=== PATIENT | female | born 1945 | race Caucasian/White ===

== ENCOUNTER 2021-11-01 08:15 | Outpatient (CLI) | payer MEDICARE, BC, SELFPAY ==
--- OUTSIDE RECORDS SUMMARY | 2021-11-01 08:18 | XMS_ITS | Encounter Summary ---
:1945 Author Organization [facility] Address [address] [place] [address] Care Team Providers Name Role Phone Unavailable Primary Care Provider Unavailable Reason for Referral Outpatient (Routine) - Closed Specialty Diagnoses / Procedures Referred By Contact Refer red To Contact Radiation Oncology Allison Campos [facility] M[facility] [address] [place] [address] Referral ID Status Reason Start Date Expiration Date Visits Requ ested Visits Authorized [id number] Closed 08/09/2020 08/09/2021 1 1 Scheduling Instructions Please schedule after [id number] 10 2020 Encounter Details Date Type Department Care Team Description 08/09/2020 Clinical Communication Department of [facility] in [place] [id number] [place] [id number] Social History Tobacco Use Types Packs/Day Years Used Date Smoking Tobacco: Never Assessed Sex Assigned at Date Recorded Not on file documented as of this encounter Miscellaneous Notes Telephone Encounter - Nargis Alamo - 08/10/2020 9:12 AM CDT Patient is scheduled to see Dr. Campos today. Telephone Encounter - Nargis Alamo - 08/09/2020 9:18 AM CDT Caller: Nelia Is there a valid authorization to speak with caller? Yes Primary Radiation Oncologist: Dr. Campos Reason for call: Nelia has been having chills and a hard time breathing. She called her medical oncologist and they asked her to call the radiation therapy clinic to see if its from radiation therapy. Please give her a call at Phone number: [phone] Is it okay to leave a voicemail on answering machine with test results? No Pharm[facility] (if medication related[facility] [place] - [place], [place] - [address] [facility] [address] [facility] [address] Nargis Alamo documented in this encounter Plan of Treatment Scheduled Referrals Name Type Priority Associated Diagnoses Order [facility] Radiation Oncology Outpatient Referral Routine Ex pected: office visit 08/10/2020, (clinic) Expires: 08/09/2021 documented as of this encounter Visit Diagnoses Not on filedocumented in this encounter
--- OUTSIDE RECORDS SUMMARY | 2021-11-01 08:18 | XMS_ITS | Clinical Summary ---
:1945 Author Organization [facility] [place] [address] Care Team Providers Name Role Phone Uvaldo Lin MD Primary Care Provider Roque Tolbert RN Unavailable Bre Boss RN, BSN Unavailable Jagdish Hicks MD Unavailable [phone] Joanna Mccray MD Unavailable Eileen Gross NP Unavailable Allergies Active Allergy Reactions Severity Noted Date Comments Povidone-Iodine Rash 08/03/2006 Propoxyphene Psychosis Medium 04/22/2006 Gabapentin Nausea Only, Dizziness 04/25/2015 Levofloxacin Myalgia 03/11/2017 Morphine Nausea And Vomiting Medium 04/22/2006 Nickel Rash Medium 04/22/2006 Soap Rash 07/22/2018 Sulfa (Sulfonamide Antibiotics) Rash Medium 7 Medications Medication Sig Dispensed Refills Start Date End Date Status aspirin (ECOTRIN) 81 Take 1 tablet by 0 12/09/2014 Active mg enteric coated mouth once daily tablet with a meal. CPAPIndications: GAGE CPAP machine for 1 unit 11 09/09/2018 Active (obstructive sleep home use at apnea) pressure:7.6 cm/H2O , Heated humidifier x 1, Humidifier chamber x 1, WalkerIndications: Walker with front 1 Device 0 09/20/2018 Active S/P lumbar fusion wheels for home use. Patient to use for 6 months. CPAPIndications: GAGE NEW replacement 1 Device 11 06/26/2019 Active (obstructive sleep CPAP machine for apnea) home use at pressure: 7.6 cm H2o , Water chamber x 1 q 6 mo, chin strap x 1 q 6 mo, nasal interface mask x 1 q 3 mo, with nasal pillow x 2 q mo, heated pap tubing x 1 q 3 mo, headgear x 1 q 6 mo, non disposable filter 1 q 6 mo, disposable filter x 2 q mo Length of Need: 99 months, Frequency of use: Daily furosemide (LASIX) 40 TAKE 1 TABLET 90 tablet 0 09/23/2019 Active mg tabletIndications: EVERY MORNING Edema, unspecified type metoprolol succinate TAKE 1 TABLET 90 tablet 0 09/23/2019 Active (TOPROL XL) 50 mg EVERY DAY sustained-release tabletIndications: Essential hypertension albuterol HFA Inhale 2 Puffs by 0 01/22/2020 Active (PRO-AIR; VENTOLIN; mouth every 4 PROVENTIL) 90 hours. mcg/actuation inhaler budesonide (PULMICORT INHALE 2MLS BY 0 05/26/2021 Active RESPULES) 0.25 mg/2 NEBULIZATION ROUTE mL neb suspension TWICE DAILY arformoteroL INHALE 2 0 05/22/2021 Active (BROVANA) 15 mcg/2 mL MILLILITERS BY nebu INHALATION ROUTE 2 TIMES EVERY DAY atorvastatin Take 1 Tablet (40 90 tablet. 3 08/16/2021 Active (LIPITOR) 40 mg mg) by mouth at tabletIndications: bedtime. Hyperlipidemia, unspecified hyperlipidemia type clopidogreL (PLAVIX) Take 1 Tablet (75 90 Tablet 3 08/17/2021 Active 75 mg mg) by mouth once tabletIndications: daily. CAD in [place] artery, Status post insertion of drug eluting coronary artery stent isosorbide Take 1 Tablet (30 90 Tablet 3 08/17/2021 Active mononitrate (IMDUR) mg) by mouth once 30 mg extended daily. release tablet 24 HourIndications: Cardiovascular symptoms, CAD in [place] artery Active Problems Problem Noted Date TONY (dyspnea on exertion) 10/19/2021 CAD in [place] artery 10/19/2021 Non-small cell cancer of right lung 07/26/2020 GAGE 08/20/2016 AHI-10; REM severe with hypoxemia 2016 Arthritis, lumbar spine 03/07/2015 Aortic stenosis 07/09/2013 Family hx of colon cancer 02/04/2012 Overview: mother Vitamin D deficiency 04/26/2009 Hypertension 09/14/2008 Vascular disease 02/06/2008 Glaucoma 09/24/2006 Coronary atherosclerosis of unspecified type of vessel , [place] or graft 08/16/2006 Overview: Angioplasty, no stent. Nuclear stress test normal 05/2011 Benign neoplasm of colon 08/16/2006 Hyperlipidemia 07/31/2006 Meniere's disease, unspecified 04/22/2006 Resolved Problems Problem Noted Date Resolved Date Heart murmur 06/02/2012 05/19/2017 Personal history of colonic polyps 02/04/201205/19 Family history of malignant neoplasm of gastrointestinal 05/201105/19/2017 tract Overview: Mother Obesity, unspecified 10/16/2011 05/19/2017 Bereavement 10/12/2010 10/15/2011 Vitamin D deficiency 04/26/2009 10/12/2010 Pre-diabetes 10/28/2008 10/12/2010 Elevated fasting glucose 09/13/2008 05/19/2017 Edema 04/19/2007 05/19/2017 Calculus of kidney 09/24/2006 05/19/2017 Overview: Kidney stones Pain in limb 08/19/2006 05/19/2017 DISCOMFORT (CHEST) 08/04/2006 08/07/2016 Encounter for long-term (current) use of other medications 0 07/31/2006 05/19/2017 Encounters Date Type Specialty Care Team Description 10/31/2021 Hospital Encounter Uvaldo Lin MD 10/31/2021 Telephone Sahil Castillo, [facility] Update (Post va lve conference disc ussion ) 10/31/2021 Travel 10/24/2021 Hospital Encounter Uvaldo Lin MD 10/24/2021 Travel 10/19/2021 Office Visit Helen Presley MD 10/19/2021 Office Visit Sahil Castillo, CV Valve Ne w (VALVE NEW: : LABS & CT T AVR PRIOR, NEEDS EK G, KCCQ12, 5M WALK , JLS//PCP: Uvaldo Bautista MD ) 10/19/2021 Orders Only Lab 10/19/2021 Hospital Encounter Alexey Cabrera MD Aort ic valve stenosis, etiology of car diac valve disease unspecified 10/19/2021 Hospital Encounter Uvaldo Lin MD 10/19/2021 Travel 10/12/2021 Hospital Encounter Uvaldo Lin MD 10/12/2021 Travel 10/10/2021 Hospital Encounter Uvaldo Lin MD 10/10/2021 Travel 10/05/2021 Hospital Encounter Uvaldo Lin MD 10/05/2021 Travel 10/03/2021 Hospital Encounter Uvaldo Lin MD 10/03/2021 Travel 09/26/2021 Hospital Encounter Uvaldo Lin MD 09/26/2021 Travel 09/21/2021 Hospital Encounter Uvalod Lin MD 09/21/2021 Travel 09/19/2021 Hospital Encounter Uvaldo Lin MD 09/19/2021 Travel 09/13/2021 Orders Only Brain Austin <No scans at tached> MD Jey 09/12/2021 Hospital Encounter Uvaldo Lin MD 09/12/2021 Travel 09/08/2021 Office Visit Brain Austin MD 09/07/2021 Hospital Encounter Uvaldo Lin MD 09/07/2021 Travel 09/06/2021 Office Visit Joanna Mccray Follow Up ([facility]) MD [place] 09/05/2021 Hospital Encounter Uvaldo Lin MD 09/05/2021 Travel 08/31/2021 Hospital Encounter Uvaldo Lin MD 08/31/2021 Travel 08/29/2021 Hospital Encounter Ev, CAD in na tive artery; MD Nadja Status post ins ertion of drug eluting coronary artery stent 08/28/2021 Hospital Encounter Joanna Mccray Non-smal l cell cancer of MD Moody right lung (HC) 08/28/2021 Travel 08/16/2021 - Hospital Encounter Ana Maria Ignram CAD in na tive artery (Primary Dx); 08/17/2021 MD Celso Cardiovascular symptoms; Hyperlipidemia, unspecified hyperlipidemia type; Status post ins ertion of drug eluting coronary artery stent Discharge Summary - Ana Maria Ingram MD - 08/17/2021 7:21 AM CDT Images from the original not e were not included. [facility] Discharge Summary August 17, 2021 [facility] [address], [address] [place] [address] Uvaldo Lin MD [address] [facility] [address] Lin, It was a pleasure seeing you r patient, Edenilson Valdovinos, at [facility] today. As you know, she is a 76-year-old woman with a history of CAD s/p PTCA to the RCA in 2006 as well as N SCLC s/p XRT who was referred for coronary angiogram due to dyspnea and an abnormal stress test. Coronary angiography was per formed 08/16/2021 via right radial artery demonstrating critical stenosis in the mid right coronary artery, which was treated with 2 Resolute Jose drug-eluting stents (3.5x30 mm, 3.5x30 mm). A second les ion in the obtuse marginal is severe and chronic in appearance; should Ms Valdovinos continue to have symptoms, it would certainly be amenable to elective PCI in the future. Daysi Valdovinos was admitted for observation following the procedure. Due to recurrence of her anginal equivalent, throat burning on exertion, a limited echocardiogram was obtained. This did not show any pericardial effusion or wall motion abnormality, but it does appear that her aortic stenosis is at least moderately severe (full report below). Prior to discharge, she was seen by members of our cardiac rehabilitation and nutrition teams. Outpatient cardiac rehab referral has been placed and encouraged. Ms Valdovinos was started on clopidogrel 75 mg daily, which she should take in addition to aspirin 81 mg daily ideally for 12 months barring development of a contraindication. Exam on the day of discharge : BP 139/69 Pulse 95 Temp 98.3 ??F (36.8 ??C) Resp 14 Ht 1.575 m (5' 2) Wt 83.7 kg (184 lb 8.4 oz) SpO2 95% BMI 33.75 kg/m?? General: Well appearing olde r woman in NAD Neck: Normal JVP. Normal car otid upstrokes. No bruits. Resp: Normal WOB. Diminished BS throughout, no focal consolidation Cardiac: PMI non displaced. Soft S1, loud S2 with narrow splitting. 1-2/6 ROLAND at the RUSB radiating across the precordium Vasc: Right radial access si te is nontender, no hematoma, minimal forearm ecchymosis. Distal pulses intact Abd: Obese Procedure report: PRESENTATION / INDICATIONS * USA (Dyspnea Anginal Equiv alent)- Highest CCS Class w/in past 2 wks - Class III * Stress Test Intermediate r isk/extent of ischemia * Coronary Artery Disease: P TCA mid RCA 08/07/2006 DIAGNOSTIC - CORONARY * Two vessel coronary diseas e with severe coronary artery calcification in a right dominant system Mild calcified distal left m ain Moderate proximal LCX 80% stenosis in the 1st Cherri inal Culprit 99% chronic, calcifi ed stenosis in the Mid RCA (Restenosis - Balloon Angioplasty from 08/07/2006) INTERVENTION Successful ischemia guided 1 .2mm x 12mm Balloon, 2.5mm x 12mm Balloon, 3.5mm x 20mm Balloon, and 3.5mm x 30mm Drug Eluting Stent to Mid RCA, post stenosis 0% Successful 3.5mm x 30mm Drug Eluting Stent to Proximal RCA guide related spiral dissection post stenosis 0% RECOMMENDATIONS & PLAN * Plavix for 1 year TTE, 08/17/2021: 1. Normal LV size, borderli ne wall thickness, normal global systolic function with an estimated EF of 65 - 70%. 2. The aortic valve is calc ified, borderline severe stenosis (peak velocity 3.2m/s, mean gradient 32mmHg, RODRIGO 0.9c,2, DI=0.26) and no regurgitation. 3. The mitral valve is scle rotic, mild mitral stenosis (mean gradient 4mmHg @ HR 82), mild mitral regurgitation. 4. No pericardial effusion. 5. Compared to the prior ho, the has progressed. Laboratory results were sign ificant for: Recent Labs 08/17/21 0717 08/16/21 0620 SODIUM 142 142 POTASSIUM 4.5 3.8 CHLORIDE 109 -- [id number] 26 -- BUN 14 17 CREATININE 0.85 0.86 CALCIUM 8.8 -- GLUCOSE 125 H -- Recent Labs 08/17/21 0717 08/16/21 0620 WBC 4.8 4.1 L RBC 4.44 4.74 HGB 12.8 13.8 HCT 38.3 40.7 MCV 86 86 MCH 28.8 29.1 MCHC 33.4 33.9 PLT 147 161 MPV 9.8 10.0 Discharge Diagnoses: 1. Coronary artery disease [facility] and complicated by restenosis, now s/p LIZA x[facility] (3.5x30 mm Resolute Jose x2) 2. Residual obtuse marginal disease to be medically managed for now, would be amenable to future PCI should patient's symptoms persist 3. Preserved LV EF 4. Borderline severe aortic stenosis Discharge Medications: Your Home Medicines START taking these medicines Instructions clopidogreL 75 mg tablet For diagnoses: CAD in [place] artery, Status post insertion of drug eluting coronary artery stent Commonly known as: PLAVIX Take 1 Tablet (75 mg) by mo ut once daily. CHANGE how you take these me dicines Instructions atorvastatin 40 mg tablet For diagnoses: Hyperlipidemi a, unspecified hyperlipidemia type What changed: how much to take how to take this when to take this additional instructions Commonly known as: LIPITOR Take 1 Tablet (40 mg) by mo [facility] at bedtime. isosorbide mononitrate 30 mg extended release tablet 24 Hour For diagnoses: Cardiovascula r symptoms, CAD in [place] artery What changed: how much to take additional instructions Commonly known as: IMDUR Take 1 Tablet (30 mg) by mo ut once daily. CONTINUE taking these medici rolanda Instructions albuterol HFA 90 mcg/actuati on inhaler Commonly known as: PRO-AIR; VENTOLIN; PROVENTIL Inhale 2 Puffs by mouth michelle ry 4 hours. arformoteroL 15 mcg/2 mL Neb u Commonly known as: BROVANA INHALE 2 MILLILITERS BY INH ALATION ROUTE 2 TIMES EVERY DAY aspirin 81 mg enteric coated tablet Commonly known as: ECOTRIN Take 1 tablet by mouth once daily with a meal. budesonide 0.25 mg/2 mL neb suspension Commonly known as: PULMICORT RESPULES INHALE 2MLS BY NEBULIZATION ROUTE TWICE DAILY * CPAP For diagnoses: GAGE 08/20/2016 AHI-10; REM severe with hypoxemia CPAP machine for home use a t pressure:7.6 cm/H2O , Heated humidifier x 1, Humidifier chamber x 1, Doctor's comments: Nasal mas k with pillow cushion x 1, standard tubing x 1, Headgear x 1, Filters: Disposable x 1pk & Reusable x 1pk, Length of Need: 99 months, Frequency of use: Daily * CPAP For diagnoses: GAGE 08/20/2016 AHI-10; REM severe with hypoxemia NEW replacement CPAP geri e for home use at pressure: 7.6 cm H2o , Water chamber x 1 q 6 mo, chin strap x 1 q 6 mo, nasal interface mask x 1 q 3 mo, with nasal pillow x 2 q mo, heated pap tubing x 1 q 3 mo, headgear x 1 q 6 mo, non disposable filter 1 q 6 mo, disposable filter x 2 q mo Length of Need: 99 months, Frequency of use: Daily furosemide 40 mg tablet For diagnoses: Edema, unspec ified type Commonly known as: LASIX TAKE 1 TABLET EVERY MORNING metoprolol succinate 50 mg s ustained-release tablet For diagnoses: Essential hyp ertension Commonly known as: TOPROL XL TAKE 1 TABLET EVERY DAY Walker For diagnoses: S/P lumbar fu carin Walker with front wheels fo r home use. Patient to use for 6 months. * This list has 2 medicatio n(s) that are the same as other medications prescribed for you. Read the directions carefully, and ask your doctor or other care provider to review them with you. Where to get your medicines [facility], [facility] [address] [facility] [address] [facility] [address] atorvastatin 40 mg tablet clopidogreL 75 mg tablet isosorbide mononitrate 30 mg extended release tablet 24 Hour We would recommend follow up with you in the next 7 days with a repeat basic metabolic panel and access site check. We would like to see Edenilson Daysi Valdovinos in 2-4 weeks. We recommend medical management of her OM disease given the heavily calcified distal left main and moderate tortuous proximal LCX disease which would pose complex access challen ges for PCI. It may be more favorable consider CABG with surgical AVR in 6 months to one year. I will see her in our [facility] in 6 months with a pre-clinic echocardiogram. Thank you for allowing us to participate in the care of your nice patient. If you have any questions, please don't hesitate to call. Sincerely, Nadja Frazier MD Interventional Cardiology [facility] [phone] Ana Maria Ingram MD, FACC, FS KEYUR Interventional Cardiology [facility] [phone] 08/16/2021 Travel 08/14/2021 Nurse/Clinic Staff Only Test ing (COVID-19/) 08/14/2021 Travel 08/11/2021 Telephone Ca Marsh RN Angiog jay Teach 08/07/2021 Telephone Brain Austin MD Re fill Request 08/04/2021 Office Visit Brain Austin MD 08/04/2021 Travel from Last 3 Months Immunizations Name Administration Dates Next Due AMB Influenza, IIV3 (Age >=3 years) 12/30/2010 Preserve Free (Flu Clinic Only) AMB Influenza, IIV3 (Age >=3 11/28/2011, 12/23/2009 years)(Flu Clinic Only) COVID-19 vaccine ([employer] 05/17/2020, 04/26/2020 30mcg/0.3mL) PF, MDV Influenza Virus, Unspecified 12/13/1998, 12/31/1997 Influenza, High-dose Inactivated 05/12/2019, 12/09/2018, 05/2015, 12/20/2014, 01/27/2014 Influenza, High-dose Quadrivalent 12/18/2019 Inactivated Influenza, IIV3 (Age >=3 years) 12/17/2012, 12/03/2008, 12/03, 12/02/2005 Influenza, Inactivated AIIV4 (Age 65+ 12/21/2020 Years) Preserv Free Influenza, Inactivated IIV3 (Age 65+ 11/15/2017, 11/12/2016 Years) Preserv Free Pneumococcal Poly,23-Valent 03/01/2016, 12/28/1994 (Pneumovax) Pneumococcal conj 13-Valent (Prevnar 02/28/2015 13) Tdap 08/16/2006 Zoster (Shingrix-RZV, recombinant) 06/12/2019, 01/16/2019 Zoster (Zostavax-ZVL, live) 10/10/2009 Family History Medical History Relation Name Comments Heart Disease Father Lung disease Father Stroke Father COPD Mother Cancer-colon Mother primary /liver n ow and kidney,lung and adrenal Cancer-breast No Family History Relation Name Status Comments Father Mother Social History Tobacco Use Types Packs/Day Years Used Date Former Smoker Cigarettes 1.5 47 Quit: 11/03/19 05 Smokeless Tobacco: Never Used Tobacco Cessation: Counseling Given: Yes Comments: Per patient report on Alcohol Use Standard Drinks/Week Comments Not Currently 0 (1 standard drink = 0.6 oz pure alcoho l) rarely Sex Assigned at Date Recorded Not on file COVID-19 Exposure Response Date Recorded In the last 10 days, have you been in contact with No / Unsu re 10/31/2021 9:23 AM CDT someone who was confirmed or suspected to have Coronavirus/COVID-19? Obstetrics History Last Filed Vital Signs Vital Sign Reading Time Taken Comments Blood Pressure 171/77 10/19/2021 3:48 PM CDT Pulse 74 10/19/2021 3:48 PM CDT Temperature 36.8 ??C (98.2 ??F) 09/06/2021 12:52 PM CDT Respiratory Rate 18 09/06/2021 12:52 PM CDT Oxygen Saturation 99% 10/19/2021 3:48 PM CDT Inhaled Oxygen Concentration - - Weight 81.9 kg (180 lb 8 oz) 10/19/2021 3:48 PM CDT Height 157.5 cm (5' 2) 10/19/2021 3:48 PM CDT Body Mass Index 33.01 10/19/2021 3:48 PM CDT Plan of Treatment Upcoming Encounters Date Type Specialty Care Team Description 11/02/2021 Appointment 11/07/2021 Appointment 11/09/2021 Appointment 11/14/2021 Appointment 11/16/2021 Appointment 11/21/2021 Appointment 11/23/2021 Appointment 11/28/2021 Appointment 11/30/2021 Appointment 12/05/2021 Appointment 12/05/2021 Appointment 12/07/2021 Appointment 12/07/2021 Office Visit Eileen Gross, MECHANICAL SPREADER OPERATOR [address] [place], [place] [address] (Wo rk) 12/12/2021 Appointment 12/14/2021 Appointment 12/19/2021 Appointment 12/21/2021 Appointment 12/26/2021 Appointment 12/28/2021 Appointment 01/02/2022 Appointment 01/04/2022 Appointment 01/09/2022 Appointment 01/11/2022 Appointment 01/16/2022 Appointment 01/18/2022 Appointment 01/23/2022 Appointment 01/25/2022 Appointment 01/30/2022 Appointment 02/01/2022 Appointment 02/06/2022 Appointment 02/08/2022 Appointment 02/13/2022 Appointment 02/15/2022 Appointment Health Maintenance Due Date Last Done Comments Tetanus booster 08/16/2016 08/16/2006 Mammogram for age 45-75 05/13/2018 05/13/2017, 03/13/2016, 03/09/2015, Additional history exists Medicare Wellness for age 65+ 05/13/2018 05/13/2017, 2015, 02/28/2015, Additional history exists COVID-19 vaccine series (4 - 01/10/2021 10/18/2020, 021, Booster for Pfizer series) 04/26/2020 Influenza for age 65+ 11/02/2021 12/21/2020, 12/18/2019, 05/12/2019, Additional history exists Colonoscopy through age 75 06/06/2022 06/06/2017, 2, 02/04/2012, Additional history exists Low Dose CT (for lung CA) age 0608/28/2022 08/28/2021, 2021, 50-80 01/09/2021, Additional history exists Depression screening for age 12+ 08/31/2022 08/31/2021, , 05/25/2021, Additional history exists BMI (ht and wt on same day) for 10/19/2022 10/19/2021, 03/04, age 18+ 07/21/2018, Additional history exists Lipids for age 45-75 03/10/2023 03/10/2018, 05/13/2017, 03/13/2016, Additional history exists Tdap Completed 08/16/2006 Hepatitis C screening for age Completed 01/04/2014 18-79 Pneumococcal series for age 65+ Completed 03/01/2016, 02/02, 02/28/2015, Additional history exists Zoster (shingles) series for age Completed 06/12/2019, , 50+ 10/10/2009 DEXA/DXA scan for age 65+ Completed 09/30/2019, 06/02/2012 Medical Devices Implanted Type Area Subgrade Roller Operator Device Shelf Model / Identifier Expiration Date Ser ial / Lot Bernabe Lmbr 65x5.5mm Vitality Cvd Titnm - [id number] Spine [employer] [id number] / Implanted: Qty: 2 on 09/17/2018 by German Nino MD at [facility] Spine / Procedures Procedure Name Priority Date/Time Associated Diagnosis Comme nts SCAN-CARDIAC 10/24/2021 12:00 Results for this REHABILITATION AM CDT procedure are in the results section. EKG 12 LEAD Routine 10/19/2021 3:51 Nonrheumatic aortic Resul ts for this PM CDT valve stenosis procedure are in the results section. CTA CHEST ABD PELVIS Routine 10/19/2021 2:59 Aortic valve Resu lts for this TAVR - DUAL READ PM CDT stenosis, etiology of pr ocedure are in cardiac valve disease the re sults unspecified section. HEMATOCRIT/HGB,ISTAT Routine 10/19/2021 2:52 Resu lts for this PM CDT procedure are i n the results section. CREATININE,ISTAT Routine 10/19/2021 2:41 Results for this PM CDT procedure are i n the results section. EXCEL EXPERT Routine 10/19/2021 2:33 Aortic valve Results for this QUESTION TEST PM CDT stenosis, etiology of proce dure are in cardiac valve disease the re sults unspecified section. TYPE & SCREEN Routine 10/19/2021 2:33 Aortic valve Results for this PM CDT stenosis, etiology of proced ure are in cardiac valve disease the re sults unspecified section. BASIC METABOLIC PANEL Routine 10/19/2021 2:33 Aortic valve Res ults for this PM CDT stenosis, etiology of proced ure are in cardiac valve disease the re sults unspecified section. CBC W PLT NO DIFF Routine 10/19/2021 2:33 Aortic valve Results for this PM CDT stenosis, etiology of proced ure are in cardiac valve disease the re sults unspecified section. SCAN-CARDIAC 10/19/2021 12:00 Results for this REHABILITATION AM CDT procedure are in the results section. SCAN-CARDIAC 10/12/2021 12:00 Results for this REHABILITATION AM CDT procedure are in the results section. SCAN-CARDIAC 10/10/2021 12:00 Results for this REHABILITATION AM CDT procedure are in the results section. SCAN-CARDIAC 10/05/2021 12:00 Results for this REHABILITATION AM CDT procedure are in the results section. SCAN-CARDIAC 10/03/2021 12:00 Results for this REHABILITATION AM CDT procedure are in the results section. SCAN-CARDIAC 09/26/2021 12:00 Results for this REHABILITATION AM CDT procedure are in the results section. SCAN-CARDIAC 09/21/2021 12:00 Results for this REHABILITATION AM CDT procedure are in the results section. SCAN-CARDIAC 09/19/2021 12:00 Results for this REHABILITATION AM CDT procedure are in the results section. SCAN-CARDIAC 09/12/2021 12:00 Results for this REHABILITATION AM CDT procedure are in the results section. SCAN-CARDIAC 09/08/2021 12:00 Results for this REHABILITATION AM CDT procedure are in the results section. SCAN-CARDIAC 09/05/2021 12:00 Results for this REHABILITATION AM CDT procedure are in the results section. SCAN-CARDIAC 08/29/2021 12:00 Results for this REHABILITATION AM CDT procedure are in the results section. CT CHEST WO Routine 08/28/2021 9:38 Non-small cell cancer Res ults for this AM CDT of right lung (HC) procedure are in the results section. ECHO COMPLETE WO ANA 08/17/2021 4:17 Results for this CONTRAST PM CDT procedure are i n the results section. SCAN-CARDIAC STRIP 08/17/2021 7:27 AM CDT NUCLEATED RED BLOOD Timed 08/17/2021 7:17 Resul ts for this CELLS PERCENT OF AM CDT procedur e are in BLOOD LEUKOCYTES the results section. MAGNESIUM Early AM 08/17/2021 7:17 Results for this AM CDT procedure are i n the results section. BASIC METABOLIC PANEL Early AM 08/17/2021 7:17 Res ults for this AM CDT procedure are i n the results section. CBC W PLT NO DIFF Early AM 08/17/2021 7:17 Results for this AM CDT procedure are i n the results section. SCAN-CARDIAC STRIP 08/17/2021 1:11 AM CDT EKG 12 LEAD ANA 08/16/2021 2:27 Results for this PM CDT procedure are i n the results section. SCAN-CARDIAC STRIP 08/16/2021 11:56 AM CDT HCHG ACTIVATED Timed 08/16/2021 9:59 Results fo r this CLOTTING TM CV AM CDT procedure are in the results section. HCHG ACTIVATED Timed 08/16/2021 8:56 Results fo r this CLOTTING TM CV AM CDT procedure are in the results section. CVL CORONARY ANGIOGRAM Routine 08/16/2021 8:28 Cardiovascular Results for this POSS PCI AM CDT symptoms procedure are i n the results section. NUCLEATED RED BLOOD STAT 08/16/2021 6:20 Resul ts for this CELLS PERCENT OF AM CDT procedur e are in BLOOD LEUKOCYTES the results section. CREATININE STAT 08/16/2021 6:20 Results for this AM CDT procedure are i n the results section. BUN STAT 08/16/2021 6:20 Results for this AM CDT procedure are i n the results section. POTASSIUM STAT 08/16/2021 6:20 Results for this AM CDT procedure are i n the results section. SODIUM STAT 08/16/2021 6:20 Results for this AM CDT procedure are i n the results section. CBC W PLT NO DIFF STAT 08/16/2021 6:20 Results for this AM CDT procedure are i n the results section. EKG 12 LEAD ANA 08/16/2021 6:08 Results for this AM CDT procedure are i n the results section. SCAN-OPERATIVE/PROCEDU 08/16/2021 12:00 R esults for this RE REPORT AM CDT procedure are i n the results section. COVID 19 Routine 08/14/2021 9:30 Encounter for Results for this AM CDT preoperative procedure are i n screening laboratory the res ults testing for COVID-19 section . virus COVID 19 COLLECTION Routine 08/14/2021 9:30 Encounter for Resu lts for this AM CDT preoperative procedure are i n screening laboratory the res ults testing for COVID-19 section . virus from Last 3 Months Results SCAN-CARDIAC REHABILITATION (10/24/2021 12:00 AM CDT)Only the most recent of13 resultswithin the time period is included. Narrative 10/24/2021 12:00 AM CDT This result has an attachment that is no t available. Ordered by an unspecified provider. Other Clinical Staff OTHER EKG 12 LEAD (10/19/2021 3:51 PM CDT)Only the most recent of3 resultswithin the time period is included. Component Value Ref Range Test Analysis Performed Pathologis t Method Time At Signature Interpretation Normal sinus rhythm Nonspecific ST abnormality Abnormal ECG Ventricular Rate 71 BPM Atrial Rate 71 BPM P-R Interval 172 ms QRS Duration 74 ms QT 428 ms QTc 465 ms P [place] 64 degrees R [place] 13 degrees T [place] 7 degrees Specimen Anatomical Collection Method Collection Time Receive d Time (Source) Location / / Volume Laterality 10/19/2021 3:51 PM CDT 10:38 AM CDT Sahil Castillo MD EKG ORD CTA CHEST ABD PELVIS TAVR - DUAL READ (10/19/2021 2:59 PM CDT) Anatomical Region Laterality Modality CHEST, Abdomen, Pelvis Computed Tomograp hy Specimen (Source) Anatomical Location Collection Method / Collectio n Time Received Time / Laterality Volume Impressions 10/25/2021 1:11 PM CDT 1. Trileaflet calcified aortic valve (no ncoronary leaflet is only leaflet calcified). Calcium score 1434. 2. Annular area of 396 mm2, which repres ents 2.5% oversizing of a #23 mm Arias Edgar 3 prosthesis versus a #26 mm Evolut prosthesis. 3. Coronary anatomy demonstrates patent right coronary artery stents, moderate left circumflex and left anteri or descending disease, with severe stenosis of the obtuse marginal branch. 4. Normal ECV. 5. Left transfemoral access preferred du e to right common iliac artery narrowing. Of note, there is posterior c alcification of the common femoral on the left. In addition, the distal abd ominal aorta narrows significantly and is heavily calcified to a diameter o f 8.1 x 8.1 mm. Left common carotid would be an alternative site if needed. 6. Please see the separate dictated note for additional CT findings. Bentley Avina MD TK/car For Patients: As a result of the ntury Cures Act, medical imaging exams and procedure reports are released immediately into your electronic medical record. ??You may view this repo rt before your referring provider. ?? If you have questions, please contact [facility] care provider. OVER-READ ??OVER-READ ??OVER-READ OVER-READ: DETAILED RADIOLOGY EXTRACARDI AC OVER-READ OF CARDIAC CT, 10/19/2021 TECHNIQUE: ??Please refer to separately dictated report for details of technique. ??97 cc Omnipaque-350 intrave nous contrast. ?? This exam is being performed in conjunct ion with the services provided by the [facility] ([facility]). CLINICAL HISTORY: ??Aortic stenosis. Car diac over-read. FINDINGS: Chest: Mixed solid and ground-glass opac ity extending from the right hilum to the pleural surface in the upper lobe , unchanged from prior examination better evaluated on prior PET of 022 consistent with posttreatment changes and mass. Additional stable-appe aring ground-glass opacities and nodules are seen bilaterally. Abdomen/Pelvis: Liver: Unremarkable. Gallbladder: Surgically absent. Spleen: Unremarkable. Adrenal glands: Unremarkable. Kidneys: Enhance measured with hydroneph rosis. Retroaortic left renal vein. Pancreas: Unremarkable. Lymph nodes: No retroperitoneal, mesente cadence, inguinal, or pelvic adenopathy by CT criteria. Bowel: Moderate hiatal hernia. No bowel obstruction. Urinary bladder: Limited evaluation due to underdistention. No gross pathology. Reproductive structures: Status post hys terectomy. No abdominal/pelvis ascites or free intr aperitoneal air. Musculoskeletal: Posterior fusion hardwa re at L4-S1. Visualized osseous structures demonstrate diffuse degenerat malcolm changes. IMPRESSION: 1. No acute nonvascular pathology in the chest, abdomen, and pelvis. 2. Mixed solid and ground-glass right up per lobe opacity extending from the hilum to the pleural surface, unchan ged from prior examinations and better evaluated on PET-CT of 05/26/2021 consistent with posttreatment changes and mass. Additional stable appe aring bilateral ground-glass nodular opacities which are also grossly stable to prior exam. 3. Please refer to separately dictated r eport for evaluation of cardiovascular structures. Please note that [facility] use dose modulation, iterative reconstruction, and/or weight- based dosing when appropriate to reduce radiation dose to as low as reaso nably achievable. Dictated by Jason Hope MD @ 10/20/2021 4: 35:35 PM Signed by: Jason Hope MD @10/20/2021 4:35 :35 PM (Electronic Signature) Narrative 10/25/2021 1:11 PM CDT Results are automatically released to your [employer]) account once available, in compliance with [facility] regulations. ??This means that you may see your results before your pro vider has had a chance to review them. ??Please allow 2-3 business days f or your provider to comment on the results. STUDY: CT CHEST, ABDOMEN AND PELVIS, 10/02 INDICATION: Aortic stenosis. STUDY PARAMETERS: Contrast used: 97 cc O mnipaque 350; scan protocol sequential x2, spiral, FLASH; DLP 1338; kVp 100; mA 923; slice thickness 0.6 mm; Siemens SOMATOM Force [address] SCAN QUALITY: Technical quality is adequ ate for interpretation. FINDINGS: MEASUREMENTS FOR POSSIBLE TAVR Aortic valve: The aortic valve is trilea flet with a calcium score of 1434. Calcification is exclusively of the nonc oronary cusp. ?? Annular dimension/area Area: 396 mm?? Perimeter: 72 mm Diameter: 20 x 25 mm Mean: 22.5 mm Maximum ascending aortic size (40 mm abo ve the annulus) 34 x 33 mm LVOT calcification (0-4+) ? None Sinotubular junction diameter 27 x 28 mm Height to the coronary ostia Annulus to the left coronary artery: 13 mm Annulus to the right coronary artery: 16 mm Sinuses of Valsalva height Left coronary sinus: 19 mm Right coronary sinus: 18 mm Noncoronary sinus: 19 mm Sinuses of Valsalva diameter Left arias ry sinus: 30 mm Right coronary sinus: 28 mm Noncoronary coronary sinus: 21 mm ILIO-FEMORAL SYSTEM RIGHT LEFT Common iliac artery 4.6 x 5.2 mm 7.1 x 7 .4 mm External iliac artery 7.3 x 7.5 mm 6.6 x 7 mm Common femoral artery 6.9 x 7 mm 6 x 7 m m with posterior calcification noted IDEAL RN ADVANCED ANGLE: AZIZA 8, cranial 1 f or a ??Edgar device; DIXON 11, caudal 15 for a self-expanding prosthesi s. AORTIC ARCH: Type 2 aortic arch with int act brachiocephalic, left common carotid, and left subclavian. DESCENDING THORACIC AORTA: Moderate athe rosclerotic changes. ABDOMINAL AORTA: No evidence for aneurys m. CELIAC ARTERY: Celiac axis patent. SUPERIOR MESENTERIC ARTERY: Patent. RENAL ARTERIES: Patent. There is severe calcification with taper ing of the distal abdominal aorta with a minimum diameter of 8.1 x 8.1 mm. CORONARY ANATOMY: Right dominant. LEFT MAIN: Mild stenosis with distal mariano cification. LEFT ANTERIOR DESCENDING: Heavily calcif ied with moderate proximal stenosis. CIRCUMFLEX: Moderate proximal stenosis. FIRST OBTUSE MARGINAL: Severe proximal s tenosis. RIGHT CORONARY ARTERY: Stented. The sten ts appear patent. ADDITIONAL CONSIDERATIONS: Calculated EC V normal at 23%. LV-AO angle [address]ey Cab[address] MD [address] HEMATOCRIT/HGB,ISTAT (10/19/2021 2:52 PM CDT) P athologist Signature HEMATOCRIT, 44.0 33.0 - 10/19/2021 [facility] POCT 51.0 % 3:01 PM CDT [facility] HEMOGLOBIN, 15.0 12.0 - 10/19/2021 [facility] POCT 16.0 g/dL 3:01 PM CDT LAB[facility]ATORY[facility] LABORATORY Specimen Anatomical Collection Method Collection Time Receive d Time (Source) Location / / Volume Laterality Blood BLOOD SPECIMEN / 10/19/2021 2:52 PM 10/19 3:01 Unknown CDT PM CDT Doctor Unknown CHEMISTRY Performing Organization Address City/State/ZIP Code Phon e Number [facility] [address] [place] [address] LABORATORY-CENTRAL 1999 LABORATORY (ABNORMAL) CREATININE,ISTAT (10/19/2021 2:41 PM CDT) athologist Signature CREATININE, 0.90 0.57 - 10/19/2021 [facility] POCT 1.11 mg/dL 3:01 PM CDT [facility]AT[facility] LAB[facility] Comment: Caution: Patients taking Hydrox yurea have falsely increased iStat Creatinine results. Verify creatinine results order ing a Creatinine (07567.2) eGFR 67 (L) >90 mL/min/1.73m2 10/19/2021 3:01 PM CDT [email or web address] LABORATORY-CENTRAL L ABORATORY Comment: As of 2021, eGFR is calcu lated by the CKD-EPI creatinine equation without race adjustment. eGFR can be inf luenced by muscle mass, exercise, and diet. The reported eGFR is an estimation only and is only applicable if the renal function is stable. Specimen Anatomical Collection Method Collection Time Receive d Time (Source) Location / / Volume Laterality Blood BLOOD SPECIMEN / 10/19/2021 2:41 PM 10/19 3:01 Unknown CDT PM CDT Doctor Unknown CHEMISTRY Performing Organization Address City/State/ZIP Code Phon e Number [facility] [address] [place] [phone] LABORATORY-[place] 2000 LABORATORY EXCEL EXPERT QUESTION TEST (10/19/2021 2:33 PM CDT) athologist Signature QABT Question Yes 10/19/2021 [email or web address] 2:54 PM CDT LAB-CENTRAL LAB BLOOD BANK Specimen Anatomical Collection Method / Collection Time Recei ashish Time (Source) Location / Volume Laterality Blood BLOOD SPECIMEN / Venipuncture / 10/19/2021 2:33 2021 2:42 Unknown Unknown PM CDT PM CDT Alexey Cabrera MD BLOOD BANK Performing Organization Address City/State/ZIP Code Phon e Number [facility] LAB-CENTRAL LAB [address] [place] [phone] BLOOD BANK TYPE & SCREEN (10/19/2021 2:33 PM CDT) [facility] gist Method Time Signature ABORH O Rh 10/19/2021 [facility] Positive 3:37 PM CDT LAB-CENTRAL LAB BLOOD BANK ANTIBODY Negative Negative 10/19/2021 [facility] SCREEN 3:37 PM CDT LAB-CENTRAL LAB BLOOD BANK SPECIMEN 10/22/21 10/19/2021 [facility] EXPIRATION 23:59 3:37 PM CDT LAB-CENTRAL DATE/TIME LAB BLOOD BANK Specimen Anatomical Collection Method / Collection Time Recei ashish Time (Source) Location / Volume Laterality Blood BLOOD SPECIMEN / Venipuncture / 10/19/2021 2:33 2021 2:42 Unknown Unknown PM CDT PM CDT Alexey Cabrera MD BLOOD BANK Performing Organization Address City/State/ZIP Code Phon e Number [facility] LAB-CENTRAL LAB [address] [place], [place] [address] BLOOD BANK CBC W PLT NO DIFF (10/19/2021 2:33 PM CDT)Only the most recent of3 resultswithin the time period is included. athologist Signature WHITE BLOOD 4.9 4.5 - 11.0 10/19/2021 [facility] COUNT thou/cu mm 2:57 PM CDT LAB[facility]ATORY[facility] LABORATORY RED BLOOD COUNT 5.16 4.00 - 10/19/2021 [facility] 5.20 2:57 PM CDT LABORATORY-CENT mil/cu mm RAL LABORATORY HEMOGLOBIN 14.4 12.0 - 10/19/2021 [facility] 16.0 g/dL 2:57 PM CDT LAB[facility]AT[facility] LABORATORY HEMATOCRIT 44.3 33.0 - 10/19/2021 [facility] 51.0 % 2:57 PM CDT LAB[facility] LABORATORY MCV 86 80 - 100 10/19/2021 [facility] fL 2:57 PM CDT [facility] LABORATORY MCH 27.9 26.0 - 10/19/2021 [facility] 34.0 pg 2:57 PM CDT [facility] LABORATORY MCHC 32.5 32.0 - 10/19/2021 [facility] 36.0 g/dL 2:57 PM CDT LAB[facility]AT[facility] LABORATORY RDW 12.7 11.5 - 10/19/2021 [facility] 15.5 % 2:57 PM CDT LAB[facility] LABORATORY PLATELET COUNT 203 140 - 440 10/19/2021 [facility] thou/cu mm 2:57 PM CDT LABORATORY-CENT RAL LABORATORY MPV 10.0 6.5 - 11.0 10/19/2021 [facility] fL 2:57 PM CDT LABORATORY-CENT RAL LABORATORY NRBC 0.0 % 10/19/2021 [facility] 2:57 PM CDT LABORATORY-CENT RAL LABORATORY ABS NRBC 0.0 thou /cu 10/19/2021 [facility] mm 2:57 PM CDT LABORATORY-CENT RAL LABORATORY Specimen Anatomical Collection Method / Collection Time Recei ashish Time (Source) Location / Volume Laterality Blood BLOOD SPECIMEN / Venipuncture / 10/19/2021 2:33 2021 2:42 Unknown Unknown PM CDT PM CDT Alexey Cabrera MD HEMATOLOGY Performing Organization Address City/State/ZIP Code Phon e Number [facility] [address] [place] [address] LABORATORY-CENTRAL 2000 LABORATORY (ABNORMAL) BASIC METABOLIC PANEL (10/19/2021 2:33 PM CDT)Only the most recent of 2 resultswithin the time period is included. Analysis Performed At Path logist Time Signature SODIUM 142 135 - 145 10/19/2021 [facility] mmol/L 3:09 PM CDT LABORATORY-Y[facility] TRAL LABORATORY POTASSIUM 3.7 3.5 - 5.0 10/19/2021 [facility] mmol/L 3:09 PM CDT LABORATORY-[facility] TRAL LABORATORY CHLORIDE 106 98 - 110 10/19/2021 [facility] mmol/L 3:09 PM CDT LABORATORY-[facility] TRAL LABORATORY CO2,TOTAL 29 21 - 31 10/19/2021 [facility] mmol/L 3:09 PM CDT LABORATORY-[facility] TRAL LABORATORY ANION GAP 7 5 - 18 10/19/2021 [facility] 3:09 PM CDT LABORATORY-[facility] TRAL LABORATORY GLUCOSE 105 (H) 65 - 100 10/19/2021 [facility] mg/dL 3:09 PM CDT LABORATORY-[facility] LABORATORY CALCIUM 9.5 8.5 - 10.5 10/19/2021 [facility] mg/dL 3:09 PM CDT LABORATORY-[facility] TRAL LABORATORY BUN 21 8 - 25 10/19/2021 [facility] mg/dL 3:09 PM CDT LABORATORY-[facility] LABORATORY CREATININE 0.96 0.57 - 10/19/2021 [facility] 1.11 mg/dL 3:09 PM CDT LABORATORY-[facility] LABORATORY BUN/CREAT RATIO 22 (H) 10 - 20 10/19/2021 [facility] 3:09 PM CDT LABORATORY-[facility] TRAL LABORATORY eGFR 62 (L) >90 10/19/2021 [facility] mL/min/1.7 3:09 PM CDT LABORATORY-[facility] 3m2 TRAL LABORATORY Comment: As of 2021, eGFR is calcu lated by the CKD-EPI creatinine equation without race adjustment. eGFR can be inf luenced by muscle mass, exercise, and diet. The reported eGFR is an estimation only and is only applicable if the renal function is stable. Specimen Anatomical Collection Method / Collection Time Recei ashish Time (Source) Location / Volume Laterality Blood BLOOD SPECIMEN / Venipuncture / 10/19/2021 2:33 2021 2:42 Unknown Unknown PM CDT PM CDT Alexey Cabrera MD CHEMISTRY Performing Organization Address City/State/ZIP Code Phon e Number [facility] [address] [place] [address] LABORATORY-CENTRAL [address] CHEST WO (08/28/2021 9:38 AM CDT) Anatomical Region Laterality Modality CHEST, THORAX, HEART Computed Tomography Specimen (Source) Anatomical Collection Method Collection Time Re ceived Time Location / / Volume Laterality 08/28/2021 11:40 AM CDT Impressions 08/28/2021 11:40 AM CDT 1. No evidence interval metastatic disease or change from the PET-CT of 05/26/[address] of 04/14/2021. 2. Mass and post treatment changes in th e right upper lobe are stable in configuration. Bilateral ground-glass densities and small lung nodules are unchanged. 3. No interval developing pulmonary proc ess, pleural effusion or lymphadenopathy. Please note that all CT scans at this [facility] use dose modulation, iterative reconstruction, and/or weight-based dosing when appropriate to reduce radiation dose to as low as reasonably achievable. Dictated by Noemi Jones MD @ 08/28/2021 11:40 :59 AM (Electronically Signed) Narrative 08/28/2021 11:40 AM CDT For Patients: ??As a result of the Cures Act, medical imaging exams and procedure report s are released immediately into your [facility]. ??You may view this report before your referring provider. ??If you have questions, please contact your health care provider. INDICATION: Non-small cell right lung cancer TECHNIQUE: CT chest without contrast. COMPARISON: PET-CT 05/26/2021. CT chest 04/14/2021 a nd 01/09/2021. FINDINGS: Cardiovascular structures: Heart size is normal. Thoracic aorta and main pulmonary artery are normal in caliber. ??Atherosclerotic disease similar to the previous. Mediastinum and milana: No sign of mass or adenopathy. Calcified lymph node mid mediastinum. Hiatus hernia. Thyroid normal. Lungs: Mixed solid and ground-glass dens ity extending from the right hilum to the pleural surface of the right upper lobe is unchanged in size and configuration. Scattered ground-glass densities with mi nimal nodularity unchanged. Linear scarr ing adjacent to the inferior left major fissure and calcified granuloma in the lingula unchanged. Pleura and pericardium: No effusions. Chest wall and axilla: No mass or adenop athy. Bones: No lytic or osteoblastic lesions. Upper abdomen: Cholecystectomy. Otherwis e unremarkable. Procedure Note Anil Jones MD - 08/28/2021F ormatting of this note might be different from the original. For Patients: As a result of the Cures Act, medical imaging exams and procedure reports are released immediately into your electronic medical record. You may view this report before your referring provider. If you have questions, please contact yo health care provider. INDICATION: Non-small cell right lung cancer TECHNIQUE: CT chest without contrast. COMPARISON: PET-CT 05/26/2021. CT chest 04/14/2021 a nd 01/09/2021. FINDINGS: Cardiovascular structures: Heart size is normal. Thoracic aorta and main pulmonary artery are normal in caliber. Atherosclerotic disease similar to the previous. Mediastinum and milana: No sign of mass or adenopathy. Calcified lymph node mid mediastinum. Hiatus hernia. Thyroid normal. Lungs: Mixed solid and ground-glass dens ity extending from the right hilum to the pleural surface of the right upper lobe is unchanged in size and configuration. Scattered ground-glass densities with minimal nodularity unchanged. Linear scarring adjacent to t he inferior left major fissure and calcified granuloma in the lingula unchanged. Pleura and pericardium: No effusions. Chest wall and axilla: No mass or adenop athy. Bones: No lytic or osteoblastic lesions. Upper abdomen: Cholecystectomy. Otherwis e unremarkable. IMPRESSION: 1. No evidence interval metastatic disea se or change from the PET-CT of 05/26/[address] of 04/14/2021. 2. Mass and post treatment changes in th e right upper lobe are stable in configuration. Bilateral ground-glass densities and small lung nodules are unchanged. 3. No interval developing pulmonary proc ess, pleural effusion or lymphadenopathy. Please note that all CT scans at this [facility] use dose modulation, iterative reconstruction, and/or weight-based dosing when appropriate to reduce radiation dose to as low as reasonably achievable. Dictated by Noemi Jones MD @ 08/28/2021 11:40 :59 AM (Electronically Signed) Joanna Mccray MD CT ECHO COMPLETE WO CONTRAST (08/17/2021 4:17 PM CDT) P athologist Signature AORTIC VALVE 32 mmHg MEAN PG LVEDD 4.3 cm EJECTION 65 - 70% FRACTION Anatomical Region Laterality Modality HEART Ultrasound Specimen (Source) Anatomical Collection Method Collection Time Re ceived Time Location / / Volume Laterality 08/17/2021 3:03 PM CDT Narrative 08/17/2021 4:46 PM CDT ECHOCARDIOGRAM EDENILSON Daysi BONIFACIO ? Accessi on#: ?? [id number] : ?1945 76 years Study Date: ?? 08/17/2021 3:03:51 PM Gender: F ?BP: ? 100/55 mmHg Height: 157.00 cm ?BSA: ?1.85 m? ?? Weight: 84.00 kg ? Tech: ? EF ? Referring MD: NADJA FRAZIER Site: ? [facility] Reading Location: [facility] IP Procedure: 2D, Color Doppler and Spectra l Doppler. Indication for study: Pericardial Effusi on Cardiac Rhythm: Regular.Study quality: Final Impressions: 1. Normal LV size, borderline wall thic kness, normal global systolic function with an estimated EF of 65 - 70%. 2. The aortic valve is calcified, borde rline severe stenosis (peak velocity 3.2m/s, mean gradient 32mmHg, RODRIGO 0.9c,2, DI=0.26) and no regurgitation. 3. The mitral valve is sclerotic, mild mitral stenosis (mean gradient 4mmHg @ HR 82), mild mitral regurgitation. 4. No pericardial effusion. 5. Compared to the prior echo, the h as progressed. Chamber Sizes and Function Normal left ventricular size, borderline wall thickness, normal global systolic function with an estimated EF of 65 - 70%. Left atrial size is normal. Right ventricular cavity size is normal, global sys tolic RV function is normal. The right a trium is normal. The pulmonary artery is not well visualized. The sinus of Valsalva is normal sized. The ascending aorta is normal sized. Valves, RV Pressures and Diastolic Funct ion The aortic valve is calcified, severe st enosis and no regurgitation. The mitral valve is sclerotic, mild mitral regurgitation. Spectral Doppler shows Grade 1 pattern of LV diastolic filling. The tricusp id valve is normal in structure. Tricusp id regurgitation is mild regurgitation. The pulmonic valve is normal. Trace pulmonary regurgitation. Masses, Effusion, Shunts There is no pericardial effusion. The in ferior vena cava is normal sized, respiratory size variation greater than 50%. Interatrial septum is not well visualized. MEASUREMENTS AND CALCULATIONS 2-D Measurements and LV Function: LVID (d) 4.3 cm LV FS% (2D) ?? 58 % LVID (s) 1.8 cm LVOT diameter 2.0 cm IVS (d) ??1.0 cm HR ?81 bpm LVPW (d) 0.7 cm Ao Sinus 3.1 cm LA ? 3.5 cm Diastology: Mitral ?Tissue Doppler ?Pulmonary veins E Peak 1.0 m/s ??e', Septum ? 0.04 m /s Pulm s ?55.9 cm/s A Peak 1.3 m/s ??e', Lateral ?0.08 m /s Pulm d ?30.5 cm/s E/A ?0.8 ?E/e' Average ?? 18. 02 ?Pulm s/d ratio ??1.83 DT ? 357 msec Aortic Valve: Vmax ? 3.9 m/s ??RODRIGO (V) ?? 0.88 cm? ?? VTI ?0.80 m ?? RODRIGO (I) ?? 0.82 cm? ?? LVOT V max 1.1 m/s ??Max PG ?60 mmHg LVOT VTI ?? 0.21 m ?? Mean PG ?? 32 mmHg SV ? 66 ml ?Dim Index 0.26 SV index ?? 36 ml/m? ?? CO ?5.3 l/min ?CI ?2.9 l/min/m? ?? Mitral Valve: MVA ? 2.1 cm? ?? MV P 1/2 ??104 msec MV Mean G 4 mmHg Tricuspid Valve and estimated PA pressur es: TAPSE 2.0 cm Pulmonic Valve: PV Vmax 1.0 m/s . This study was interpreted by an [facility] redited facility. ??Final ?? Procedure Note Jarrod Garza MD - 08/17/2021Fo rmatting of this note might be different from the original. ECHOCARDIOGRAM EDENILSON VALDOVINOS : 1945 76 years Study Date: 08/17 3:03:51 PM Gender: F BP: 100/55 mmHg Height: 157.00 cm BSA: 1.85 m? ?? Weight: 84.00 kg Tech: EF Referring MD: NADJA FRAZIER Site: [facility] Reading Location: [facility] IP Procedure: 2D, Color Doppler and Spectra l Doppler. Indication for study: Pericardial Effusi on Cardiac Rhythm: Regular.Study quality: Final Impressions: 1. Normal LV size, borderline wall thic kness, normal global systolic function with an estimated EF of 65 - 70%. 2. The aortic valve is calcified, borde rline severe stenosis (peak velocity 3.2m/s, mean gradient 32mmHg, RODRIGO 0.9c,2, DI=0.26) and no regurgitation. 3. The mitral valve is sclerotic, mild mitral stenosis (mean gradient 4mmHg @ HR 82), mild mitral regurgitation. 4. No pericardial effusion. 5. Compared to the prior echo, the h as progressed. Chamber Sizes and Function Normal left ventricular size, borderline wall thickness, normal global systolic function with an estimated EF of 65 - 70%. Left atrial size is normal. Right ventricular cavity size is normal, global systolic RV function is normal. The right atrium is normal. The pulmonary artery is not well visualized. The sinus of Valsalva is normal sized. The ascending aorta is normal sized. Valves, RV Pressures and Diastolic Funct ion The aortic valve is calcified, severe st enosis and no regurgitation. The mitral valve is sclerotic, mild mitral regurgitation. Spectral Doppler shows Grade 1 pattern of LV diastolic filling. The tricuspid valve is normal in structure. Tricuspid regurgita tion is mild regurgitation. The pulmonic valve is normal. Trace pulmonary regurgitation. Masses, Effusion, Shunts There is no pericardial effusion. The in ferior vena cava is normal sized, respiratory size variation greater than 50%. Interatrial septum is not well visualized. MEASUREMENTS AND CALCULATIONS 2-D Measurements and LV Function: LVID (d) 4.3 cm LV FS% (2D) 58 % LVID (s) 1.8 cm LVOT diameter 2.0 cm IVS (d) 1.0 cm HR 81 bpm LVPW (d) 0.7 cm Ao Sinus 3.1 cm LA 3.5 cm Diastology: Mitral Tissue Doppler Pulmonary veins E Peak 1.0 m/s e', Septum 0.04 m/s Pulm s 55.9 cm/s A Peak 1.3 m/s e', Lateral 0.08 m/s Pulm d 30.5 cm/s E/A 0.8 E/e' Average 18.02 Pulm s/d rati o 1.83 DT 357 msec Aortic Valve: Vmax 3.9 m/s RODRIGO (V) 0.88 cm? ?? VTI 0.80 m RODRIGO (I) 0.82 cm? ?? LVOT V max 1.1 m/s Max PG 60 mmHg LVOT VTI 0.21 m Mean PG 32 mmHg SV 66 ml Dim Index 0.26 SV index 36 ml/m? ?? CO 5.3 l/min CI 2.9 l/min/m? ?? Mitral Valve: MVA 2.1 cm? ?? MV P 1/2 104 msec MV Mean G 4 mmHg Tricuspid Valve and estimated PA pressur es: TAPSE 2.0 cm Pulmonic Valve: PV Vmax 1.0 m/s . This study was interpreted by an [facility] redited facility. Final Nadja Frazier MD ECHO ORD SCAN-CARDIAC STRIP (08/17/2021 7:27 AM CDT) Narrative This result has an attachment that is no t available. Scanner OTHER NUCLEATED RED BLOOD CELLS PERCENT OF BLOOD LEUKOCYTES (08/17/2021 7:17 AM CDT)Only the most recent of2 resultswithin the time period is included. P athologist Signature NRBC 0.0 % 08/17/2021 [facility] 7:33 AM CDT LABORATORY-CENTR AL LABORATORY ABS NRBC 0.0 thou /cu mm 08/17/2021 [facility] 7:33 AM CDT LABORATORY-CENTR AL LABORATORY Specimen Anatomical Collection Method / Collection Time Recei ashish Time (Source) Location / Volume Laterality Blood BLOOD SPECIMEN / Venipuncture / 08/17/2021 7:17 2021 7:22 Unknown Unknown AM CDT AM CDT Nadja Frazier MD LABORATORY Performing Organization Address City/[facility]/ZIP Code Phon e Number [facility] [address] [place] [address] LABORATORY-CENTRAL 2000 LABORATORY MAGNESIUM (08/17/2021 7:17 AM CDT) athologist Signature MAGNESIUM 1.9 1.6 - 2.6 08/17/2021 [facility] mg/dL 8:20 AM CDT LABORATORY-CENTR AL LABORATORY Specimen Anatomical Collection Method / Collection Time Recei ashish Time (Source) Location / Volume Laterality Blood BLOOD SPECIMEN / Venipuncture / 08/17/2021 7:17 2021 7:22 Unknown Unknown AM CDT AM CDT Ana Maria Ingram MD CHEMISTRY Performing Organization Address [facility] Code Phon e Number [email or web address] [address] [place] [address] LABORATORY-CENTRAL 2000 LABORATORY SCAN-CARDIAC STRIP (08/17/2021 1:11 AM CDT) Narrative This result has an attachment that is no t available. Scanner OTHER SCAN-CARDIAC STRIP (08/16/2021 11:56 AM CDT) Narrative This result has an attachment that is no t available. Scanner OTHER (ABNORMAL) ACTIVATED CLOTTING TIME [id number] ACT (08/16/2021 9:59 AM CDT)Only the most recent of2 resultswithin the time period is included. athologist Signature ACTIVATED 288 (H) 74 - 125 08/22/2021 [email or web address] CLOTTING TIME, sec 4:25 PM CDT LABORATORY-CE N POCT TRAL LABORATORY Specimen Anatomical Collection Method Collection Time Receive d Time (Source) Location / / Volume Laterality Blood BLOOD SPECIMEN / 08/16/2021 9:59 AM 08/22 4:25 Unknown CDT PM CDT Ana Maria Ingram MD HEMATOLOGY Performing Organization Address City/[facility]/ZIP Code Phon e Number [facility] [address] [place] [address] LABORATORY-CENTRAL 2000 LABORATORY CVL CORONARY ANGIOGRAM POSS PCI (08/16/2021 8:28 AM CDT) Anatomical Region Laterality Modality X-Ray Angiography, X -Ray Angiography Specimen (Source) Anatomical Collection Method Collection Time Re ceived Time Location / / Volume Laterality 08/16/2021 8:28 AM CDT Narrative This result has an attachment that is no t available. Transcriptions Ana Maria Ingram MD - 08/16/2021 11:05 AM CDT [facility] Cardiac Catheterization Report Name: EDENILSON VALDOVINOS Event Date: 08/16 08:28 [facility] ID #: [id number] DAYA #: [id number] Diagnostic Physician: ANA MARIA CROOKS [facility] Referring Physician: Uvaldo Lin MD Date: 04/05 Gender: Female Age: 76 Summary/Conclusions PRESENTATION / INDICATIONS * [place] (Dyspnea Anginal Equivalent)- High est CCS Class w/in past 2 wks - Class III * Stress Test Intermediate risk/extent o f ischemia * Coronary Artery Disease: PTCA mid RCA 08/07/2006 DIAGNOSTIC - CORONARY * Two vessel coronary disease with sever e coronary artery calcification in a right dominant system ? Mild calcified distal left main ? Moderate proximal LCX ? 80% stenosis in the 1st Marginal ? Culprit 99% chronic, calcified stenosi s in the Mid RCA (Restenosis - Balloon Angioplasty from 08/07/2006) INTERVENTION ? Successful ischemia guided 1.2mm x 12m m Balloon, 2.5mm x 12mm Balloon, 3.5mm x 20mm Balloon, and 3.5mm x 30mm Drug Eluting Stent to Mid RCA, post stenosis 0% ? Successful 3.5mm x 30mm Drug Eluting S tent to Proximal RCA guide related spiral dissection post stenosis 0% RECOMMENDATIONS & PLAN * Plavix for 1 year Consent & Newport Protocol The risks, benefits, and alternatives of the procedure were discussed with the patient and written informed consent was obtained. Newport protocol was followed. TIME OU T conducted just prior to starting procedure confirmed patient identity, site/side, procedure, patient position, and availability of correct equipment and implants (if applicable). Staff Name Title ANA MARIA INGRAM Diagnostic Sewage Plant Attendant Nadja Frazier David RN Nurse Araceli Gonzales CVT Scrub Kate Mercedes CVT Monitor ANA MARIA INGRAM Diagnostic Sewage Plant Attendant Procedures ? Ultrasound Guided Vascular Access ? Coronary Angiogram ? Stent Placement, Drug Eluting [PCI] Procedure Comments VASCULAR ACCESS * Using ultrasound guidance and a percut aneous technique, the right radial artery was accessed. Ultrasound was used to confirm vessel patency, localizing needle into the lumen of the vessel. An image was saved for the medical record. Diagnostic Findings * Left Main Coronary Artery ? The LMCA is severely calcified. ? 30% calcified stenosis in the LMCA. * Left Anterior Descending ? The LAD is severely calcified. * Circumflex ? 50% calcified stenosis in the Proximal Circumflex. ? 80% stenosis in the 1st Marginal. * Right Coronary Artery ? 40% calcified spiral guide dissection (denovo) stenosis in the Proximal RCA. The lesion has a FLACO flow of 3. ? 99% chronic, calcified (restenotic) st enosis in the Mid RCA. The distal vessel is collateralized. The lesion has a FLACO flow of 1 and was previously treated on 08/07/2006 with angioplasty. Lesion Information Lesion # Vessel Segment Lesion Length Le carin Details 1st Marginal 1 Mid RCA 25 Culprit Lesion 2 Proximal RCA 25 LMCA Proximal Circumflex Hemodynamics State: Baseline Pressures (mmHg) Site Systolic Diastolic End Diastolic A Wave V Wave Mean AO 118 63 87 Interventional Results * Right Coronary Artery ? Successful intervention to the Proxima l RCA 40% lesion with a final stenosis of 0% using a 3.5mm x 30mm Drug Eluting Stent. During the procedure a lesion dissection occurred. The final FLACO flow was 3. ? Successful intervention to the Mid RCA 99% lesion with a final stenosis of 0% using a 1.2mm x 12mm Balloon, 2.5mm x 12mm Balloon, 3.5mm x 20mm Balloon, and a 3.5mm x 30mm Drug Eluting Stent. The final FLACO flow was 3. Interventional Devices Lesion # Vessel Segment Type Name Max Pr essure 1 Mid RCA Balloon CATH CASTING INSPECTOR MR 1.2mm x 12mm 1 Mid RCA Balloon BLLN EUPHORA RX 2.5mmx 12mm 1 Mid RCA Balloon BLLN EUPHORA NC RX 3.5 MM X 20MM 1 Mid RCA Drug Eluting Stent LIZA RESOLUT E JOSE RX 3.5mm x 30mm 2 Proximal RCA Drug Eluting Stent LIZA RE SOLUTE JOSE RX 3.5mm x 30mm Procedure Details Estimated Blood Loss: < 30 ml Specimen Collected: None Level of Sedation Achieved: Moderate Procedure Start: 08:28 Procedure End: 10:28 Procedure Time: 120 min Fluoroscopy Time: 57 min Cumulative Air Kerma: 1465 mGy DAP: 6960 uGy/M2 Contrast: Visipaque (iso-osmolar), 200 ml Physiologic Data Weight: 81.6 kg BSA: 1.82 m2 Vascular Access Time Access Sheath Size 08:29 Right Radial Artery, sheath insert ed Complications ? No Complications Medications Ordered and Administered Start Time Stop Time Medication Dose Uni ts Route Ordered By Given By 08:10 O2 2 l per min Nasal cannula Ana Maria Garcia David RN 08:23 Versed 1 mg IV Ana Maria Ingram David RN 08:23 Fentanyl 50 mcg IV Ana Maria Ingram David RN 08:28 1% Lidocaine 2.5 ml Subcut Ana Maria Ingram, Nadja 08:28 Fentanyl 25 mcg IV Ana Maria Ingram David RN 08:28 Versed 1 mg IV Ana Maria Ingram David RN 08:29 Verapamil 3 mg IA Ana Maria Ingram, Nadja 08:31 Heparin 5000 units IV Rj Frazier David RN 08:41 Heparin 2000 units IV Rj Frazier David RN 08:41 Fentanyl 25 mcg IV Keira Frazier David RN 08:43 Plavix 600 mg PO Ruben Frazier David RN 08:43 Verapamil 3 mg IA Angel Frazier David RN 08:48 Versed 0.5 mg IV Ruben Frazier David RN 08:49 Fentanyl 25 mcg IV Keira Frazier David RN 09:17 Fentanyl 25 mcg IV Keira Frazier David RN 09:17 Versed 0.5 mg IV Ruben Frazier David RN 09:31 Versed 0.5 mg IV Ana Maria Ingram David RN 09:31 Fentanyl 25 mcg IV Ana Maria Ingram David RN 09:42 Heparin 2000 units IV Ana Maria Ingram David RN 09:54 Fentanyl 25 mcg IV Ana Maria Ingram David RN 09:54 Versed 0.5 mg IV IngramAna Maria kuo David RN 10:14 Nitroglycerin 200 mcg Ata Driver Madeline 10:27 Verapamil 3 mg Ana Maria Truong Madeline I personally monitored the patient?s con scious sedation during the procedure. Conscious sedation starts with the first sedation medication dose of Fentanyl or Versed and ends when the procedure is completed, the patient is stable for recovery status, and the physician or other qualified health patient care secretary providing the sedation ends personal continuous [id number] time with the patient. The medications listed above were verbal ly ordered by me and read back to me as documented above. Refer to the procedure log report for ad ditional case details. electronically signed on 08/16/2021 11:0 5:29 AM with status of Final Ana Maria Ingram MD [facility] [address] [address] (p) [phone](f) Provider Referring CV IMAGING BUN (08/16/2021 6:20 AM CDT) athologist Signature BUN 17 8 - 25 08/16/2021 [facility] mg/dL 6:58 AM CDT LABORATORY-CENTR AL LABORATORY Specimen Anatomical Collection Method / Collection Time Recei ashish Time (Source) Location / Volume Laterality Blood BLOOD SPECIMEN / Venipuncture / 08/16/2021 6:20 2021 6:27 Unknown Unknown AM CDT AM CDT Nadja Frazier MD CHEMISTRY Performing Organization Address City/[facility] Phon e Number [facility] [address] [place] [address] LABORATORY-CENTRAL 2000 LABORATORY Sodium (08/16/2021 6:20 AM CDT) athologist Signature SODIUM 142 135 - 145 08/16/2021 [facility] mmol/L 6:53 AM CDT LABORATORY-CENTR AL LABORATORY Specimen Anatomical Collection Method / Collection Time Recei ashish Time (Source) Location / Volume Laterality Blood BLOOD SPECIMEN / Venipuncture / 08/16/2021 6:20 2021 6:27 Unknown Unknown AM CDT AM CDT Nadja Frazier MD CHEMISTRY Performing Organization Address City/State/ZIP Code Phon e Number [facility] [address] [place] [address] LABORATORY-CENTRAL 2000 LABORATORY Potassium (08/16/2021 6:20 AM CDT) athologist Signature POTASSIUM 3.8 3.5 - 5.0 08/16/2021 [facility] mmol/L 6:53 AM CDT LABORATORY-CENTR AL LABORATORY Specimen Anatomical Collection Method / Collection Time Recei ashish Time (Source) Location / Volume Laterality Blood BLOOD SPECIMEN / Venipuncture / 08/16/2021 6:20 2021 6:27 Unknown Unknown AM CDT AM CDT Nadja Frazier MD CHEMISTRY Performing Organization Address [facility] e Number [facility] [address] [place] [address] LABORATORY-CENTRAL 2000 LABORATORY (ABNORMAL) Creatinine (08/16/2021 6:20 AM CDT) athologist Signature CREATININE 0.86 0.57 - 1.11 08/16/2021 [facility] mg/dL 6:58 AM CDT LABORATORY-CENT RAL LABORATORY eGFR 71 (L) >90 08/16/2021 [facility] mL/min/1.73 6:58 AM CDT LABORATORY-CENT m2 RAL LABORATORY Comment: As of 2021, eGFR is calcu lated by the CKD-EPI creatinine equation without race adjustment. eGFR can be inf luenced by muscle mass, exercise, and diet. The reported eGFR is an estimation only and is only applicable if the renal function is stable. Specimen Anatomical Collection Method / Collection Time Recei ashish Time (Source) Location / Volume Laterality Blood BLOOD SPECIMEN / Venipuncture / 08/16/2021 6:20 2021 6:27 Unknown Unknown AM CDT AM CDT Nadja Frazier MD CHEMISTRY Performing Organization Address [facility] Phon e Number [facility] [address] [place] [address] LABORATORY-CENTRAL 2000 LABORATORY SCAN-OPERATIVE/PROCEDURE REPORT (08/16/2021 12:00 AM CDT) Narrative 08/16/2021 12:00 AM CDT This result has an attachment that is no t available. Ordered by an unspecified provider. Other Clinical Staff OTHER COVID 19 (08/14/2021 9:30 AM CDT) Analysis Performed At [facility] logist Time Signature COVID 19 Negative Negative 08/15/2021 [facility] 6:18 AM CDT LABORATORY-YODIT MOLECULAR TRAL LABORATORY Comment: All PCR tests are subject to fa lse negative result due to variability in viral load and collection technique. A n egative result does not rule out a SARS-CoV-2 infection. Clinical correlation required . Specimen Anatomical Location / Collection Method Collection Tony e Received Time (Source) Laterality / Volume Other SPECIMEN FROM Non-Blood / 08/14/2021 9:30 08/14/2021 5:22 NASOPHARYNGEAL Unknown AM CDT PM CDT STRUCTURE / Unknown Narrative [facility] LABORATORY-CENTRAL LABORAT ORY - 08/15/2021 6:18 AM CDT This test has been authorized by FDA und er an Emergency Use Authorization (EUA). This test is only authorized for the duration of time the declaration that circumstances exist justifying the authorization of th e emergency use of in vitro diagnostic tests for detection of SARS-CoV-2 virus and/or diagnosis of COVID-19 infection under section 564(b)(1) of the Act, 21 U.S.C. 360bbb-3(b)(1), unless the authorization is terminated or revoked sooner. Brain Austin MD MICROBIOLOGY Performing Organization Address [facility] Phon e Number [facility] [address] [place] [address] LABORATORY-CENTRAL 2000 LABORATORY COVID 19 COLLECTION (08/14/2021 9:30 AM CDT) [facility] gist Method Time Signature TESTING [facility] 08/14/2021 [facility] LABORATORY Laboratory 5:23 PM CDT LABORATORY-CE NTRAL LABORATORY Comment: Specimen submitted to [facility] for testing. Specimen Anatomical Location / Collection Method Collection Tony e Received Time (Source) Laterality / Volume Other SPECIMEN FROM Non-Blood / 08/14/2021 9:30 08/14/2021 9:38 NASOPHARYNGEAL Unknown AM CDT AM CDT STRUCTURE / Unknown Brain Austin MD SEND OUTS Performing Organization Address City/[facility]/ZIP Code Phon e Number [facility] [address] [place] [address] LABORATORY-CENTRAL 2000 LABORATORY from Last 3 Months Insurance Payer Benefit Plan / Subscriber ID Effective Dates Phone Addre ss Type Group MEDICARE PART B MEDICARE PART B [id number] 2012-Presen ATTN: CLAIMS - HB USE ONLY HB ONLY t [address] [place] [address] MEDICARE PART A MEDICARE PART A [id number] 2012-Presen ATTN: CLAIMS - HB USE ONLY HB ONLY t [address] [place] [address] [employer]OSS MR MR BC [place] [id number] 2013-Presen [address] [place] [address] [employer] [place] BL[place] [id number] 2016-[place]en [address] [address] [place] BLUE t [place], [place] [id number] BLUE [place] MR [place] [id number] 2016-Presen [address] [address] [place] BLUE t [place], [place] [id number] Edenilson Valdovinos Personal/Famil Self [phone] M y (Home) [facility] [phone] Daysi ENNIS (Work) [id number] Advance Directives Documents on File Type Date Recorded Patient Online Communications Manager Explanati on Healthcare Directive 01/03/2016 11:31 AM 12/27/15 Latest Code Status on File Code Status Date Activated Date Inactivated Comments Full Code 08/16/2021 10:37 AM 08/17/2021 9:11 PM Code Status Discussion: Reviewed Preferences Full Code 09/17/2018 3:11 PM 09/20/2018 7:59 PM Full Code 08/11/2018 8:16 AM 08/11/2018 3:33 PM Full Code 06/06/2017 12:29 PM 06/06/2017 5:38 PM Full Code 08/03/2006 6:35 PM 08/08/2006 3:11 PM Care Teams Die Cutter Relationship Specialty Start Date End Date Uvaldo Lin PCP - General Family Practice 07/04/18 MD Jey [address] [place] [address] Roque Tolbert, Cancer Nurse Registered Nurse 03/09/20 RN Coordinator [address] [place] [address] Bre Boss, Cancer Nurse Registered Nurse 03/15/20 RN, BSN Coordinator [address] [address] Jagdish Hicks Consulting Physician Surgery - Cardiothoracic 03/15 MD Ran [address] [facility] [id number] [place] [phone] Joanna Mccray Oncology Oncology 07/26/20 MD Moody [address] [place] [address] Eileen Gross, MECHANICAL SPREADER OPERATOR Oncology Oncology 07/26/20 [address] [place] [address]
--- OUTSIDE RECORDS SUMMARY | 2021-11-01 08:18 | XMS_ITS | Encounter Summary ---
:1945 Author Organization [facility] Address [address] [place] [address] Care Team Providers Name Role Phone Unavailable Primary Care Provider Unavailable Encounter Details Date Type Department Care Team Description 04/22/2020 Clinical Communication Department of Allison Campos Radiation Oncology in [facility] [address] [facility] [address] [place] [id number] [phone] Social History Tobacco Use Types Packs/Day Years Used Date Smoking Tobacco: Never Assessed Sex Assigned at Date Recorded Not on file documented as of this encounter Plan of Treatment Not on filedocumented as of this encounter Visit Diagnoses Not on filedocumented in this encounter
--- OUTSIDE RECORDS SUMMARY | 2021-11-01 08:18 | XMS_ITS | Encounter Summary ---
:1945 Author Organization [facility] Address [address] [place] [address] Care Team Providers Name Role Phone Unavailable Primary Care Provider Unavailable Reason for Referral Outpatient (Routine) - Closed Specialty Diagnoses / Procedures Referred By Contact Refer red To Contact Allison Campos M.D. [address] [phone] Referral ID Status Reason Start Date Expiration Date Visits Requ ested Visits Authorized [id number] Closed 01/23/2021 01/23/2022 1 1 Scheduling Instructions Schedule after CT chest and Dr. Mccray, [facility]! MOTIVE ENGINEER Outpatient (Routine) - Closed Specialty Diagnoses / Procedures Referred By Contact Refer red To Contact Allison Campos M.D. [address] [phone] Referral ID Status Reason Start Date Expiration Date Visits Requ ested Visits Authorized [id number] Closed 10/19/2020 10/19/2021 1 1 Scheduling Instructions Please schedule a phone visit with me af ter her CT chest and f/u with Dr. Mccray in 3 months MOTIVE ENGINEER Reason for Visit Outpatient (Routine) - Closed Specialty Diagnoses / Procedures Referred By Contact Refer red To Contact Allison Campos M.D. [address] [phone] Referral ID Status Reason Start Date Expiration Date Visits Requ ested Visits Authorized [id number] Closed 10/19/2020 10/19/2021 1 1 Encounter Details Date Type Department Care Team Description 01/23/2021 Hospital Encounter Department of Allison Campos Neoplasm Radiation Oncology Cliff Veloz Of Lung Upper Lobe in [address] Or Bronchus Right [place], [place] ([facility]ERLY [facility]) [address] [facility] [address] [place], [place] [phone] (Work) [phone] Social History Tobacco Use Types Packs/Day Years Used Date Smoking Tobacco: Never Assessed Sex Assigned at Date Recorded Not on file documented as of this encounter Medications at Time of Discharge Medication Sig Dispensed Refills Start Date End Date albuterol 1.25 mg/3 mL Inhale 6 mL. 0 02/19/2020 nebulizer solution aspirin [address] tablet Take 81 mg by mouth. 0 atorvastatin (LIPITOR) 20 Take 20 mg by mouth. 0 mg tablet azithromycin (Zithromax Take 2 tablets (500 6 tablet 0 11/2020 Z-Juancho) 250 mg tablet mg) on Day 1, followed by 1 tablet (250 mg) once daily on Days 2 through 5. B complex-vitamins Take 1 tablet by 0 (BALANCE B-50) tablet mouth daily. cholecalciferol (VITAMIN Take 1 capsule by 0 D3) 25 mcg (1,000 Unit) mouth. capsule fluticasone 0 09/21/2020 propion-salmeteroL 250-50 mcg/dose diskus inhaler furosemide (LASIX) 40 mg Take 20 mg by mouth. 0 0 09/23/2019 tablet Take one-half tablet daily meclizine (ANTIVERT) 25 mg Take 12.5 mg by mouth 0 tablet as needed. metoprolol succinate TAKE 1 TABLET EVERY 0 2019 (TOPROL-XL) 50 mg 24 hr DAY tablet miscellaneous medical NEW replacement CPAP 0 07/0 11/2018 supply misc machine for home use at pressure: 7.6 cm [...] Need: 99 months, Frequency of use: Daily [id number] APPLY TO INJECTED EYE 0 08/09/2020 hasone (MAXITROL) THREE TIMES A DAY FOR 3.5mg/mL-10,000 3 DAYS AFTER unit/mL-0.1 % ophthalmic INJECTION suspension predniSONE (DELTASONE) 20 Take 3 tablets (60 mg 70 tablet 0 08/10/2020 mg tablet total) by mouth daily. Start with 60mg Qday for two weeks, then 40mg Qd for 2 weeks, then 20mg Qd for 2 weeks predniSONE (DELTASONE) 5 Take 2 tablets (10 mg 42 tablet 0 10/03/2020 mg tablet total) by mouth daily. On October 03 start 10mg for 2 weeks, then take 5mg once per day for two weeks, then stop TURMERIC ORAL Take by mouth 2 (two) 0 times a day. documented as of this encounter Progress Notes Allison Campos M.D. 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 Consult conducted via real-time audio technology by Allison Campos M.D. in [facility] to the patient in patient's car. CHIEF COMPLAINT/REASON FOR VISIT Mrs. 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 ??She recently received SBRT and we are no having a phone follow-up visit after seeing Dr. Mccray earlier this month. ?? Her??oncologic history is as follows: 1. July 04, 2018: ??Chest x-ray was performed due to the patient having a cough. ??There was a small focus of ill-defined ground-glass opacities present in the right upper lung zone spanning a region of 2.2 cm. ??Follow-up imaging in 2 months was recommended. 2. July 31, 2018: ??PET-CT scan demonstrated an irregular shaped 1.9 cm stable nodule in the right upper lobe with SUV max 1.5. ??Despite the mild uptake, it spiculated appearance would raise the suspicion of a primary lung carcinoma. ??There was a small amount of hazy and slightly nodular opacity justinferior to the nodule. ??Moderate ill-defined and dense opacity in the lung apices likely related to prior fibrosis. ??Numerous small the indeterminate sized predominantly ground-glass focal nodular opacities in both lungs were fairly stable, although 1 ground-glass nodule opacity in the left upper lobe/lingula appeared slightly denser and measured 1.7 cm. ??The largest was in the left upper lobe anteriorly measuring nearly 3 cm. ??The nodular ground-glass opacities were all indeterminate. ?? 3. August 11, 2018: ??Bronchoscopy was performed and was normal without lesions or secretions. ??The right upper lung nodule was localized and TBNA was performed. ??Pathology demonstrated benign bronchial cells and pneumocytes, negative for atypia or malignancy. 4. November 30, 2019: ??CT scan of the chest demonstrated a lobulated mass in the right upper lobe measuring 2.3 x 2.1 cm. ??Multiple multifocal ground-glass densities and reticulonodular densities inboth lung goins were similar in size and character. ??The small pulmonary nodules had not increasedin size. ??No new nodules, ground-glass densities, or areas of focal consolidation. 5. February 10, 2020: ??CT scan of the chest demonstrated the focally dense alveolar opacity with irregular spiculated margins in the right upper lobe measuring 2.5 x 1.9 cm. ??Nodules were present within the left lower lobe measuring between 3 and 5 mm. ??The largest nodule approaching 5 mm was subpleu ral in the left lower lobe and showed no significant change. 6. February 19, 2020: ??Pulmonary function testing demonstrated FVC 2.03 (76% predicted) and FEV1 1.36 (68% predicted). 7. February 29, 2020: ??CT-guided biopsy of the right upper lobe mass was performed. ??Pathology demonstrated adenocarcinoma. 8. March 09, 2020: ??The patient's case was reviewed at lung conference and the recommendation was for the patient to have a formal consultation with a thoracic surgeon. ??Consider SABR. ??Consider clinical trial. 9. March 15, 2020: ??Consultation with Dr. Jagdish Hicks who felt that the patient's imaging wasconsistent with multifocal adenocarcinoma. ??Given the extent of bilateral disease, he did not thinksurgical resection of the right upper lobe, which would require lobectomy, was likely to impact her survival. 10. March 19, 2020: ??PET-CT scan demonstrated hypermetabolic enlarging irregular shaped lesion inthe right upper lobe with SUV max 3.4 measuring 2.5 cm. ??Spiculations extended from the lesion to the lateral pleural surface. ??Small amount of nodularity along the inferior posterior aspect of the lesion was probably a nodular extension of the primary lesion, although the possibility of a perilesional new nodule was not excluded. ??Moderate irregular opacity in the right greater than left lung apices consistent with fibrosis. ??Numerous focal small to moderate size ground-glass nodular opacities and less numerous solid nodules in both lungs, many of which were stable in size and number. ??None of the nodules and nodular opacities in the lungs had greater than mild uptake. ??No evidence for malignancy outside of the chest. 11. March 22, 2020: ??Medical Oncology consultation with Dr. Joanna Mccray who recommended completing a MRI of the brain to complete staging. ??Referral to Radiation Oncology for consultation. ??They will add on NGS and PD-L1 studies to her biopsy. ??The patient will be presented again at lung multidisciplinary conference next week. 12. March 23, 2020: ??MRI of the brain demonstrated no acute intracranial abnormality. ??No abnormal enhancement or enhancing lesions. ??No intracranial metastases. 13. March 30, 2020: ??Patient??was being re-presented at thoracic conference.?The consensus wasto proceed with SBRT after a full discussion. 14. April 06, 2020 through April 13, 2020: ??Patient treated with stereotatic radiotherapy to the tumor in??rightt upper lung??to a dose of 4800 cGy in 4 fractions. ??Patient was treated every other day.? 15. ??July 16, 2020: ??CT chest showed increased areas of ground glass changes around the SRBT site in the RUL. ??Other nodules are stable. ??(By my review it seems to show the mass is less dense.) 16. ??August 10, 2020: ??CT chest showed increasing radiation pneumonitis. ??She was started on steroids for clinical symptoms of pneumonitis. 17. October 11, 2020: CT chest showed Mild-moderate decrease in size of the mixed ground-glass and consolidative opacity within the right upper lobe as compared to the most recent prior 08/11/2020. Finding may represent improving postradiation pneumonitis versus improved superimposed infiltrate. Stable appearance of the multifocal bilateral solid and ground-glass nodules. 18. January 09, 2021: CT chest showed Mild increase in prominence of the mixed ground-glass and consolidative opacity within the right upper lobe. There appears to be mild increase in the solid component with possible slight??increase in adjacent volume loss. This is nonspecific and again could represent increased atelectasis or infiltrate surrounding postradiation pneumonitis, although cannot entirely exclude increased underlying mass. Stable appearance of the other multifocal bilateral solid and ground-glass nodules. INTERVAL HISTORY: Since I last saw Mrs. Nelia Castro she reports that she is doing fair. She is still struggling with her breathing. She states that with activity she is short of breath. She hasnot been able to see Dr. Anderson, but states that she will try again. She denies cough, fevers or chills. She is having more headaches at times. She has also noticed right greater than left knee pain. She has a sharp electrical feeling in the top of her left leg and calf, but no focal weakness or bowel or bladder incontinence. She has no back pain except in her lowe back with activity. She has been told she has arthritis, but has never had the electrical feelings before. OBJECTIVE There were no vitals taken for this visit for this phone visit.. General: Mrs. Nelia Casrto sounded well on the phone with no conversational dyspnea. DIAGNOSTICS: I have reviewed the available imaging, operative and pathology reports as described above and reviewed in the EMR. I reviewed her recent CT and compared it to recent. I also reviewed her recent blood with with mild elevations in her AST/ALT. 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 I reviewed the above findings with Mrs. Castro. She will continue to try to get an appointment with Dr. Anderson to discuss her inhalers and whether or not she is a candidate for pulmonary rehab. I agree with seeing her back in 3 months given the increased consolidation in the right upper lung. After that, hopefully, we can go to an every 6 month schedule. She liked the phone visit as Dr. Mccray is examining her. She will also check with her primary care physician about her knee pain and electrical sensation in her left leg. ?? Mrs. Nelia Castro knows to contact us at any point should any questions or concerns arise. EDUCATION Ready to learn, no apparent learning barriers were identified; learning preferences include listening. Explained diagnosis and treatment plan; patient expressed understanding of the content. I personally spent 15 minutes in care of the patient today. Time includes both non face to face and face to face patient care. Signed by: Allison Campos M.D. 01/23/2021 10:49 AM LOCOMOTIVE ENGINEER Radiation Oncology [facility] [address] [place] [address] MOTIVE ENGINEER documented in this encounter Plan of Treatment Scheduled Referrals Name Type Priority Associated Diagnoses Order S chedule NonF2F phone Outpatient Referral Routine Once for 1 visit Occurrences sta rting 01/23/2021 unti l 01/23/2021 NonF2F phone Outpatient Referral Routine Expected : 04/25/2021 visit (Approximate), Expires: 2021 documented as of this encounter Visit Diagnoses Diagnosis 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
--- OUTSIDE RECORDS SUMMARY | 2021-11-01 08:18 | XMS_ITS | Encounter Summary ---
:1945 Author Organization [facility] Address [address] [place] [address] Care Team Providers Name Role Phone Unavailable Primary Care Provider Unavailable Reason for Visit Radiation Therapy (Routine) - Closed Specialty Diagnoses / Procedures Referred By Contact Refer red To Contact Diagnoses 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) Allison Campos M.D. [facility] Procedures Prior Auth Rad Tx AL STEREOTACTIC BODY RADTN DEL [address] [place] [address] Referral ID Status Reason Start Date Expiration Date Visits Requ ested Visits Authorized [id number] Closed 03/30/2020 03/30/2021 4 4 Encounter Details Date Type Department Care Team Description 04/11/2020 Hospital Encounter Department of Radiation [facility] I[facility] [place] [address] [facility] [address] [place] [id number] [phone] Social History Tobacco Use Types Packs/Day Years [...] 20 mg by mouth. 0 mg tablet B complex-vitamins Take 1 tablet by 0 (BALANCE B-50) tablet mouth daily. cholecalciferol (VITAMIN Take 1 capsule by 0 D3) 25 mcg (1,000 Unit) mouth. capsule furosemide (LASIX) 40 mg Take 20 mg by mouth. 0 0 09/23/2019 tablet Take one-half tablet daily meclizine (ANTIVERT) 25 mg Take 12.5 mg by mouth 0 tablet as needed. metoprolol succinate TAKE 1 TABLET EVERY 0 2019 (TOPROL-XL) 50 mg 24 hr DAY tablet miscellaneous medical NEW replacement CPAP 0 11/2018 supply misc machine for home use [...] Need: 99 months, Frequency of use: Daily TURMERIC ORAL Take by mouth 2 (two) 0 times a day. documented as of this encounter Plan of Treatment Not on filedocumented as of this encounter Visit Diagnoses Not on filedocumented in this encounter
--- OUTSIDE RECORDS SUMMARY | 2021-11-01 08:18 | XMS_ITS | Encounter Summary ---
:1945 Author Organization [facility] Address [address] [place] [address] Care Team Providers Name Role Phone Unavailable Primary Care Provider Unavailable Reason for Referral Outpatient (Routine) - Closed Specialty Diagnoses / Procedures Referred By Contact Refer red To Contact Allison Campos M.D. [facility] [address] [place] [phone] Referral ID Status Reason Start Date Expiration Date Visits Requ ested Visits Authorized [id number] Closed 09/22/2020 09/22/2021 1 1 Scheduling Instructions On Sat during Admin time. Thanks Outpatient (Routine) - Closed Specialty Diagnoses / Procedures Referred By Contact Refer red To Contact Radiation Oncology Allison Campos [facility] M.D. [address] [place] [phone] Referral ID Status Reason Start Date Expiration Date Visits Requ ested Visits Authorized [id number] Closed 08/10/2020 08/10/2021 1 1 Reason for Visit Outpatient (Routine) - Closed Specialty Diagnoses / Procedures Referred By Contact Refer red To Contact Radiation Oncology Allison Campos [facility] M.D. [address] [place] [phone] Referral ID Status Reason Start Date Expiration Date Visits Requ ested Visits Authorized [id number] Closed 08/10/2020 08/10/2021 1 1 Encounter Details Date Type Department Care Team Description 09/22/2020 Hospital Encounter Department of Allison Campos Neoplasm Radiation Oncology Cliff Veloz Of Lung Upper Lobe in [place] [address] Or Bronchus Right [place], [place] (HCC) (Primary Dx) [address] [address] [place], [place] [phone] (Work) [phone] Social History Tobacco Use Types Packs/Day Years Used Date Smoking Tobacco: Never Assessed Sex Assigned at Date Recorded Not on file documented as of this encounter Last Filed Vital Signs Vital Sign Reading Time Taken Comments Blood Pressure 148/79 09/22/2020 3:31 PM CDT Pulse 87 09/22/2020 3:31 PM CDT Temperature 36.5 ??C (97.7 ??F) 09/22/2020 3:31 PM CDT Respiratory Rate - - Oxygen Saturation - - Inhaled Oxygen Concentration - - Weight 80.6 kg (177 lb 11.1 oz) 09/22/2020 3:31 PM CDT Height - - Body Mass Index 32.7 03/28/2020 9:23 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 Start with 60mg Qday for two weeks, then 40mg Qd for 2 weeks, then 20mg Qd for 2 weeks TURMERIC ORAL Take by mouth 2 (two) 0 times a day. albuterol 1.25 mg/3 mL Inhale 6 mL. 0 02/19/2020 nebulizer solution predniSONE (DELTASONE) 5 Take 2 tablets (10 mg 42 tablet 0 10/03/2020 mg tablet total) by mouth daily. On October 03 start 10mg for 2 weeks, then take 5mg once per day for two weeks, then stop documented as of this encounter Progress Notes Allison Campos M.D. 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 Radiation pneumonitis CHIEF COMPLAINT/REASON FOR VISIT Mrs. 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 ??She recently received SBRT and returns now a 1 month follow-up after being diagnosed with radiation pneumonitis. Her??oncologic history is as follows: 1. July [...] show the mass is less dense.) 16. August 10, 2020: CT chest showed increasing radiation pneumonitis. She was started on steroids for clinical symptoms of pneumonitis. INTERVAL HISTORY: Since I last saw Mrs. Nelia Castro she reports that she is doing better. She states that her cough has resolved. She still has shortness of breath with activities. Her cough isback to her baseline clearing her throat cough. She has no fevers or chills. She is quite fatigued and needs to rest by 1-2 pm. PATIENT REPORTED SYMPTOM SCREEN FATIGUE (Scale: 0 = no fatigue; 10 = worst fatigue you can imagine):7 PAIN (Scale: 0 = no pain; 10 = worst pain you can imagine): 0 OVERALL QUALITY OF LIFE (Scale: 0 = as bad as can be; 10 = as good as can be):10 OBJECTIVE BP 148/79 (BP Location: Left arm, Patient Position: Sitting, Cuff Size: Small) Pulse 87 Temp 36.5 ??C (Temporal) Wt 80.6 kg BMI 32.70 kg/m?? General: Mrs. Nelia Castro is a well-developed, well-nourished woman. she is seated in the examination room in no acute distress. ECO - symptomatic but completely ambulatory. Lymph: There is no cervical or supraclavicular lymphadenopathy. Cardiovascular: Heat rhythm with regular rate. Lungs: Lung goins are clear to auscultation throughout. No adventitious lung sounds. Musculoskeletal: No pain to palpation along the spine. DIAGNOSTICS: I have reviewed the available imaging, operative and pathology reports as described above and reviewed in the EMR. 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 I will continue her taper over the next month. She will go down to 10mg daily on October 03 for two weeks, then 5mg daily for two additional weeks and then stop. She has her cancer follow-up and CT chest in early October. I will phone her after that visit. She knows to call me if she has any difficulties with her breathing. She will also make anappointment with Dr. Anderson to see if she qualifies for Pulmonary Rehab. Her questions were answered;she was comfortable with this plan. EDUCATION Ready to learn, no apparent learning barriers were identified; learning preferences include listening. Explained diagnosis and treatment plan; patient expressed understanding of the content. I personally spent 20 minutes in care of the patient today. Time includes both non face to face and face to face patient care. Signed by: Allison Campos M.D. 09/22/2020 4:03 PM CDT Radiation Oncology [facility] [address] [place] [address] documented in this encounter Miscellaneous Notes Addendum Note - Elin Everett - 09/22/2020 3:30 PM CDT Encounter addended by: Elin Everett on: 09/23/2020 8:36 AM Actions taken: Letter saved documented in this encounter Plan of Treatment Scheduled Referrals Name Type Priority Associated Order Schedule Diagnoses Radiation Oncology Outpatient Referral Routine On ce for 1 office visit Occurrences sta rting (clinic) 09/22/2020 unti l 09/22/2020 NonF2F phone visit Outpatient Referral Routine Ex pected: 10/19/2020 (Approximate), Expires: 2023 documented as of this encounter Visit Diagnoses Diagnosis 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) - Primary documented in this encounter
--- OUTSIDE RECORDS SUMMARY | 2021-11-01 08:18 | XMS_ITS | Clinical Summary ---
:1945 Author Organization [facility] Address [address] [place] [address] Care Team Providers Name Role Phone Unavailable Primary Care Provider Unavailable Source Comments Patient records contain information from all sites at [facility]. For routine questions regarding patient records, call [phone] during business hours, M-F 8:00 AM - 5:00 PM Central Time. Record requests for emergency care only can be directed to [phone] at any time.[facility] Allergies Active Allergy Reactions Severity Noted Date Comments Gabapentin Nausea Only, Other (see Medium 04/25/2015 comments), GI intolerance Levofloxacin Headache Low 03/11/2017 Morphine Nausea Only, Nausea And Medium 04/22/2006 Vomiting Nickel Rash Medium 04/22/2006 Povidone-Iodine Rash High 08/03/2006 Propoxyphene Hallucinations, Rash Medium 04/22/2006 Sulfa (Sulfonamide Rash Medium 04/22/2006 Antibiotics) Medications Medication Sig Dispensed Refills Start Date End Date Status albuterol 1.25 mg/3 mL Inhale 6 mL. 0 02/19/2020 Active nebulizer solution aspirin [address] Take 81 mg by 0 12/09/2014 Active tablet mouth. atorvastatin (LIPITOR) Take 20 mg by 0 Active 20 mg tablet mouth. cholecalciferol Take 1 capsule by 0 Active (VITAMIN D3) 25 mcg mouth. (1,000 Unit) capsule furosemide (LASIX) 40 Take 20 mg by 0 09/23/2019 Active mg tablet mouth. Take one-half tablet daily meclizine (ANTIVERT) Take 12.5 mg by 0 Active 25 mg tablet mouth as needed. metoprolol succinate TAKE 1 TABLET 0 09/23/2019 Active (TOPROL-XL) 50 mg 24 EVERY DAY hr tablet B complex-vitamins Take 1 tablet by 0 Active (BALANCE B-50) tablet mouth daily. LORazepam (ATIVAN) 1 Take 1 tablet (1 6 tablet 0 03/28/2020 Active mg tablet mg total) by mouth daily as needed for anxiety (take 45 minutes prior to procedure) for up to 6 days. TURMERIC ORAL Take by mouth 2 0 Active (two) times a day. miscellaneous medical NEW replacement 0 09/09/2018 Active supply mis CPAP machine for home use at pressure: 7.6 [...] Need: 99 months, Frequency of use: Daily azithromycin Take 2 tablets 6 tablet 0 08/10/2020 A ctive (Zithromax Z-Juancho) 250 (500 mg) on Day 1, mg tablet followed by 1 tablet (250 mg) once daily on Days 2 through 5. predniSONE (DELTASONE) Take 3 tablets (60 70 tablet 0 08/11/19 21 Active 20 mg tablet mg total) by mouth daily. Start with 60mg Qday for two weeks, then 40mg Qd for 2 weeks, then 20mg Qd for 2 weeks fluticasone 0 09/21/2020 Active propion-salmeteroL 250-50 mcg/dose diskus inhaler [id number]-[id number] APPLY TO INJECTED 0 Active amethasone (MAXITROL) EYE THREE TIMES A 3.5mg/mL-10,000 DAY FOR 3 DAYS unit/mL-0.1 % AFTER INJECTION ophthalmic suspension predniSONE (DELTASONE) Take 2 tablets (10 42 tablet 0 10/04/19 21 Active 5 mg tablet mg total) by mouth daily. 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); Cliff Veloz Nicotine Depend ence from Last 3 Months Social History Tobacco Use Types Packs/Day Years Used Date Smoking Tobacco: Never Assessed Sex Assigned at Date Recorded Not on file Last Filed Vital Signs Vital Sign Reading Time Taken Comments Blood Pressure 148/79 09/22/2020 3:31 PM CDT Pulse 87 09/22/2020 3:31 PM CDT Temperature 36.5 ??C (97.7 ??F) 09/22/2020 3:31 PM CDT Respiratory Rate - - Oxygen Saturation - - Inhaled Oxygen Concentration - - Weight 80.6 kg (177 lb 11.1 oz) 09/22/2020 3:31 PM CDT Height 157 cm (5' 1.81) 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 Body Mass Index 32.7 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 Plan of Treatment Health Maintenance Due Date Last Done Comments Bone Density Scan (Osteoporosis 1945 Screen) CT Colonography 1945 Cologuard 1945 Colonoscopy 1945 Colorectal Cancer Screening 1945 FIT 1945 Hepatitis C Screening 1945 Mammogram 1945 DTaP,Tdap,and Td Vaccines (2 - Td 08/16/2016 08/16/2006 or Tdap) COVID-19 Vaccine (4 - Booster for 01/10/2021 10/18/2020, , Pfizer series) 04/26/2020 Depression Screening (Annual 03/04/2021 PHQ-2) Fall Risk Screen (Annual) 03/04/2021 Influenza Vaccine (#1) 2022 12/21/2020, 12/18/2019, 05/12/2019, Additional history exists Creatinine Level 01/09/2022 01/09/2021, 10/11/2020, 07/26/2020, Additional history exists Potassium Level 08/16/2022 08/16/2021, 01/09/2021, 10/11/2020, Additional history exists Sodium Level 08/16/2022 08/16/2021, 01/09/2021, 10/11/2020, Additional history exists Fasting Glucose for Diabetes 01/10/2024 01/09/2021, 021, Screening 07/26/2020, Additional history exists Pneumococcal vaccine (65+ years) Completed 03/01/2016, , 12/28/1994 Zoster Vaccines Completed 06/12/2019, 01/16/2019, 10/10/2009 Procedures Procedure Name Priority Date/Time Associated Diagnosis Comme nts OUTSIDE CT BODY Routine 08/28/2021 9:30 AM Result s for this CDT procedure are i n the results section. from Last [address] CHEST WO-Outside CT Body (08/28/2021 9:30 AM CDT) Specimen (Source) Anatomical Location Collection Method / Collectio n Time Received Time / Laterality Volume Narrative IIMS - 08/29/2021 8:23 AM CDT This order has been created and auto-finalized to support the import of outside images. If available, original i nterpretation can be found on the Media Tab in Chart Review, in Document V iewer, or as an image in QREADS. If a re-interpretation or overread is re quired please follow defined workflow. ?? Provider Not In System IMG CT PROCEDURES Performing Organization Address City/State/ZIP Code Phon e Number IIMS IIMS NA from Last 3 Months Insurance Payer Benefit Plan Subscriber ID Effective Phone Address Typ e / Group Dates MEDICARE MEDICARE A [id number] 2012-Pres [address] [place] [address] BLUE CROSS BCBS [place] [id number] 2016-Pres [phone] PO SHARONDA X Cost Share BLUE SHIELD BLUE COST ent [phone] [place]ARE [place] [id number]
--- OUTSIDE RECORDS SUMMARY | 2021-11-01 08:18 | XMS_ITS | Encounter Summary ---
:1945 Author Organization [facility] Address [address] [place] [address] Care Team Providers Name Role Phone Unavailable Primary Care Provider Unavailable Reason for Referral Specialty Diagnoses / Procedures Referred By Contact Refer red To Contact Allison Campos M.D. [facility] Region [address] [place] [phone] Referral ID Status Reason Start Date Expiration Date Visits Requ ested Visits Authorized RNATIONAL CONTROLLER Encounter Details Date Type Department Care Team Description 04/11/2020 Hospital Encounter Department of Janessa Campos M.D. [address] [place] [address] [phone] Malignant Neoplasm Radiation Oncology Summer Schwartz, RAmandeepNAmandeep [address] [place] [phone] Of Lung Upper Lobe in [place], [facility] [place] [facility] [address] [place] [address] Social History Tobacco Use Types Packs/Day Years Used Date Smoking Tobacco: Never Assessed Sex Assigned at Date Recorded Not on file documented as of this encounter Last Filed Vital Signs Vital Sign Reading Time Taken Comments Blood Pressure 147/78 04/11/2020 8:30 AM INTERNATIONAL CONTROLLER Pulse 74 04/11/2020 8:30 AM INTERNATIONAL CONTROLLER Temperature 35.7 ??C (96.3 ??F) 04/11/2020 8:30 AM INTERNATIONAL CONTROLLER Respiratory Rate - - Oxygen Saturation - - Inhaled Oxygen Concentration - - Weight 78.2 kg (172 lb 6.4 oz) 04/11/2020 1:00 PM INTERNATIONAL CONTROLLER Height - - Body Mass Index 31.73 03/28/2020 9:23 AM INTERNATIONAL CONTROLLER documented in this encounter Medications at Time [...] 0 09/23/2019 tablet Take one-half tablet daily miscellaneous medical NEW replacement CPAP 0 11/2018 [...] Need: 99 months, Frequency of use: Daily meclizine (ANTIVERT) 25 mg Take 12.5 mg by mouth 0 tablet as needed. metoprolol succinate TAKE 1 TABLET EVERY 0 2019 (TOPROL-XL) 50 mg 24 hr DAY tablet TURMERIC ORAL Take by mouth 2 (two) 0 times a day. documented as of this encounter Progress Notes Summer Schwartz R.N. - 04/11/2020 8:30 AM CST SUBJECTIVE REASON FOR VISIT Nurse education vis t HISTORY OF PRESENT ILLNESS Mrs. Nleia Castro is a 74 y.o. female with right upper lung cancer. Treatment Course: 1x R lung SBRT Plan ID Fractions Dose / Fraction (cGy) Dose Treated (cGy) Dose Planned (cGy) First Treatment Last Treatment Elapsed Days F1 Rlung SBRT 3 / 4 1200 3600 4800 04/06/2020 04/11/2020 5 Course Summary 04/06/2020 04/11/2020 5 The patient reports feeling dizzy when she goes from sitting to standing. Dizziness improves after radiation treatments. She reports that she does take Ativan pre-treatments and does have a history of Meniere's disease. Patient is asking if she can be scheduled for COVID vaccine here at [facility] OBJECTIVE BP 147/78 Pulse 74 Temp (!) 35.7 ??C Wt 78.2 kg BMI 31.73 kg/m?? PHYSICAL EXAM General: Alert and oriented in no apparent distress. ASSESSMENT / PLAN The patient is tolerating radiation treatment well overall. I reviewed fall precaution education with patient. If dizziness does not improve after her last dose of Ativan, she will follow up with her primary care provider. Vaccination will be recommended for everyone who is eligible, but supplies will be limited at first.Federal and state authorities require health care employees to be offered the vaccine first. This includes hospital workers, emergency responders and long-term care staff. The vaccine will be offered to more health care employees, our patients and community members as it becomes available. We should be able to have vaccine for everyone who wants it during 2020. You may be wondering about a wait list for the COVID-19 vaccine. A waiting list is not being kept. There is nothing you need to do at this time. Rather, we will continue to share information with you about COVID-19 vaccines on our COVID-19 information hub. You also can expect emails from your care team and updates on Patient Online Services, [employer] patient portal, about scheduling vaccination appointments at [facility]. View this COVID-19vaccine education flyer for additional information. Patient can also check the [facility] Department webpage for updates as well as call her primary care provider for vaccine availability updates. Nurse education visit was completed today. She will contact us with any questions or concerns. We will continue with radiation treatment as planned. Signed by: Summer Schwartz R.N. 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
--- OUTSIDE RECORDS SUMMARY | 2021-11-01 08:18 | XMS_ITS | Encounter Summary ---
:1945 Author Organization [facility] Address [address] [place] [address] Care Team Providers Name Role Phone Unavailable Primary Care Provider Unavailable Encounter Details Date Type Department Care Team Description 04/13/2020 Documentation Department of Radiation Faina Reyes, Oncology in [place], P.Kory.Daniel., M.S. [place] [address] [facility] [address] [place] [phone] (Wo rk) Social History Tobacco Use Types Packs/Day Years Used Date Smoking Tobacco: Never Assessed Sex Assigned at Date Recorded Not on file documented as of this encounter Miscellaneous Notes Radiation Completion Notes - Faina Reyes P.A.-C., M.S. - 04/13/2020 11:59 PM CST DIAGNOSIS: 1. 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 Treatment Intent: Curative Concomitant Therapy: None Single Plan Treatment Course: 1x R lung SBRT Plan ID Fractions Dose / Fraction (cGy) Dose Treated (cGy) Dose Planned (cGy) First Treatment Last Treatment Elapsed Days F1 Rlung SBRT 1200 4800 4800 04/06/2020 04/13/2020 7 Course Summary 04/06/2020 04/13/2020 7 Radiation Modality: Photons CLINICAL SUMMARY Mrs. Nelia Castro completed radiation treatment as planned without interruptions. The course of treatment was tolerated well and with anticipated side effects. The patient experienced toxicitiesof grade 1 fatigue during radiation treatment. TREATMENT RESPONSE: Response to treatment will be determined by post-treatment imaging. RECOMMENDED FOLLOW UP: Radiation Oncologist and Primary Medical Oncologist. She is scheduled for follow-up appointments with Dr. Campos on July 15, 2020 and with Eileen Gross CNP on July 28, 2020. 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
--- OUTSIDE RECORDS SUMMARY | 2021-11-01 08:18 | XMS_ITS | Encounter Summary ---
:1945 Author Organization [facility] Address [address] [place] [address] Care Team Providers Name Role Phone Unavailable Primary Care Provider Unavailable Reason for Referral Outpatient (Routine) - Closed Specialty Diagnoses / Procedures Referred By Contact Refer red To Contact Radiation Oncology Allison Campos [facility] M.D. [address] [place] [phone] Referral ID Status Reason Start Date Expiration Date Visits Requ ested Visits Authorized [id number] Closed 04/13/2020 04/13/2021 1 1 Scheduling Instructions In 3 mon, in coordination w chest CT at [facility] Reason for Visit Outpatient (Routine) - Closed Specialty Diagnoses / Procedures Referred By Contact Refer red To Contact Radiation Oncology Allison Campos [facility] M.D. [address] [place] [phone] Referral ID Status Reason Start Date Expiration Date Visits Requ ested Visits Authorized [id number] Closed 04/13/2020 04/13/2021 1 1 Encounter Details Date Type Department Care Team Description 07/15/2020 Hospital Encounter Department of Allison Campos Neoplasm Radiation Oncology Cliff Veloz Of Lung Upper Lobe in [place], [facility] [address] [facility] Or Bronchus Right [place], [place] (HCC) (Primary Dx) [address] [address] [place], [place] [phone] (Work) [phone] Social History Tobacco Use Types Packs/Day Years Used Date Smoking Tobacco: Never Assessed Sex Assigned at Date Recorded Not on file documented as of this encounter Last Filed Vital Signs Vital Sign Reading Time Taken Comments Blood Pressure 143/61 07/15/2020 12:55 PM CDT Pulse 85 07/15/2020 12:55 PM CDT Temperature 36.6 ??C (97.8 ??F) 07/15/2020 12:55 PM CDT Respiratory Rate - - Oxygen Saturation - - Inhaled Oxygen Concentration - - Weight 81.2 kg (179 lb 0.2 oz) 07/15/2020 12:55 PM CDT Height - - Body Mass Index 32.94 03/28/2020 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 - 07/15/2020 1:30 PM CDT RADIATION ONCOLOGY FOLLOW-UP NOTE REQUESTING PROVIDER Established patient DIAGNOSIS 1. 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 ??Multifocal lung lesions??(bilateral lungs, predominantly GGOs) CHIEF COMPLAINT/REASON FOR VISIT Mrs. 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 ??She recently received SBRT and returns now for a focused follow-up. Her??oncologic history is as follows: 1. July [...] April 06, 2020 through April 13, 2020: Patient treated with stereotatic radiotherapy to thetumor in rightt upper lung to a dose of 4800 cGy in 4 fractions. Patient was treated every other day. 15. July 16, 2020: CT chest showed increased areas of ground glass changes around the SRBT site in the RUL. Other nodules are stable. (By my review it seems to show the mass is less dense.) INTERVAL HISTORY: Since I last saw Mrs. Nelia Castro she reports she is doing fairly well. She states that she still has mild fatigue since receiving the radiation therapy. She has a mild cough as well, but this is not as intense as it was during the treatment. She feels her breathing is a bit more labored that it was before. She would be short of breath after 1 1/2 blocks. However, she is able to do all of her ADLs and overall feels well. She states that when she was diagnosed with the lung cancer she was also diagnosed with COPD. She has some left upper back pain that can bother her at night, but no other new back/bone pain. She has OBJECTIVE BP 143/61 (BP Location: Right arm, Patient Position: Sitting, Cuff Size: Small) Pulse 85 Temp 36.6 ??C (Temporal) Wt 81.2 kg BMI 32.94 kg/m?? General: Mrs. Nelia Castro is a [...] #2 ??Multifocal lung lesions??(bilateral lungs, predominantly GGOs) Mrs. Nelia Castro is doing well. She has no clinical evidence of pneumonitis, but has radiographic pneumonitis. We discussed that if her symptoms should keep worsening that we should have her see Dr. Anderson again as she is at risk for radiation pneumonitis for up to 6 months after the radiation.I think her imaging looks favorable. The mass looks less dense to me, but she does have other groundglass changes from the treatment nearby. I would suggest another CT chest in 6 months and a follow-up with me then. She sees Eileen Gross next week at [facility]. I bet she will put those orders in for her. Mrs. Nelia Castro knows to contact us [...] patient care. Signed by: Allison Campos M.D. 07/15/2020 2:13 PM CDT Radiation Oncology [facility] [address] [place] [address] documented in this encounter Plan of Treatment Scheduled Referrals Name Type Priority Associated Order Schedule Diagnoses Radiation Oncology Outpatient Referral Routine On ce for 1 office visit Occurrences sta rting (clinic) 07/15/2020 unti l 07/15/2020 documented as of this encounter Visit Diagnoses Diagnosis 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) - Primary documented in this encounter
--- OUTSIDE RECORDS SUMMARY | 2021-11-01 08:18 | XMS_ITS | Encounter Summary ---
:1945 Author Organization [facility] Address [address] [place] [address] Care Team Providers Name Role Phone Unavailable Primary Care Provider Unavailable Reason for Referral Outpatient (Routine) - Closed Specialty Diagnoses / Procedures Referred By Contact Refer red To Contact Allison Campos M.D. [address] [phone] Referral ID Status Reason Start Date Expiration Date Visits Requ ested Visits Authorized [id number] Closed 10/19/2020 10/19/2021 1 1 Scheduling Instructions Please schedule a phone visit with me af ter her CT chest and f/u with Dr. Mccray in 3 months Outpatient (Routine) - Closed Specialty Diagnoses / Procedures Referred By Contact Refer red To Contact Allison Campos M.D. [address] [phone] Referral ID Status Reason Start Date Expiration Date Visits Requ ested Visits Authorized [id number] Closed 09/22/2020 09/22/2021 1 1 Scheduling Instructions On Sat morning during Admin time. Thanks Reason for Visit Outpatient (Routine) - Closed Specialty Diagnoses / Procedures Referred By Contact Refer red To Contact Allison Campos M.D. [address] [phone] Referral ID Status Reason Start Date Expiration Date Visits Requ ested Visits Authorized [id number] Closed 09/22/2020 09/22/2021 1 1 Encounter Details Date Type Department Care Team Description 10/19/2020 Hospital Encounter Department of Radiation [facility]oko Campos I., [facility] [place] [address] [place] [phone] Social History Tobacco Use Types Packs/Day Years [...] Need: 99 months, Frequency of use: Daily [id number] APPLY TO INJECTED EYE 0 08/09/2020 hasone [...] encounter Progress Notes Allison Campos M.D. - 10/19/2020 10:30 AM CDT RADIATION ONCOLOGY PHONE FOLLOW-UP NOTE REQUESTING PROVIDER Established patient ?? DIAGNOSIS 1.?Stage IA3 (cT1c, cN0, cM0) adenocarcinoma [...] follow-up after being diagnosed with radiation pneumonitis. ?? Her??oncologic history is as follows: 1. [...] the multifocal bilateral solid and ground-glass nodules. (Her images are not yet in Qreads, I will look when they are available for me). INTERVAL HISTORY: Since I last saw Mrs. Nelia Castro she reports that she is doing fairly well. She has no change in her breathing. She is going to run out of her prednisone soon. She will occasionally feel heart palpitations in her throat. She has been told she has a murmur, but isn't sure if this is something she should worry about. She has not been able to get in to see Dr. Anderson back yet. She has concerns about the costs of her inhalers and I have asked if she is a candidate for pulmonaryrehab or not. OBJECTIVE There were no vitals taken for this visit. General: Mrs. Nelia Castro sounded well on the phone. DIAGNOSTICS: I have reviewed the available imaging, operative and pathology reports as described above and reviewed in the EMR. 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 Castro. She will be running out of her prednisone soon and I think this is fine as she is clinically back to her baseline. She will continue to try to get an appointment with Dr. Anderson to discuss her inhalers and whether or not she is a candidate for pulmonary rehab. I will look at her CT chest when it is available. I agree with seeing her back in 3 months given her pneumonitis. After that, hopefully, we can go to an every 6 month schedule. She liked the phone visit as Dr. Mccray is examining her. She will also check with her primary care physician about herpalpitations and heart murmur. Mrs. Nelia Castro knows to contact us [...] patient care. Signed by: Allison Campos M.D. 10/19/2020 11:01 AM CDT Radiation Oncology [facility] [address] [place] [address] documented in this encounter Plan of Treatment Scheduled Referrals Name Type Priority Associated Diagnoses Order S chedule NonF2F phone Outpatient Referral Routine Once for 1 visit Occurrences sta rting 10/19/2020 unti l 10/19/2020 NonF2F phone Outpatient Referral Routine Expected : 01/19/2021 visit (Approximate), Expires: 2023 documented as of this encounter Visit Diagnoses Not on filedocumented in this encounter
--- OUTSIDE RECORDS SUMMARY | 2021-11-01 08:18 | XMS_ITS | Encounter Summary ---
:1945 Author Organization [facility] Address [address] [place] [address] Care Team Providers Name Role Phone Unavailable Primary Care Provider Unavailable Reason for Referral Outpatient (Routine) - Closed Specialty Diagnoses / Procedures Referred By Contact Refer red To Contact Radiation Oncology Allison Campos [facility] Christianne Coronado [address] [place] [address] Referral ID Status Reason Start Date Expiration Date Visits Requ ested Visits Authorized [id number] Closed 08/10/2020 08/10/2021 1 1 MRI/CAT/PET Scan (Routine) - Closed Specialty Diagnoses / Procedures Referred By Contact Refer red To Contact Radiology Diagnoses Cough Unspecified Type Allison Campos M.D. [facility] Christianne Procedures CT Chest without IV Contrast [address] [place], [place] [phone] Referral ID Status Reason Start Date Expiration Date Visits Requ ested Visits Authorized [id number] Closed 08/10/2020 08/10/2021 1 1 Outpatient (Routine) - Closed Specialty Diagnoses / Procedures Referred By Contact Refer red To Contact Radiation Oncology Allison Campos [facility] Serafin Faust M.D. [address] [place] [address] Referral ID Status Reason Start Date Expiration Date Visits Requ ested Visits Authorized [id number] Closed 08/09/2020 08/09/2021 1 1 Scheduling Instructions Please schedule after 1129august 10 2020 Reason for Visit Outpatient (Routine) - Closed Specialty Diagnoses / Procedures Referred By Contact Refer red To Contact Radiation Oncology Allison Campos [facility] [place] [address] [place] [address] Referral ID Status Reason Start Date Expiration Date Visits Requ ested Visits Authorized [id number] Closed 08/09/2020 08/09/2021 1 1 Encounter Details Date Type Department Care Team Description 08/10/2020 Hospital Encounter Department of Radiation Yoko Campos I., Cough Oncology in [facility] [place] [address] [place] [id number] [place] [address] [phone] Social History Tobacco Use Types Packs/Day Years Used Date Smoking Tobacco: Never Assessed Sex Assigned at Date Recorded Not on file documented as of this encounter Last Filed Vital Signs Vital Sign Reading Time Taken Comments Blood Pressure 156/86 08/10/2020 8:57 AM CDT Pulse 84 08/10/2020 8:57 AM CDT Temperature 36.6 ??C (97.9 ??F) 08/10/2020 8:57 AM CDT Respiratory Rate - - Oxygen Saturation - - Inhaled Oxygen Concentration - - Weight 78.8 kg (173 lb 11.6 oz) 08/10/2020 8:57 AM CDT Height - - Body Mass Index 31.97 03/28/2020 9:23 AM AIR POLLUTION INSPECTOR documented in this encounter Medications at Time [...] mouth 2 (two) 0 times a day. azithromycin (Zithromax Take 2 tablets (500 6 tablet 0 11/2020 Z-Juancho) 250 mg tablet mg) on Day 1, followed by 1 tablet (250 mg) once daily on Days 2 through 5. mlifguoj-ixnvhatxn-lyambnp APPLY TO INJECTED EYE 0 08/09/2020 hasone (MAXITROL) THREE TIMES A DAY FOR 3.5mg/mL-10,000 3 DAYS AFTER unit/mL-0.1 % ophthalmic INJECTION suspension predniSONE (DELTASONE) 20 Take 3 tablets (60 mg 70 tablet 0 08/10/2020 mg tablet total) by mouth daily. Start with 60mg Qday for two weeks, then 40mg Qd for 2 weeks, then 20mg Qd for 2 weeks documented as of this encounter Progress Notes Allison Campos M.D. - 08/10/2020 9:00 AM CDT RADIATION ONCOLOGY FOLLOW-UP NOTE REQUESTING PROVIDER [...] SBRT and returns now for a focused follow-up due to a 3 day cough. ?? Her??oncologic history is as follows: 1. [...] 4 fractions. ??Patient was treated every other day. ?? 15. July 16, 2020: CT chest showed increased areas of ground glass changes around the SRBT site in the RUL. Other nodules are stable. (By my review it seems to show the mass is less dense.) INTERVAL HISTORY: Since I last saw Mrs. Nelia Castro she reports that about three days ago she developed a severe dry cough. It is quite severe and she feels more short of breath. She has also had a couple of days of chills. No fever with the chills. She is not coughing up sputum or blood. She has had bronchitis in the past but this was more than 20 years ago when she was smoking. Albuterol did not help. She put her CPAP machine on this helped. She was vaccinated against COVID two months ago. OBJECTIVE BP 156/86 (BP Location: Right arm, Patient Position: Sitting, Cuff Size: Regular) Pulse 84 Temp 36.6 ??C (Temporal) Wt 78.8 kg BMI 31.97 kg/m?? O2 sat at rest 99-100%, O2 sat with activity (walking) 99%. General: Mrs. Nelia Castro is a well-developed, well-nourished woman. she is seated in the examination room in no acute distress. ECO - symptomatic but completely ambulatory. She does have a drycough, but appears well. HEENT: Mucous membranes are pink and intact. No oral lesions. No palpable masses. Good opening of mouth. Good movement of tongue. Lymph: There is no cervical or supraclavicular lymphadenopathy. Cardiovascular: Heat rhythm with regular rate. Lungs: Lung goins are clear to auscultation throughout. No adventitious lung sounds. Abdomen: Soft, non-tender and non-distended. Musculoskeletal: No pain to palpation along the spine. DIAGNOSTICS: I have reviewed the available imaging, operative and pathology reports as described above and reviewed in the EMR. 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 Castro has developed radiation pneumonitis. I would like to start her on Zpakand prednisone. I will obtain another CT chest to get another look at her lungs now as a baseline. If we find something else on this study we can change our plan. I will call her with the results of the imaging. I will see her back for a clinical exam in 1 month. She knows to call me sooner if she is not improving in the next couple of days. Mrs. Nelia Castro knows to contact us at any point should any questions or concerns arise. EDUCATION Ready to learn, no apparent learning barriers were identified; learning preferences include listening. Explained diagnosis and treatment plan; patient expressed understanding of the content. I personally spent 30 minutes in care of the patient today. Time includes both non face to face and face to face patient care. Signed by: Allison Campos M.D. 08/10/2020 4:12 PM CDT Radiation Oncology [facility] [address] [place] [address] documented in this encounter Miscellaneous Notes Addendum Note - Rosa Rodarte - 08/10/2020 9:00 AM CDT Encounter addended by: Rosa Rodarte on: 08/11/2020 7:18 AM Actions taken: Letter saved documented in this encounter Plan of Treatment Scheduled Orders Name Type Priority Associated Diagnoses Order S chedule CT Chest without IV Imaging RAD - Routine (most Cough E xpected: Contrast inpatients and all outpatients) (Approximate), Expires: 08/11/2023 Scheduled Referrals Name Type Priority Associated Order Schedule Diagnoses Radiation Oncology Outpatient Referral Routine On ce for 1 office visit Occurrences sta rting (clinic) 08/10/2020 unti l 08/10/2020 Radiation Oncology Outpatient Referral Routine Ex pected: 09/09/2020 office visit (Approximate), (clinic) Expires: 2021 documented as of this encounter Visit Diagnoses Diagnosis Cough Unspecified Type documented in this encounter
--- OUTSIDE RECORDS SUMMARY | 2021-11-01 08:18 | XMS_ITS | Encounter Summary ---
:1945 Author Organization [facility] Address [address] [place] [address] Care Team Providers Name Role Phone Unavailable Primary Care Provider Unavailable Reason for Referral Outpatient (Routine) - Closed Specialty Diagnoses / Procedures Referred By Contact Refer red To Contact Allison Campos M.D. [facility] [address] [place] [phone] Referral ID Status Reason Start Date Expiration Date Visits Requ ested Visits Authorized [id number] Closed 04/21/2021 04/21/2022 1 1 Scheduling Instructions Schedule with me after she sees Dr. Mccray and has her CT chest, thanks ER GAS TUNGSTEN ARC Outpatient (Routine) - Closed Specialty Diagnoses / Procedures Referred By Contact Refer red To Contact Allison Campos M.D. [facility] [address] [place] [phone] Referral ID Status Reason Start Date Expiration Date Visits Requ ested Visits Authorized [id number] Closed 01/23/2021 01/23/2022 1 1 Scheduling Instructions Schedule after CT chest and Dr. Mccray rowdy! ER GAS TUNGSTEN ARC Reason for Visit Outpatient (Routine) - Closed Specialty Diagnoses / Procedures Referred By Contact Refer red To Contact Alilson Campos M.D. [facility] Region [address] [place] [phone] Referral ID Status Reason Start Date Expiration Date Visits Requ ested Visits Authorized [id number] Closed 01/23/2021 01/23/2022 1 1 Encounter Details Date Type Department Care Team Description 04/21/2021 Hospital Encounter Department of Allison Campos Neoplasm Radiation Oncology [place] Of Lung Upper Lobe in [address] Or Bronchus Right [place], [place] ([facility]) [address] [facility] [address] [place], [place] [phone] [address] (Work) [phone] Social History Tobacco Use Types Packs/Day Years [...] Need: 99 months, Frequency of use: Daily [id number]-qtajbuahw-fvehngi APPLY TO INJECTED EYE 0 08/09/2020 hasone [...] encounter Progress Notes Allison Campos M.D. 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 Consult conducted via real-time audio technology by Allison Campos M.D. in [facility] to the patient in patient's home. CHIEF COMPLAINT/REASON FOR VISIT Mrs. Nelia Castro [...] steroids for clinical symptoms of pneumonitis. 17. ??October 11, 2020: ??CT chest showed Mild-moderate decrease in size of the mixed ground-glass and consolidative opacity within the right upper lobe as compared to the most recent prior 08/11/2020. Finding may represent improving postradiation pneumonitis versus improved superimposed infiltrate. ??Stable appearance of the multifocal bilateral solid and [...] other multifocal bilateral solid and ground-glass nodules. 19. April 14, 2021: CT chest showed right upper lung findings related to prior XRT with rounded masslike component that is smaller. Stable ground glass and small nodules. Minimal basilar atelectasis. No effusions or visible metastatic disease. 20. April 18, 2021: Follow-up with Dr. Mccray went well and she recommended follow-up again in 3 months. INTERVAL HISTORY: Since I last saw Mrs. Nelai Castro she reports that she is doing fair. She still has shortness of breath with activity. This is unchanged since the last time we spoke. She did get to see Dr. Anderson this morning and will be starting a new medication with her nebulizer as well as starting some pulmonary rehabilitation. She has no cough, hemoptysis, chest pain. She does have joint pains particularly in her knees, but no new bone/back pain. She has no headache, nausea or vomiting. OBJECTIVE There were no vitals taken for this visit for this phone visit.. General: Mrs. Nelia Castro sounded well on the phone with no conversational dyspnea. DIAGNOSTICS: I have reviewed the available imaging, operative and pathology reports as described above and reviewed in the EMR. I reviewed her recent CT and compared it to CTs back to July 11, 2020. 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 I reviewed the above findings with Mrs. Castro. I think she is doing well. I am happy she got to see Dr. Anderson. We will see her back in 3 months with another phone visit. Mrs. Nelia Castro knows to contact us at any point should any questions or concerns arise. EDUCATION Ready to learn, no apparent learning barriers were identified; learning preferences include listening. Explained diagnosis and treatment plan; patient expressed understanding of the content. I personally spent 10 minutes in care of the patient today. Time includes both non face to face and face to face patient care. Signed by: Allison Campos M.D. 04/21/2021 2:42 PM WELDER G[employer] TUNGSTEN ARC Radiation Oncology [facility] [address] [place] [address] ER [facility]G[employer] AR[facility] documented in this encounter Miscellaneous Notes Addendum Note - Miriam Valdes C.N.A. - 04/21/2021 11:15 AM WELDER GAS TUNGSTEN ARC Encounter addended by: Miriam Valdes C.N.AAmandeep on: 04/24/2021 7:09 AM Actions taken: Letter saved ER GAS TUNGSTEN ARC documented in this encounter Plan of Treatment Scheduled Referrals Name Type Priority Associated Diagnoses Order S chedu NonF2F phone Outpatient Referral Routine Once for 1 visit Occurrences sta rting 04/21/2021 unti l 04/21/2021 NonF2F phone Outpatient Referral Routine Expected : 07/19/2021 visit (Approximate), Expires: 2022 documented as of this encounter Visit Diagnoses Diagnosis 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
--- OUTSIDE RECORDS SUMMARY | 2021-11-01 08:18 | XMS_ITS | Encounter Summary ---
:1945 Author Organization [facility] Address [address] [place] [address] Care Team Providers Name Role Phone Unavailable Primary Care Provider Unavailable Reason for Referral Specialty Diagnoses / Procedures Referred By Contact Refer red To Contact Allison Campos M.D. [facility] [address] [place] [phone] Referral ID Status Reason Start Date Expiration Date Visits Requ ested Visits Authorized PIPELINE OPERATOR Encounter Details Date Type Department Care Team Description 04/08/2020 Hospital Encounter Department of Janessa Campos M.D. [address] [place] [phone] Malignant Neoplasm Radiation Oncology Shefali Garcia C.C.RAmandeepCAmandeep Of Lung Upper Lobe in [place], Or Bronchus R [facility]) [address] [place] [address] Social History Tobacco Use Types [...] tablet miscellaneous medical NEW replacement CPAP 0 0 11/2018 supply misc machine for home [...] Need: 99 months, Frequency of use: Daily documented as of this encounter Plan of Treatment Scheduled Referrals Name Type Priority Associated Order Schedule Diagnoses Radiation Oncology Outpatient Referral Routine Malignant Neopl asm Once for 1 - PRO education Of Lung Upper Lobe Occurr ences starting visit Or Bronchus Right 04/08/2020 until (HCC) 04/08/2020 documented as of this encounter Visit Diagnoses Diagnosis 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
--- OUTSIDE RECORDS SUMMARY | 2021-11-01 08:18 | XMS_ITS | Encounter Summary ---
:1945 Author Organization [facility] Address [address] [place] [address] Care Team Providers Name Role Phone Unavailable Primary Care Provider Unavailable Reason for Visit Radiation Therapy (Routine) - Closed Specialty Diagnoses / Procedures Referred By Contact Refer red To Contact Diagnoses 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) Allison Campos M.D. [facility] Procedures Prior Auth Rad Tx [place] STEREOTACTIC BODY RADTN DEL [address] [place] [address] Referral ID Status Reason Start Date Expiration Date Visits Requ ested Visits Authorized [id number] Closed 03/30/2020 03/30/2021 4 4 Encounter Details Date Type Department Care Team Description 04/08/2020 Hospital Encounter Department of Radiation Yoko Campos I., [facility] [place] [address] [facility] [address] [place] [phone] Social History Tobacco Use Types Packs/Day Years [...]
--- OUTSIDE RECORDS SUMMARY | 2021-11-01 08:18 | XMS_ITS | Encounter Summary ---
:1945 Author Organization [facility] Address [address] [place] [address] Care Team Providers Name Role Phone Unavailable Primary Care Provider Unavailable Reason for Referral Radiation Therapy (Routine) - Canceled Specialty Diagnoses / Procedures Referred By Contact Refer red To Contact Diagnoses 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) Allison Campos M.D. [facility] Procedures Management Visit [address] [place], [place] [phone] Referral ID Status Reason Start Date Expiration Date Visits V isits Requested Authorized [id number] Canceled 03/30/2020 03/30/2021 1 1 ATION CAMERA OPERATOR Reason for Visit Radiation Therapy (Routine) - Canceled Specialty Diagnoses / Procedures Referred By Contact Refer red To Contact Diagnoses 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) Allison Campos M.D. [facility] Procedures Management Visit [address] [place], [place] [address] Referral ID Status Reason Start Date Expiration Date Visits V isits Requested Authorized [id number] Canceled 03/30/2020 03/30/2021 1 1 Encounter Details Date Type Department Care Team Description 04/06/2020 Hospital Encounter Department of Janessa Campos M.D. [address] [place] [phone] Malignant Neoplasm Radiation Oncology Dagoberto Barrett M.D. [address] [place] [address] Of Lung Upper Lobe in [place], Or Bronchus R ight [place] ([facility]) [address] [place] [address] Social History Tobacco Use Types Packs/Day Years Used Date Smoking Tobacco: Never Assessed Sex Assigned at Date Recorded Not on file documented as of this encounter Last Filed Vital Signs Vital Sign Reading Time Taken Comments Blood Pressure 148/88 04/06/2020 2:25 PM ANIMATION CAMERA OPERATOR Pulse 83 04/06/2020 2:25 PM ANIMATION CAMERA OPERATOR Temperature 36.9 ??C (98.4 ??F) 04/06/2020 2:25 PM ANIMATION CAMERA OPERATOR Respiratory Rate - - Oxygen Saturation - - Inhaled Oxygen Concentration - - Weight 81 kg (178 lb 9.2 oz) 04/06/2020 2:25 PM ANIMATION CAMERA OPERATOR Height - - Body Mass Index 32.86 03/28/2020 9:23 AM ANIMATION CAMERA OPERATOR documented in this encounter Medications at Time [...] use: Daily documented as of this encounter Progress Notes Dagoberto Barrett M.D. - 04/06/2020 2:30 PM CST SUBJECTIVE REASON FOR VISIT Evaluation for side effects while receiving radiation treatment for 1. 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) SUPERVISED BY: Dagoberto Barrett M.D. ([id number]) HISTORY OF PRESENT ILLNESS Mrs. Nelia Castro is a 74 y.o. female with right upper lung cancer. She is now receiving stereotactic body radiotherapy. Patient is being treated every other day. Treatment Course: 1x R lung SBRT Plan ID Fractions Dose / Fraction (cGy) Dose Treated (cGy) Dose Planned (cGy) First Treatment Last Treatment Elapsed Days F1 Rlung SBRT 1200 1200 4800 04/06/2020 04/06/2020 0 Course Summary 04/06/2020 04/06/2020 0 The patient was seen and examined today with Dr. Barrett. The patient reports that she is doing well. She denies any new symptoms or concerns. PATIENT REPORTED SYMPTOM SCREEN FATIGUE (Scale: 0 = no fatigue; 10 = worst fatigue you can imagine): 0 PAIN (Scale: 0 = no pain; 10 = worst pain you can imagine): 3 when laying down OVERALL QUALITY OF LIFE (Scale: 0 = as bad as can be; 10 = as good as can be): 7 OBJECTIVE BP 148/88 (BP Location: Right arm, Patient Position: Sitting, Cuff Size: Regular) Pulse 83 Temp 36.9 ??C (Temporal) Wt 81 kg BMI 32.86 kg/m?? PHYSICAL EXAM General: Alert and oriented in no apparent distress. 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 Nurse education visit has been scheduledfor patient. She will contact us with any questions or concerns. We will continue with radiation treatment as planned. Signed by: Summer Schwartz R.N. 04/06/2020 2:39 PM ANIMATION CAMERA OPERATOR I saw and evaluated the patient and participated in the preicado portions of the service. I reviewed the documentation of Summer Schwartz R.N. and agree with the findings and plan. The patient appears well onexam. She tolerated her first treatment well. She will continue with treatment as planned. Signed by: Dagoberto Barrett M.D. 04/06/2020 5:37 PM ANIMATION CAMERA OPERATOR [facility] Radiation Therapy [facility] [address] [place] [address] ATION CAMERA OPERATOR documented in this encounter Plan of Treatment Scheduled Orders Name Type Priority Associated Diagnoses Order S chedule Management Visit Radiation Oncology Routine Malignant Neoplasm Once for 1 Of Lung Upper Lobe Occurrenc es starting Or Bronchus Right 04/06/2020 until (HCC) 04/06/2020 documented as of this encounter Visit Diagnoses Diagnosis 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
--- OUTSIDE RECORDS SUMMARY | 2021-11-01 08:18 | XMS_ITS ---
:1945 Author Organization [facility] Address [address] [place] [address] Care Team Providers Name Role Phone Unavailable Primary Care Provider Unavailable Active Problems Problem Noted Date Malignant Neoplasm Of Lung Upper Lobe Or Bronchus Righ t 03/25/2020 Cancer Staging: Clinical stage from 02/02: Stage IA3 (cT1c, cN0, cM0) - Unsigned Current Oncology Plans No current plan information found. Past Plans No past plan information found. Radiation Treatments Plan Last Treated Elapsed Days Fractions Prescribed Prescribed Total On Treated Fraction Dose Dose F1 Rlung 04/13/2020 7 4 of 4 1,200 cGy 4,800 cGy SBRT Reference Point Last Treated On Elapsed Days Session Dose Total Dos e [id number] 04/13/2020 7 1,200 cGy 4,800 cGy
--- OUTSIDE RECORDS SUMMARY | 2021-11-01 08:18 | XMS_ITS | Encounter Summary ---
:1945 Author Organization [facility] Address [address] [place] [address] Care Team Providers Name Role Phone Unavailable Primary Care Provider Unavailable Reason for Visit Radiation Therapy (Routine) - Closed Specialty Diagnoses / Procedures Referred By Contact Refer red To Contact Diagnoses 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) lAlison Campos M.D. [facility] Procedures Prior Auth Rad Tx [place] STEREOTACTIC BODY RADTN DEL [address] [place] [address] Referral ID Status Reason Start Date Expiration Date Visits Requ ested Visits Authorized [id number] Closed 03/30/2020 03/30/2021 4 4 Encounter Details Date Type Department Care Team Description 04/13/2020 Hospital Encounter Department of Radiation Yoko Campos I., [facility] [place] [address] [facility] [address] [place] [phone] Social History Tobacco Use Types Packs/Day Years [...]
--- OUTSIDE RECORDS SUMMARY | 2021-11-01 08:18 | XMS_ITS | Encounter Summary ---
:1945 Author Organization 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 [facility] [place] Procedures CT Chest without IV Contrast [address] [place] [address] Referral ID Status Reason Start Date Expiration Date Visits Requ ested Visits Authorized [id number] Closed 04/13/2020 04/13/2021 1 1 CLEANING COOKING Outpatient (Routine) - Closed Specialty Diagnoses / Procedures Referred By Contact Refer red To Contact Radiation Oncology lAlison Campos [facility] Serafin Faust M.D. 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 [facility] Procedures Management Visit [address] [place] [phone] Referral ID Status Reason Start Date Expiration Date Visits V isits Requested Authorized [id number] Canceled 03/30/2020 03/30/2021 1 1 Encounter Details Date Type Department Care Team Description 04/13/2020 Hospital Encounter Department of Allison Campos Neoplasm Radiation Oncology Cliff Veloz Of Lung Upper Lobe in [address] Or Bronchus Right [place], [place] (HCC) [address] [facility] [address] [place], [place] [phone] (Work) [phone] Social History Tobacco Use Types Packs/Day Years Used Date Smoking Tobacco: Never Assessed Sex Assigned at Date Recorded Not on file documented as of this encounter Last Filed Vital Signs Vital Sign Reading Time Taken Comments Blood Pressure 146/84 04/13/2020 10:44 AM [facility]ID [employer] Pulse 82 04/13/2020 10:44 AM [facility] [employer] Temperature 36 ??C (96.8 ??F) 04/13/2020 10:44 AM [facility] [employer] Respiratory Rate - - Oxygen Saturation - - Inhaled Oxygen Concentration - - Weight 80.4 kg (177 lb 4 oz) 04/13/2020 10:44 AM [employer] [employer] Height - - Body Mass Index 32.62 03/28/2020 9:23 AM [facility] [employer] documented in this encounter Medications at Time [...] day. documented as of this encounter Progress Allison Flor M.D. - 04/13/2020 11:00 AM CST ATTESTATION FOR MANAGEMENT VISIT I saw and evaluated the patient and participated in the preciado portions of the service as noted below. I reviewed the documentation of Ms. Summer Schwartz RN and agree with the findings and plan. The patient appears well on exam. I congratulated her on completing her treatments today. We will see her back in [address] for her first follow-up visit. She knows to call me if she has any difficultiesin the interim. Allison Campos M.D., 04/13/2020 SUBJECTIVE REASON FOR VISIT Evaluation for side effects while receiving radiation treatment for 1. 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 Campos HISTORY OF PRESENT ILLNESS Mrs. Nelia Castro is a 74 y.o. female with right upper lung cancer. She is completing stereotactic body radiotherapy today, April 13, 2020. Patient is being treated every other day. Treatment Course: 1x R lung SBRT Plan ID Fractions Dose / Fraction (cGy) Dose Treated (cGy) Dose Planned (cGy) First Treatment Last Treatment Elapsed Days F1 Rlung SBRT 1200 4800 4800 04/06/2020 04/13/2020 7 Course Summary 04/06/2020 04/13/2020 7 Her??oncologic history was reviewed with the patient and is as follows: 1. July 04, 2018: [...] ??No intracranial metastases. 13. March 30, 2020: ??Patient was being re-presented at thoracic conference. The consensus was to proceed with SBRT after a full discussion. 14. April 06, 2020 through April 13, 2020: Patient treated with stereotatic radiotherapy to thetumor in rightt upper lung to a dose of 4800 cGy in 4 fractions. Patient was treated every other day. The patient was seen and examined today with Dr. Campos. The patient reports that she is doing well. She reports fatigue and needing to take a nap in the afternoon. She notices mild right upper lobe discomfort but does not feel the need to take medication for this. She denies skin, changes, fevers or chills. She noticed one day of change in swallow but thisresolved on its own. She notices slight sore/tight neck. PATIENT REPORTED SYMPTOM SCREEN FATIGUE (Scale: 0 = no fatigue; 10 = worst fatigue you can imagine): 3-4 PAIN (Scale: 0 = no pain; 10 = worst pain you can imagine): 0 OVERALL QUALITY OF LIFE (Scale: 0 = as bad as can be; 10 = as good as can be): 8 OBJECTIVE BP 146/84 (BP Location: Right arm, Patient Position: Sitting, Cuff Size: Small) Pulse 82 Temp 36??C (Temporal) Wt 80.4 kg BMI 32.62 kg/m?? PHYSICAL EXAM General: Alert and oriented in no apparent distress. 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 I discussed gentle massage and heating pad at low setting to help with tight neck. This could be related to being on hard treatment table forher radiation. Fatigue should start to improve in the coming weeks. Patient will follow up with Medical Oncology at [facility] this coming Saturday. We will order chest CT with out IV contrastand return visit with Dr. Campos in 3 months. She will contact us with any questions or concerns. Wewill continue with radiation treatment as planned. Patient stated a full understanding to the plan of care discussed today. Toxicities reviewed with Dr. Campos today. Signed by: Summer Schwartz R.N. 04/13/2020 1:32 PM MAID CLEANING COOKING CLEANING COOKING documented in this encounter Miscellaneous Notes Addendum Note - Allison Campos M.D. - 04/13/2020 11:00 AM [facility]ID [employer] Encounter addended by: Allison Campos M.D. on: 04/13/2020 3:44 PM Actions taken: Letter saved CLE[employer]OOKING Addendum Note - Rosa Rodarte - 04/13/2020 11:00 AM [facility]ID [employer] Encounter addended by: Rosa Rodarte on: 04/14/2020 7:51 AM Actions taken: Letter saved CLEANING COOKING documented in this encounter Plan of Treatment Scheduled Orders Name Type Priority Associated Order Schedule Diagnoses Management Visit Radiation Routine Malignant Once for 1 Oncology Neoplasm Of Lung Occurrences Upper Lobe Or starting Bronchus Right 04/13/2020 un til (HCC) 04/13/2020 CT Chest without Imaging RAD - Routine Malignant Expected: IV Contrast (most inpatients Neoplasm Of Lung 021 and all Upper Lobe Or (Approximate), outpatients) Bronchus Right Expires: (HCC) 04/13/2023 Scheduled Referrals Name Type Priority Associated Diagnoses Order [facility] Radiation Oncology Outpatient Referral Routine Ex pected: office visit 07/11/2020 (clinic) (Approximate), Expires: 04/13/2021 documented as of this encounter Visit Diagnoses Diagnosis 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
--- OUTSIDE RECORDS SUMMARY | 2021-11-01 08:18 | XMS_ITS | Encounter Summary ---
:1945 Author Organization [facility] Address [address] [place] [address] Care Team Providers Name Role Phone Unavailable Primary Care Provider Unavailable Encounter Details Date Type Department Care Team Description 08/11/2020 Clinical Communication Department of Allison Cmapos Radiation Oncology Cliff Dixon [place] [address] [place] [address] [address] [place], [place] [phone] Social History Tobacco Use Types Packs/Day Years Used Date Smoking Tobacco: Never Assessed Sex Assigned at Date Recorded Not on file documented as of this encounter Miscellaneous Notes Telephone Encounter - Allison Campos M.D. - 08/11/2020 3:28 PM CDT I spoke with Mrs. Castro. She started the medications yesterday and is feeling better. I have reviewed the CT chest results from 08/10 that show worsening radiation pneumonitis. This is consistent with her symptoms. I told her to continue with the antibiotics and steroids and to call us if she get wor se. I will see her again in 1 month to check on her. Her questions were answered; she was comfortable with his plan. documented in this encounter Plan of Treatment Not on filedocumented as of this encounter Visit Diagnoses Not on filedocumented in this encounter
--- OUTSIDE RECORDS SUMMARY | 2021-11-01 08:18 | XMS_ITS | Encounter Summary ---
:1945 Author Organization [facility] Address [address] [place] [id number] Care Team Providers Name Role Phone Unavailable Primary Care Provider Unavailable Reason for Referral Outpatient (Routine) - Authorized Specialty Diagnoses / Procedures Referred By Contact Refer red To Contact Radiation Oncology Allison Campos [facility] Christianne Coronado [address] [place] [address] Referral ID Status Reason Start Date Expiration Date Visits V isits Requested Authorized [id number] Authorized 09/05/2021 09/05/2022 1 1 Outpatient (Routine) - Closed Specialty Diagnoses / Procedures Referred By Contact Refer red To Contact Allison Campos M.D. [facility] Region [address] [place] [phone] Referral ID Status Reason Start Date Expiration Date Visits Requ ested Visits Authorized [id number] Closed 04/21/2021 04/21/2022 1 1 Scheduling Instructions Schedule with me after she sees Dr. Mccray and has her CT chest, thanks Reason for Visit Outpatient (Routine) - Closed Specialty Diagnoses / Procedures Referred By Contact Refer red To Contact Allison Campos M.D. [facility] [address] [place] [phone] Referral ID Status Reason Start Date Expiration Date Visits Requ ested Visits Authorized [id number] Closed 04/21/2021 04/21/2022 1 1 Encounter Details Date Type Department Care Team Description 09/05/2021 Hospital Encounter Department of Allison Campos Neoplasm Of Lung Upper Lobe Or Bronchus Right (HCC); Radiation Oncology Cliff Veloz Nicotine Dependence in [place] [address] [address] [place], [place] [address] [facility] [address] [place], [place] [phone] (Work) [phone] Social History Tobacco Use Types Packs/Day Years [...] Need: 99 months, Frequency of use: Daily [id number]-[id number]-[id number] APPLY TO INJECTED EYE 0 08/09/2020 hasone [...] encounter Progress Notes Allison Campos M.D. 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 Consult conducted via real-time audio technology by??Allison Campos M.D.??in [facility]??to the patient in patient's home.? CHIEF COMPLAINT/REASON FOR VISIT Mrs. 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 ??She recently received SBRT and??we are now having a phone follow-up visit. ?? Her??oncologic history is as follows: 1. [...] of the multifocal bilateral solid and ground-glass nodules.?? 18. January 09, 2021: ??CT chest showed Mild increase in prominence of [...] she recommended follow-up again in 3 months. 21. May 26, 2021: PET/CT showed 1. Post treatment changes in the right upper lobe with a residualmixed consolidative and ground-glass opacity extending superiorly from the right hilum toward the pleural surfaces. The configuration is similar to the 04/14/2021 CT study with interval clearing of theperiphery along the lateral margin of the right upper lobe opacity potentially related to mucous plugging or atelectasis. Persistent uptake with an SUV max of 4.4. Continued close interval follow-up imaging recommended. No new hypermetabolic mediastinal lymph nodes. 2. Scattered solid-appearing and ground-glass nodules throughout both lungs with low level uptake are overall indeterminate given small size though suspicious. 3. No distant sites of tracer avid disease in the abdomen/pelvis or bony structures. 4. Moderately intense uptake within a sub centimeter left parotid/periparotid nodule could befurther evaluated with directed ultrasound and FNA as indicated. A primary parotid neoplasm cannot be excluded. (Per patient, subsequent evaluation showed this to be benign; 09/05/21). 22. August 28, 2021: CT chest showed 1. No evidence interval metastatic disease or change from the PET-CT of 05/26/[address] of 04/14/2021. 2. Mass and post treatment changes in the right upper lobe are stable in configuration. Bilateral ground-glass densities and small lung nodules are unchanged. 3. No interval developing pulmonary process, pleural effusion or lymphadenopathy. INTERVAL HISTORY: Since I last saw Mrs. Nelia Castro she reports that she is doing better after having a cardiac stent and is now on cardiac rehab. She states that she still tires out with activity, but her shortness of breath his better. She has some right arm pit sharp pain and numbness and burning at times. She does not notice any lumps or masses. OBJECTIVE There were no vitals taken for this phone visit. General: Mrs. Nelia Castro sounded well on the phone. She had no conversational dyspnea. DIAGNOSTICS: I have reviewed the available imaging, operative and pathology reports as described above and reviewed in the EMR. 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 I reviewed the above findings with Mrs. Castro. She will see Dr. Mccray tomorrow who can examine the right axilla. I don't see anything concerning on the CT chest in this region. Her imaging shows no new changes and stable nodules. I would continue to follow her and would see her again in 6 months. She did have her left parotid nodule evaluated and was told this was benign. Her questions were answered; she was comfortable with this plan. EDUCATION Ready to learn, no apparent learning barriers were identified; learning preferences include listening. Explained diagnosis and treatment plan; patient expressed understanding of the content. I personally spent 15 minutes in care of the patient today. Time includes both non face to face and face to face patient care. Signed by: Allison Campos M.D. 09/05/2021 10:47 AM CDT Radiation Oncology [facility] [address] [place] [address] documented in this encounter Miscellaneous Notes Addendum Note - Eileen Lu - 09/05/2021 10:30 AM CDT Encounter addended by: Eileen Lu on: 09/05/2021 11:07 AM Actions taken: Actions taken from a BestPractice Advisory, Visit diagnoses modified, Letter saved documented in this encounter Plan of Treatment Scheduled Referrals Name Type Priority Associated Order Schedule Diagnoses NonF2F phone visit Outpatient Referral Routine On ce for 1 Occurrences sta rting 09/05/2021 unti l 09/05/2021 Radiation Oncology Outpatient Referral Routine Ex pected: 03/08/2022 office visit (Approximate), (clinic) Expires: 2022 documented as of this encounter Visit Diagnoses Diagnosis 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
--- OUTSIDE RECORDS SUMMARY | 2021-11-01 08:19 | XMS_ITS | Encounter Summary ---
:1945 Author Organization [facility] Address [address] [place] [address] Care Team Providers Name Role Phone Unavailable Primary Care Provider Unavailable Reason for Referral Outpatient (Routine) - Closed Specialty Diagnoses / Procedures Referred By Contact Refer tito To Contact Radiation Oncology Allison Campos [facility] [place] [address] [place] [phone] Referral ID Status Reason Start Date Expiration Date Visits Requ ested Visits Authorized [id number] Closed 03/30/2020 03/30/2021 1 1 R REPAIRER Specialty Diagnoses / Procedures Referred By Contact Refer tito To Contact Allison [facility]. [facility] [address] [phone] Referral ID Status Reason Start Date Expiration Date Visits Requ ested Visits Authorized R REPAIRER Specialty Diagnoses / Procedures Referred By Contact Evelia francis To Contact Allison Campos M.D. 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 [facility] Procedures Initial Rad Onc Treatment Planning CT Simulation [address] [place], [place] [phone] Referral ID Status Reason Start Date Expiration Date Visits Requ ested Visits Authorized [id number] Closed 03/30/2020 03/30/2021 1 1 R REPAIRER Encounter Details Date Type Department Care Team Description 03/30/2020 Orders Only Department of Allison Campos N eoplasm Of Radiation Oncology in Cliff Veloz Lung Upper Lobe Or [facility] [address] [facility] Bronchus Right (HCC) [address] [place], [place] (Primary Dx) [place] [phone] Social History Tobacco Use Types Packs/Day Years Used Date Smoking Tobacco: Never Assessed Sex Assigned at Date Recorded Not on file documented as of this encounter Plan of Treatment Scheduled Orders Name Type Priority Associated Diagnoses Order S chedule Prior Auth Rad Tx Radiation Oncology Routine Malignant Neoplas m Of Ordered: 03/30/2020 Lung Upper Lobe Or Bronchus Right (HCC) Scheduled Referrals Name Type Priority Associated Diagnoses Order S chedule Radiation Oncology Outpatient Referral Routine Malignant Neopl asm Expected: - PRO education Of Lung Upper Lobe 2020 visit Or Bronchus Right (Approxima te), (HCC) Expires: 03/30/2023 Radiation Oncology Outpatient Referral Routine Malignant Neopl asm Expected: - Nurse education Of Lung Upper Lobe 03/05 visit (clinic) Or Bronchus Right (Approxi mate), (HCC) Expires: 03/30/2021 Radiation Oncology Outpatient Referral Routine Ex pected: office visit 03/30/2020, (clinic) Expires: 03/30/2021 documented as of this encounter Results Initial Rad Onc Treatment Planning CT Simulation (03/31/2020 11:30 AM FLYER REPAIRER) Specimen (Source) Anatomical Location Collection Method / Collectio n Time Received Time / Laterality Volume Narrative MICHAEL HENDERSON - 03/31/2020 11:30 AM FLYER REPAIRER Estefany Tidwell, RTT ? 03/31/2020 12:29 PM Initial Rad Onc Treatment Planning CT Si mulation Date/Time: 03/31/2020 12:28 PM Performed by: Allison Campos M.D. Authorized by: Allison Campos M.D. Allison Campos M.D. 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
--- OUTSIDE RECORDS SUMMARY | 2021-11-01 08:19 | XMS_ITS | Encounter Summary ---
:1945 Author Organization [facility] Address [address] [place] [address] Care Team Providers Name Role Phone Unavailable Primary Care Provider Unavailable Reason for Referral Outpatient (Routine) - Closed Specialty Diagnoses / Procedures Referred By Contact Refer red To Contact Radiation Oncology Allison Campos [facility] M.D. [address] [place] [phone] Referral ID Status Reason Start Date Expiration Date Visits Requ ested Visits Authorized [id number] Closed 03/30/2020 03/30/2021 1 1 EMENT REQUEST CLERK Reason for Visit Outpatient (Routine) - Closed Specialty Diagnoses / Procedures Referred By Contact Refer red To Contact Radiation Oncology Allison Campos [facility] M.D. [address] [place] [phone] Referral ID Status Reason Start Date Expiration Date Visits Requ ested Visits Authorized [id number] Closed 03/30/2020 03/30/2021 1 1 Encounter Details Date Type Department Care Team Description 03/31/2020 - Hospital Encounter Department of Allison Campos Neoplasm 04/01/2020 Radiation Oncology Cliff Veloz Of Lung Upper Lobe in [address] Or Bronchus Right [place], [place] (HCC) (Primary Dx) [address] [address] [place], [place] [phone] (Work) [phone] Social History Tobacco Use Types Packs/Day Years [...] 0 09/23/2019 tablet Take one-half tablet daily LORazepam (ATIVAN) 1 mg Take 1 tablet (1 mg 6 tablet 0 tablet total) by mouth daily as needed for anxiety (take 45 minutes prior to procedure) for up to 6 days. meclizine (ANTIVERT) 25 mg Take 12.5 mg [...] encounter Progress Notes Allison Campos M.D. - 03/31/2020 11:15 AM CST RADIATION ONCOLOGY FOLLOW-UP NOTE REQUESTING PROVIDER Established patient and Dr. Joanna Mccray DIAGNOSIS 1. 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 Multifocal lung lesions (bilateral lungs, predominantly GGOs) CHIEF COMPLAINT/REASON FOR VISIT Mrs. 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 Thepatient returns now for radiation planning after being presented yesterday at [facility]'s Thoracic Tumor board. I was at the conference, as were Dr. Hicks and Mahendra. We reviewed her case and the consensus was to proceed with SBRT. Her oncologic history was reviewed with the patient and is as follows: 1. July 04, 2018: Chest x-ray was performed due to the patient having a cough. There was a small focusof ill-defined ground-glass opacities present in the right upper lung zone spanning a region of 2.2 cm. Follow-up imaging in 2 months was recommended. 2. July 31, 2018: PET-CT scan demonstrated an irregular shaped 1.9 cm stable nodule in the right upper lobe with SUV max 1.5. Despite the mild uptake, it spiculated appearance would raise the suspicion of a primary lung carcinoma. There was a small amount of hazy and slightly nodular opacity just inferior to the nodule. Moderate ill-defined and dense opacity in the lung apices likely related to prior fibrosis. Numerous small the indeterminate sized predominantly ground-glass focal nodular opacities in both lungs were fairly stable, although 1 ground-glass nodule opacity in the left upper lobe/lingula appeared slightly denser and measured 1.7 cm. The largest was in the left upper lobe anteriorly measuring nearly 3 cm. The nodular ground-glass opacities were all indeterminate. 3. August 11, 2018: Bronchoscopy was performed and was normal without lesions or secretions. The rightupper lung nodule was localized and TBNA was performed. Pathology demonstrated benign bronchial cells and pneumocytes, negative for atypia or malignancy. 4. November 30, 2019: CT scan of the chest demonstrated a lobulated mass in the right upper lobe measuring 2.3 x 2.1 cm. Multiple multifocal ground-glass densities and reticulonodular densities in both lung goins were similar in size and character. The small pulmonary nodules had not increased in size. No new nodules, ground-glass densities, or areas of focal consolidation. 5. February 10, 2020: CT scan of the chest demonstrated the focally dense alveolar opacity with irregular spiculated margins in the right upper lobe measuring 2.5 x 1.9 cm. Nodules were present within the left lower lobe measuring between 3 and 5 mm. The largest nodule approaching 5 mm was subpleural in the left lower lobe and showed no significant change. 6. February 19, 2020: Pulmonary function testing demonstrated FVC 2.03 (76% predicted) and FEV1 1.36(68% predicted). 7. February 29, 2020: CT-guided biopsy of the right upper lobe mass was performed. Pathology demonstrated adenocarcinoma. 8. March 09, 2020: The patient's case was reviewed at lung conference and the recommendation was for the patient to have a formal consultation with a thoracic surgeon. Consider SABR. Consider clinicaltrial. 9. March 15, 2020: Consultation with Dr. Jagdish Hicks who felt that the patient's imaging was consistent with multifocal adenocarcinoma. Given the extent of bilateral disease, he did not think surgical resection of the right upper lobe, which would require lobectomy, was likely to impact her survival. 10. March 19, 2020: PET-CT scan demonstrated hypermetabolic enlarging irregular shaped lesion in the right upper lobe with SUV max 3.4 measuring 2.5 cm. Spiculations extended from the lesion to the lateral pleural surface. Small amount of nodularity along the inferior posterior aspect of the lesion was probably a nodular extension of the primary lesion, although the possibility of a perilesional new nodule was not excluded. Moderate irregular opacity in the right greater than left lung apices consistent with fibrosis. Numerous focal small to moderate size ground-glass nodular opacities and less numerous solid nodules in both lungs, many of which were stable in size and number. None of the nodules and nodular opacities in the lungs had greater than mild uptake. No evidence for malignancy outsideof the chest. 11. March 22, 2020: Medical Oncology consultation with Dr. Joanna Mccray who recommended completinga MRI of the brain to complete staging. Referral to Radiation Oncology for consultation. They will add on NGS and PD-L1 studies to her biopsy. The patient will be presented again at lung multidisciplinary conference next week. 12. March 23, 2020: MRI of the brain demonstrated no acute intracranial abnormality. No abnormal enhancement or enhancing lesions. No intracranial metastases. 13. March 30, 2020: Patient was being re-presented at thoracic conference. The consensus was to proceed with SBRT after a full discussion. INTERVAL HISTORY: Since I last saw Mrs. Neila Castro on Saturday, she is doing well with no newcomplaints or concerns. OBJECTIVE There were no vitals taken for this visit. General: Mrs. Nelia Castro appears well and in no distress. DIAGNOSTICS: I have reviewed the available imaging, operative and pathology reports as described above and reviewed in the EMR. 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 Nelia Castro is doing well. We discussed the tumor board recommendations. We had previously discussed the acute as well as exterminator risks (see my note from 03/29/2020). Her questions were answered. She wished to proceed with treatment. EDUCATION Ready to learn, no apparent learning barriers were identified; learning preferences include listening. Explained diagnosis and treatment plan; patient expressed understanding of the content. CONSENT Discussed the risks, benefits, alternatives, and the necessity of other members of the healthcare team participating in the procedure. All questions answered and consent given. 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 Time includes both non face to face and face to face patient care. Signed by: Allison Campos M.D. 03/31/2020 4:18 PM STATEMENT REQUEST CLERK Radiation Oncology [facility] [address] [place] [address] EMENT REQUEST CLERK documented in this encounter Plan of Treatment Scheduled Referrals Name Type Priority Associated Order Schedule Diagnoses Radiation Oncology Outpatient Referral Routine On ce for 1 office visit Occurrences sta rting (clinic) 03/31/2020 unti l 03/31/2020 documented as of this encounter Visit Diagnoses Diagnosis 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) - Primary documented in this encounter Additional Health Concerns Infection Onset Date Last Indicated Resolved Time COVID19 Pending 03/31/2020 04/01/2020 04/01/2020 6:50 PM STATEMENT REQUEST CLERK documented as of this encounter
--- OUTSIDE RECORDS SUMMARY | 2021-11-01 08:19 | XMS_ITS | Encounter Summary ---
:1945 Author Organization [facility] Address [address] [place] [address] Care Team Providers Name Role Phone Unavailable Primary Care Provider Unavailable Encounter Details Date Type Department Care Team Description 04/01/2020 Lab Department of Faina Vazquez Encoun ter For Screening Medicine, [facility] P.ANiranjan., M. S. For Other Viral Diseases [facility], in [place] [address] [address] (COVID-19) [address] [address] [place] [address] [phone] Social History Tobacco Use Types Packs/Day Years Used Date Smoking Tobacco: Never Assessed Sex Assigned at Date Recorded Not on file documented as of this encounter Plan of Treatment Not on filedocumented as of this encounter Procedures Procedure Name Priority Date/Time Associated Diagnosis Comme nts SARS CORONAVIRUS-2 Routine 04/01/2020 11:06 AM Encounter For R esults for this RNA, V DATABASE SOFTWARE TECHNICIAN Screening For Other procedur e are in Viral Diseases the results (COVID-19) section. documented in this encounter Results SARS Coronavirus-2 RNA, V Asymptomatic (04/01/2020 11:06 AM DATABASE SOFTWARE TECHNICIAN) [facility] Method Time Signature SARS-CoV-2 Swab, 04/01/2020 [facility] Specimen Nasopharynx 6:49 PM DATABASE SOFTWARE TECHNICIAN Source SARS CoV-2 Undetected Undetected 04/01/2020 [facility] RNA, TMA 6:49 PM DATABASE SOFTWARE TECHNICIAN Comment: SARS-CoV-2 RNA absent. This result does not rule out COVID-19 in the patient, as the sensitivity of the test depends o n the timing of the specimen collection and the quality of the specim en. Result should be correlated with patient's history and clinical presentat ion. ----ADDITIONAL INFORMATION---- This molecular amplification test was pe rformed using the Aptima SARS-CoV-2 assay ([employer] on the [employer] tem under emergency use authorization (EUA) by the U.S. Food and Drug Administ ration. Fact sheets for this EUA assay can be fo und at the following links: For Healthcare Providers: https://www.[employer] a.gov/media/540156/download For Patients: https://www.fda.gov/media/ 902070/download Specimen Anatomical Collection Method Collection Time Receive d Time (Source) Location / / Volume Laterality Varies 04/01/2020 11:06 04/01/2020 2:47 (Nasopharynx) AM DATABASE SOFTWARE TECHNICIAN PM DATABASE SOFTWARE TECHNICIAN Faina Reyes P.A.-C., M.S. LAB MICROBIOLOGY - GENERAL O ARTEMIOERABLES Performing Organization Address City/State/ZIP Code Phon e Number [facility]- [address] [place] [address] [place] [address] [address] documented in this encounter Visit Diagnoses Diagnosis Encounter For Screening For Other Viral Diseases (COVID-19) documented in this encounter Additional Health Concerns Infection Onset Date Last Indicated Resolved Time COVID19 Pending 03/31/2020 04/01/2020 04/01/2020 6:50 PM DATABASE SOFTWARE TECHNICIAN documented as of this encounter
--- OUTSIDE RECORDS SUMMARY | 2021-11-01 08:19 | XMS_ITS | Encounter Summary ---
:1945 Author Organization [facility] Address [address] [place] [address] Care Team Providers Name Role Phone Unavailable Primary Care Provider Unavailable Reason for Referral Radiation Therapy (Routine) - Closed Specialty Diagnoses / Procedures Referred By Contact Refer red To Contact Diagnoses 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) Allison Campos M.D. [facility] Procedures Initial Rad Onc Treatment Planning CT Simulation [address] [place] [phone] Referral ID Status Reason Start Date Expiration Date Visits Requ ested Visits Authorized [id number] Closed 03/30/2020 03/30/2021 1 1 TRY RAISER Reason for Visit Radiation Therapy (Routine) - Closed Specialty Diagnoses / Procedures Referred By Contact Refer red To Contact Diagnoses 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) Allison Campos M.D. [facility] Procedures Initial Rad Onc Treatment Planning CT Simulation [address] [place] [phone] Referral ID Status Reason Start Date Expiration Date Visits Requ ested Visits Authorized [id number] Closed 03/30/2020 03/30/2021 1 1 Encounter Details Date Type Department Care Team Description 03/31/2020 Hospital Encounter Department of Allison Campos Neoplasm Radiation Oncology Cliff Veloz Of Lung Upper Lobe in [place], [address] [facility] Or Bronchus Right [place] (HCC) [address] [facility] [address] [place], [place] [phone] (Work) [phone] Social History Tobacco Use Types Packs/Day Years [...] use: Daily documented as of this encounter Procedure Notes Estefany Tidwell, RTT - 03/31/2020 11:30 AM CSTAssociated Order(s): Initial Rad Onc Treatment Planning CT Simulation Pre-Procedure Diagnose(s): 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) Post-Procedure Diagnose(s): 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) Initial Rad Onc Treatment Planning CT Simulation Date/Time: 03/31/2020 12:28 PM Performed by: Allison Campos M.D. Authorized by: Allison Campos M.D. Simulation was performed under physician supervision based on physician order in preparation for radiation therapy. Physician was immediately available to provide assistance and direction throughout the procedure. Written consent for treatment was completed or confirmed. The patient was appropriately identified and placed in the treatment position using the necessary immobilization to ensure a reproducible treatment position. Reference wright were placed to facilitate marking of isocenter. Area scanned:Chest Contrast used for the simulation procedure: None Patient position: Head first supine, arms by side Custom immobilization: Body fix blue bag with cover sheet Motion management: 4D CT scan Bolus: No CT guidance: Following positioning of the patient, a series of slices was obtained to be utilized intreatment planning. CT images were transferred to the [facility] treatment planning system, after a reference isocenter was determined and marked. Segmentation and treatment planning will take place priorto treatment delivery. Patient set up and imaging was appropriate and completed without incident. TRY RAISER documented in this encounter Plan of Treatment Not on filedocumented as of this encounter Procedures Procedure Name Priority Date/Time Associated Comments Diagnosis INITIAL RAD ONC Routine 03/31/2020 11:30 AM Malignant Neoplasm Results for this TREATMENT PLANNING POULTRY RAISER Of Lung Upper Lobe pro cedure are in CT SIMULATION Or Bronchus Right the resul ts (HCC) section. documented in this encounter Results Initial Rad Onc Treatment Planning CT Simulation (03/31/2020 11:30 AM POULTRY RAISER) Specimen (Source) Anatomical Location Collection Method / Collectio n Time Received Time / Laterality Volume Narrative [facility] - 03/31/2020 11:30 AM POULTRY RAISER Estefany Tidwell, RTT ? 03/31/2020 12:29 PM Initial Rad Onc Treatment Planning CT Si mulation Date/Time: 03/31/2020 12:28 PM Performed by: Allison Campos M.D. Authorized by: Allison Campos M.D. Allison Campos M.D. RADIATION ONCOLOGY ORDERABLE S Performing Organization Address City/State/ZIP Code Phon e Number [facility] [place] [facility] documented in this encounter Visit Diagnoses Diagnosis 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 Additional Health Concerns Infection Onset Date Last Indicated Resolved Time COVID19 Pending 03/31/2020 04/01/2020 04/01/2020 6:50 PM POULTRY RAISER documented as of this encounter
--- OUTSIDE RECORDS SUMMARY | 2021-11-01 08:19 | XMS_ITS | Encounter Summary ---
:1945 Author Organization [facility] Address [address] [place] [address] Care Team Providers Name Role Phone Unavailable Primary Care Provider Unavailable Reason for Visit Radiation Therapy (Routine) - Closed Specialty Diagnoses / Procedures Referred By Contact Refer red To Contact Diagnoses 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) Allison Campos M.D. [facility] Procedures Prior Auth Rad Tx [place] STEREOTACTIC BODY RADTN DEL [address] [place] [phone] Referral ID Status Reason Start Date Expiration Date Visits Requ ested Visits Authorized [id number] Closed 03/30/2020 03/30/2021 4 4 Encounter Details Date Type Department Care Team Description 04/06/2020 Hospital Encounter Department of Radiation [facility] Campos I., [facility] [place] [address] [facility] [address] [place] [phone] Social History Tobacco Use Types Packs/Day Years [...]
--- OUTSIDE RECORDS SUMMARY | 2021-11-01 08:19 | XMS_ITS | Encounter Summary ---
:[address] [facility] Address [address] [place] [address] Care Team Providers Name Role Phone Unavailable Primary Care Provider Unavailable Reason for Visit Appointment Request (Routine) - Closed Specialty Diagnoses / Procedures Referred By Contact Refer red To Contact Radiation Oncology Diagnoses Malignant Neoplasm Of Lung Adenocarcinoma Right (HCC) Joanna Mccray M.D. [address] [place] [address] Referral ID Status Reason Start Date Expiration Date Visits Requ ested Visits Authorized [id number] Closed 03/22/2020 03/22/2021 1 1 Encounter Details Date Type Department Care Team Description 03/28/2020 Hospital Encounter Department of Allison Campos Neoplasm Radiation Oncology Cliff Veloz Of Lung Upper Lobe in [place], [address] [place] [address] Or Bronchus Right [place], [place] (HCC) (Primary Dx) [address] [facility] [address] [place], [place] [phone] (Work) [phone] Social History Tobacco Use Types Packs/Day Years Used Date Smoking Tobacco: Never Assessed Sex Assigned at Date Recorded Not on file documented as of this encounter Last Filed Vital Signs Vital Sign Reading Time Taken Comments Blood Pressure 131/61 03/28/2020 9:23 AM SILK WASHING 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 Pulse 72 03/28/2020 9:23 AM SILK WASHING MACHINE OPERATOR Temperature 36.2 ??C (97.2 ??F) 03/28/2020 9:23 AM SILK WASHING MACHINE OPERATOR Respiratory Rate - - Oxygen Saturation - - Inhaled Oxygen Concentration - - Weight 80.8 kg (178 lb 2.1 oz) 03/28/2020 9:23 AM SILK WASHING MACHINE OPERATOR Height 157 cm (5' 1.81) 03/28/2020 9:23 AM SILK WASHING MACHINE OPERATOR Body Mass Index 32.78 03/28/2020 9:23 AM SILK WASHING MACHINE OPERATOR documented in this encounter Medications at [...] (TOPROL-XL) 50 mg 24 hr DAY tablet LORazepam (ATIVAN) 1 mg Take 1 tablet (1 mg 6 tablet 0 tablet total) by mouth daily as needed for anxiety (take 45 minutes prior to procedure) for up to 6 days. miscellaneous medical NEW replacement CPAP 0 11/2018 [...] use: Daily documented as of this encounter Consult Notes Allison Campos M.D. - 03/28/2020 9:30 AM CST RADIATION ONCOLOGY CONSULTATION SUBJECTIVE REQUESTING PROVIDER Joanna Mccray M.D. PRIMARY PROVIDER Dr. Uvaldo Lin REASON FOR CONSULT Asked to see patient by Dr. Mccray to render an opinion regarding radiation therapy options for her newly diagnosed right upper lung cancer. HISTORY OF PRESENT ILLNESS #1 Biopsy proven right upper lung cancer Mrs. 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 Thepatient presents now to discuss radiation options. Her oncologic history was reviewed with the [...] 2020: Medical Oncology consultation with Dr. Joanna Mccrya who recommended completinga MRI of the brain to complete staging. Referral to Radiation Oncology for consultation. They will add on NGS and PD-L1 studies to her biopsy. The patient will be presented again at lung multidisciplinary conference next week. 12. March 23, 2020: MRI of the brain demonstrated no acute intracranial abnormality. No abnormal enhancement or enhancing lesions. No intracranial metastases. 13. March 29, 2020: Patient is being re-presented at thoracic conference. INTERVAL HISTORY The patient reports that she is doing fairly well. However, she states that a year ago she was walking 2 miles three times per week. This summer she really slowed down and notices more shortness of breath. She states that now she can only walk 1/2 mile slowly without stopping. She would be short of breath at the top of a flight of stairs. She does better if she uses her nebulizer first. She does not use supplemental oxygen. She does use a CPAP at night. She states that she clears her throat frequently. She has a mild cough at times. She denies fevers/chills. She has chronic low back pain. Since herbiopsy she has notices pain between her shoulder blades and right scapular pain and right upper chest pain. She states that it is very mild and cannot rate it on a 0-10 pain scale. It is not pleuritic or worse with movement. She also has had a mild headache for the last 2 weeks. Several weeks ago she had diarrhea for about 8 weeks. She is now back to regular bowel movements. She has no changes in urine. She has noticed some right hand numbness, but has no hand weakness. The patient denies a history of prior radiation therapy. Her ECOG performance status is 1. REVIEW OF SYSTEMS Review of systems was negative except as documented above. PATIENT REPORTED SYMPTOM SCREEN FATIGUE (Scale: 0 = no fatigue; 10 = worst fatigue you can imagine): 4 PAIN (Scale: 0 = no pain; 10 = worst pain you can imagine): 0 OVERALL QUALITY OF LIFE (Scale: 0 = as bad as can be; 10 = as good as can be): 7 PAST MEDICAL HISTORY 1. Meniere's disease 2. Hyperlipidemia 3. Coronary atherosclerosis 4. Glaucoma 5. Hypertension 6. Vitamin-D deficiency 7. Aortic stenosis 8. Osteoarthritis, lumbar spine 9. Obstructive sleep apnea 10. History of colonic polyps 11. Pre-diabetes 12. Kidney stones 13. Adenocarcinoma of the right upper lung, as per HPI PAST SURGICAL HISTORY 1. Cholecystectomy 2. Total abdominal hysterectomy, not cancer related 3. PTCA, 2006 4. Meniere???s surgery, right, 2006 and 2011 5. Tonsillectomy 6. Appendectomy 7. Kidney stone surgery 8. Lumbar fusion SOCIAL HISTORY She lives in [place], [place]. She is and has 2 children, 3 grandchildren, 4 great grandchildren. 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 She koby former smoker of 1.5 packs/day for 25 years, quit in 2004. She does not drink alcohol. FAMILY HISTORY Mother had colon cancer at age 85; father had skin cancer. OBJECTIVE BP 131/61 (BP Location: Right arm, Patient Position: Sitting, Cuff Size: Small) Pulse 72 Temp 36.2 ??C (Temporal) Ht 157 cm Wt 80.8 kg BMI 32.78 kg/m?? PHYSICAL EXAM General: Well-developed, well-nourished and in no apparent distress. She speaks in full sentences with no shortness of breath. Lymph: No palpable cervical, supraclavicular, infraclavicular, or axillary adenopathy. Spine: There is no tenderness to palpation of the spine. Lungs: Clear to auscultation bilaterally. Heart: Regular rate and rhythm. Extremities: No clubbing, cyanosis, or edema. She has no right hand weakness. DIAGNOSTICS I have reviewed the available imaging, operative and pathology reports as described above. 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 We had a yusuf, yet compassionate, discussion regarding radiation options for lung cancer. We discussed her treatment alternatives. We discussed that surgery is the gold standard. Treatment decisions need to be made with the knowledge that she has multiple other lesions that might need treatment in the future. She is a candidatefor SBRT if she is not a surgical candidate or refuses surgery. She will be presented at an [facility] Thoracic Tumor board tomorrow. The patient???s clinical and pathologic scenario was reviewed with the patient in detail. The rationale for radiotherapy was reviewed with the patient and their family. The logistics of radiotherapy simulation were reviewed with the patient utilizing the simulation booklet. We discussed treatment planning and potential strategies for minimizing dose to critical structures. The logistics of radiotherapy treatment were reviewed with the patient. Treatments are administered daily Saturday through Saturday,with each treatment lasting approximately 10-20 minutes. Our team approach was reviewed with the patient. We discussed the acute as well as detention risks, including, but not limited to fatigue, skin erythema, small risks of bone fracture and/or chest wall pain, radiation pneumonitis (10-15% risk with a 1% mortality), cardiac disease, and secondary malignancies. We discussed possibly utilizing a breath hold technique if needed . She understood and her questions were answered. We would deliver 3-5 fractions of SBRT if indicated. We would be able to have her return ANA after the tumor board meeting if needed. She has my card. We also discussed COVID-19 screening for asymptomatic patients who are starting radiation therapy. We are requiring nasal swab of our patients prior to initiating therapy. This test need to be performed before treatment begins. She understood and this will be arranged if needed. My thanks to Kurt De, Monica and Delia for the opportunity to participate in this patient's care. EDUCATION Ready to learn, no apparent learning barriers were identified; learning preferences include listening. Explained diagnosis and treatment plan; patient expressed understanding of the content. I personally spent 60 minutes in care of the patient today. Time includes both non face to face and face to face patient care. Signed by: Allison Camops M.D. 03/28/2020 1:05 PM SILK WASHING MACHINE OPERATOR Radiation Oncology [facility] [address] [place] [address] WASHING MACHINE OPERATOR documented in this encounter Miscellaneous Notes Addendum Note - Rosa Rodarte - 03/28/2020 9:30 AM SILK WASHING MACHINE OPERATOR Encounter addended by: Rosa Rodarte on: 03/28/2020 1:28 PM Actions taken: Letter saved WASHING MACHINE OPERATOR documented in this encounter Plan of Treatment Not on filedocumented as of this encounter Visit Diagnoses Diagnosis 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) - Primary documented in this encounter
--- NOTE | 2021-11-01 08:23 | CRLHL7_ITS ---
For Patients: As a result of the Cures Act, medical imaging exams and procedure reports are released immediately into your electronic medical record. You may view this report before your referring provider. If you have questions, please contact your health care provider. PLEASE SEE BILATERAL DIAGNOSTIC MAMMOGRAM OF SAME DAY. CRL:[email or web address] PT/Dictated by: Bc Parsons MD @ 11/01/2021 9:44:00 AM (Electronically Signed)
== END 2021-11-01 08:16 | disposition home or self-care (01) ==
LOC: US 08:16
PROVIDERS: PCP Family Medicine; Visit Provider Family Medicine
DX: N64.4 Mastodynia (principal)
CPT/HCPCS: 76642; 76882

== ENCOUNTER 2021-11-01 08:18 | Outpatient (CLI) | payer MEDICARE, BC, SELFPAY ==
--- NOTE | 2021-11-01 08:45 | CRLHL7_ITS ---
For Patients: As a result of the Century Cures Act, medical imaging exams and procedure reports are released immediately into your electronic medical record. You may view this report before your referring provider. If you have questions, please contact your health care provider. BILATERAL DIAGNOSTIC MAMMOGRAM WITH COMPUTER-AIDED DETECTION AND TOMOSYNTHESIS RIGHT AXILLA ULTRASOUND TECHNIQUE: BILATERAL mammograms with tomosynthesis. Computer-aided detection was utilized. Targeted RIGHT axilla ultrasound was also performed. CLINICAL HISTORY: RIGHT breast and axilla numbness from RIGHT arm and axilla through the lateral RIGHT breast x3 months. COMPARISON FILM: Mammograms 06/01/2020 and 05/27/2020. BREAST COMPOSITION: There are scattered areas of fibroglandular density. FINDINGS: No mass, suspicious microcalcifications, architectural distortion or other evidence of malignancy. Targeted RIGHT axillary ultrasound is unremarkable. Normal small axillary lymph nodes. No mass or lymphadenopathy. IMPRESSION: 1. No mammographic evidence of malignancy. 2. Negative RIGHT axillary ultrasound. ASSESSMENT: BI-RADS Category 1: Negative RECOMMENDATION: Recommend clinical follow-up and annual screening mammography in one year. A lay language report of this examination will be provided to the patient. Bc Parsons M.D. Diagnostic/Musculoskeletal Radiologist [email or web address] PT/Dictated by: Bc Parsons MD @ 11/01/2021 9:45:00 AM (Electronically Signed)
== END 2021-11-01 08:19 | disposition home or self-care (01) ==
LOC: MAMMO 08:19
PROVIDERS: PCP Family Medicine; Visit Provider Family Medicine
DX: N64.4 Mastodynia (principal); R20.0 Anesthesia of skin
CPT/HCPCS: 76642; 77066; G0279

== ENCOUNTER 2022-01-08 10:00 | Outpatient (CLI) | payer MEDICARE, BC, SELFPAY ==
--- OUTSIDE RECORDS SUMMARY | 2022-01-08 10:04 | XMS_ITS ---
:1945 Author Organization [facility] Address [address] [place] [address] Care Team Providers Name Role Phone Unavailable [...] Elapsed Days Session Dose Total Dos e [id number] 04/13/2020 7 1,200 cGy 4,800 cGy
--- OUTSIDE RECORDS SUMMARY | 2022-01-08 10:04 | XMS_ITS | Encounter Summary ---
:1945 Author Organization [facility] Address [address] [place] [address] Care Team Providers Name Role Phone Unavailable Primary Care Provider Unavailable Reason for Referral Outpatient (Routine) - Authorized Specialty Diagnoses / Procedures Referred By Contact Refer red To Contact Radiation Oncology Allison Campos [facility] Christianne Coronado [address] [place] [phone] Referral ID Status Reason Start Date Expiration Date Visits V isits Requested Authorized [id number] Authorized 09/05/2021 09/05/2022 1 1 Outpatient (Routine) - Closed Specialty Diagnoses / Procedures Referred By Contact Refer red To Contact Allison Campos M.D. [facility] [address] [place] [phone] Referral ID Status Reason Start Date Expiration Date Visits Requ ested Visits Authorized [id number] Closed 04/21/2021 04/21/2022 1 1 Scheduling Instructions Schedule with me after she sees Dr. Mccray and has her CT chest, thanks Reason for Visit Outpatient (Routine) - Closed Specialty Diagnoses / Procedures Referred By Contact Refer red To Contact Allison Campos M.D. [facility] [address] [place] [phone] Referral ID Status Reason Start Date Expiration Date Visits Requ ested Visits Authorized [id number] Closed 04/21/2021 04/21/2022 1 1 Encounter Details Date Type Department Care Team Description 09/05/2021 Hospital Encounter Department of Allison Campos Neoplasm Of Lung Upper Lobe Or Bronchus Right (HCC); Radiation Oncology Cliff Veloz [facility] in [place] [address] [place], [place] [address] [facility] [address] [place], [place] [phone] (Work) [phone] Social History Tobacco Use Types Packs/Day Years [...] Need: 99 months, Frequency of use: Daily [id number] APPLY TO INJECTED EYE 0 08/09/2020 hasone [...] via real-time audio technology by??Allison Campos M.D.??in [facility]??to the patient in patient's home.? CHIEF COMPLAINT/REASON [...] M.D. 09/05/2021 10:47 AM CDT Radiation Oncology [facility] [address] [place] [address] documented in this encounter Miscellaneous Notes Addendum [...]
--- OUTSIDE RECORDS SUMMARY | 2022-01-08 10:04 | XMS_ITS | Clinical Summary ---
:1945 Author Organization [employer] [address] [employer] [place] [address] Care Team Providers Name Role Phone Uvaldo Lin MD Primary Care Provider [phone] Roque Tolbert RN Unavailable Bre Boss RN, BSN Unavailable Jagdish Hicks MD Unavailable [phone] Joanna Mccray MD Unavailable Eileen Gross ACCOUNTS PAYABLE PAYROLL COORDINATOR Unavailable Allergies Active Allergy Reactions Severity Noted [...] months, Frequency of use: Daily furosemide (LASIX) TAKE 1 TABLET EVERY 90 tablet 0 09/23/2019 Active 40 mg MORNING tabletIndications: Edema, unspecified type metoprolol succinate TAKE 1 TABLET EVERY 90 tablet 0 0 Active (TOPROL XL) 50 mg DAY sustained-release tabletIndications: Essential hypertension albuterol HFA Inhale 2 Puffs by 0 01/22/2020 Active (PRO-AIR; VENTOLIN; mouth every 4 PROVENTIL) 90 hours. mcg/actuation inhaler budesonide INHALE 2MLS BY 0 05/26/2021 Act malcolm (PULMICORT RESPULES) NEBULIZATION ROUTE 0.25 mg/2 mL neb TWICE DAILY suspension arformoteroL INHALE 2 0 05/22/2021 Active (BROVANA) 15 mcg/2 MILLILITERS BY mL nebu INHALATION ROUTE 2 TIMES EVERY DAY atorvastatin Take 1 Tablet (40 90 tablet. 3 08/16/2021 Active (LIPITOR) 40 mg mg) by mouth at tabletIndications: bedtime. Hyperlipidemia, unspecified hyperlipidemia type clopidogreL (PLAVIX) Take 1 Tablet (75 90 Tablet 3 08/17/2021 Active 75 mg mg) by mouth once tabletIndications: daily. CAD in [place] artery, Status post insertion of drug eluting coronary artery stent isosorbide Take 1 Tablet (30 90 Tablet 3 08/17/2021 Active mononitrate (IMDUR) mg) by mouth once 30 mg extended daily. release tablet 24 HourIndications: Cardiovascular symptoms, CAD in [place] artery oxyCODONE-acetaminop Take 1-2 Tablets by 10 Tablet 0 2 Active hen (PERCOCET) 5-325 mouth every 4 hours mg per if needed for tabletIndications: moderate to severe S/P placement of pain. Max cardiac pacemaker acetaminophen dose: 4000mg in 24 hrs. Active Problems Problem Noted Date TONY (dyspnea on exertion) 10/19/2021 CAD in [place] artery 10/19/2021 Non-small cell cancer of right lung 07/26/2020 GAGE 08/20/2016 AHI-10; REM severe with hypoxemia 2016 Arthritis, lumbar spine 03/07/2015 Aortic stenosis 07/09/2013 Family hx of colon cancer 02/04/2012 Overview: mother Vitamin D deficiency 04/26/2009 Hypertension 09/14/2008 Vascular disease 02/06/2008 Glaucoma 09/24/2006 Coronary atherosclerosis of unspecified type of vessel , [place] or graft 08/16/2006 Overview: Angioplasty, no stent. [...] Encounters Date Type Specialty Care Team Description 01/04/2022 Anesthesia Event Gerardo Chan, Nolberto Piña CRNA 01/03/2022 - Hospital Encounter Devyn Castillo, Nonrh eumatic aortic valve stenosis (Primary Dx); 01/05/2022 S/P placement o f cardiac pacemaker 01/03/2022 Anesthesia Event Tawanda Robb MD 01/03/2022 Travel 01/01/2022 Orders Only Dany Bond <No scans millicent ched> KRISTIAN Stinson 12/29/2021 Office Visit Andree CV Valve Est (P REOP MD Duc TAVR: LABS PRIOR, NEEDS EKG, KCCQ12, 5M WALK, LETTER SENT, JL S//PCP: Uvaldo Lin MD) 12/29/2021 Orders Only Lab (/) 12/29/2021 Travel 12/26/2021 Hospital Encounter Uvaldo Lin Pre-op testing MD Jey 12/26/2021 Travel 12/21/2021 Hospital Encounter Uvaldo Lin MD 12/21/2021 Travel 12/19/2021 Hospital Encounter Uvaldo Lin MD 12/19/2021 Telephone Devyn Castillo, Surgery [facility] (TAVR MD Scheduling.) 12/19/2021 Travel 12/14/2021 Hospital Encounter Uvaldo Lin MD 12/14/2021 Travel 12/12/2021 Hospital Encounter Uvaldo Lin MD 12/12/2021 Travel 12/07/2021 Office Visit Eileen Gross, ACCOUNTS PAYABLE PAYROLL COORDINATOR Follow Up 12/07/2021 Travel 12/05/2021 Hospital Encounter Non-small cell cancer of right lung ( HC) 12/05/2021 Travel 11/09/2021 Hospital Encounter Uvaldo Lin MD 11/09/2021 Travel 11/07/2021 Hospital Encounter Uvaldo Lin MD 11/07/2021 Telephone Devyn Castillo [facility] bonita QUIGLEY Update 11/07/2021 Travel 10/31/2021 Hospital Encounter Uvaldo Lin MD 10/31/2021 Telephone Devyn Castillo [facility] bonita QUIGLEY Update (Post va lve conference disc ussion ) 10/31/2021 Travel 10/24/2021 Hospital Encounter Uvaldo Lin MD 10/24/2021 Travel 10/19/2021 Office Visit Helen Presley MD 10/19/2021 Office Visit Devyn Castillo, CV Valve Ne w (VALVE NEW: : LABS & CT TAVR PRIOR, NEEDS EK G, KCCQ12, 5M WALK , JLS//PCP: Uvaldo Bautista MD ) 10/19/2021 Orders Only Lab 10/19/2021 Hospital Encounter Alexey Cabrera MD Aort ic valve stenosis, etiology of car diac valve disease unspecified 10/19/2021 Hospital Encounter Uvaldo Lin MD 10/19/2021 Travel 10/12/2021 Hospital Encounter Uvaldo Lin MD 10/12/2021 Travel 10/10/2021 Hospital Encounter Uvaldo Lin MD 10/10/2021 Travel from Last 3 Months Immunizations Name Administration Dates Next Due AMB Influenza, IIV3 (Age >=3 years) 12/30/2010 Preserve Free (Flu Clinic Only) AMB Influenza, IIV3 (Age >=3 11/28/2011, 12/23/2009 years)(Flu Clinic Only) COVID-19 vaccine (Clutter 05/17/2020, 04/26/2020 30mcg/0.3mL) PF, MDV Influenza Virus, [...] drink = 0.6 oz pure alcoho l) very rarely Alcohol Habits Answer Date Recorded How often do you have a drink containing alcohol? Not asked How many drinks containing alcohol do you have on a typical Not asked day when you are drinking? How often do you have six or more drinks on one occasion? No t asked Comment: very rarely 12/29/2021 Sex Assigned at Date Recorded Not on file COVID-19 Exposure Response Date Recorded In the last 10 days, have you been in contact with No / Unsu re 01/03/2022 8:08 AM CDT someone who was confirmed or suspected to have Coronavirus/COVID-19? Obstetrics History Last Filed Vital Signs Vital Sign Reading Time Taken Comments Blood Pressure 120/68 01/05/2022 11:00 AM CDT Pulse 95 01/05/2022 11:00 AM CDT Temperature 36.7 ??C (98 ??F) 01/05/2022 11:00 AM CDT Respiratory Rate 16 01/05/2022 11:00 AM CDT Oxygen Saturation 93% 01/05/2022 11:00 AM CDT Inhaled Oxygen Concentration - - Weight 81 kg (178 lb 9.6 oz) 01/05/2022 5:47 AM CDT Height 157.5 cm (5' 2) 01/04/2022 5:21 AM CDT Body Mass Index 32.67 01/04/2022 5:21 AM CDT Plan of Treatment Upcoming Encounters Date Type Specialty Care Team Description 01/09/2022 Appointment 01/11/2022 Appointment 01/16/2022 Appointment 01/18/2022 Appointment 01/23/2022 Appointment 01/25/2022 Appointment 01/30/2022 Appointment 02/01/2022 Appointment 02/06/2022 Appointment 02/08/2022 Appointment 02/08/2022 Orders Only Clari Randall Hose Seamer 02/09/2022 Orders Only 02/09/2022 Appointment 02/09/2022 Office Visit Tricia Candelario MD [address] [place], [place] [id number] (Wo rk) 02/13/2022 Appointment 02/15/2022 Appointment 02/20/2022 Appointment 03/05/2022 Appointment 03/05/2022 Appointment 03/08/2022 Office Visit Joanna Mccray MD [address], [place] [address] (Wo rk) 04/11/2022 Cardiac Device Check Health Maintenance Due Date Last Done Comments Tetanus booster 08/16/2016 08/16/2006 Mammogram for age 45-75 05/13/2018 05/13/2017, 03/13/2016, 03/09/2015, Additional history exists Medicare Wellness for age 65+ 05/13/2018 05/13/2017, 2015, 02/28/2015, Additional history exists COVID-19 vaccine series (4 - 12/13/2020 10/18/2020, 021, Booster for Pfizer series) 04/26/2020 [...] (ht and wt on same day) for 12/29/2022 12/29/2021, 10/02, age 18+ 03/22/2020, Additional history exists Lipids for age 45-75 03/10/2023 03/10/2018, 05/13/2017, 03/13/2016, Additional history exists Tdap Completed 08/16/2006 Hepatitis C screening for age Completed 01/04/2014 18-79 Pneumococcal series for age 65+ Completed 03/01/2016, 02/02, 02/28/2015, Additional history exists Zoster (shingles) series for age Completed 06/12/2019, , 50+ 10/10/2009 DEXA/DXA scan for age 65+ Completed 09/30/2019, 06/02/2012 Medical Devices Implanted Type Area Communications Engineer Device Shelf Model / Identifier Expiration Date Ser ial / Lot Bernabe Lmbr 65x5.5mm Vitality Cvd Titnm - [id number] Spine [employer] [id number] / Implanted: Qty: 2 on 09/17/2018 by German Nino MD at [facility] Spine / Procedures Procedure Name Priority Date/Time Associated Diagnosis Comme nts SCAN-CARDIAC STRIP 01/05/2022 9:18 AM CDT PACER EMIR DUAL Routine 01/05/2022 9:01 Results for this CHAMBER WO REPROG AM CDT procedure are in the results section. POTASSIUM Early AM 01/05/2022 8:46 Results for this AM CDT procedure are i n the results section. MAGNESIUM Early AM 01/05/2022 8:46 Results for this AM CDT procedure are i n the results section. EKG 12 LEAD Early AM 01/05/2022 7:11 Results for this AM CDT procedure are i n the results section. XR CHEST 2 VIEWS PA Routine 01/05/2022 6:35 Resul ts for this AND LATERAL AM CDT procedure are i n the results section. POTASSIUM Timed 01/04/2022 6:00 Results for this PM CDT procedure are i n the results section. EP PPM Routine 01/04/2022 3:05 Results for this PM CDT procedure are i n the results section. ECHO LIMITED W CONT STAT 01/04/2022 1:13 Resul ts for this PM CDT procedure are i n the results section. EKG 12 LEAD STAT 01/04/2022 11:05 Results for this AM CDT procedure are i n the results section. EKG 12 LEAD STAT 01/04/2022 10:52 Results for this AM CDT procedure are i n the results section. SCAN-CARDIAC STRIP 01/04/2022 9:54 AM CDT MAGNESIUM Today 01/04/2022 8:53 Results for this AM CDT procedure are i n the results section. BASIC METABOLIC PANEL Early AM 01/04/2022 8:53 Res ults for this AM CDT procedure are i n the results section. CBC W PLT NO DIFF Early AM 01/04/2022 8:53 Results for this AM CDT procedure are i n the results section. EKG 12 LEAD Early AM 01/04/2022 6:29 Results for this AM CDT procedure are i n the results section. SCAN-CARDIAC STRIP 01/04/2022 3:47 AM CDT SCAN-CARDIAC STRIP 01/04/2022 2:28 AM CDT EKG 12 LEAD ANA 01/03/2022 5:14 Results for this PM CDT procedure are i n the results section. ECHO LIMITED WO Routine 01/03/2022 5:12 Results f or this CONTRAST PM CDT procedure are i n the results section. HCHG ACTIVATED Timed 01/03/2022 2:52 Results fo r this CLOTTING TM CV PM CDT procedure are in the results section. HCHG ACTIVATED Timed 01/03/2022 2:31 Results fo r this CLOTTING TM CV PM CDT procedure are in the results section. CVL TAVR Routine 01/03/2022 2:01 Results for this PM CDT procedure are i n the results section. ECHO LIMITED WO Routine 01/03/2022 11:50 Results for this CONTRAST AM CDT procedure are i n the results section. RBC W/O TYPE & SCREEN STAT 01/03/2022 10:35 Re sults for this AM CDT procedure are i n the results section. RED BLOOD CELLS EA STAT 01/03/2022 10:35 Resul ts for this UNIT AM CDT procedure are i n the results section. RED BLOOD CELLS EA STAT 01/03/2022 10:35 Resul ts for this UNIT AM CDT procedure are i n the results section. TYPE & SCREEN Preop 01/03/2022 10:03 Results fo r this AM CDT procedure are i n the results section. GLUCOSE, FASTING Preop 01/03/2022 10:03 Results for this AM CDT procedure are i n the results section. SCAN-OPERATIVE/PROCEDU 01/03/2022 12:00 R esults for this RE REPORT AM CDT procedure are i n the results section. COVID 19 Timed 12/29/2021 2:47 Pre-op testing Results fo r this PM CDT procedure are i n the results section. COVID 19 COLLECTION Today 12/29/2021 2:47 Pre-op testing Res ults for this PM CDT procedure are i n the results section. EKG 12 LEAD Routine 12/29/2021 2:13 Aortic valve Results for this PM CDT stenosis, etiology procedure are in of cardiac valve the results disease unspecified section. TYPE & SCREEN Routine 12/29/2021 1:32 Aortic valve Results for this PM CDT stenosis, etiology procedure are in of cardiac valve the results disease unspecified section. CBC W PLT NO DIFF Routine 12/29/2021 1:32 Aortic valve Results for this PM CDT stenosis, etiology procedure are in of cardiac valve the results disease unspecified section. BASIC METABOLIC PANEL Routine 12/29/2021 1:32 Aortic valve Res ults for this PM CDT stenosis, etiology procedure are in of cardiac valve the results disease unspecified section. SCAN-CARDIAC 12/26/2021 12:00 Results for this REHABILITATION AM CDT procedure are in the results section. SCAN-CARDIAC 12/21/2021 12:00 Results for this REHABILITATION AM CDT procedure are in the results section. SCAN-CARDIAC 12/19/2021 12:00 Results for this REHABILITATION AM CDT procedure are in the results section. SCAN-CARDIAC 12/14/2021 12:00 Results for this REHABILITATION AM CDT procedure are in the results section. SCAN-CARDIAC 12/12/2021 12:00 Results for this REHABILITATION AM CDT procedure are in the results section. CBC WITH AUTO Timed 12/05/2021 10:08 Non-small cell Results for this DIFFERENTIAL AM CDT cancer of right lung procedu re are in (HC) the results section. COMP METABOLIC PANEL Today 12/05/2021 10:08 Non-small cell R esults for this AM CDT cancer of right lung procedu re are in (HC) the results section. CBC WITH AUTO Today 12/05/2021 10:08 Non-small cell Results for this DIFFERENTIAL AM CDT cancer of right lung procedu re are in (HC) the results section. SCAN-CARDIAC 11/07/2021 12:00 Results for this REHABILITATION AM CDT procedure are in the results section. SCAN-CARDIAC 10/31/2021 12:00 Results for this REHABILITATION AM CDT procedure are in the results section. SCAN-CARDIAC 10/24/2021 12:00 Results for this REHABILITATION AM CDT procedure are in the results section. EKG 12 LEAD Routine 10/19/2021 3:51 Nonrheumatic aortic Resul ts for this PM CDT valve stenosis procedure are in the results section. CTA CHEST ABD PELVIS Routine 10/19/2021 2:59 Aortic valve Resu lts for this TAVR - DUAL READ PM CDT stenosis, etiology proce dure are in of cardiac valve the results disease unspecified section. HEMATOCRIT/HGB,ISTAT Routine 10/19/2021 2:52 Resu lts for this PM CDT procedure are i n the results section. CREATININE,ISTAT Routine 10/19/2021 2:41 Results for this PM CDT procedure are i n the results section. HOSPITAL CLINIC ASSISTANT Routine 10/19/2021 2:33 Aortic valve Results for this QUESTION TEST PM CDT stenosis, etiology procedur e are in of cardiac valve the results disease unspecified section. TYPE & SCREEN Routine 10/19/2021 2:33 Aortic valve Results for this PM CDT stenosis, etiology procedure are in of cardiac valve the results disease unspecified section. BASIC METABOLIC PANEL Routine 10/19/2021 2:33 Aortic valve Res ults for this PM CDT stenosis, etiology procedure are in of cardiac valve the results disease unspecified section. CBC W PLT NO DIFF Routine 10/19/2021 2:33 Aortic valve Results for this PM CDT stenosis, etiology procedure are in of cardiac valve the results disease unspecified section. SCAN-CARDIAC 10/19/2021 12:00 Results for this REHABILITATION AM CDT procedure are in the results section. SCAN-CARDIAC 10/12/2021 12:00 Results for this REHABILITATION AM CDT procedure are in the results section. SCAN-CARDIAC 10/10/2021 12:00 Results for this REHABILITATION AM CDT procedure are in the results section. from Last 3 Months Results SCAN-CARDIAC STRIP (01/05/2022 9:18 AM CDT) Narrative This result has an attachment that is no t available. Scanner OTHER PACER EMIR DUAL CHAMBER WO REPROG (01/05/2022 9:01 AM CDT) Narrative Balaji Spaulding MD - 01/05/2022 9: 01 AM CDT Hugh Willis RN ? 01/05/2022 ??9:09 AM PACEMAKER EVALUATION REPORT January 05, 2022 Indication for Pacemaker: Complete Heart Block Primary MD: Uvaldo Lin MD Primary Environmental Services Assistant: [facility] Valve team Implanting MD: Balaji Spaulding MD DEVICE DATA Communications Engineer [employer]: Model [place] XT DR MRI [id number] Implant Date 01/04/2022 LEAD DATA Atrial Lead: Communications Engineer [employer]: Model 5076 - 45 cm Implant Date 01/04/2022 RV Lead: Communications Engineer [employer]: Model 3830 - 69 cm Implant Date 01/04/2022 Visit location: [place] [id number] Reason For Evaluation: Routine - POD#1 MEASUREMENTS Atrial Sensing - P wave: 2.5 mV Atrial Capture: Maintained: 0.5 V @ 0.4 ms ?? Loss: 0.25 V @ 0.4 ms Atrial Lead Impedance: 475 ohms Ventricular Sensing - R wave: None seen @ VVI 30 bpm Ventricular Capture: RV Maintained: 0.5 V @ 0.4 ms ?? Loss: 0 .25 V @ 0.4 ms Ventricular Lead Impedance: Right - 760 ohms ?? Underlying Rhythm: Sinus Rhythm ~ 82 bpm with complete heart block, no escape seen @ VVI 30 bpm DIAGNOSTIC DATA Atrial paced: <0.1 % ? Ventricular p aced: 100 % Artrial Episodes: none Ventricular High Rates: None (Detects >1 50 bpm x 4) Other: n/a Sensor response: appropriate heart rate distribution with sensor on Battery status: satisfactory ??Magnet ra te: 85 bpm ??Voltage: 3.20 V Estimated Battery Longevity: Initializin g FINAL PARAMETERS Mode: DDDR ?? Lower rate: 60 bpm ??Upper rate: 130/130 bpm AV Delay: 180/150 ms ?? Mode Switch: 171 bpm ?? Rate Response: Low 3/3 Atrial - Amplitude: Adaptive 3.5 V ?? Pu lse width: 0.4 ms ? Sensitivity: 0.3 mV ?? Refractory: 250 m s Polarity: Bipolar Ventricular - Amplitude: Adaptive 3.5 V ?? Pulse width: 0.4 ms ? Sensitivity: 0.9 mV ?? Polarity: Bipolar Changes made: Device temporarily reprogr ammed, iterative adjustments made during interrogation/te sting. No permanent changes made Conclusions: Normal pacemaker function D ischarge teaching completed on device, signs and symptoms of infection, activity restrictions, ID card, YNES, and the trent ent expresses understanding and acceptance of instruct ions. Follow up: Patient instructed to follow- up in one week with ??MD for incision check and silverlon dressin g removal. Patient provided 3 month [place] [facility] appt f or device check. Patient to be enrolled in [facility] home monitori ng. Hugh Willis RN Nurse Clinician II I Pacemaker/ICD Balaji Spaulding MD CARDIAC SERVICES ORD POTASSIUM (01/05/2022 8:46 AM CDT)Only the most recent of2 resultswithin the time period is included. athologist Signature POTASSIUM 3.7 3.5 - 5.0 01/05/2022 [facility] mmol/L 11:01 AM CDT LABORATORY-CENTR AL LABORATORY Specimen Anatomical Collection Method Collection Time Receive d Time (Source) Location / / Volume Laterality Blood BLOOD SPECIMEN / [facility] / 01/05/2022 8:46 AM 01/05 8:56 Unknown Unknown CDT AM CDT Devyn Castillo MD CHEMISTRY Performing Organization Address City/State/ZIP Code Phon e Number [facility] [address] [place] [address] LABORATORY-CENTRAL 2000 LABORATORY MAGNESIUM (01/05/2022 8:46 AM CDT)Only the most recent of2 resultswithin the time period is included. athologist Signature MAGNESIUM 1.8 1.6 - 2.6 01/05/2022 [facility] mg/dL 10:33 AM CDT LABORATORY-CENTR AL LABORATORY Specimen Anatomical Collection Method Collection Time Receive d Time (Source) Location / / Volume Laterality Blood BLOOD SPECIMEN / [facility] / 01/05/2022 8:46 AM 01/05 8:56 Unknown Unknown CDT AM CDT Nic Nguyen MD CHEMISTRY Performing Organization Address City/State/ZIP Code Phon e Number [facility] [address] [place] [address] LABORATORY-CENTRAL 2000 LABORATORY EKG 12-Lead - In AM (01/05/2022 7:11 AM CDT)Only the most recent of7 results within the time period is included. Component Value Ref Range Test Analysis Performed Pathologis t Method Time At Signature Interpretation Atrial-sensed ventricular-paced rhythm BEYOND NOW Abnormal ECG When compared with ECG of 04-JAN-2022 11:05, Electronic ventricular pacemaker has replaced Wide QRS rhyth m Vent. rate has increased BY ??38 BPM Ventricular Rate 95 BPM BEYOND NOW Atrial Rate 95 BPM BEYOND NOW P-R Interval 192 ms BEYOND NOW QRS Duration 136 ms BEYOND NOW QT 416 ms BEYOND NOW QTc 522 ms BEYOND NOW P Rowe 57 degrees BEYOND NOW R Rowe 81 degrees BEYOND NOW T Rowe -82 degrees BEYOND NOW Specimen Anatomical Collection Method Collection Time Receive d Time (Source) Location / / Volume Laterality 01/05/2022 7:11 AM 3:25 CDT PM CDT Balaji Spaulding MD EKG ORD Performing Organization Address City/[facility]/ZIP Code Phon e Number BEYOND NOW [place], [place] XR Chest PA and Lateral (01/05/2022 6:35 AM CDT) Anatomical Region Laterality Modality CHEST, THORAX, Lung, HEART Digital Radio graphy Specimen (Source) Anatomical Collection Method Collection Time Re ceived Time Location / / Volume Laterality 01/05/2022 8:21 AM CDT Impressions 01/05/2022 8:21 AM CDT Status post TAVR and left chest wall pacemaker. No pneumothorax. Dictated by Andrew Fletcher MD @ Nov ??4 20 22 ??8:21AM (Electronically Signed) ?? Narrative 01/05/2022 8:21 AM CDT For Patients: ??As a result of the 21st Century Cures Act, medical imaging exams and procedure report s are released immediately into your [facility] medical record. ??You may view this report before your referring provider. ??If you have questions, please contact your health care provider. INDICATION: Status post pacemaker placement. TECHNIQUE: Chest 2 views. COMPARISON: CT 10/19/2021. FINDINGS: Cardiovascular and mediastinum: ??Heart size and vasculature are normal in caliber and appearance. ??Left chest wall pacemaker placement. Status post TAVR Lungs and pleural spaces: ??Unchanged st reaky opacity in the right upper lobe is likely scarring. No pneumothorax or large effusion. Bones and soft tissues: ??No significant findings. Procedure Note Andrew Fletcher DO - 01/05/2022For matting of this note might be different from the original. For Patients: As a result of the ntury Cures Act, medical imaging exams and procedure reports are released immediately into your electronic medical record. You may view this report before your referring provider. If you have questions, please contact [facility] care provider. INDICATION: Status post pacemaker placement. TECHNIQUE: Chest 2 views. COMPARISON: CT 10/19/2021. FINDINGS: Cardiovascular and mediastinum: Heart si ze and vasculature are normal in caliber and appearance. Left chest wall pacemaker placement. Status post TAVR Lungs and pleural spaces: Unchanged stre aky opacity in the right upper lobe is likely scarring. No pneumothorax or large effusion. Bones and soft tissues: No significant f indings. IMPRESSION: Status post TAVR and left chest wall pac emaker. No pneumothorax. Dictated by Andrew Fletcher MD @ Jan 05 2022 8:21AM (Electronically Signed) Balaji Spaulding MD GENERAL IMAGING EP PPM (01/04/2022 3:05 PM CDT) Anatomical Region Laterality Modality X-Ray Angiography Specimen (Source) Anatomical Collection Method Collection Time Re ceived Time Location / / Volume Laterality 01/04/2022 3:05 PM CDT Narrative This result has an attachment that is no t available. Transcriptions Balaji Spaulding MD - 01/04/2022 3: 45 PM CDT [facility] Electrophysiology Implant Report Name: EDENILSON VALDOVINOS Event Date: 01/04 [employer] ID #: [id number] Date: Gender: Female Age: 76 [facility] #: [id number] Procedure Performed By: BALAJI SPAULDING [facility] Referring ysician: Implant Procedure Type Dual Chamber Permanent Pacemaker Implant Summary / Conclusions PACEMAKER * Dual chamber pacemaker system successf ully implanted. * Procedure completed without incident. * Appropriate device functionality obser ashish at end of case. * Temporary pacemaker lead was removed. Pre-Operative Diagnosis ? Complete heart block s/p TAVR Post-Operative Diagnosis ? Same as Pre-operative diagnosis Indications ? Same as Pre-operative diagnosis Brief Patient History Edenilson Valdovinos is a 76 y/o fema le with a history of aortic stenosis, coronary artery disease s/p prior PCI, hypertension, hyperlipidemia, obstructive sleep apnea and h/o NSCLC. She underwent TAVR on 01/03/22, which was complicated by com plete heart block. After discussion, she now presents for implantation of a dual-chamber permanent pacemaker. Consent & Troy Protocol Troy protocol was followed. TIME OU T conducted just prior to starting procedure confirmed patient identity, site/side, procedure, patient position, and availability of correct equipment and implants (if applicable). The risks, benefits, and alternatives of the procedure were discussed with the patient and written informed consent was obtained. Procedure Description Edenilson Valdovinos presented in sinus rhyth m with complete heart block and a ventricular paced rhythm. The left shoulder was prepped and draped in the usual fashion. The left infraclavicular region was anesthetized with local anesthesia. An incision was made below t he left clavicle and a pocket was created anterior to the pre-pectoral fascia. The left subclavian vein was cannulated twice over the first rib and two guidewires were advanced under fluoroscopy to the level of the IVC. A 7Fr sheath was advanced over the guide wire. An MDT 3830 lead was used. A long pre-formed sheath was advanced into the RV over a Wholey wire. The pacing lead was then advanced into the RV and fixated into the septum where it yielded excellent pacing and (p aced) sensing values with no diaphragmatic stimulation at maximum output. The long sheath was split and appropriate slack was provided. The lead was sutured to the pre-pectoral fascia with non-absorbable suture. A 7Fr sheath was advanced over the secon d guidewire and through this sheath a pacing lead was advanced into the RA and fixated into the appendage where it yielded excellent pacing and sensing values with no diaphragmatic stimulation at maximum out put. The lead was sutured to the pre- pectoral fascia with non-absorbable suture. The pocket was checked for hemostasis an d then copiously irrigated with antibiotic solution. A dual chamber pacemaker was attached to the leads and appropriate dual chamber pacing and sensing were verified. The device/leads were placed into the pocket . The temporary pacemaker lead was then re moved. The helical screw was retracted and the lead removed easily under fluoroscopic visualization. Hemostasis of the right IJ vein was achieved with manual pressure. The pocket was closed in 3 layers with a bsorbable suture. Dermal adhesive was placed across the incision and a sterile dressing was applied. All counts were correct. Ms Valdovinos tolerated the procedure well and no complications were observed. Implantable Device Specifications Pulse Generator Detail [facility]planted [facility] Serial Number 01/04/2022 Implanted Left Pectoral [employer] [place] XT MRI [id number] Lead Detail Implanted Status [facility] Model Serial Number 01/04/2022 Implanted Right Atrium Right A ppendage [employer] CapSureFix Novus 5076-45 [id number] 01/04/2022 Implanted Right Ventricle Sept um [employer] Secure Select 3830-69 [id number] Measurement Topper Press Operator Automatic P/R Wave (mV) Threshold (V) Pulse Width (msec) Resistance (ohms) High Output Stim Result RA 2.6 0.6 0.4 706 No Stimulation @ 10 V RV 29 0.7 0.4 1084 No Stimulation @ 10 V Device Settings Mode Lower Rate (bpm) Upper Rate (bpm) DDDR 60 130 MAXINE Delay: 150 msec PAV Delay: 180 msec Lead Amplitude (V) Pulse Width (msec) Sensitivity (mV) Configuration Atrial 3.5 0.4 0.3 Bipolar RV 3.5 0.4 0.9 Bipolar Features Magnet Use: Enabled Wireless Telemetry: Active Feature Status Detail Mode Switch On @ 171bpm Procedure(s) Performed ? Insertion of new or replacement PPM wi th transvenous electrode (s); Atrial and Ventricular Procedure Detail Estimated Blood Loss: < 50 ml Specimen Collected: None Level of Sedation Achieved: Moderate Total Fluoro Time: 3.5 MARKETING DEVELOPMENT SPECIALIST Total Fluoro Dose: 7 mGy Staff Name Role Balaji Spaulding Autocad Detailer Nolberto James CRNA, Katlyn RN Nurse Basilia Long EPT Scrub Pivec, Leann EPT Account Manager Trainee Fossum, Richie EPT Account Manager Trainee Solheid, Faraz EPT Account Manager Trainee Medications Ordered and Administered Start Time Stop Time Medication Dose Uni ts Route Ordered By Given By The anesthesia service monitored the pat ient?s conscious sedation during the procedure. The medications listed above were verbal ly ordered by me and read back to me as documented above. Refer to the hemodynamic procedure log r eport for additional case details. electronically signed on 01/04/2022 3:45 :22 PM with status of Final Balaji Spaulding MD Implanting Environmental Services Assistant [facility] [address] [place] [address] (p) [phone](f) Balaji Spaulding MD CV IMAGING ECHO LIMITED W CONT (01/04/2022 1:13 PM CDT) P athologist Signature AORTIC VALVE 7 mmHg MEAN PG PEAK TR 2.4 m/s VELOCITY EJECTION 70 - 75% FRACTION Anatomical Region Laterality Modality HEART Ultrasound Specimen (Source) Anatomical Collection Method Collection Time Re ceived Time Location / / Volume Laterality 01/04/2022 12:41 PM CDT Narrative 01/05/2022 9:07 AM CDT ECHOCARDIOGRAM EDENILSON VALDOVINOS ? Accessi on#: ?? [id number] : ?1945 76 years Study Date: ?? 01/04/2022 12:41:37 PM Gender: F ?BP: ? 123/64 mmHg Height: 157.00 cm ?BSA: ?1.83 m? ?? Weight: 82.00 kg ? Tech: ? RES ? Referring : DUC CANDELARIO Site: ? [facility] Reading Location: Procedure: Limited 2D , Spectral Doppler and Limited Spectral Doppler. Indication for study: S/p Evolut FX now with chest pain Cardiac Rhythm: Regular.Study quality: T echnically limited. Final Impressions: Limited Echocardiogram performed 1. Technically limited exam. 2. Normal LV size, moderately increased wall thickness, hyperdynamic global systolic function with an estimated EF of 70 - 75%. 3. 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 4. Right ventricular cavity size is nor mal, global systolic RV function is normal. 5. The aortic valve is a normal functio catherine 26 mm Evolut FX, no stenosis and no regurgitation. Mean gradient ~ 7mmHg. 6. The mitral valve is sclerotic, trace mitral regurgitation. 7. Mitral stenosis with moderately incr eased mean gradient of 5.3 mmHg at a heart rate of 80. 8. No pericardial effusion. Chamber Sizes and Function Normal left ventricular size, moderately increased wall thickness, hyperdynamic global systolic function with an estimated EF of 70 - 75%. Right ventricular cavity size is normal, global systolic RV function is normal. Valves, RV Pressures and Diastolic Funct ion The aortic valve is a normal functioning 26 mm Evolut FX, no stenosis and no regurgitation. The mitral valve is sclerotic, trace mitral regurgitation. The mitral valve peak velocity is 1.79 m/s and the mean gradient is 5.3 mmHg. Mitral annula r calcification is present. A moderately increased gradient of 5.3 mmHg at a heart rate of 80 is calculated across the mitral valve using continuous Doppler examination. The tricuspid regurgitant velocity is 2. 4 m/s, the estimated right ventricular systolic pressure is 23 mmHg plus right atrial pressure. Masses, Effusion, Shunts There is no pericardial effusion. The in ferior vena cava is normal sized, respiratory size variation greater than 50%. MEASUREMENTS AND CALCULATIONS 2-D Measurements and LV Function: IVS (d) 1.5 cm HR 80 bpm Aortic Valve: Vmax 1.8 m/s Max PG ??12 mmHg VTI ??0.34 m ??Mean PG 7 mmHg Mitral Valve: MV Mean G 5 mmHg MV VTI ?0.45 m Tricuspid Valve and estimated PA pressur es: TR Vmax 2.4 m/s TR maxG 23 mmHg . This study was interpreted by an [facility] redited facility. ??Final ?? Procedure Note Uvaldo Henriquez MD - 01/05/2022 ECHOCARDIOGRAM EDENILSON VALDOVINOS : 1945 76 years Study Date: 01/04 12:41:37 PM Gender: F BP: 123/64 mmHg Height: 157.00 cm BSA: 1.83 m? ?? Weight: 82.00 kg Tech: RES Referring MD: DUC CANDELARIO Site: [facility] Reading Location: Procedure: Limited 2D , Spectral Doppler and Limited Spectral Doppler. Indication for study: S/p Evolut FX now with chest pain Cardiac Rhythm: Regular.Study quality: T echnically limited. Final Impressions: Limited Echocardiogram performed 1. Technically limited exam. 2. Normal LV size, moderately increased wall thickness, hyperdynamic global systolic function with an estimated EF of 70 - 75%. 3. 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 4. Right ventricular cavity size is nor mal, global systolic RV function is normal. 5. The aortic valve is a normal functio catherine 26 mm Evolut FX, no stenosis and no regurgitation. Mean gradient ~ 7mmHg. 6. The mitral valve is sclerotic, trace mitral regurgitation. 7. Mitral stenosis with moderately incr eased mean gradient of 5.3 mmHg at a heart rate of 80. 8. No pericardial effusion. Chamber Sizes and Function Normal left ventricular size, moderately increased wall thickness, hyperdynamic global systolic function with an estimated EF of 70 - 75%. Right ventricular cavity size is normal, global systolic RV function is normal. Valves, RV Pressures and Diastolic Funct ion The aortic valve is a normal functioning 26 mm Evolut FX, no stenosis and no regurgitation. The mitral valve is sclerotic, trace mitral regurgitation. The mitral valve peak velocity is 1.79 m/s and the mean gradient is 5.3 mmHg. Mitral annular mariano cification is present. A moderately increased gradient of 5.3 mmHg at a heart rate of 80 is calculated across the mitral valve using continuous Doppler examination. The tricuspid regurgitant velocity is 2. 4 m/s, the estimated right ventricular systolic pressure is 23 mmHg plus right atrial pressure. Masses, Effusion, Shunts There is no pericardial effusion. The in ferior vena cava is normal sized, respiratory size variation greater than 50%. MEASUREMENTS AND CALCULATIONS 2-D Measurements and LV Function: IVS (d) 1.5 cm HR 80 bpm Aortic Valve: Vmax 1.8 m/s Max PG 12 mmHg VTI 0.34 m Mean PG 7 mmHg Mitral Valve: MV Mean G 5 mmHg MV VTI 0.45 m Tricuspid Valve and estimated PA pressur es: TR Vmax 2.4 m/s TR maxG 23 mmHg . This study was interpreted by an [facility] redited facility. Final Duc Candelario MD ECHO ORD SCAN-CARDIAC STRIP (01/04/2022 9:54 AM CDT) Narrative This result has an attachment that is no t available. Scanner OTHER CBC with Platelets no Differential (01/04/2022 8:53 AM CDT)Only the most recent of3 resultswithin the time period is included. P athologist Signature WHITE BLOOD 7.7 4.5 - 11.0 01/04/2022 [facility] COUNT thou/cu mm 9:33 AM CDT LABORATORY-CENT RAL LABORATORY RED BLOOD COUNT 5.17 4.00 - 01/04/2022 [facility] 5.20 9:33 AM CDT LABORATORY-CENT mil/cu mm RAL LABORATORY HEMOGLOBIN 14.6 12.0 - 01/04/2022 [facility] 16.0 g/dL 9:33 AM CDT LABORATORY-CENT RAL LABORATORY HEMATOCRIT 42.6 33.0 - 01/04/2022 [facility] 51.0 % 9:33 AM CDT LABORATORY-CENT RAL LABORATORY MCV 82 80 - 100 01/04/2022 [facility] fL 9:33 AM CDT LABORATORY-CENT RAL LABORATORY MCH 28.2 26.0 - 01/04/2022 [facility] 34.0 pg 9:33 AM CDT LABORATORY-CENT RAL LABORATORY MCHC 34.3 32.0 - 01/04/2022 [facility] 36.0 g/dL 9:33 AM CDT LABORATORY-CENT RAL LABORATORY RDW 13.0 11.5 - 01/04/2022 [facility] 15.5 % 9:33 AM CDT LABORATORY-[facility] LABORATORY PLATELET COUNT 151 140 - 440 01/04/2022 [facility] thou/cu mm 9:33 AM CDT LABORATORY-[facility] LABORATORY MPV 10.0 6.5 - 11.0 01/04/2022 [facility] fL 9:33 AM CDT LABORATORY-[facility] LABORATORY NRBC 0.0 % 01/04/2022 [facility] 9:33 AM CDT LABORATORY-[facility] LABORATORY ABS NRBC 0.0 thou /cu 01/04/2022 [facility] mm 9:33 AM CDT LABORATORY-[facility] LABORATORY Specimen Anatomical Collection Method Collection Time Receive d Time (Source) Location / / Volume Laterality Blood BLOOD SPECIMEN / Butterfly / 01/04/2022 8:53 AM 01/04 9:24 Unknown Unknown CDT AM CDT Duc Candelario MD HEMATOLOGY Performing Organization Address City/State/ZIP Code Phon e Number [facility] [address] [place] [address] LABORATORY-CENTRAL 2000 LABORATORY (ABNORMAL) Basic Metabolic Panel (01/04/2022 8:53 AM CDT)Only the most recent of 3 resultswithin the time period is included. Analysis Performed At Patho logist Time Signature SODIUM 140 135 - 145 01/04/2022 [facility] mmol/L 9:52 AM CDT LABORATORY-[facility] TRAL LABORATORY POTASSIUM 3.7 3.5 - 5.0 01/04/2022 [facility] mmol/L 9:52 AM CDT LABORATORY-[facility] TRAL LABORATORY CHLORIDE 110 98 - 110 01/04/2022 [facility] mmol/L 9:52 AM CDT LABORATORY-[facility] TRAL LABORATORY CO2,TOTAL 21 21 - 31 01/04/2022 [facility] mmol/L 9:52 AM CDT LABORATORY-[facility] TRAL LABORATORY ANION GAP 9 5 - 18 01/04/2022 [facility] 9:52 AM CDT LABORATORY-[facility] TRAL LABORATORY GLUCOSE 120 (H) 65 - 100 01/04/2022 [facility] mg/dL 9:52 AM CDT LABORATORY-[facility] TRAL LABORATORY CALCIUM 9.1 8.5 - 10.5 01/04[facility]20[facility] 9[facility]52 AM CDT LAB[facility] LABORATORY BUN 15 8 - 25 01/04/2022 [facility] mg/dL 9:52 AM CDT LABORATORY-[facility] TRAL LABORATORY CREATININE 0.76 0.57 - 01/04/2022 [facility] 1.11 mg/dL 9:52 AM CDT LABORATORY-[facility] TRAL LABORATORY BUN/CREAT RATIO 20 10 - 20 01/04/2022 [facility] 9:52 AM CDT LABORATORY-[facility] TRAL LABORATORY eGFR 82 (L) >90 01/04/2022 [facility] mL/min/1.7 9:52 AM CDT LABORATORY-[facility] 3m2 TRAL LABORATORY Comment: As [...] / Volume Laterality Blood BLOOD SPECIMEN / Butterfly / 01/04/2022 8:53 AM 01/04 9:24 Unknown Unknown CDT AM CDT Duc Candelario MD CHEMISTRY Performing Organization Address City/State/ZIP Code Phon e Number [facility] [address] [address] LABORATORY-CENTRAL 2000 LABORATORY SCAN-CARDIAC STRIP (01/04/2022 3:47 AM CDT) Narrative This result has an attachment that is no t available. Scanner OTHER SCAN-CARDIAC STRIP (01/04/2022 2:28 AM CDT) Narrative This result has an attachment that is no t available. Scanner OTHER ECHO LIMITED WO CONTRAST (01/03/2022 5:12 PM CDT)Only the most recent of2 resultswithin the time period is included. P athologist Signature AORTIC VALVE 3 mmHg MEAN PG PEAK TR 2.0 m/s VELOCITY LVEDD 3.5 cm EJECTION 60 - 65% FRACTION Anatomical Region Laterality Modality HEART Ultrasound Specimen (Source) Anatomical Collection Method Collection Time Re ceived Time Location / / Volume Laterality 01/03/2022 5:37 PM CDT Narrative 01/04/2022 8:59 AM CDT ECHOCARDIOGRAM EDENILSON VALDOVINOS ? Accessi on#: ?? [id number] : ?1945 76 years Study Date: ?? 01/03/2022 5:37:46 PM Gender: F ?BP: ? 117/74 mmHg Height: 157.50 cm ?BSA: ?1.84 m? ?? Weight: 83.00 kg ? Tech: ? BHM ? Referring MD: DEVYN CASTILLO Site: ? [facility] Reading Location: AN IP Procedure: Limited 2D , Color Doppler an d Limited Spectral Doppler. Indication for study: TAVR Cardiac Rhythm: Regular and ventricular paced.Study quality: Final Impressions: Limited Echocardiogram performed 1. Normal LV size, mildly increased wal l thickness, normal global systolic function with an estimated EF of 60 - 65%. 2. The aortic valve is a normal functio catherine 26 mm Evolut FX, no stenosis and no regurgitation.The aortic valve peak velocity is 1.2 m/s, the peak gradient is 6 mmHg, and the mean gradient is 3 mmHg. Th e aortic valve area is 2.43 cm? ?? with a dimensionless index of 0.77. The stroke volume index is 27.3 ml/m? ??. 3. The mitral valve is normal, trace mi tral regurgitation. 4. Mild-moderate tricuspid regurgitatio n. Chamber Sizes and Function Normal left ventricular size, mildly inc reased wall thickness, normal global systolic function with an estimated EF of 60 - 65%. Left atrial size is normal. Left atrial pressure is normal. Right ventric ular cavity size is normal, global systo lic RV function is normal. RV wall thickness is normal. The right atrium is normal. The sinus of Valsalva is normal sized. The ascending aorta is normal sized. Valves, RV Pressures and Diastolic Funct ion The aortic valve is a normal functioning 26 mm Evolut FX, no stenosis and no regurgitation. The mitral valve is normal in structure, trace mitral regurgitation. Moderate mitral annular calcification is present. The tricuspid valve is normal i n structure. Tricuspid regurgitation is mild-moderate. The tricuspid regurgitant velocity is 2.0 m/s, the estimated right ventricular systolic pressure is 16 mmHg plus right atrial pressure. There is no rmal estimated pulmonary pressure by tricuspid regurgitation velocity and right atrial pressure. Masses, Effusion, Shunts There is no pericardial effusion. The in ferior vena cava is normal sized, respiratory size variation greater than 50%. No left to right shunting was detected by limited color flow Doppler interrogation of the interatrial septum. MEASUREMENTS AND CALCULATIONS 2-D Measurements and LV Function: LVID (d) 3.5 cm LV FS% (2D) ?? 41 % LVID (s) 2.1 cm LVOT diameter 2.0 cm IVS (d) ??1.3 cm HR ?79 bpm LVPW (d) 1.4 cm Aortic Valve: Vmax ? 1.2 m/s ??RODRIGO (V) ?? 2.45 cm? ?? VTI ?0.21 m ?? RODRIGO (I) ?? 2.43 cm? ?? LVOT V max 0.9 m/s ??Max PG ?6 mmHg LVOT VTI ?? 0.16 m ?? Mean PG ?? 3 mmHg SV ? 50 ml ?Dim Index 0.77 SV index ?? 27 ml/m? ?? CO ?4.0 l/min ?CI ?2.2 l/min/m? ?? Tricuspid Valve and estimated PA pressur es: TR Vmax 2.0 m/s TR maxG 16 mmHg . This study was interpreted by an [facility] redited facility. ??Final ?? Procedure Note Artis Munoz MD - 01/04/2022Fo rmatting of this note might be different from the original. ECHOCARDIOGRAM EDENILSON VALDOVINOS : 1945 76 years Study Date: 01/03 5:37:46 PM Gender: F BP: 117/74 mmHg Height: 157.50 cm BSA: 1.84 m? ?? Weight: 83.00 kg Tech: [facility] Referring MD: DEVYN CASTILLO Site: [facility] Reading Location: [facility] Procedure: Limited 2D , Color Doppler an d Limited Spectral Doppler. Indication for study: TAVR Cardiac Rhythm: Regular and ventricular paced.Study quality: Final Impressions: Limited Echocardiogram performed 1. Normal LV size, mildly increased wal l thickness, normal global systolic function with an estimated EF of 60 - 65%. 2. The aortic valve is a normal functio catherine 26 mm Evolut FX, no stenosis and no regurgitation.The aortic valve peak velocity is 1.2 m/s, the peak gradient is 6 mmHg, and the mean gradient is 3 mmHg. The aortic valve area is 2.43 cm? ?? with a dimensionless index of 0.77. The stroke volume index is 27.3 ml/m? ??. 3. The mitral valve is normal, trace mi tral regurgitation. 4. Mild-moderate tricuspid regurgitatio n. Chamber Sizes and Function Normal left ventricular size, mildly inc reased wall thickness, normal global systolic function with an estimated EF of 60 - 65%. Left atrial size is normal. Left atrial pressure is normal. Right ventricular cavity size is normal, global systolic RV funct ion is normal. RV wall thickness is normal. The right atrium is normal. The sinus of Valsalva is normal sized. The ascending aorta is normal sized. Valves, RV Pressures and Diastolic Funct ion The aortic valve is a normal functioning 26 mm Evolut FX, no stenosis and no regurgitation. The mitral valve is normal in structure, trace mitral regurgitation. Moderate mitral annular calcification is present. The tricuspid valve is normal in structure. Tricuspid regurgitation is mild- moderate. The tricuspid regurgitant velocity is 2.0 m/s, the estimated right ventricular systolic pressure is 16 mmHg plus right atrial pressure. There is normal estimated pulm onary pressure by tricuspid regurgitation velocity and right atrial pressure. Masses, Effusion, Shunts There is no pericardial effusion. The in ferior vena cava is normal sized, respiratory size variation greater than 50%. No left to right shunting was detected by limited color flow Doppler interrogation of the interatrial septum. MEASUREMENTS AND CALCULATIONS 2-D Measurements and LV Function: LVID (d) 3.5 cm LV FS% (2D) 41 % LVID (s) 2.1 cm LVOT diameter 2.0 cm IVS (d) 1.3 cm HR 79 bpm LVPW (d) 1.4 cm Aortic Valve: Vmax 1.2 m/s RODRIGO (V) 2.45 cm? ?? VTI 0.21 m RODRIGO (I) 2.43 cm? ?? LVOT V max 0.9 m/s Max PG 6 mmHg LVOT VTI 0.16 m Mean PG 3 mmHg SV 50 ml Dim Index 0.77 SV index 27 ml/m? ?? CO 4.0 l/min CI 2.2 l/min/m? ?? Tricuspid Valve and estimated PA pressur es: TR Vmax 2.0 m/s TR maxG 16 mmHg . This study was interpreted by an [facility] facility. Final Devyn Castillo MD ECHO ORD (ABNORMAL) ACTIVATED CLOTTING TIME [id number] ACT (01/03/2022 2:52 PM CDT)Only the most recent of2 resultswithin the time period is included. P athologist Signature ACTIVATED 280 (H) 74 - 125 01/04/2022 [facility] CLOTTING TIME, sec 7:35 PM CDT LABORATORY-CE N POCT TRAL LABORATORY Specimen Anatomical Collection Method Collection Time Receive d Time (Source) Location / / Volume Laterality Blood BLOOD SPECIMEN / 01/03/2022 2:52 PM 01/04 7:35 Unknown CDT PM CDT Devyn Castillo MD HEMATOLOGY Performing Organization Address City/State/ZIP Code Phon e Number [facility] [address] [place] [address] LABORATORY-CENTRAL 2000 LABORATORY CVL TAVR (01/03/2022 2:01 PM CDT) Anatomical Region Laterality Modality X-Ray Angiography Specimen (Source) Anatomical Collection Method Collection Time Re ceived Time Location / / Volume Laterality 01/03/2022 2:01 PM CDT Narrative This result has an attachment that is no t available. Devyn Castillo MD CV IMAGING RBC W/O TYPE & SCREEN (01/03/2022 10:35 AM CDT) P athologist Signature QUANTITY 2 01/03/2022 [facility] 10:35 AM CDT LAB-CENTRAL LAB BLOOD BANK Specimen (Source) Anatomical Collection Method Collection Time Re ceived Time Location / / Volume Laterality Blood BLOOD SPECIMEN / 01/03/2022 10:34 Unknown AM CDT Devyn Castillo MD BLOOD BANK Performing Organization Address City/State/ZIP Code Phon e Number [facility] LAB-CENTRAL LAB [address] [place] [phone] BLOOD BANK RED BLOOD CELLS EA UNIT (01/03/2022 10:35 AM CDT)Only the most recent of2 resultswithin the time period is included. [employer] Method Time Signature CROSSMATCH Compatible Compatible [facility] LAB-CENTRAL LAB BLOOD BANK PRODUCT BLOOD O Rh Positive [facility] [employer] [facility] LAB-CENTRAL LAB BLOOD BANK PRODUCT ID [id number] [facility] LAB-CENTRAL LAB BLOOD BANK PRODUCT STATUS /Relea [facility] LAB-CENTRAL LAB BLOOD BANK PRODUCT RBC -1 LR ALLHere@ [employer] [facility] LAB-CENTRAL LAB BLOOD BANK PRODUCT CODE [id number] [facility] LAB-CENTRAL LAB BLOOD BANK Specimen (Source) Anatomical Location Collection Method / Collectio n Time Received Time / Laterality Volume Devyn Castillo MD BLOOD BANK Performing Organization Address City/[facility]/ZIP [facility] Phon e Number [facility] LAB-CENTRAL LAB [address] [place] [phone] BLOOD BANK Type and Screen (01/03/2022 10:03 AM CDT)Only the most recent of3 resultswithin the time period is included. [employer] Method Time Signature ABORH O Rh 01/03/2022 [facility] Positive 11:02 AM CDT LAB-CENTRAL LAB BLOOD BANK ANTIBODY Negative Negative 01/03/2022 [facility] SCREEN 11:02 AM CDT LAB-CENTRAL LAB BLOOD BANK SPECIMEN 01/06/22 01/03/2022 [facility] EXPIRATION 23:59 11:02 AM CDT LAB-CENTRAL DATE/TIME LAB BLOOD BANK Specimen Anatomical Collection Method / Collection Time Recei ashish Time (Source) Location / Volume Laterality Blood BLOOD SPECIMEN / Venipuncture / 01/03/2022 10:03 01/03 Unknown Unknown AM CDT 10:22 AM CDT Dany Bond ACCOUNTS PAYABLE PAYROLL COORDINATOR BLOOD BANK Performing Organization Address City/State/ZIP Code Phon e Number [facility] LAB-CENTRAL LAB [address] [place], [place] [address] BLOOD BANK (ABNORMAL) Glucose, Fasting (01/03/2022 10:03 AM CDT) P athologist Signature GLUCOSE 111 (H) 65 - 100 01/03/2022 [facility] mg/dL 11:21 AM CDT LABORATORY-CENT RAL LABORATORY Specimen Anatomical Collection Method / Collection Time Recei ashish Time (Source) Location / Volume Laterality Blood BLOOD SPECIMEN / Venipuncture / 01/03/2022 10:03 01/03 Unknown Unknown AM CDT 10:22 AM CDT Dany Bond ACCOUNTS PAYABLE PAYROLL COORDINATOR CHEMISTRY Performing Organization Address City/[facility]/ZIP Code Phon e Number [facility] [address] [place] [address] LABORATORY-CENTRAL 2000 LABORATORY SCAN-OPERATIVE/PROCEDURE REPORT (01/03/2022 12:00 AM CDT) Narrative 01/03/2022 12:00 AM CDT This result has an attachment that is no t available. Ordered by an unspecified provider. Other Clinical Staff OTHER COVID 19 (12/29/2021 2:47 PM CDT) Analysis Performed At Patho logist Time Signature COVID 19 Negative Negative 12/30/2021 [facility] 2:46 PM CDT LABORATORY-YOD[facility] MOLECULAR TRAL LABORATORY Specimen Anatomical Location / Collection Method Collection Toyn e Received Time (Source) Laterality / Volume Other SPECIMEN FROM Non-Blood / 12/29/2021 2:47 12/30/2021 5:48 NASOPHARYNGEAL Unknown PM CDT AM CDT STRUCTURE / Unknown Narrative [facility] LABORATORY-CENTRAL LABORAT ORY - 12/30/2021 2:46 PM CDT All PCR tests are subject to false negative result due to variability in viral load and collection te chnique. A negative result does not rule out a SARS-CoV-2 infection. Clinical correlation required. This test has been authorized by FDA und an Emergency Use Authorization (EUA). This test is only authorized for the duration of time the declaration that circumstances exist justifying the authorizati on of the emergency use of in vitro diag nostic tests for detection of SARS-CoV-2 virus and/or diagnosis of COVID-19 infection under section 564(b)(1) of the Act, 21 U.S.C. 360bbb-3(b) (1), unless the authorization is terminated or revoked sooner. Josef Wood NP Student MICROBIOLOGY Performing Organization Address [facility] Phon e Number [facility] [address] [place] [address] LABORATORY-CENTRAL 2000 LABORATORY COVID 19 COLLECTION (12/29/2021 2:47 PM CDT) [facility] Method Time Signature TESTING [facility] 12/30/2021 [facility] LABORATORY Laboratory 5:48 AM CDT LABORATORY-CE NTRAL LABORATORY Comment: Specimen submitted to [facility] Laboratory for testing. Specimen Anatomical Location / Collection Method Collection Tony e Received Time (Source) Laterality / Volume Other SPECIMEN FROM Non-Blood / 12/29/2021 2:47 12/29/2021 3:10 NASOPHARYNGEAL Unknown PM CDT PM CDT STRUCTURE / Unknown Josef Wood NP Student SEND OUTS Performing Organization Address [facility] Phon e Number [facility] [address] [place] [address] LABORATORY-CENTRAL 1999 LABORATORY SCAN-CARDIAC REHABILITATION (12/26/2021 12:00 AM CDT)Only the most recent of11 resultswithin the time period is included. Narrative 12/26/2021 12:00 AM CDT This result has an attachment that is no t available. Ordered by an unspecified provider. Other Clinical Staff OTHER CBC WITH AUTO DIFFERENTIAL (12/05/2021 10:08 AM CDT) P athologist Signature WHITE BLOOD 5.4 4.5 - 11.0 12/05/2021 [place] COUNT thou/cu mm 10:12 AM [facility] RED BLOOD COUNT 5.09 4.00 - 12/05/2021 [place] 5.20 10:12 AM [facility] CENTER mil/cu mm LABORATORY HEMOGLOBIN 14.2 12.0 - 12/05/2021 [place] 16.0 g/dL 10:12 AM [facility] HEMATOCRIT 43.4 33.0 - 12/05/2021 [place] 51.0 % 10:12 AM [facility] MCV 85 80 - 100 12/05/2021 [place] fL 10:12 AM [facility] MCH 27.9 26.0 - 12/05/2021 [place] 34.0 pg 10:12 AM [facility] MCHC 32.7 32.0 - 12/05/2021 [place] 36.0 g/dL 10:12 AM [facility] RDW 13.4 11.5 - 12/05/2021 [place] 15.5 % 10:12 AM [facility] PLATELET COUNT 200 140 - 440 12/05/2021 [place] thou/cu mm 10:12 AM [facility] MPV 9.2 6.5 - 11.0 12/05/2021 [place] fL 10:12 AM [facility] % NEUT 66.1 % 12/05/2021 [place] 10:12 AM [facility] % LYMPH 22.1 % 12/05/2021 [place] 10:12 AM [facility] % MONO 9.2 % 12/05/2021 [place] 10:12 AM [facility] % EOS 2.0 % 12/05/2021 [place] 10:12 AM [facility] % BASO 0.6 % 12/05/2021 [place] 10:12 AM [facility] ABSOLUTE 3.6 1.7 - 7.0 12/05/2021 [place] NEUTROPHILS thou/cu mm 10:12 AM [facility] ABSOLUTE 1.2 0.9 - 2.9 12/05/2021 [place] LYMPHOCYTES thou/cu mm 10:12 AM [facility] ABSOLUTE 0.5 <0.9 12/05/2021 [place] MONOCYTES thou/cu mm 10:12 AM [facility] ABSOLUTE 0.1 <0.5 12/05/2021 [place] EOSINOPHILS thou/cu mm 10:12 AM [facility] ABSOLUTE 0.0 <0.3 12/05/2021 [place] BASOPHILS thou/cu mm 10:12 AM [facility] Specimen Anatomical Collection Method / Collection Time Recei ashish Time (Source) Location / Volume Laterality Blood BLOOD SPECIMEN / Venipuncture / 12/05/2021 10:08 12/05 Unknown Unknown AM CDT 10:08 AM T Narrative [facility] - 10:12 AM T This procedure was originally ordered at [facility]. This procedure was originally ordered at [facility]. Joanna Mccray MD HEMATOLOGY Performing Organization Address City/State/ZIP Code Phon e Number [facility] [address] [place] [address] (ABNORMAL) COMP METABOLIC PANEL (12/05/2021 10:08 AM T) [facility] Method Time Signature SODIUM 142 135 - 145 12/05/2021 [place] mmol/L 11:11 AM [facility] POTASSIUM 4.2 3.5 - 5.0 12/05/2021 [place] mmol/L 11:11 AM [facility] CHLORIDE 105 98 - 110 12/05/2021 [place] mmol/L 11:11 AM [facility] CO2,TOTAL 30 21 - 31 12/05/2021 [place] mmol/L 11:11 AM [facility] ANION GAP 7 5 - 18 [facility] GLUCOSE 116 (H) 65 - 100 12/05/2021 [place] mg/dL 11:11 AM [facility] CALCIUM 9.3 8.5 - 10.5 12/05/2021 [place] mg/dL 11:11 AM [facility] BUN 16 8 - 25 12/05/2021 [place] mg/dL 11:11 AM [facility] CREATININE 0.92 0.57 - 12/05/2021 [place] 1.11 mg/dL 11:11 AM [facility] BUN/CREAT RATIO 17 10 - 20 12/05/2021 [place] 11:11 AM [facility] ALBUMIN 4.3 3.2 - 4.6 12/05/2021 [place] g/dL 11:11 AM [facility] PROTEIN,TOTAL 6.9 6.0 - 8.0 12/05/2021 [place] g/dL 11:11 AM [facility] GLOBULIN 2.6 2.0 - 3.7 12/05/2021 [place] g/dL 11:11 AM [facility] A/G RATIO 1.7 1.0 - 2.0 12/05/2021 [place] 11:11 AM [facility] BILIRUBIN,TOTAL 1.1 0.2 - 1.2 12/05/2021 [place] mg/dL 11:11 AM [facility] ALK PHOSPHATASE 90 50 - 136 12/05/2021 [place] IU/L 11:11 AM [facility] ALT (SGPT) 22 8 - 45 12/05/2021 [place] IU/L 11:11 AM [facility] AST (SGOT) 21 2 - 40 12/05/2021 [place] IU/L 11:11 AM [facility] eGFR 65 (L) >90 12/05/2021 [place] mL/min/1.7 11:11 AM [facility] 3m2 LABORATORY Comment: As of 2021, eGFR is [...] Laterality Blood BLOOD SPECIMEN / Venipuncture / 12/05/2021 10:08 12/05 Unknown Unknown AM CDT 10:08 AM T Joanna Mccray MD CHEMISTRY Performing Organization Address City/State/ZIP Code Phon e Number [facility] [address] [place] [address] CTA CHEST ABD PELVIS TAVR - DUAL [...] ?? If you have questions, please contact [facility] care provider. OVER-READ ??OVER-READ ??OVER-READ OVER-READ: DETAILED RADIOLOGY EXTRACARDI AC OVER-READ OF CARDIAC CT, 10/19/2021 TECHNIQUE: ??Please refer to separately dictated report for details of technique. ??97 cc Omnipaque-350 intrave nous contrast. ?? This exam is being performed in conjunct ion with the services provided by the [facility] ([facility]). CLINICAL HISTORY: ??Aortic stenosis. Car diac over-read. [...] note that all CT scans at this [facility] use dose modulation, iterative reconstruction, and/or weight- based dosing when appropriate to reduce radiation dose to as low as reaso nably achievable. Dictated by Jason Hope MD @ 10/20/2021 4: 35:35 PM Signed by: Jason Hope MD @10/20/2021 4:35 :35 PM (Electronic Signature) Narrative 10/25/2021 1:11 PM CDT Results are automatically released to your [employer] ([employer]) account once available, in compliance with [place] regulations. ??This means that you may see [...] m m with posterior calcification noted IDEAL CASE PREPARER AND LINER ANGLE: AZERI 8, cranial 1 f or a ??Edgar [...] MD CT HEMATOCRIT/HGB,ISTAT (10/19/2021 2:52 PM CDT) athologist Signature HEMATOCRIT, 44.0 33.0 - 10/19/2021 [facility] POCT 51.0 % 3:01 PM CDT LABORATORY-[facility] LABORATORY HEMOGLOBIN, 15.0 12.0 - 10/19/2021 [facility] POCT 16.0 g/dL 3:01 PM CDT LABORATORY-[facility] LABORATORY Specimen Anatomical Collection Method Collection Time Receive d Time (Source) Location / / Volume Laterality Blood BLOOD SPECIMEN / 10/19/2021 2:52 PM 10/19 3:01 Unknown CDT PM CDT Doctor Unknown CHEMISTRY Performing Organization Address City/[facility]/ZIP Code Phon e Number [facility] [address] [place] [address] LABORATORY-[place] 2000 LABORATORY (ABNORMAL) CREATININE,ISTAT (10/19/2021 2:41 PM CDT) athologist Signature CREATININE, 0.90 0.57 - 10/19/2021 [facility] POCT 1.11 mg/dL 3:01 PM CDT LABORATORY-[facility] LABORATORY Comment: Caution: Patients taking Hydrox yurea have falsely increased iStat Creatinine results. Verify creatinine results order ing a Creatinine (84929.2) eGFR 67 (L) >90 mL/min/1.73m2 10/19/2021 3:01 PM CDT [facility] LABORATORY-CENTRAL L ABORATORY Comment: As of 2021, [...] Organization Address City/State/ZIP Code Phon e Number [facility] [address] [place] [address] LABORATORY-CENTRAL 2000 LABORATORY HOSPITAL CLINIC ASSISTANT QUESTION TEST (10/19/2021 2:33 PM CDT) P athologist Signature QABT Question Yes 10/19/2021 [facility] 2:54 PM CDT LAB-CENTRAL LAB BLOOD BANK Specimen Anatomical Collection Method / Collection Time Recei ashish Time (Source) Location / Volume Laterality Blood BLOOD SPECIMEN / Venipuncture / 10/19/2021 2:33 2021 2:42 Unknown Unknown PM CDT PM CDT Alexey Cabrera MD BLOOD BANK Performing Organization Address City/State/ZIP Code Phon e Number [facility] LAB-CENTRAL LAB [address] [place], [place] [address] BLOOD BANK from Last 3 Months Insurance Payer Benefit Plan / Subscriber ID Effective Dates Phone Addre ss Type Group MEDICARE PART B MEDICARE PART B [id number] 2012-Presen ATTN: CLAIMS - HB USE ONLY HB ONLY t [address] [place] [address] MEDICARE PART A MEDICARE PART A [id number] 2012-Presen ATTN: CLAIMS - HB USE ONLY HB ONLY t [address] [place] [address] BLUE CROSS MR MR BC [place] [id number] 2013-Presen [address] [place] [address] BLUE CROSS BLUE CROSS [id number] 2016-[place] [address] [address] [place], [place] [id number] BLUE CROSS MR BLUE CROSS [id number] 2016-Presen [address] [address] [place], [place] [id number] Edenilson Valdovinos Personal/Famil Self [id number] [place] M y (Home) [facility] [phone] Daysi ENNIS (Work) [phone] Advance Directives Documents on File Type Date Recorded 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 on Healthcare Directive 01/03/2016 11:31 AM 12/27/15 Latest Code Status on File Code Status Date Activated Date Inactivated Comments Full Code 01/03/2022 4:20 PM 01/05/2022 3:09 PM Code Status Discussion: Reviewed Preferences Full Code 08/16/2021 10:37 AM 08/17/2021 9:11 PM Code Status Discussion: Reviewed Preferences Full Code 09/17/2018 3:11 PM 09/20/2018 7:59 PM Full Code 08/11/2018 8:16 AM 08/11/2018 3:33 PM Full Code 06/06/2017 12:29 PM 06/06/2017 5:38 PM Care Teams Ict Managers Relationship Specialty Start Date End Date Uvaldo Lin PCP - General Family Practice 07/04/18 MD Jey [address] [place] [address] Roque Tolbert, Cancer Nurse Registered Nurse 03/09/20 RN Coordinator [address] [place] [address] Bre Boss, Cancer Nurse Registered Nurse 03/15/20 RN, BSN Coordinator [address] [phone] Jagdish Hicks Consulting Physician Surgery - Cardiothoracic 03/15 MD Ran [address] [place] [address] Joanna Mccray Oncology Oncology 07/26/20 MD Moody [address] [place], [place] [phone] Eileen Gross, ACCOUNTS PAYABLE PAYROLL COORDINATOR Oncology Oncology 07/26/20 [address] [place] [address]
--- OUTSIDE RECORDS SUMMARY | 2022-01-08 10:04 | XMS_ITS | Clinical Summary ---
:1945 Author Organization [facility] Address [address] [place] [address] Care Team Providers Name Role Phone Unavailable Primary Care Provider Unavailable Source Comments Patient records contain information from all sites at [facility]. For routine questions regarding patient records, call [phone] during business hours, M-F 8:00 AM - 5:00 PM Central Time. Record requests for emergency care only can be directed to [phone] at any time.[facility] Allergies Active Allergy Reactions Severity Noted Date [...] medical NEW replacement 0 09/09/2018 Active supply [facility] CPAP machine for home use at pressure: [...] 09/21/2020 Active propion-salmeteroL 250-50 mcg/dose diskus inhaler xdgybrza-sitjipten-yav APPLY TO INJECTED 0 Active amethasone (MAXITROL) EYE THREE TIMES A 3.5mg/mL-10,000 DAY FOR 3 DAYS unit/mL-0.1 % AFTER INJECTION ophthalmic suspension predniSONE (DELTASONE) Take 2 tablets (10 42 tablet 0 10/04/19 Active 5 mg tablet mg total) by [...] Encounters Date Type Specialty Care Team Description 01/02/2022 Clinical Communication Radiation Oncology Cherise Campos I., Follow-up M.DAmandeep from Last 3 Months Social History Tobacco [...] 157 cm (5' 1.81) 03/28/2020 9:23 AM ROLL 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 LOADER Body Mass Index 32.7 03/28/2020 9:23 AM ROLL OVER LOADER Plan of Treatment Health Maintenance Due Date Last Done Comments Bone Density Scan (Osteoporosis 1945 Screen) CT Colonography 1945 Cologuard 1945 Colonoscopy 1945 Colorectal Cancer Screening 1945 FIT 1945 Hepatitis C Screening 1945 Mammogram 1945 DTaP,Tdap,and Td Vaccines (2 - Td 08/16/2016 08/16/2006 or Tdap) COVID-19 Vaccine (4 - Booster for 12/13/2020 10/18/2020, , Pfizer series) 04/26/2020 Depression Screening (Annual 03/04/2021 PHQ-2) Fall Risk Screen (Annual) 03/04/2021 Creatinine Level 01/09/2022 01/09/2021, 10/11/2020, 07/26/2020, Additional history exists Potassium Level 08/16/2022 08/16/2021, 01/09/2021, 10/11/2020, Additional history exists Sodium Level 08/16/2022 08/16/2021, 01/09/2021, 10/11/2020, Additional history exists Fasting Glucose for Diabetes 01/10/2024 01/09/2021, 021, Screening 07/26/2020, Additional history exists Pneumococcal vaccine (65+ years) Completed 03/01/2016, , 12/28/1994 Zoster Vaccines Completed 06/12/2019, 01/16/2019, 10/10/2009 Influenza Vaccine Completed 12/18/2021, 12/21/2020, 12/18/2019, Additional history exists Insurance Payer Benefit Plan Subscriber ID Effective Phone Address Typ e / Group Dates MEDICARE MEDICARE A [id number] 2012-Pres [address] [place] [address] BLUE CROSS [place] [id number] 2016-Pres [phone] PO SHARONDA X Cost Share BLUE SHIELD BLUE COST ent [phone] [facility] KRISTIE JHA [phone]
--- OUTSIDE RECORDS SUMMARY | 2022-01-08 10:04 | XMS_ITS | Encounter Summary ---
:1945 Author Organization [facility] Address [address] [place] [address] Care Team Providers Name Role Phone Unavailable Primary Care Provider Unavailable Reason for Visit Reason Comments Follow-up Encounter Details Date Type Department Care Team Description 01/02/2022 Clinical Communication Department of Allison Camposmoises Radiation Oncology in [place], [place] [address] [facility] [[email or web address]] [address] [place] [phone] Social History Tobacco Use Types Packs/Day Years Used Date Smoking Tobacco: Never Assessed Sex Assigned at Date Recorded Not on file documented as of this encounter Miscellaneous Notes Telephone Encounter - Linda Harrison - 01/02/2022 10:38 AM CDT Caller: Nelia Castro Is there a valid authorization to speak with caller? Yes Primary Radiation Oncologist: Dr. Campos Reason for call: Patient is experiencing pain under Right armpit that radiates to her breast and back. 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 She is wondering if there is anything that can be done. Can someone give her a call back today as she is having heart surgery tomorrow. Phone number: [phone] Is it okay to leave a voicemail on answering machine with test results? Yes Pharmacy (if medication related): N/A documented in this encounter Plan of Treatment Not on filedocumented as of this encounter Visit Diagnoses Not on filedocumented in this encounter
--- OUTSIDE RECORDS SUMMARY | 2022-01-08 10:04 | XMS_ITS | Encounter Summary ---
:1945 Author Organization [facility] Address [address] [place] [address] Care Team Providers Name Role Phone Unavailable Primary Care Provider Unavailable Reason for Referral Outpatient (Routine) - Closed Specialty Diagnoses / Procedures Referred By Contact Refer red To Contact Allison Campos M.D. [address] [phone] Referral ID Status Reason Start Date Expiration Date Visits Requ ested Visits Authorized [id number] Closed 01/23/2021 01/23/2022 1 1 Scheduling Instructions Schedule after CT chest and Dr. Mccray, formerly [facility]! GATION MANAGER Outpatient (Routine) - Closed Specialty Diagnoses / Procedures Referred By Contact Refer red To Contact Allison Campos M.D. [address] [phone] Referral ID Status Reason Start Date Expiration Date Visits Requ ested Visits Authorized [id number] Closed 10/19/2020 10/19/2021 1 1 Scheduling Instructions Please schedule a phone visit with me af ter her CT chest and f/u with Dr. Mccray in 3 months GATION MANAGER Reason for Visit Outpatient (Routine) - Closed Specialty Diagnoses / Procedures Referred By Contact Refer red To Contact Alilson Campos M.D. [address] [phone] Referral ID Status Reason Start Date Expiration Date Visits Requ ested Visits Authorized [id number] Closed 10/19/2020 10/19/2021 1 1 Encounter Details Date Type Department Care Team Description 01/23/2021 Hospital Encounter Department of Allison Campos Neoplasm Radiation Oncology [place] [facility] Of Lung Upper Lobe in [address] Or Bronchus Right [place], [place] (HCC) [address] [facility] [address] [place], [place] [phone] (Work) [phone] Social History Tobacco Use Types Packs/Day Years [...] tablet miscellaneous medical NEW replacement CPAP 0 0711/2018 supply misc machine for home use at [...] Need: 99 months, Frequency of use: Daily eihvzfev-ylvteavdn-cxsekgk APPLY TO INJECTED EYE 0 08/09/2020 hasone [...] technology by Allison Campos M.D. in [facility] to the patient in patient's car. CHIEF [...] by: Allison Campos M.D. 01/23/2021 10:49 AM LITIGATION MANAGER Radiation Oncology [facility] [address] [place] [address] GATION MANAGER documented in this encounter Plan of Treatment [...]
--- OUTSIDE RECORDS SUMMARY | 2022-01-08 10:04 | XMS_ITS | Encounter Summary ---
:1945 Author Organization [facility] Address [address] [place] [address] Care Team Providers Name Role Phone Unavailable Primary Care Provider Unavailable Reason for Referral Outpatient (Routine) - Closed Specialty Diagnoses / Procedures Referred By Contact Refer red To Contact Allison Campos M.D. [facility] [address] [phone] Referral ID Status Reason Start Date Expiration Date Visits Requ ested Visits Authorized [id number] Closed 04/21/2021 04/21/2022 1 1 Scheduling Instructions Schedule with me after she sees Dr. Mccray and has her CT chest, thanks GRATED LOGISTICS PROGRAMS DIRECTOR Outpatient (Routine) - Closed Specialty Diagnoses / Procedures Referred By Contact Refer red To Contact Allison Campos M.D. [facility] Region [address] [place] [phone] Referral ID Status Reason Start Date Expiration Date Visits Requ ested Visits Authorized [id number] Closed 01/23/2021 01/23/2022 1 1 Scheduling Instructions Schedule after CT chest and Dr. Mccray [facility]! GRATED LOGISTICS PROGRAMS DIRECTOR Reason for Visit Outpatient (Routine) - Closed Specialty Diagnoses / Procedures Referred By Contact Refer red To Contact Allison Campos M.D. [address] [phone] Referral ID Status Reason Start Date Expiration Date Visits Requ ested Visits Authorized [id number] Closed 01/23/2021 01/23/2022 1 1 Encounter Details Date Type Department Care Team Description 04/21/2021 Hospital Encounter Department of Allison Campos Neoplasm Radiation Oncology [place] Of Lung Upper Lobe in [address] Or Bronchus Right [place], [place] ([facility]) [address] [facility] [address] [place], [place] [phone] (Work) [phone] Social History Tobacco Use Types Packs/Day Years [...] Need: 99 months, Frequency of use: Daily fijucrfb-rrsoqcyys-kksmvrj APPLY TO INJECTED EYE 0 08/09/2020 hasone [...] technology by Allison Campos M.D. in [facility] to the patient in patient's home. CHIEF [...] by: Allison Campos M.D. 04/21/2021 2:42 PM INTEGRATED LOGISTICS PROGRAMS DIRECTOR Radiation Oncology [facility] Therapy Center [address] [place] [address] GRATED LOGISTICS PROGRAMS DIRECTOR documented in this encounter Miscellaneous Notes Addendum Note - Miriam Valdes C.NAmandeepAAmandeep - 04/21/2021 11:15 AM INTEGRATED LOGISTICS PROGRAMS DIRECTOR Encounter addended by: Miriam Valdes C.NDanyel on: 04/24/2021 7:09 AM Actions taken: Letter saved GRATED LOGISTICS PROGRAMS DIRECTOR documented in this encounter Plan of Treatment [...]
--- OUTSIDE RECORDS SUMMARY | 2022-01-08 10:05 | XMS_ITS | Encounter Summary ---
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 [facility] [place] [facility] Procedures Initial Rad Onc Treatment Planning CT Simulation 200 [place], [place] [phone] Referral ID Status Reason Start Date Expiration Date Visits Requ ested Visits Authorized [id number] Closed 03/30/2020 03/30/2021 1 1 Encounter Details Date Type Department Care Team Description 03/31/2020 Hospital Encounter Department of Allison Campos Neoplasm Radiation Oncology Cliff Veloz Of Lung Upper Lobe in [place], 200 [facility] Or Bronchus Right [place], [place] (HCC) 1821 [facility] [address] [place], [place] [phone] [address] (Work) [phone] Social History Tobacco Use Types Packs/Day Years [...] planning. CT images were transferred to the Rkylin treatment planning system, after a reference isocenter was determined and marked. Segmentation and treatment planning will take place priorto treatment delivery. Patient set up and imaging was appropriate and completed without incident. E'S COMPANION documented in this encounter Plan of Treatment Not on filedocumented as of this encounter Procedures Procedure Name Priority Date/Time Associated Comments Diagnosis INITIAL RAD ONC Routine 03/31/2020 11:30 AM Malignant Neoplasm Results for this TREATMENT PLANNING NURSE'S COMPANION Of Lung Upper Lobe pro cedure are in CT SIMULATION Or Bronchus Right the resul ts (HCC) section. documented in this encounter Results Initial Rad Onc Treatment Planning CT Simulation (03/31/2020 11:30 AM NURSE'S COMPANION) Specimen (Source) Anatomical Location Collection Method / Collectio n Time Received Time / Laterality Volume Narrative [facility] - 03/31/2020 11:30 AM NURSE'S COMPANION Estefany Tidwell, RTT ? 03/31/2020 12:29 PM Initial Rad Onc Treatment Planning CT Si mulation Date/Time: 03/31/2020 12:28 PM Performed by: Allison Campos M.D. Authorized by: Allison Campos M.D. Allison Campos M.D. 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
--- OUTSIDE RECORDS SUMMARY | 2022-01-08 10:05 | XMS_ITS | Encounter Summary ---
:1945 Author Organization [facility] Address [address] [place] [address] Care Team Providers Name Role Phone Unavailable Primary Care Provider Unavailable Reason for Referral Outpatient (Routine) - Closed Specialty Diagnoses / Procedures Referred By Contact Refer red To Contact Allison Campos M.D. [facility] [address] [place] [phone] Referral ID Status Reason Start Date Expiration Date Visits Requ ested Visits Authorized [id number] Closed 09/22/2020 09/22/2021 1 1 Scheduling Instructions On Sat morning during Admin time. Thanks Outpatient (Routine) - Closed Specialty Diagnoses / Procedures Referred By Contact Refer red To Contact Radiation Oncology Allison Campos [facility] M.D. 200 [place] [address] Referral ID Status Reason Start Date Expiration Date Visits Requ ested Visits Authorized [id number] Closed 08/10/2020 08/10/2021 1 1 Reason for Visit Outpatient (Routine) - Closed Specialty Diagnoses / Procedures Referred By Contact Refer red To Contact Radiation Oncology Allison Campos [facility] M.D. 200 [place] [address] Referral ID Status Reason Start Date Expiration Date Visits Requ ested Visits Authorized [id number] Closed 08/10/2020 08/10/2021 1 1 Encounter Details Date Type Department Care Team Description 09/22/2020 Hospital Encounter Department of Allison Campos Neoplasm Radiation Oncology Cliff Veloz Of Lung Upper Lobe in [place] [address] Or Bronchus Right [place], [place] (HCC) (Primary Dx) [address] [facility] [address] [place], [place] [phone] (Work) [phone] Social History Tobacco Use Types Packs/Day Years [...] Body Mass Index 32.7 03/28/2020 9:23 [address] 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 09/22/2020 4:03 PM CDT Radiation Oncology [facility] Radiation Therapy Center [address] [place] [address] documented in this encounter Miscellaneous Notes Addendum [...]
--- OUTSIDE RECORDS SUMMARY | 2022-01-08 10:05 | XMS_ITS | Encounter Summary ---
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 [facility] Procedures Prior Auth Rad Tx [place] STEREOTACTIC BODY RADTN DEL [address] [place], [place] [address] Referral ID Status Reason Start Date Expiration Date Visits Requ ested Visits Authorized [id number] Closed 03/30/2020 03/30/2021 4 4 Encounter Details Date Type Department Care Team Description 04/13/2020 Hospital Encounter Department of Radiation Yoko Campos I., Oncology in [facility] [place] [address] [facility] 1821 [place] [phone] Social History Tobacco Use Types Packs/Day Years [...]
--- OUTSIDE RECORDS SUMMARY | 2022-01-08 10:05 | XMS_ITS | Encounter Summary ---
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 [address] [place] [address] Referral ID Status Reason Start Date Expiration Date Visits Requ ested Visits Authorized [id number] Closed 03/22/2020 03/22/2021 1 1 Encounter Details Date Type Department Care Team Description 03/28/2020 Hospital Encounter Department of Allison Campos Neoplasm Radiation Oncology [place] Veloz Of Lung Upper Lobe in [address] Or Bronchus Right [place], [place] (HCC) (Primary Dx) 1821 [facility] [address] [place], [place] [phone] [address] (Work) [phone] Social History Tobacco Use Types Packs/Day Years Used Date Smoking Tobacco: Never Assessed Sex Assigned at Date Recorded Not on file documented as of this encounter Last Filed Vital Signs Vital Sign Reading Time Taken Comments Blood Pressure 131/61 03/28/2020 9:23 AM SHAPING MACHINE OPERATOR Pulse 72 03/28/2020 9:23 AM SHAPING MACHINE OPERATOR Temperature 36.2 ??C (97.2 ??F) 03/28/2020 9:23 AM SHAPING MACHINE OPERATOR Respiratory Rate - - Oxygen Saturation - - Inhaled Oxygen Concentration - - Weight 80.8 kg (178 lb 2.1 oz) 03/28/2020 9:23 AM SHAPING MACHINE OPERATOR Height 157 cm (5' 1.81) 03/28/2020 9:23 AM SHAPING MACHINE OPERATOR Body Mass Index 32.78 03/28/2020 9:23 AM SHAPING MACHINE OPERATOR documented in this encounter Medications [...] Lumbar fusion SOCIAL HISTORY She lives in [place], [place]. She is and has 2 children, 3 grandchildren, 4 great grandchildren. 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 She koby former [...] surgery. She will be presented at an [facility] Thoracic Tumor board tomorrow. 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 Signed by: Allison Campos M.D. 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
--- OUTSIDE RECORDS SUMMARY | 2022-01-08 10:05 | XMS_ITS | Encounter Summary ---
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 [facility] Procedures Prior Auth Rad Tx [place] STEREOTACTIC BODY RADTN DEL [address] [place], [place] [address] Referral ID Status Reason Start Date Expiration Date Visits Requ ested Visits Authorized [id number] Closed 03/30/2020 03/30/2021 4 4 Encounter Details Date Type Department Care Team Description 04/08/2020 Hospital Encounter Department of Radiation Yoko Campos I., Oncology in [facility] [place] [address] [facility] 1821 [place] [phone] Social History Tobacco Use Types Packs/Day Years [...]
--- OUTSIDE RECORDS SUMMARY | 2022-01-08 10:05 | XMS_ITS | Encounter Summary ---
:1945 Author Organization [facility] Address [address] [place] [address] Care Team Providers Name Role Phone Unavailable Primary Care Provider Unavailable Reason for Referral Outpatient (Routine) - Closed Specialty Diagnoses / Procedures Referred By Contact Refer red To Contact Allison Campos M.D. [address] [phone] Referral ID Status Reason Start Date Expiration Date Visits Requ ested Visits Authorized [id number] Closed 10/19/2020 10/19/2021 1 1 Scheduling Instructions Please schedule a phone visit with me af ter her CT chest and f/u with Dr. Mccray in 3 months Outpatient (Routine) - Closed Specialty Diagnoses / Procedures Referred By Contact Refer red To Contact Allison Campos M.D. [address] [address] Referral ID Status Reason Start Date Expiration Date Visits Requ ested Visits Authorized [id number] Closed 09/22/2020 09/22/2021 1 1 Scheduling Instructions On Sat morning during Admin time. Thanks Reason for Visit Outpatient (Routine) - Closed Specialty Diagnoses / Procedures Referred By Contact Refer red To Contact Allison Campos M.D. [address] [address] Referral ID Status Reason Start Date Expiration Date Visits Requ ested Visits Authorized [id number] Closed 09/22/2020 09/22/2021 1 1 Encounter Details Date Type Department Care Team Description 10/19/2020 Hospital Encounter Department of Radiation Yoko Campos I., Oncology in [address] [phone] Social History Tobacco Use Types Packs/Day Years [...] Need: 99 months, Frequency of use: Daily hzehaxms-tnjreruym-ckgbmbr APPLY TO INJECTED EYE 0 08/09/2020 hasone [...] M.D. 10/19/2020 11:01 AM CDT Radiation Oncology [facility] Radiation Therapy Center [address] [place] [address] documented in this encounter Plan of Treatment [...]
--- OUTSIDE RECORDS SUMMARY | 2022-01-08 10:05 | XMS_ITS | Encounter Summary ---
:1945 Author Organization [facility] Address [address] [place] [address] Care Team Providers Name Role Phone Unavailable Primary Care Provider Unavailable Reason for Referral Outpatient (Routine) - Closed Specialty Diagnoses / Procedures Referred By Contact Refer red To Contact Radiation Oncology Allison Campos [facility] M.D. 200 [place] [address] Referral ID Status Reason Start Date Expiration Date Visits Requ ested Visits Authorized [id number] Closed 08/10/2020 08/10/2021 1 1 MRI/CAT/PET Scan (Routine) - Closed Specialty Diagnoses / Procedures Referred By Contact Refer red To Contact Radiology Diagnoses Cough Unspecified Type Allison Campos M.D. [facility] [place] [facility] Procedures CT Chest without IV Contrast 200 [place] [address] Referral ID Status Reason Start Date Expiration Date Visits Requ ested Visits Authorized [id number] Closed 08/10/2020 08/10/2021 1 1 Outpatient (Routine) - Closed Specialty Diagnoses / Procedures Referred By Contact Refer red To Contact Radiation Oncology Allison Campos [facility] M.D. 200 [place] [address] Referral ID Status Reason Start Date Expiration Date Visits Requ ested Visits Authorized [id number] Closed 08/09/2020 08/09/2021 1 1 Scheduling Instructions Please schedule after 1129august 10 2020 Reason for Visit Outpatient (Routine) - Closed Specialty Diagnoses / Procedures Referred By Contact Refer red To Contact Radiation Oncology Allison Campos [facility] [employer] [place] [address] [place] [address] Referral ID Status Reason Start Date Expiration Date Visits Requ ested Visits Authorized [id number] Closed 08/09/2020 08/09/2021 1 1 Encounter Details Date Type Department Care Team Description 08/10/2020 Hospital Encounter Department of Radiation Yoko Campos I., Cough Oncology in [facility] [place] [address] [address] [place] 736851 [place] [phone] Social History Tobacco Use Types Packs/Day Years [...] Body Mass Index 31.97 03/28/2020 9:23 AM CHIEF EXECUTIVE 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 wfmjfbrv-hxpochuni-qivkghd APPLY TO INJECTED EYE 0 08/09/2020 hasone [...] M.D. 08/10/2020 4:12 PM CDT Radiation Oncology [facility] Radiation Therapy Center [address] [place] [address] documented in this encounter Miscellaneous Notes Addendum [...]
--- OUTSIDE RECORDS SUMMARY | 2022-01-08 10:05 | XMS_ITS | Encounter Summary ---
:1945 Author Organization [facility] Address [address] [place] [address] Care Team Providers Name Role Phone Unavailable Primary Care Provider Unavailable Encounter Details Date Type Department Care Team Description 04/22/2020 Clinical Communication Department of Allison Campos [facility] [address] [facility] 1821 [place] [phone] Social History Tobacco Use Types Packs/Day Years Used Date Smoking Tobacco: Never Assessed Sex Assigned at Date Recorded Not on file documented as of this encounter Plan of Treatment Not on filedocumented as of this encounter Visit Diagnoses Not on filedocumented in this encounter
--- OUTSIDE RECORDS SUMMARY | 2022-01-08 10:05 | XMS_ITS | Encounter Summary ---
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 [facility] [place] [facility] Procedures CT Chest without IV Contrast [address] [place] [address] Referral ID Status Reason Start Date Expiration Date Visits Requ ested Visits Authorized [id number] Closed 04/13/2020 04/13/2021 1 1 RVISOR MATRIX Outpatient (Routine) - Closed Specialty Diagnoses / Procedures Referred By Contact Refer red To Contact Radiation Oncology Allison Campos [facility] M.D. 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 [facility] Procedures Management Visit [address] [place] [address] Referral ID Status Reason Start Date Expiration Date Visits V isits Requested Authorized [id number] Canceled 03/30/2020 03/30/2021 1 1 Encounter Details Date Type Department Care Team Description 04/13/2020 Hospital Encounter Department of Allison Campos Neoplasm Radiation Oncology Cliff Veloz Of Lung Upper Lobe in [place], [address] [place] [address] Or Bronchus Right [place], [place] (HCC) 1821 [facility] [address] [place], [place] [phone] (Work) [phone] Social History Tobacco Use Types Packs/Day Years Used Date Smoking Tobacco: Never Assessed Sex Assigned at Date Recorded Not on file documented as of this encounter Last Filed Vital Signs Vital Sign Reading Time Taken Comments Blood Pressure 146/84 04/13/2020 10:44 AM SUPERVISOR MATRIX Pulse 82 04/13/2020 10:44 AM SUPERVISOR MATRIX Temperature 36 ??C (96.8 ??F) 04/13/2020 10:44 AM SUPERVISOR MATRIX Respiratory Rate - - Oxygen Saturation - - Inhaled Oxygen Concentration - - Weight 80.4 kg (177 lb 4 oz) 04/13/2020 10:44 AM SUPERVISOR MATRIX Height - - Body Mass Index 32.62 03/28/2020 9:23 AM SUPERVISOR MATRIX documented in this encounter Medications at Time [...] will follow up with Medical Oncology at [facility] this coming Saturday. We will order chest CT with out IV contrastand return visit with Dr. Campos in 3 months. She will contact us with any questions or concerns. Wewill continue with radiation treatment as planned. Patient stated a full understanding to the plan of care discussed today. Toxicities reviewed with Dr. Campos today. Signed by: Summer Schwartz R.N. 04/13/2020 1:32 PM SUPERVISOR MATRIX RV[employer]OR MAT[employer]X documented in this encounter Miscellaneous Notes Addendum Note - Allison Campos M.D. - 04/13/2020 11:00 AM SUPERVISOR MATRIX Encounter addended by: Allison Campos M.D. 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
--- OUTSIDE RECORDS SUMMARY | 2022-01-08 10:05 | XMS_ITS | Encounter Summary ---
:1945 Author Organization [facility] Address [address] [place] [address] Care Team Providers Name Role Phone Unavailable Primary Care Provider Unavailable Reason for Referral Outpatient (Routine) - Closed Specialty Diagnoses / Procedures Referred By Contact Refer red To Contact Radiation Oncology Allison Campos [facility] Christianne Coronado [address] [place] [phone] Referral ID Status Reason Start Date Expiration Date Visits Requ ested Visits Authorized [id number] Closed 03/30/2020 03/30/2021 1 1 ISTICS EXPERT Specialty Diagnoses / Procedures Referred By Contact Refer red To Contact Allison Campos M.D. [facility] [address] [place] [phone] Referral ID Status Reason Start Date Expiration Date Visits Requ ested Visits Authorized ISTICS EXPERT Specialty Diagnoses / Procedures Referred By Contact Refer red To Contact Allison Campos M.D. 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 [facility] Procedures Initial Rad Onc Treatment Planning CT Simulation 200 [place], [place] [address] Referral ID Status Reason Start Date Expiration Date Visits Requ ested Visits Authorized [id number] Closed 03/30/2020 03/30/2021 1 1 ISTICS EXPERT Encounter Details Date Type Department Care Team Description 03/30/2020 Orders Only Department of Allison Campos N eoplasm Of Radiation Oncology in [place] Lung Upper Lobe Or [facility] a [address] [facility] Bronchus Right (HCC) 1821 [place], [place] (Primary [place]x) [place] [phone] Social History Tobacco Use Types Packs/Day Years [...] Treatment Planning CT Simulation (03/31/2020 11:30 AM BALLISTICS EXPERT) Specimen (Source) Anatomical Location Collection Method / Collectio n Time Received Time / Laterality Volume Narrative MICHAEL HENDERSON - 03/31/2020 11:30 AM BALLISTICS EXPERT Estefany Tidwell, RTT ? 03/31/2020 12:29 PM Initial Rad Onc Treatment Planning CT Si mulation Date/Time: 03/31/2020 12:28 PM Performed by: Allison Campos M.D. Authorized by: Allison Campos M.D. Allison Campos M.D. 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
--- OUTSIDE RECORDS SUMMARY | 2022-01-08 10:05 | XMS_ITS | Encounter Summary ---
:[address] [facility] Address [address] [place] [address] Care Team Providers Name Role Phone Unavailable Primary Care Provider Unavailable Reason for Referral Specialty Diagnoses / Procedures Referred By Contact Refer red To Contact Allison Campos M.D. [facility] Region [address] [place] [address] [phone] Referral ID Status Reason Start Date Expiration Date Visits Requ ested Visits Authorized SUPERVISOR Encounter Details Date Type Department Care Team Description 04/11/2020 Hospital Encounter Department of Janessa Campos M.D. [address] [place] [phone] Malignant Neoplasm Radiation Oncology Summer Schwartz, RAmandeepNAmandeep [address] [place] [phone] Of Lung Upper Lobe in [place], Or Bronchus R [facility] ([facility]) [address] [place] [phone] Social History Tobacco Use Types Packs/Day Years Used Date Smoking Tobacco: Never Assessed Sex Assigned at Date Recorded Not on file documented as of this encounter Last Filed Vital Signs Vital Sign Reading Time Taken Comments Blood Pressure 147/78 04/11/2020 8:30 AM CREW SUPERVISOR Pulse 74 04/11/2020 8:30 AM CREW SUPERVISOR Temperature 35.7 ??C (96.3 ??F) 04/11/2020 8:30 AM CREW SUPERVISOR Respiratory Rate - - Oxygen Saturation - - Inhaled Oxygen Concentration - - Weight 78.2 kg (172 lb 6.4 oz) 04/11/2020 1:00 PM CREW SUPERVISOR Height - - Body Mass Index 31.73 03/28/2020 9:23 AM CREW SUPERVISOR documented in this encounter Medications at [...] vis t HISTORY OF PRESENT ILLNESS Mrs. Nelia Castro is a 74 y.o. female with right upper lung cancer. Treatment Course: 1x R lung SBRT Plan ID Fractions Dose / Fraction (cGy) Dose Treated (cGy) Dose Planned (cGy) First Treatment Last Treatment Elapsed Days F1 Rlung SBRT 1200 3600 4800 04/06/2020 04/11/2020 5 Course Summary 04/06/2020 04/11/2020 5 The patient reports feeling dizzy when she goes from sitting to standing. Dizziness improves after radiation treatments. She reports that she does take Ativan pre-treatments and does have a history of Meniere's disease. Patient is asking if she can be scheduled for COVID vaccine here at [facility] OBJECTIVE BP 147/78 Pulse 74 Temp (!) [...] team and updates on [facility] [employer] [facility], [facility] patient portal, about scheduling vaccination appointments at [facility]. View this COVID-19vaccine education flyer for additional information. Patient can also check the [facility] Department webpage for updates as well as call her primary care provider for vaccine availability updates. Nurse education visit was completed today. She will contact us with any questions or concerns. We will continue with radiation treatment as planned. Signed by: Summer Schwartz R.N. 04/11/2020 1:02 PM CREW SUPERVISOR SUPERVISOR documented in this encounter Plan of Treatment [...]
--- OUTSIDE RECORDS SUMMARY | 2022-01-08 10:05 | XMS_ITS | Encounter Summary ---
:1945 Author Organization [facility] Address [address] [place] [address] Care Team Providers Name Role Phone Unavailable Primary Care Provider Unavailable Reason for Referral Specialty Diagnoses / Procedures Referred By Contact Refer red To Contact Allison Campos M.D. [facility] [address] [place] [address] [phone] Referral ID Status Reason Start Date Expiration Date Visits Requ ested Visits Authorized ING PANTOGRAPH MACHINE OPERATOR Encounter Details Date Type Department Care Team Description 04/08/2020 Hospital Encounter Department of Janessa Campos M.D. [address] [place] [phone] Malignant Neoplasm Radiation Oncology Shefali Garcia C.C.RAmandeepCAmandeep Of Lung Upper Lobe in [place], Or Bronchus R [facility]) [address] [place] [phone] Social History Tobacco Use Types Packs/Day Years [...]
--- OUTSIDE RECORDS SUMMARY | 2022-01-08 10:05 | XMS_ITS | Encounter Summary ---
:1945 Author Organization [facility] Address [address] [place] [address] Care Team Providers Name Role Phone Unavailable Primary Care Provider Unavailable Reason for Referral Outpatient (Routine) - Closed Specialty Diagnoses / Procedures Referred By Contact Refer red To Contact Radiation Oncology Allison Campos [facility] M.D. [address] [place] [phone] Referral ID Status Reason Start Date Expiration Date Visits Requ ested Visits Authorized [id number] Closed 03/30/2020 03/30/2021 1 1 F CRNA Reason for Visit Outpatient (Routine) - Closed Specialty Diagnoses / Procedures Referred By Contact Refer red To Contact Radiation Oncology Allison Campos [facility] M.D. [address] [place] [phone] Referral ID Status Reason Start Date Expiration Date Visits Requ ested Visits Authorized [id number] Closed 03/30/2020 03/30/2021 1 1 Encounter Details Date Type Department Care Team Description 03/31/2020 - Hospital Encounter Department of Allison Campos Neoplasm 04/01/2020 Radiation Oncology Cliff Veloz Of Lung Upper Lobe in [address] Or Bronchus Right [place], [place] (HCC) (Primary Dx) [address] [address] [place], [place] [phone] (Work) [phone] Social History Tobacco Use Types Packs/Day Years [...] radiation planning after being presented yesterday at [facility]'s Thoracic Tumor board. I was at the [...] Since I last saw Mrs. Nelia Castro on Saturday, she is doing well [...] previously discussed the acute as well as senior living risks (see my note from 03/29/2020). Her [...] by: Allison Campos M.D. 03/31/2020 4:18 PM CHIEF CRNA Radiation Oncology [facility] [address] [place] [address] F CRNA documented in this encounter Plan of Treatment [...] COVID19 Pending 03/31/2020 04/01/2020 04/01/2020 6:50 PM CHIEF CRNA documented as of this encounter
--- OUTSIDE RECORDS SUMMARY | 2022-01-08 10:05 | XMS_ITS | Encounter Summary ---
:1945 Author Organization [facility] Address [address] [place] [address] Care Team Providers Name Role Phone Unavailable Primary Care Provider Unavailable Encounter Details Date Type Department Care Team Description 08/11/2020 Clinical Communication Department of Allison Campos Radiation Oncology Cliff Dixon [place] [address] [place] [address] [address]21 [place], [place] [phone] Social History Tobacco Use Types Packs/Day Years [...]
--- OUTSIDE RECORDS SUMMARY | 2022-01-08 10:05 | XMS_ITS | Encounter Summary ---
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 [facility] Procedures Management Visit [address] [place], [place] [phone] Referral ID Status Reason Start Date Expiration Date Visits V isits Requested Authorized [id number] Canceled 03/30/2020 03/30/2021 1 1 Encounter Details Date Type Department Care Team Description 04/06/2020 Hospital Encounter Department of Janessa Campos M.D. [address] [place] [phone] Malignant Neoplasm Radiation Oncology Dagoberto Barrett M.D. [address] [place] [address] Of Lung Upper Lobe in [place], Or Bronchus R ight [place] (HCC) [address] [place] [phone] Social History Tobacco Use Types Packs/Day Years Used Date Smoking Tobacco: Never Assessed Sex Assigned at Date Recorded Not on file documented as of this encounter Last Filed Vital Signs Vital Sign Reading Time Taken Comments Blood Pressure 148/88 04/06/2020 2:25 PM LEAN MANUFACTURING ENGINEER Pulse 83 04/06/2020 2:25 PM LEAN MANUFACTURING ENGINEER Temperature 36.9 ??C (98.4 ??F) 04/06/2020 2:25 PM LEAN MANUFACTURING ENGINEER Respiratory Rate - - Oxygen Saturation - - Inhaled Oxygen Concentration - - Weight 81 kg (178 lb 9.2 oz) 04/06/2020 2:25 PM LEAN MANUFACTURING ENGINEER Height - - Body Mass Index 32.86 03/28/2020 9:23 AM LEAN MANUFACTURING ENGINEER documented in this encounter Medications at Time [...] Right (HCC) SUPERVISED BY: Dagoberto Barrett M.D. ([id number]) HISTORY OF PRESENT ILLNESS Mrs. Nelia Castro [...] by: Summer Schwartz R.N. 04/06/2020 2:39 PM LEAN MANUFACTURING ENGINEER I saw and evaluated the patient and participated in the preciado portions of the service. I reviewed the documentation of Summer Schwartz R.N. and agree with the findings and plan. The patient appears well onexam. She tolerated her first treatment well. She will continue with treatment as planned. Signed by: Dagoberto Barrett M.D. 04/06/2020 5:37 PM LEAN MANUFACTURING ENGINEER [facility] [address] [place] [address] MANUFACTURING ENGINEER documented in this encounter Plan of [...]
--- OUTSIDE RECORDS SUMMARY | 2022-01-08 10:05 | XMS_ITS | Encounter Summary ---
:1945 Author Organization [facility] Address [address] [place] [address] Care Team Providers Name Role Phone Unavailable Primary Care Provider Unavailable Encounter Details Date Type Department Care Team Description 04/13/2020 Documentation Department of Radiation Faina Reyes, Oncology in [place], [place]., M.S. 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
--- OUTSIDE RECORDS SUMMARY | 2022-01-08 10:05 | XMS_ITS | Encounter Summary ---
:1945 Author Organization [facility] Address [address] [place] [address] Care Team Providers Name Role Phone Unavailable Primary Care Provider Unavailable Reason for Referral Outpatient (Routine) - Closed Specialty Diagnoses / Procedures Referred By Contact Refer red To Contact Radiation Oncology Allison Campos [facility] M.D. [address] [place] [address] Referral ID Status Reason Start Date Expiration Date Visits Requ ested Visits Authorized [id number] Closed 08/09/2020 08/09/2021 1 1 Scheduling Instructions Please schedule after 1129august 10 2020 Encounter Details Date Type Department Care Team Description 08/09/2020 Clinical Communication Department of Jasmeet, Radiation Oncology in [address] [phone] Social History Tobacco Use Types Packs/Day Years [...] give her a call at Phone number: [phone] Is it okay to leave a voicemail on answering machine with test results? No Pharmacy (if medication related): [place] [address] [facility] [address] [facility] [address] [place] documented in this encounter Plan of Treatment Scheduled Referrals Name Type Priority Associated Diagnoses [facility] Outpatient Referral Routine Ex pected: office visit 08/10/2020, (clinic) Expires: 08/09/2021 documented as of this encounter Visit Diagnoses Not on filedocumented in this encounter
--- OUTSIDE RECORDS SUMMARY | 2022-01-08 10:05 | XMS_ITS | Encounter Summary ---
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 [facility] Procedures Prior Auth Rad Tx AL STEREOTACTIC BODY RADTN DEL [address] [place], [place] [phone] Referral ID Status Reason Start Date Expiration Date Visits Requ ested Visits Authorized [id number] Closed 03/30/2020 03/30/2021 4 4 Encounter Details Date Type Department Care Team Description 04/11/2020 Hospital Encounter Department of Radiation Yoko Campos I., Oncology in [facility] [place] [address] [facility] [address] [place] [phone] Social History Tobacco Use Types Packs/Day Years [...]
--- OUTSIDE RECORDS SUMMARY | 2022-01-08 10:05 | XMS_ITS | Encounter Summary ---
:1945 Author Organization [facility] Address [address] [place] [address] Care Team Providers Name Role Phone Unavailable Primary Care Provider Unavailable Reason for Referral Outpatient (Routine) - Closed Specialty Diagnoses / Procedures Referred By Contact Refer red To Contact Radiation Oncology Allison Campos [facility] M.D. [address] [place] [phone] Referral ID Status Reason Start Date Expiration Date Visits Requ ested Visits Authorized [id number] Closed 04/13/2020 04/13/2021 1 1 Scheduling Instructions In 3 mon, in coordination w chest CT at [facility] Reason for Visit Outpatient (Routine) - Closed Specialty Diagnoses / Procedures Referred By Contact Refer red To Contact Radiation Oncology Allison Campos [facility] M.D. [address] [place] [phone] Referral ID Status Reason Start Date Expiration Date Visits Requ ested Visits Authorized [id number] Closed 04/13/2020 04/13/2021 1 1 Encounter Details Date Type Department Care Team Description 07/15/2020 Hospital Encounter Department of Allison Campos Neoplasm Radiation Oncology Cliff Veloz Of Lung Upper Lobe in [place], [address] [place] [address] Or Bronchus Right [place], [place] (HCC) (Primary Dx) [address] [facility] [address] [place], [place] [phone] (Work) [phone] Social History Tobacco Use Types Packs/Day Years [...] Body Mass Index 32.94 03/28/2020 9:23 AM HIDE TANNER documented in this encounter Medications at Time [...] She sees Eileen Gross next week at [facility]. I bet she will put those [...] M.D. 07/15/2020 2:13 PM CDT Radiation Oncology [facility] [address] [place] [address] documented in this encounter Plan of Treatment [...]
--- OUTSIDE RECORDS SUMMARY | 2022-01-08 10:05 | XMS_ITS | Encounter Summary ---
:1945 Author Organization [facility] Address [address] [place] [address] Care Team Providers Name Role Phone Unavailable Primary Care Provider Unavailable Encounter Details Date Type Department Care Team Description 04/01/2020 Lab Department of Faina Vazquez Encoun ter For Screening Medicine, [facility] P.A.-C., M. S. For Other Viral Diseases [facility], in [place] [address] [address] [facility] (COVID-19) [address] [address] [place] [address] [phone] Social History Tobacco Use Types Packs/Day Years Used Date Smoking Tobacco: Never Assessed Sex Assigned at Date Recorded Not on file documented as of this encounter Plan of Treatment Not on filedocumented as of this encounter Procedures Procedure Name Priority Date/Time Associated Diagnosis Comme nts SARS CORONAVIRUS-2 Routine 04/01/2020 11:06 AM Encounter For R esults for this RNA, V RETAIL BRAND AMBASSADOR Screening For Other procedur e are in Viral Diseases the results (COVID-19) section. documented in this encounter Results SARS Coronavirus-2 RNA, V Asymptomatic (04/01/2020 11:06 AM RETAIL BRAND AMBASSADOR) [facility] Method Time Signature SARS-CoV-2 Swab, 04/01/2020 MKTO Specimen Nasopharynx 6:49 PM RETAIL BRAND AMBASSADOR Source SARS CoV-2 Undetected Undetected 04/01/2020 MKTO RNA, TMA 6:49 PM RETAIL BRAND AMBASSADOR Comment: SARS-CoV-2 RNA absent. This result does not rule out COVID-19 in the patient, as the sensitivity of the test depends o n the timing of the specimen collection and the quality of the specim en. Result should be correlated with patient's history and clinical presentat ion. ----ADDITIONAL INFORMATION---- This molecular amplification test was pe rformed using the Aptima SARS-CoV-2 assay ([employer] on the Mind[employer] tem under emergency use authorization (EUA) by the U.S. Food and Drug Administ ration. Fact sheets for this EUA assay can be fo und at the following links: For Healthcare Providers: https://www.[employer] a.gov/media/996692/download For Patients: https://www.fda.gov/media/ 636990/download Specimen Anatomical Collection Method Collection Time Receive d Time (Source) Location / / Volume Laterality Varies 04/01/2020 11:06 04/01/2020 2:47 (Nasopharynx) AM RETAIL BRAND AMBASSADOR PM RETAIL BRAND AMBASSADOR Faina Reyes P.A.-C., M.S. LAB MICROBIOLOGY - GENERAL O ARTEMIOERAABRAM Performing Organization Address City/State/ZIP Code Phon e Number [facility]- [address] [place] [address] [place] [address] System [address] documented in this encounter Visit Diagnoses Diagnosis Encounter For Screening For Other Viral Diseases (COVID-19) documented in this encounter Additional Health Concerns Infection Onset Date Last Indicated Resolved Time COVID19 Pending 03/31/2020 04/01/2020 04/01/2020 6:50 PM RETAIL BRAND AMBASSADOR documented as of this encounter
[2022-01-08 14:22] LABS: SARS PCR* POSITIVE SARS-CoV-2 (Negative)
== END 2022-01-08 10:01 | disposition home or self-care (01) ==
LOC: FBOREF 10:00
PROVIDERS: PCP Family Medicine; Visit Provider Family Medicine
DX: U07.1 COVID-19 (principal); R05.9 Cough, unspecified
CPT/HCPCS: 87635

== ENCOUNTER 2022-03-15 08:15 | Outpatient (CLI) | payer MEDICARE, BC, SELFPAY ==
[2022-03-15 17:17] LABS: Chloride* 107 mmol/L (96-114); Sodium* 142 mmol/L (135-149)
[2022-03-15 17:20] LABS: Blood Urea Nitrogen* 20 mg/dL (7-30); Calcium* 9.4 mg/dL (8.4-10.6); Carbon Dioxide* 30 mmol/L (20-32); Creatinine* 0.9 mg/dL (0.5-1.5); Estimated Glomerular Filt Rate 67 ml/min; Glucose* 148 mg/dL (60-115)
== END 2022-03-15 08:16 | disposition home or self-care (01) ==
LOC: FBOREF 08:16
PROVIDERS: PCP Family Medicine; Visit Provider Family Medicine
DX: I10 Essential (primary) hypertension (principal)
CPT/HCPCS: 80048

== ENCOUNTER 2023-03-25 08:33 | Outpatient (CLI) | payer MEDICARE, BC, SELFPAY ==
--- OUTSIDE RECORDS SUMMARY | 2023-03-25 08:40 | XMS_ITS ---
Author Name Unknown Organization [facility] Address [address] [place] [address] Care Team Providers Care Job Placement Counselor Name Role Phone Unavailable Unavailable Unavailable Surgery Details Not on file Complications Check Surgery Details section. Procedure Estimated Blood Loss Check Surgery Details section. Procedure Findings Check Surgery Details section. Procedure Specimens Taken Check Surgery Details section.
--- OUTSIDE RECORDS SUMMARY | 2023-03-25 08:40 | XMS_ITS | Clinical Summary ---
Author Name Unknown Organization [facility] Address [address] [place] [address] Care Team Providers Care Counter Supervisor Name Role Phone Unavailable Primary Care Provider Unavailabl e Source Comments Patient records contain information from all sites at [facility]. For routine questions regarding patient records, call [phone] during business hours, M-F 8:00 AM - 5:00 PM Central Time. Record requests for emergency care only can be directed to [phone] at any time.[facility] Allergies Active Allergy Reactions Criticality Noted Date Comments Gabapentin Nausea Only,Other (s ee comments),GI intolerance Medium 04/25/2015 Levofloxacin Headache Low 03/11/2017 Morphine Nausea Only,Nausea A nd Vomiting Medium 04/22/2006 Nickel Rash Medium 04/22/2006 Povidone-Iodine Rash High 08/03/2006 Propoxyphene Hallucinations,Rash Medium 04/22/2006 Sulfa (Sulfonamide Antibiotics) Rash Medium 04/22/2006 Medications Medication Sig Dispensed Refills Start Date End Date Status albuterol 1.25 mg/3 mL nebulizer solution Inhale 6 mL. 0 02/19/[address] tablet Take 81 mg by mouth. 0 12/09/2014 Active atorvastatin (LIPITOR) 20 mg tablet Take 20 mg by mouth. 0 Active cholecalciferol (VITAMIN D3) 25 mcg (1,000 Unit) capsule Take 1 capsule by mouth. 0 Active furosemide (LASIX) 40 mg tablet Take 20 mg by mouth. Take one-half tablet daily 0 09/23/2019 Active meclizine (ANTIVERT) 25 mg tablet Take 12.5 mg by mouth as needed. 0 Active metoprolol succinate (TOPROL-XL) 50 mg 24 hr tablet TAKE 1 TABLET EVERY DAY 0 09/23/2019 Active B complex-vitamins (BALANCE B-50) tablet Take 1 tablet by mouth daily. 0 Active LORazepam (ATIVAN) 1 mg tablet Take 1 tablet (1 mg total) by mouth daily as needed for anxiety (take 45 minutes prior to procedure) for up to 6 days. 6 tablet 0 03/28/2020 Active TURMERIC ORAL Take by mouth 2 (two) times a day. 0 Active miscellaneous medical supply [facility] [place] CPAP machine for home use at pressure: [...] Need: 99 months, Frequency of use: Daily 0 09/09/2018 Active azithromycin (Zithromax Z-Juancho) 250 mg tablet Take 2 tablets (500 mg) on Day 1, followed by 1 tablet (250 mg) once daily on Days 2 through 5. 6 tablet 0 08/10/2020 Active predniSONE (DELTASONE) 20 mg tablet Take 3 tablets (60 mg total) by mouth daily. Start with 60mg Qday for two weeks, then 40mg Qd for 2 weeks, then 20mg Qd for 2 weeks 70 tablet 0 08/10/2020 Active fluticasone propion-salmeteroL 250-50 mcg/dose diskus inhaler 0 09/21/2020 Active neomycin-polymyxin- dexamethasone (MAXITROL) 3.5mg/mL-10,000 unit/mL-0.1 % ophthalmic suspension APPLY TO INJECTED EYE THREE TIMES A DAY FOR 3 DAYS AFTER INJECTION 0 08/09/2020 Active predniSONE (DELTASONE) 5 mg tablet Take 2 tablets (10 mg total) by mouth daily. On October 03 start 10mg for 2 weeks, then take 5mg once per day for two weeks, then stop 42 tablet 0 10/03/2020 Active warfarin (COUMADIN) 3 mg tablet Take 3 mg by mouth daily. 0 02/28/2022 Active Active Problems Problem Noted Date Diagnosed Date Chronic Obstructive Pulmonary Disease 12/12/2022 Malignant Neoplasm Of Lung Upper Lobe Or Bronchu s Right 03/25/2020 Cancer Staging:Clinical stage from 02/29/2020:Stage IA3(cT1c, cN0, cM0) - Unsigned Social History Tobacco Use Types Packs/Day Years Used Date Smoking Tobacco: Former Cigarettes 1.5 45 0 03/04/1959 - 03/04/2004 Smokeless Tobacco: Never Tobacco Cessation:Counseling Given: Not Answered Alcohol Use Standard Drinks/Week Comments Not Currently 0 (1 standard drink = 0.6 oz pur e alcohol) Nutrition Answer Date Recorded Nutrition: EVOO Fat Source Unknown 04/22 Nutrition: Servings of Fruits/Vegetables per Day Not on file 04/22/2020 Dental Answer Date Recorded Dental: Regular Dentist Unknown 04/22/19 21 Sex and Gender Information Value Date Recorded Sex Assigned at Not on file Gender Identity Not on file Sexual Orientation Not on file Last Filed Vital Signs Vital Sign Reading Time Taken Comments Blood Pressure 150/69 12/11/2022 9:51 AM CDT Pulse 79 12/11/2022 9:51 AM CDT Temperature 36.6 ??C (97.9 ??F) 12/11/2022 9:51 AM CD T Respiratory Rate - - Oxygen Saturation - - Inhaled Oxygen Concentration - - Weight 82.1 kg (181 lb) 12/11/2022 9:51 AM CDT Height 157 cm (5' 1.81) 03/28/2020 9:23 AM FOUNDER AND CEO Body Mass Index 33.31 03/28/2020 9:23 AM FOUNDER AND CEO Plan of Treatment Upcoming Encounters Date Type Department Care Team (Latest Contact Info) Description 06/10/2023 10:30 AM CDT Clinical Communication Virtual Review in [place], [place] [address] [place] [address] 06/13/2023 1:00 PM CDT Appointment Department of Radiation Oncology in [place] [id number] [place] [address] Allison Campos M.D. [address] [place] [phone] Health Maintenance Due Date Last Done Comments Bone Density Scan (Osteoporosis Screen) 1947 CT Colonography 1945 Cologuard 1945 Colonoscopy 1945 Colorectal Cancer Screening 1947 FIT 1945 Hepatitis C Screening 1945 Mammogram 1945 COVID-19 Vaccine ( season) 2022 10/18/2020, 05/17/2020, 04/26/2020 Depression Screening (Annual PHQ-2) 03/04/2023 Fall Risk Screen (Annual) 03/04/2023 Fasting Glucose for Diabetes Screening 12/10/2025 12/10/2022, 06/12/2022, 03/05/2022, Additional history exists DTaP,Tdap,and Td Vaccines (3 - Td or Tdap) 09/19/2032 09/19/2022, 08/16/2006 Pneumococcal vaccine (65+ years) Completed 03/01/2016, 02/28/2015, 12/28/1994 Zoster Vaccines Completed 06/12/2019, 01/02, 10/10/2009 Influenza Vaccine Completed 01/03/2023, , 12/21/2020, Additional history exists HPV Vaccines Aged Out No longer eligi ble based on patient's age to complete this topic
--- OUTSIDE RECORDS SUMMARY | 2023-03-25 08:40 | XMS_ITS | Encounter Summary ---
Author Name Unknown Organization [facility] Address [address] [place] [address] Care Team Providers Care Medical Equipment Sales Name Role Phone Unavailable Primary Care Provider Unavailabl e Reason for Referral * Outpatient (Routine) - Authorized Specialty Diagnoses / Procedures Referred By Contac t Referred To Contact Pulmonary Medicine Diagnoses Chronic Obstructive Pulmonary Disease (HCC) Faina Reyes P.A.-C., M.S. [address] [place] [address] [facility] Region Referral ID Status Reason Start Date Expiration Date V isits Requested Visits Authorized [id number] Authorized 12/12/2022 12/12/2023 1 1 Scheduling Instructions [facility] or other [facility] location where Pulmonary Medicine is available * Outpatient (Routine) - Authorized Specialty Diagnoses / Procedures Referred By Contac t Referred To Contact Pulmonary Medicine Faina Reyes P.A.-C., M.S. [address] [place] [address] Jett Anderson M.D. [address] [phone] Referral ID Status Reason Start Date Expiration Date V isits Requested Visits Authorized [id number] Authorized 12/11/2022 12/10/2025 1 1 * Outpatient (Routine) - Authorized Specialty Diagnoses / Procedures Referred By Contac t Referred To Contact Radiation Oncology Faina Reyes P.A.-C., M.SAmandeep [address] [place] [phone] Allison Campos M.D. [address] [place] [phone] Referral ID Status Reason Start Date Expiration Date V isits Requested Visits Authorized [id number] Authorized 12/11/2022 12/10/2025 1 1 Scheduling Instructions Please schedule after patient's next CT chest scan as ordered by Dr. Mccray, anticipate this will be in either 6 or 12 months * Outpatient (Routine) - Closed Specialty Diagnoses / Procedures Referred By Contac t Referred To Contact Radiation Oncology Allison Campos M.D. [address] [place] [phone] [facility] Region Referral ID Status Reason Start Date Expiration Date Visits Re quested Visits Authorized [id number] Closed 06/14/2022 06/13/2025 1 1 Scheduling Instructions Coordinate after CT chest with Dr. Mccray in 6 months Reason for Visit * Outpatient (Routine) - Closed Specialty Diagnoses / Procedures Referred By Contac t Referred To Contact Radiation Oncology Allison Campos M.D. [address] [place] [phone] [facility] Region Referral ID Status Reason Start Date Expiration Date Visits Re quested Visits Authorized [id number] Closed 06/14/2022 06/13/2025 1 1 Encounter Details Date Type Department Care Team (Latest Contact Info) Description 12/11/2022 9:36 AM CDT - 12/11/2022 5:38 PM CDT Hospital Encounter Department of Radiation Oncology in [place], [place] [address] [place] [address] Allison Campos M.D. 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 0 02/19/[address] tablet Take 81 mg by mouth. 0 12/09/2014 atorvastatin (LIPITOR) 20 mg tablet Take 20 mg by mouth. 0 azithromycin (Zithromax Z-Juancho) 250 mg tablet Take 2 tablets (500 mg) on Day 1, followed by 1 tablet (250 mg) once daily on Days 2 through 5. 6 tablet 0 08/10/2020 B complex-vitamins (BALANCE B-50) tablet Take 1 tablet by mouth daily. 0 cholecalciferol (VITAMIN D3) 25 mcg (1,000 Unit) capsule Take 1 capsule by mouth. 0 fluticasone propion-salmeteroL 250-50 mcg/dose diskus inhaler 0 09/21/2020 furosemide (LASIX) 40 mg tablet Take 20 mg by mouth. Take one-half tablet daily 0 09/23/2019 meclizine (ANTIVERT) 25 mg tablet Take 12.5 mg by mouth as needed. 0 metoprolol succinate (TOPROL-XL) 50 mg 24 hr tablet TAKE 1 TABLET EVERY DAY 0 09/23/2019 miscellaneous medical supply [facility] [place] for home use [...] months, Frequency of use: Daily 0 09/09/2018 [id number] amethasone (MAXITROL) 3.5mg/mL-10,000 unit/mL-0.1 % ophthalmic suspension APPLY TO INJECTED EYE THREE TIMES A DAY FOR 3 DAYS AFTER INJECTION 0 08/09/2020 predniSONE (DELTASONE) 20 mg tablet Take 3 tablets (60 mg total) by mouth daily. Start with 60mg Qday for two weeks, then 40mg Qd for 2 weeks, then 20mg Qd for 2 weeks 70 tablet 0 08/10/2020 predniSONE (DELTASONE) 5 mg tablet Take 2 tablets (10 mg total) by mouth daily. On October 03 start 10mg for 2 weeks, then take 5mg once per day for two weeks, then stop 42 tablet 0 10/03/2020 TURMERIC ORAL Take by mouth 2 (two) times a day. 0 warfarin (COUMADIN) 3 mg tablet Take 3 mg by mouth daily. 0 02/28/2022 documented as of this encounter Progress Notes * Faina Reyes P.A.-C., M.S. - 12/11/2022 10:00 AM CDT SUBJECTIVE DIAGNOSIS 1. 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) SUPERVISED BY: Allison Campos M.D. HISTORY OF PRESENT ILLNESS Mrs. 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 Her oncologic history is as follows: 1. July 04, 2018: Chest x-ray was performed due to the patient having a cough. There was a small focus of ill-defined ground-glass [...] was normal without lesions or secretions. The right upper lung nodule was localized and [...] The small pulmonary nodules had not increased insize. No new nodules, ground-glass densities, or areas of focal consolidation. 5. February 10, 2020: CT scan of the chest demonstrated the focally dense alveolar opacity with irregular spiculated margins in the right upper lobe measuring 2.5 x 1.9 cm. Nodules were present withinthe left lower lobe measuring between 3 and 5 mm. The largest nodule approaching 5 mm was subpleural in the left lower lobe and showed no significant change. 6. February 19, 2020: Pulmonary function testing demonstrated FVC 2.03 (76% predicted) and FEV1 1.36 (68% predicted). 7. February 29, 2020: CT-guided biopsy of the right upper lobe mass was performed. Pathology demonstrated adenocarcinoma. 8. March 09, 2020: The patient's case was reviewed at lung conference and the recommendation was for the patient to have a formal consultation with a thoracic surgeon. Consider SABR. Consider clinical trial. 9. March 15, 2020: Consultation with Dr. Jagdish Hciks who felt that the patient's imaging was [...] cm. Spiculations extended from the lesion to thelateral pleural surface. Small amount of nodularity along the inferior posterior aspect of the lesion was probably a nodular extension of the primary lesion, although the possibility of a perilesional new nodule was not excluded. Moderate irregular opacity in the right greater than left lung apicesconsistent with fibrosis. Numerous focal small to moderate size ground-glass nodular opacities and less numerous solid nodules in both lungs, many of which were stable in size and number. None of the nodules and nodular opacities in the lungs had greater than mild uptake. No evidence for malignancyoutside of the chest. 11. March 22, 2020: Medical Oncology consultation with Dr. Joanna Mccray who recommended completing a MRI of the brain to complete staging. Referral to Radiation Oncology for consultation. They willadd on NGS and PD-L1 studies to her [...] 2020: Patient treated with stereotatic radiotherapy to the tumor in right upper lung to a dose of 4800 cGy in 4 fractions. Patient was treated every other day. 15. July 16, 2020: CT chest showed increased areas of ground glass changes around the SBRT site in the RUL. Other nodules are stable. (By my review it seems to show the mass is less dense.) 16. August 10, 2020: CT chest showed increasing radiation pneumonitis. She was started on steroids forclinical symptoms of pneumonitis. 17. October 11, 2020: [...] increase in the solid component with possible slight increase in adjacent volume loss. This is nonspecific [...] in the right upper lobe with a residual mixed consolidative and ground-glass opacity extending superiorly from the right hilum toward the pleural surfaces. The configuration is similar to the 04/14/2021 CT study with interval clearing of the periphery along the lateral margin of the right upper lobe opacity potentially related to mucousplugging or atelectasis. Persistent uptake with an SUV max of 4.4. Continued close interval follow-up imaging recommended. No new hypermetabolic mediastinal lymph nodes. 2. Scattered solid-appearing and ground-glass nodules throughout both lungs with low level uptake are overall indeterminate givensmall size though suspicious. 3. No distant sites of tracer avid disease in the abdomen/pelvis or bony structures. 4. Moderately intense uptake within a sub centimeter left parotid/periparotid nodulecould be further evaluated with directed ultrasound and FNA as indicated. A primary parotid neoplasm cannot be excluded. (Per patient, subsequent evaluation showed this to be benign; 09/05/21). 22. August 28, 2021: CT chest showed 1. No evidence interval metastatic disease or change from the PET-CT of 05/26/[address] of 04/14/2021. 2. Mass and post treatment changes in the right upperlobe are stable in configuration. Bilateral ground-glass densities and small lung nodules are unchanged. 3. No interval developing pulmonary process, pleural effusion or lymphadenopathy. 23. March 05, 2022: CT chest demonstrated treated mass and infiltrate right upper lobe, occasionalscattered ground-glass densities and left pulmonary nodules were unchanged. No evidence of new interval pulmonary pathology or lymphadenopathy. Fractured anterior lateral right second rib. 24. June 12, 2022: CT chest demonstrated no interval metastatic disease or significant change fromthe previous study. Treated mass and consolidation right upper lobe, scattered ground-glass densities, small pulmonary nodules, and focal scarring left lower lobe unchanged. Fracture of the anterior right 2nd rib similar in appearance. 25. December 10, 2022: CT chest demonstrated no interval change. Right hilar mass and triangular right upper lobe consolidation unchanged. Bilateral ground-glass densities, left lower lobe scarring andsmall left lower lobe pulmonary nodules unchanged. Right 2nd rib fracture. No additional interval skeletal lesions. *Images were not available for review. INTERVAL HISTORY The patient was seen and examined today with Dr. Campos. The patient reports doing well overall. She rates her fatigue as 7/10 in severity. She reports thather rib fracture is better, but she does still have some discomfort of that area and numbness in the right armpit. She rates her pain as 2/10 in severity. She is not taking pain medication. She denies activity limitations due to the rib fracture. She reports that her breathing has gotten worse. Shehas not been using the treadmill or walking up stairs recently. She reports that she walked approximately two blocks last night and had to stop four times due to breathing. She does use a nebulizer with benefit. She also reports having to clear her throat more often. She reports that her oxygen saturation was 94% when she checked it this morning. She is not seen her pulmonary provider recently. She denies fever. REVIEW OF SYSTEMS Review of systems was negative except as documented above. PATIENT REPORTED SYMPTOM SCREEN FATIGUE (Scale: 0 = no fatigue; 10 = worst fatigue you can imagine): 7 PAIN (Scale: 0 = no pain; 10 = worst pain you can imagine): 2 OVERALL QUALITY OF LIFE (Scale: 0 = as bad as can be; 10 = as good as can be): 9 OBJECTIVE BP 150/69 (BP Location: Right arm, Patient Position: Sitting, Cuff Size: Regular) Pulse 79 Temp36.6 ??C (Temporal) Wt 82.1 kg BMI 33.31 kg/m?? PHYSICAL EXAM General: Patient is alert and oriented in no apparent distress. Heart: Regular rate and rhythm. Lungs: Clear to auscultation bilaterally. ASSESSMENT / PLAN #1 Stage IA3 (cT1c, cN0, cM0) adenocarcinoma of the right upper lobe of the lung, s/p SBRT April2020 #2 Multifocal lung lesions (bilateral lungs, predominantly GGOs) #3 Radiation pneumonitis, resolved #4 Right second rib fracture The patient is doing well overall following radiation therapy. We reviewed the report of her CT chest scan from yesterday that demonstrated no interval change. At the time of the patient's office visit, we did not have the images of the CT scan to review. The patient reports improvement in the painfrom her right 2nd rib fracture. She reports worsening breathing and states that she has not had recent follow-up with her pulmonary provider. We will refer her back to Dr. Bowers to for further pulmonary evaluation and management. She is scheduled for an appointment with Dr. Mccray tomorrow. Dr. Mccray has been ordering the patient's CT scans. We will order for a return visit to be scheduled here after the patient's next CT chest scan, as ordered by Dr. Mccray, likely in 6-12 months. The patient will contact us with questions or concerns. She verbally expressed her understanding of the plan. EDUCATION Ready to learn, no apparent learning barriers were identified; learning preferences include listening. Explained diagnosis and treatment plan; patient expressed understanding of the content. I personally spent 23 minutes in care of the patient today. Time includes both non face to face andface to face patient care. Signed by: Faina Reyes P.A.-C., M.S. 12/11/2022 12:47 PM CDT [facility] [address] [place] [address] Associated attestation - Allison Campos M.D. - 12/11/2022 5:38 PM CDT I saw and evaluated the patient and participated in the preciado portions of the service. I reviewed thedocumentation of Ms. Faina Reyes PA-C, MS and agree with the findings and plan. After the patient left, her CT imaging from December 10, 2022 became available. I have reviewed and agree with the interpretation. No new lesions and no changes. Allison Campos M.D., 12/11/2022 documented in this encounter Miscellaneous Notes * Addendum Note - Faina Reyes P.A.-C., M.S. - 12/11/2022 10:00 AM CDTEncounter addended by: Faina Reyes P.A.-C., M.S. on: 12/12/2022 9:11 AM Actions taken: Visit diagnoses modified, Problem List modified, Order list changed, Diagnosis association updated documented in this encounter Plan of Treatment Upcoming Encounters Date Type Department Care Team (Latest Contact Info) Description 06/10/2023 10:30 AM CDT Clinical Communication Virtual Review in [place], [place] [address] [place] [address] 06/13/2023 1:00 PM CDT Appointment Department of Radiation Oncology in [address] [phone] Allison Campos M.D. [address] [place] [address] Scheduled Referrals Name Type Priority Associated Diagnoses Order Schedule Radiation Oncology office visit (clinic) Outpatient Referral Routine Once for 1 Occurrences starting 12/11/2022 until 12/11/2022 Radiation Oncology office visit (clinic) Outpatient Referral Routine Expected: 06/12/2023 (Approximate), Expires: 12/12/2023 Return to provider in another specialty Outpatient Referral Routine Expected: 12/11/2022 (Approximate), Expires: 03/13/2024 Pulmonary Medicine - Chronic obstructive pulmonary disease (COPD) consult (clinic) Outpatient Referral Routine Chronic Obstructive Pulmonary Disease (HCC) Expected: 12/12/2022 (Approximate), Expires: 03/14/2024 documented as of this encounter Visit Diagnoses Diagnosis 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)- Primary Chronic Obstructive Pulmonary Disease (HCC) documented in this encounter
--- OUTSIDE RECORDS SUMMARY | 2023-03-25 08:40 | XMS_ITS | Referral Summary ---
Author Name Unknown Organization [facility] Address [address] [place] [address] Care Team Providers Care Executive Consultant Name Role Phone Unavailable Primary Care Provider Unavailabl e Source Comments Patient records contain information from all sites at [facility]. For routine questions regarding patient records, call [phone] during business hours, M-F 8:00 AM - 5:00 PM Central Time. Record requests for emergency care only can be directed to [phone] at any time.[facility] Allergies Active Allergy Reactions Criticality Noted Date [...] a day. 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 [address] [place] [address]
--- OUTSIDE RECORDS SUMMARY | 2023-03-25 08:40 | XMS_ITS | Clinical Summary ---
Author Name Unknown Organization [facility] [facility] [employer] Address [place], [place] [address] Care Team Providers Care Manager Hydraulic Name Role Phone Uvaldo Lin MD Primary Care Provider + Bre Boss RN, BSN Unavailable [phone] Jagdish Hicks MD Unavailable Joanna Mccray MD Unavailable Eileen Gross OVER SHORT AND DAMAGE CLERK Unavailable Dillan Irizarry Unavailable [phone] Allergies Active Allergy Reactions Criticality Noted Date Comments Povidone-Iodine Rash 08/03/2006 Propoxyphene Psychosis Medium 04/22/2006 Gabapentin Nausea Only,Dizziness 04/25/2015 Levofloxacin Myalgia 03/11/2017 Morphine Nausea And Vomiting Medium 04/22/2006 Nickel Rash Medium 04/22/2006 Soap Rash 07/22/2018 Sulfa (Sulfonamide Antibiotics) Rash Medium 04/04 Medications Medication Sig Dispensed Refills Start Date End Date Status CPAPIndications:GAGE (obstructive sleep apnea) CPAP machine for home use at pressure:7.6 cm/H2O , Heated humidifier x 1, Humidifier chamber x 1, 1 unit 11 09/09/2018 Active WalkerIndications:S/ P lumbar fusion Walker with front wheels for home use. Patient to use for 6 months. 1 Device 0 09/20/2018 Active CPAPIndications:GAGE (obstructive sleep apnea) NEW replacement CPAP machine for home use [...] Need: 99 months, Frequency of use: Daily 1 Device 11 06/26/2019 Active furosemide (LASIX) 40 mg tabletIndications:Ed leopoldo, unspecified type TAKE 1 TABLET EVERY MORNING 90 tablet 0 09/23/2019 Active metoprolol succinate (TOPROL XL) 50 mg sustained-release tabletIndications:Es sential hypertension TAKE 1 TABLET EVERY DAY 90 tablet 0 09/23/2019 Active albuterol HFA (PRO-AIR; VENTOLIN; PROVENTIL) 90 mcg/actuation inhaler Inhale 2 Puffs by mouth every 4 hours. 0 01/22/2020 Active budesonide (PULMICORT RESPULES) 0.25 mg/2 mL neb suspension INHALE 2MLS BY NEBULIZATION ROUTE TWICE DAILY 0 05/26/2021 Active arformoteroL (BROVANA) 15 mcg/2 mL nebu INHALE 2 MILLILITERS BY INHALATION ROUTE 2 TIMES EVERY DAY 0 05/22/2021 Active atorvastatin (LIPITOR) 40 mg tabletIndications:Hy perlipidemia, unspecified hyperlipidemia type Take 1 Tablet (40 mg) by mouth at bedtime. 90 tablet. 3 08/16/2021 Active isosorbide mononitrate (IMDUR) 30 mg extended release tablet 24 HourIndications:Card iovascular symptoms,CAD in [place] artery Take 1 Tablet (30 mg) by mouth once daily. 90 Tablet 3 08/17/2021 Active aspirin (ECOTRIN) 81 mg enteric coated tabletIndications:S/ P TAVR (transcatheter aortic valve replacement) Take 1 Tablet (81 mg) by mouth once daily with a meal. 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 Nuclear stress test normal 05/2011 Benign neoplasm of colon 08/16/2006 Hyperlipidemia 07/31/2006 Meniere's disease, unspecified 04/22/2006 Resolved Problems Problem Noted Date Diagnosed Date Resolved Date Heart murmur 06/02/2012 05/19/2017 Personal history of colonic polyps 02/04/2012 05/19/2017 Family history of malignant neoplasm of gastrointestinal tract 02/04/2012 05/19/2017 Overview: Mother Obesity, unspecified 10/16/2011 018 Bereavement 10/12/2010 10/15/2011 Vitamin D deficiency 04/26/2009 011 Pre-diabetes 10/28/2008 10/12/2010 Elevated fasting glucose 09/13/2008 Edema 04/19/2007 05/19/2017 Calculus of kidney 09/24/2006 8 Overview: Kidney stones Pain in limb 08/19/2006 05/19/2017 DISCOMFORT (CHEST) 08/04/2006 7 Encounter for long-term (cur rent) use of other medications 07/31/2006 05/19/2017 Encounters Date Type Department Care Team Description 02/18/2023 Telephone [facility] [address] [facility] [address] [place] [address] Tyrone Mijares MD Results 02/15/2023 2:00 PM CDL COMPANY DRIVER Office Visit [facility] [address] [place] [address] Tyrone Mijares MD from Last 3 Months Immunizations Name Administration Dates Next Due AMB Influenza, IIV3 (Age >=3 years) Preserve Free (Flu Clinic Only) 12/30/2010 AMB Influenza, IIV3 (Age >=3 years)(Flu Clinic Only) 11/28/2011,12/23/2009 COVID-19 vaccine ([employer] NTMaster Equation 30mcg/0.3mL) PF, MDV 05/17/2020,04/26/2020 Influenza Virus, Unspecified 12/13/1998,12/31/18 98 Influenza, High-dose Inactivated 020,12/09/2018,12/05/2015,2014,01/27/2014 Influenza, High-dose Quadriv alent Inactivated 12/18/2019 Influenza, IIV3 (Age >=3 years) 12/18/19 13,12/03/2008,12/25/2006,2005 Influenza, Inactivated AIIV4 (Age 65+ Years) Preserv Free 12/21/2020 Influenza, Inactivated IIV3 (Age 65+ Years) Preserv Free 11/15/2017,11/12/2016 Pneumococcal Poly,23-Valent (Pneumovax) 03/01/2016,12/28/1994 Pneumococcal conj 13-Valent (Prevnar 13) 02/28/2015 Tdap 08/16/2006 Zoster (Shingrix-RZV, recombinant) 06/12/2019, Zoster (Zostavax-ZVL, live) 10/10/2009 Family History Medical History Relation Name Comments Heart Disease Father Lung disease Father Stroke Father COPD Mother Cancer-colon Mother primary /liver now and kidney,lung and adrenal Cancer-breast No Family History Relation Name Status Comments Father Mother Social History Tobacco Use Types Packs/Day Years Used Date Smoking Tobacco: Former Cigarettes 1.5 45 0 11/03/1959 - 11/02/2004 Smokeless Tobacco: Never Tobacco Cessation:Counseling Given: Not Answered Comments:Per patient report on 03/15/2020 Alcohol Use Standard Drinks/Week Comments Not Currently 0 (1 standard drink = 0.6 oz pur e alcohol) very rarely PHQ-2 Answer Date Recorded PHQ-2 TOTAL SCORE 0 04/19/2022 Social Connections Answer Date Recorded Frequency of Communication with Friends and Fami ly Not on file 02/22/2021 Financial Resource Strain Answer Date R ecorded Difficulty of Paying Living Expenses Not on file 02/22/2021 Difficulty of Paying Living Expenses Not on file 02/22/2021 Sex and Gender Information Value Date Recorded Sex Assigned at Not on file Gender Identity Not on file Sexual Orientation Not on file Obstetrics History Last Filed Vital Signs Vital Sign Reading Time Taken Comments Blood Pressure 142/79 12/12/2022 10:34 AM CDT Pulse 76 12/12/2022 10:34 AM CDT Temperature 36.5 ??C (97.7 ??F) 12/12/2022 10:34 AM C DT Respiratory Rate 18 12/12/2022 10:34 AM CDT Oxygen Saturation 98% 12/12/2022 10:34 AM CDT Inhaled Oxygen Concentration - - Weight 82.3 kg (181 lb 8 oz) 12/12/2022 10:34 AM CDT Height 157.5 cm (5' 2) 10/24/2022 2:18 PM CDT Body Mass Index 33.2 10/24/2022 2:18 PM CDT Plan of Treatment Upcoming Encounters Date Type Department Care Team (Late st Contact Info) Description 03/25/2023 9:00 AM CDL COMPANY DRIVER Ancillary Procedure [facility] [address] [place] [address] 04/17/2023 9:00 AM CDL COMPANY DRIVER Cardiac Device Check [facility] [place] [facility] [address] [place] [address] 05/07/2023 8:00 AM CDL COMPANY DRIVER Telemedicine [facility] [address] [place] [address] Lucille Meehan NP [address] [place] [address] 06/10/2023 9:30 AM CDT Appointment [facility] [address] [place] [address] 06/10/2023 9:45 AM CDT Appointment [facility] [address] [place] [address] 06/12/2023 10:00 AM CDT Office Visit [facility] [place] [address] Eileen Gross, OVER SHORT AND DAMAGE CLERK [address] [facility] [place] [id number] Health Maintenance Due Date Last Done Comments Tetanus booster 08/16/2016 08/16/2006 Medicare Wellness for age 65+ 05/13/2018, 03/01/2016, 02/28/2015, Additional history exists Colonoscopy through age 75 06/06/202206/06, 02/04/2012, 02/04/2012, Additional history exists COVID-19 vaccine series ( season) 2022 10/18/2020, 05/17/2020, 04/26/2020 Influenza for age 65+ 11/02/2022 12/21/2020 , 12/18/2019, 05/12/2019, Additional history exists BMI (ht and wt on same day) for age 18+ 02/09/2023 02/09/2022, 12/29/2021, 10/19/2021, Additional history exists Lipids for age 45-75 03/10/2023 03/10/2018, 05/13/2017, 03/13/2016, Additional history exists Depression screening for age 12+ 04/19/2023 04/19/2022, 08/31/2021, 08/29/2021, Additional history exists Low Dose CT (for lung CA) ag e 50-80 12/11/2023 12/10/2022, 06/12/2022, 03/05/2022, Additional history exists Tdap Completed 08/16/2006 Hepatitis C screening for ag e 18-79 Completed 01/04/2014 Pneumococcal series for age 65+ Completed 03/01/2016, 02/28/2015, 02/28/2015, Additional history exists Zoster (shingles) series for age 50+ Completed 06/12/2019, 01/16/2019, 10/10/2009 DEXA/DXA scan for age 65+ Completed 09/30/2019, 03/2012 Medical Devices Implanted Type Area Bung Driver Device Identifier Shelf Expiration Date Model / Serial / Lot [id number] ne 1-4mm 60cc Medtronic Fine Canclls Freeze Dried Implanted:Qty: 1 on 09/17/2018 by German Valdez MD at [facility] Explanted:at [facility] (Quantity not on file) Spine Medtronic Spine/Ortho 10/10/2022 [id number]# / [id number] / [id number] ne Matrix 6cc Alvaro Dbf Putty Db - [id number] Implanted:Qty: 1 on 09/17/2018 by German Valdez MD at [facility] Explanted:at [facility] (Quantity not on file) Spine Medtronic Spine/Ortho 07/29/2020 [id number]# / [id number] / Spacer Lmbr [id number] [place] Convex Stra Plif - [id number] Implanted:Qty: 1 on 09/17/2018 by German Valdez MD at [facility] Spine [employer] 06/08/2026 [id number]# / / [id number] Screw Lmbr Post 6.5x40mm Vitality Va - [id number] Implanted:Qty: 2 on 09/17/2018 by German Valdez MD at [facility] Spine [employer] Spine .0 74# / / Screw Lmbr Post 6.5x45mm Vitality Va - [id number] Implanted:Qty: 4 on 09/17/2018 by German Valdez MD at [facility] Spine [employer] Spine .0 75# / / Set Screw Lmbr 5.5-6mm Vitality Torque - [id number] Implanted:Qty: 6 on 09/17/2018 by German Valdez MD at [facility] Spine [employer] Spine 10.0 01# / / Bernabe Lmbr 65x5.5mm Vitality Cvd Titnm - [id number] Implanted:Qty: 2 on 09/17/2018 by German Valdez MD at [facility] Spine [employer] Spine 15.0 10# / / Advance Directives Documents on File Type Date Recorded Patient Hat Cleaner Expl anation Healthcare Directive 01/03/2016 11:31 AM 1 Latest Code Status on File Code Status Date Activated Date Inactivated Comments Full Code 01/03/2022 4:20 PM 01/05/2022 3:09 PM Question Answer Comments Code Status Discussion: Reviewed Preferences Code Status History Code Status Date Activated Date Inactivated Comments Full Code 08/16/2021 10:37 AM 08/17/2021 9:11 PM Question Answer Comments Code Status Discussion: Reviewed Preferences Full Code 09/17/2018 3:11 PM 09/20/2018 7:59 PM Full Code 08/11/2018 8:16 AM 08/11/2018 3:33 PM Full Code 06/06/2017 12:29 PM 06/06/2017 5:38 PM Care Teams Manager Hydraulic Relationship Specialty Start Date End Date Uvaldo Lin MD [address] [place] [address] PCP - General Family Practice 07/04/18 Bre Boss, RN, BSN [address] [place] [address] Cancer Nurse Coordinator Registered Nurse 03/15/20 Jagdish Hicks MD [address] [place] [id number] [place] [address] Consulting Physician Surgery - Cardiothoracic 03/15/20 Joanna Mccray MD [address] [place] [address] Oncology Oncology 07/26/20 Eileen Gross, OVER SHORT AND DAMAGE CLERK [address] [place] [address] Oncology Oncology 07/26/20 Dillan Irizarry LSW [address] [place] [address] Garnett Machine Operator Oncology 01/03/23
--- OUTSIDE RECORDS SUMMARY | 2023-03-25 08:40 | XMS_ITS | Continuity of Care Document ---
Author Name Unknown Organization [facility] Address [address] [place] [address] Phone Care Team Providers Care Engraver Letter Name Role Phone German Valdez MD Unavailable Unavailable Allergies, Adverse Reactions, Alerts Substance Reaction Status Criticality Sulfa (Sulfonamide Antibiotics) unknown Active No Information morphine unknown Active No Information levofloxacin myalgia Active No Information gabapentin nausea, dizziness Active No Informa tion PROPOXYPHENE HCL Active No Informat ion soap rash Active No Information povidone-iodine rash Active No Informati on Medications Medication Instructions Dosage Effective Dates (start - stop) Status Comments FUROSEMIDE (unknown strength) Not Available - Active ASPIR 81 (unknown strength) Not Available - Active ATORVASTATIN CALCIUM (unknown strength) Not Available - Active METOPROLOL SUCCINATE (unknown strength) Not Available - Active Procedures Procedure Date Office/Outpatient Visit,Est, Mod 2019 X-Ray Exam Lower Spine 2-3 Views 2019 Postop Followup Visit X-Ray Exam Lower Spine 2-3 Views 2018 Postop Followup Visit X-Ray Exam Lower Spine 2-3 Views 2018 Pa Arthdsis Post/Posterolatrl/Postinterb luc Lumbar Pa Assist Spine Fusion, Each Add'Lverteb ra Remove Lumbar Spine Lamina, 1 Seg Pa Assist Insert Spine Seg Fix, Post, 3- 6 Seg PA Assist Insert interbody cage w/fusion Arthdsis Post/Posterolatrl/Postinterbody Lumbar Spine Fusion, Each Add'Lvertebra 2018 Remove Lumbar Spine Lamina, 1 Seg Insert Spine Seg Fix, Post, 3-6 Seg Insert interbody cage w/fusion 19 Office/Outpatient Visit,[facility]ide 2018 X-Ray Exam Lwr Spine, Min 4 Views Advance Directives Directive Yes / No Effective Date File Name No Information Encounters Encounter Description Practice Location Reason(s) For Visit Diagnoses Date Provider Providers Copied on Encounter [facility], [address], [place], [place], [id number], [place] tel:[phone] [facility] No Information 0 Mehbod Amir. [facility], [address] [place] [address] [address], [facility] [place], [place], [id number] , [place]. [phone] Office/Outpat ient Visit,Est, Mod [facility], [address], [place], [place], [id number], [place] tel:[phone] [facility] [place] Spinal stenosis, lumbar region with neurogenic claudication 0 Mehbod Amir. [facility], [address] [place] [address], [facility] [place], [place], [id number] , [place]. tel:[phone] Referring Provider: Chinmay Tavarez, Astley Clarke [facility] Kathy [address] , [place], [address]. tel:[phone] [facility], [address], [place], [place], [id number], [place] tel:[phone] [facility] [place] Encounter for other specified surgical aftercare 9 Maura Garay. [address] [place] [address] [address], [place], [id number] , [place]. tel:[phone] Referring Provider: Chinmay Tavarez Astley Clarke [facility] [address] , [place], [address]. tel:[phone] [facility], [address], [place], [id number], [place] tel:[phone] [facility] [place] Encounter for other specified surgical aftercare Mehbod Amir. [facility], [address], [facility] [place], [id number] , [place]. tel:[phone] Referring Provider: Chinmay Tavarez, WillardSunnyBump [address], [place], [address]. tel:[phone] [facility], [address], [place], [id number], [place] tel:[phone] [facility] No Information Maura Garay. [address] [place] [address], [place], [place], [id number] , [place]. tel:[phone] Referring Provider: Chinmay Tavarez Astley Clarke [address], [place], [address]. tel:[phone] [facility], [address], [place], [place], [id number], [place] tel:[phone] [facility] No Information Mehbod Amir. [facility] [place], [address], [facility] [place], [id number] , [place]. tel:[phone] Referring Provider: Willard VidalSunnyBump [address], [place], [address]. tel:[phone] Office/Outpat ient Visit,New, Mod [facility], [address], [place], [place], [id number], [place] tel:[phone] [facility] [place] Spinal stenosis, lumbar region 9 Mehbod Amir. [facility] [place], [address], [facility] [place], [place], [id number] , [place]. tel:[phone] Referring Provider: Chinmay Tavarez Astley Clarke [address], [place], [address]. tel:[phone] Family History Family Member Type Diagnosis Age At Onset No Information Payers Payer name Insurance type Covered democrat ID [id number] shawnbartolo(s) [facility] [id number] Medicare [facility] [id number] Social History Type Description Quantity Date Captured Comments Sex Female Smoking Status No Information Chief Complaint And Reason For Visit No Information Reason For Referral Reason For Referral No Information Plan Of Treatment Date Type Action Status Future Order: Radiology Order AP Lateral Lumbar (APLatLumb), Ordered on: Ordered Future Order: Radiology Order F/ E Lumbar (F/ELumb), Ordered on: Ordered History Of Present Illness Encounter Date Complaint History Of Prese nt Illness No Information Functional Status Date Functional Assessmen t No Information Instructions Date Instruction Additional Infor mation No Information Assessments Type Assessment Date No Information Patient Care Teams Name Effective Dates (start - stop) Status Members No Information
--- OUTSIDE RECORDS SUMMARY | 2023-03-25 08:40 | XMS_ITS ---
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 Past Plans No past plan information found. Radiation Treatments * Plan Last Treated On Elapsed Days Fractions Treated Prescribed Fraction Dose Prescribed Total Dose F1 Rlung SBRT 04/13/2020 7 4 of 4 1,200 cGy 4,800 cGy Reference Point Last Treated On Elapsed Days Session Dose Total Dose [id number] 04/13/2020 7 1,200 cGy 4,800 cGy
--- OUTSIDE RECORDS SUMMARY | 2023-03-25 08:40 | XMS_ITS | Encounter Summary ---
Author Name Unknown Organization [facility] Address [address] [place] [address] Care Team Providers Care Housing Court Judge Name Role Phone Unavailable Primary Care Provider Unavailabl e Reason for Referral * Outpatient (Routine) - Closed Specialty Diagnoses / Procedures Referred By Contac t Referred To Contact Radiation Oncology Allison Capmos M.D. [address] [place] [phone] [facility] Referral ID Status Reason Start Date Expiration Date Visits Re quested Visits Authorized [id number] Closed 06/14/2022 06/13/2025 1 1 Scheduling Instructions Coordinate after CT chest with Dr. Mccray in 6 months Encounter Details Date Type Department Care Team (Late st Contact Info) Description 06/14/2022 Orders Only Department of Radiation Oncology in [place], [place] [address] [place] [phone] Allison Campos M.D. [address] [place] [phone] Social History Tobacco Use Types Packs/Day Years [...] as of this encounter Plan of Treatment Upcoming Encounters Date Type Department Care Team (Latest Contact Info) Description 06/10/2023 10:30 AM CDT Clinical Communication Virtual Review in [place], [place] [address] [place] [address] 06/13/2023 1:00 PM CDT Appointment Department of Radiation Oncology in [place], [place] [address] [place] [phone] Allison Campos M.D. [address] [place] [phone] Scheduled Referrals Name Type Priority Associated Diagnoses Orde r Schedule Radiation Oncology office visit (clinic) Outpatient Referral Routine Expected: 12/14/2022 (Approximate), Expires: 06/15/2023 documented as of this encounter Visit Diagnoses Not on filedocumented in this encounter
== END 2023-03-25 08:34 | disposition home or self-care (01) ==
LOC: RAD 08:36
PROVIDERS: PCP Family Medicine; Visit Provider Internal Medicine Cardiovascular Disease
DX: Z95.2 Presence of prosthetic heart valve (principal); I34.0 Nonrheumatic mitral (valve) insufficiency; I05.0 Rheumatic mitral stenosis
CPT/HCPCS: 93306

== ENCOUNTER 2023-06-13 13:24 | Emergency (ER) | payer MEDICARE, BC, SELFPAY ==
[2023-06-13 13:43] VITALS: BP 154/72; PULSE 73; RESP 18; TEMP 36.7; O2SAT 97; BMI 32.9
--- NOTE | 2023-06-13 14:35 | ED.BACK ---
HPI - Back Pain/Injury General Chief Complaint: Back Injury/Pain Stated Complaint: Back pain Time Seen by Provider: 06/13/23 14:24 History of Present Illness HPI Narrative: Patient is a 78-year-old woman who comes in with low back pain. She has had no recent injuries no bowel or bladder symptoms no fevers no chills no night sweats. Patient had x-ray done at the doctor's office yesterday and [place] with no acute findings but she does have a history of low back surgery. Patient is been using [id number] with limited success in needs assistance to get through to her doctor's appointment in 4 days. Related Data Home Medications Medication Instructions Recorded Confirmed nitroglycerin 0.4 mg sublingual 0.4 mg buccal ONCE 09/08/21 06/13/23 tablet cpap inhalation 01/08/22 04/11/23 albuterol sulfate 90 mcg/actuation inhalation 06/13/23 aerosol inhaler Previous Rx's Medication Instructions Recorded budesonide 0.25 mg/2 mL suspension 0.25 mg (2 mL) inhalation BID #60 06/06/22 for nebulization mL nitroglycerin 0.4 mg sublingual 0.4 mg sublingual Q5-15M PRN chest 09/19/22 tablet pain #30 tabs aspirin 81 mg chewable tablet 81 mg PO QDAY #1 tab 04/02/23 atorvastatin 40 mg tablet 40 mg PO DAILY #90 tabs 05/28/23 furosemide 40 mg tablet 40 mg PO DAILY #90 tabs 05/28/23 metoprolol succinate 50 mg 50 mg PO DAILY #90 tabs 05/28/23 tablet,extended release 24 hr Allergies Allergy/AdvReac Type Severity Reaction Status Date / Time oxycodone Allergy Severe Dry heaves Verified 06/13/23 13:49 gabapentin Allergy Unknown Verified 06/13/23 13:49 morphine Allergy Unknown Verified 06/13/23 13:49 nickel Allergy Unknown Verified 06/13/23 13:49 propoxyphene Allergy Unknown Verified 06/13/23 13:49 Sulfa (Sulfonamide Allergy Unknown Unknown Verified 06/13/23 13:49 Antibiotics) povidone-iodine AdvReac Mild Hives, rash Verified 06/13/23 13:49 Review of Systems Status of ROS: Reports: 10 or more systems reviewed and unremarkable except as noted in History and below [facility] Medical History (Updated 06/13/23 @ 14:44 by Mateus Ramirez MD) Mixed hyperlipidemia ?E78.2 - Mixed hyperlipidemia (ICD-10) Primary hypertension ?I10 - Essential (primary) hypertension (ICD-10) ASCVD (arteriosclerotic cardiovascular disease) ?I25.10 - Atherosclerotic heart disease of [place] de[place]' coronary artery without angina pectoris (ICD-10) COVID-19 ?U07.1 - COVID-19 (ICD-10) Osteoporosis ?M81.0 - Age-related osteoporosis without current pathological fracture (ICD-10) Obstructive sleep apnea syndrome (08/20/16) ?G47.33 - Obstructive sleep apnea (adult) (pediatric) (ICD-10) History of vitamin D deficiency ?Z86.39 - Personal history of other endocrine, nutritional and metabolic disease (ICD-10) History of Meniere's disease (2006) ?Z86.69 - Personal history of other diseases of the nervous system and sense organs (ICD-10) History of colonic polyps (06/06/17) ?Z86.010 - Personal history of colonic polyps (ICD-10) Glaucoma ?H40.9 - Unspecified glaucoma (ICD-10) Chronic obstructive pulmonary disease ?J44.9 - Chronic obstructive pulmonary disease, unspecified (ICD-10) Chronic constipation ?K59.09 - Other constipation (ICD-10) Balance problems ?R26.89 - Other abnormalities of gait and mobility (ICD-10) Arthritis of lumbar spine ?M47.816 - Spondylosis without myelopathy or radiculopathy, lumbar region (ICD-10) Adenocarcinoma of lung (02/29/20) ?C34.90 - Malignant neoplasm of unspecified part of unspecified bronchus or lung (ICD-10) Surgical History (Updated 06/07/22 @ 21:52 by Uvaldo Lin MD) S/P TAVR (transcatheter aortic valve replacement) ?Z95.2 - Presence of prosthetic heart valve (ICD-10) History of coronary artery stent placement ?Z95.5 - Presence of coronary angioplasty implant and graft (ICD-10) History of total abdominal hysterectomy ?Z90.710 - Acquired absence of both cervix and uterus (ICD-10) History of tonsillectomy and adenoidectomy ?Z90.89 - Acquired absence of other organs (ICD-10) History of percutaneous transluminal coronary angioplasty (2006) ?Z98.61 - Coronary angioplasty status (ICD-10) History of lumbar fusion (10/08/18) ?Z98.1 - Arthrodesis status (ICD-10) History of laparoscopic cholecystectomy ?Z90.49 - Acquired absence of other specified parts of digestive tract (ICD-10) History of extraction of renal calculus ?Z98.890 - Other specified postprocedural states (ICD-10) ?Z87.442 - Personal history of urinary calculi (ICD-10) History of colonoscopy with polypectomy (06/06/17) ?Z98.890 - Other specified postprocedural states (ICD-10) ?Z86.010 - Personal history of colonic polyps (ICD-10) Family History (Updated 08/24/21 @ 13:12 by Rico Bellamy) Mother Colon cancer Father Stroke Heart disease Brother Type 2 diabetes mellitus Social History (Updated 08/24/21 @ 13:13 by Rico Bellamy) Narrative: -Pedro, 2 kids, retired Non-smoker No EtOH Smoking Status: Former smoker Little interest or pleasure in doing things: not at all Feeling down, depressed, or hopeless: not at all Exam Narrative: Exam Narrative: EXAM GENERAL: Patient appears comfortable and well. EYES: No scleral icterus. LYMPH: No supraclavicular or cervical lymphadenopathy. SKIN: Visible skin seen during exam normal or with benign process only. EXT: No dependent lower extremity pedal edema. HEART: Regular rate and rhythm with no murmurs, rubs, or gallops. LUNGS: Clear to auscultation bilaterally with no crackles or wheezes. ABD: Soft, non tender, non distended. PSYCH: Good eye contact, speech is not pressured. Examination her lumbar spine shows decreased range of motion. No focal neurologic defects. No pain to palpation. Const: Vital Signs, click to edit/add: Vital Signs - 24 hr 06/13/23 13:43 Temperature 98.1 F Pulse Rate [Pulse Oximeter] 73 Respiratory Rate 18 Blood Pressure [Ri ght Upper Arm] 154/72 H Pulse Oximetry 97 Oxygen Delivery Me thod Room Air Course Course ED Course: Patient seen and examined. Vital Signs Vital signs: Initial Vital Signs Temperature 98.1 F 06/13/23 13:43 Temperature Source Temporal Artery Scan 06/13/23 13:43 Pulse Rate 73 06/13/23 13:43 Respiratory Rate 18 06/13/23 13:43 Blood Pressure 154/72 H 06/13/23 13:43 Blood Pressure Mean 99 06/13/23 13:43 Blood Pressure Position Sitting 06/13/23 13:43 Pulse Oximetry 97 06/13/23 13:43 Oxygen Delivery Method Room Air 06/13/23 13:43 Vital Signs Temperature 98.1 F 06/13/23 13:43 Pulse Rate 73 06/13/23 13:43 Respiratory Rate 18 06/13/23 13:43 Blood Pressure 154/72 H 06/13/23 13:43 Pulse Oximetry 97 06/13/23 13:43 Oxygen Delivery Method Room Air 06/13/23 13:43 Temperature 98.1 F 06/13/23 13:43 Pulse Rate 73 06/13/23 13:43 Respiratory Rate 18 06/13/23 13:43 Blood Pressure 154/72 H 06/13/23 13:43 Pulse Oximetry 97 06/13/23 13:43 Oxygen Delivery Method Room Air 06/13/23 13:43 MDM - Back Pain/Injury MDM Narrative Medical decision making narrative: Patient is a a 78-year-old woman who presents with low back pain. She has a normal exam and normal vital signs. She had a negative x-ray yesterday for acute findings although she has history of low back surgery. This time I think the best course of action is treat her pain with low-dose Vicodin her the next few days with no drive year or using machinery. I also place her on a short course of prednisone and will have her see her primary doctor back in 4 days. Eventual diagnosis includes but not limited to low back strain. Abscess. Malignancy. Nerve compression. Discharge Plan Discharge Clinical Impression: Low back pain Patient Disposition: Home, Self-Care Condition: Stable Instructions: Acute Low Back Pain (ED) Additional Instructions: [place] and prednisone as directed Ice Advance activity as tolerated Follow-up with your doctor as scheduled. Activity Level: No Restrictions Discharge Diet: Regular Prescriptions: No Action nitroglycerin 0.4 mg tablet, sublingual 0.4 mg buccal ONCE cpap inhalation nitroglycerin 0.4 mg tablet, sublingual 0.4 mg sublingual Q5-15M PRN (Reason: chest pain) Qty: 30 0RF Rx Instructions: do not exceed 3 doses per episode albuterol sulfate 90 mcg/actuation HFA aerosol inhaler INHALATION budesonide 0.25 mg/2 mL suspension for nebulization 0.25 mg inhalation BID Qty: 60 5RF aspirin 81 mg tablet,chewable 81 mg PO QDAY Qty: 1 0RF atorvastatin 40 mg tablet 40 mg PO DAILY Qty: 90 0RF furosemide 40 mg tablet 40 mg PO DAILY Qty: 90 0RF metoprolol succinate 50 mg tablet extended release 24 hr 50 mg PO DAILY Qty: 90 0RF Follow Up/Referrals: Uvaldo Lin MD [Primary Care Provider] - Stand Alone Forms: [employer] Info Instructions
--- OUTSIDE RECORDS SUMMARY | 2023-06-13 14:57 | XMS_ITS | Continuity of Care Document ---
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 [facility], [address] [place] [address] [address], [place], [place], [id number] , [place]. [phone] Office/Outpat ient Visit,Est, Mod [facility], [address], [place], [place], [id number], [place] tel:[phone] [facility] Spinal stenosis, lumbar region with neurogenic claudication 0 Mehbod Amir. [facility], [address] [place] [address], [facility] [place], [place], [id number] , [place]. tel:[phone] Referring Provider: Chinmay Tavarez, [employer] [address] , [place], [address]. tel:[phone] [facility], [address], [place], [place], [address], [place] tel:[phone] [facility] Encounter for other specified surgical aftercare -201 9 Maura Garya. [address] [place] [address], [facility] [place], [place], [id number] , [place]. tel:[phone] Referring Provider: Chinmay Tavarez, [employer] [address] , [place], [address]. tel:[phone] [facility], [address], [place], [id number], [place] tel:[phone] [facility] Encounter for other specified surgical aftercare 9 Mehbod Amir. [facility], [address], [place], [place], [id number] , [place]. tel:[phone] Referring Provider: Chinmay Tavarez, [email or web address] [address], [place], [address]. tel:[phone] [facility], [address], [place], [place], [id number], [place] tel:[phone] [facility] No Information Maura Garay. [address], [facility] [place], [place], [id number] , [place]. tel:[phone] Referring Provider: Chinmay Tavarez [email or web address] [address], [place], [address]. tel:[phone] [facility], [address], [place], [place], [id number], [place] tel:[phone] [facility] No Information Mehbod Amir. [facility], [address], [place], [place], [id number] , [place]. tel:[phone] Referring Provider: Willard [employer] [address], [place], [address]. tel:[phone] Office/Outpat ient Visit,New, Mod [facility], [address], [place], [id number], [place] tel:[phone] [facility] Spinal stenosis, lumbar region 9 Mehbod Amir. [facility], [address], [facility] [place], [id number] , [place]. tel:[phone] Referring Provider: Chinmay Tavarez [email or web address] [address], [place], [address]. tel:[phone] Family History Family Member Type Diagnosis Age At Onset No Information Payers Payer name Insurance type Covered green party [place] [id number] Medicare [facility] [id number] Social History Type Description Quantity Date Captured Comments Sex Female Smoking Status No Information Chief Complaint And Reason For Visit No Information Reason For Referral Reason For Referral No Information Plan Of Treatment Date Type Action Status Appointment Nelia Castro BOOKED Future Order: Radiology Order AP Lateral Lumbar (APLatLumb), Ordered on: Ordered Future Order: Radiology Order AP Lateral Lumbar [...]
--- OUTSIDE RECORDS SUMMARY | 2023-06-13 14:57 | XMS_ITS | Clinical Summary ---
Author Name Unknown Organization [facility] Address [place], [place] [address] Care Team Providers Care Director Of Physician Practices Name Role Phone Uvaldo Lin MD Primary Care Provider + Bre Boss RN, BSN Unavailable [phone] Jagdish Hicks MD Unavailable [phone] Joanna Mccray MD Unavailable Eileen Gross FINISH SANDER Unavailable Dillan Irizarry Unavailable [phone] Allergies Active Allergy Reactions Criticality Noted [...] to use for 6 months. 1 Device 09/20/2018 Active Additional Information Patient not taking.Reported on 06/12/2023 CPAPIndications:GAGE (obstructive sleep apnea) NEW replacement CPAP [...] TAKE 1 TABLET EVERY MORNING 90 tablet 09/23/2019 Active metoprolol succinate (TOPROL XL) 50 mg sustained-release tabletIndications:Es sential hypertension TAKE 1 TABLET EVERY DAY 90 tablet 09/23/2019 Active albuterol HFA (PRO-AIR; VENTOLIN; PROVENTIL) 90 mcg/actuation inhaler Inhale 2 Puffs by mouth every 4 hours. 01/22/2020 Active budesonide (PULMICORT RESPULES) 0.25 mg/2 mL neb suspension INHALE 2MLS BY NEBULIZATION ROUTE TWICE DAILY 05/26/2021 Active arformoteroL (BROVANA) 15 mcg/2 mL nebu INHALE 2 MILLILITERS BY INHALATION ROUTE 2 TIMES EVERY DAY 05/22/2021 Active atorvastatin (LIPITOR) 40 mg tabletIndications:Hy perlipidemia, unspecified hyperlipidemia type Take 1 Tablet (40 mg) by mouth at bedtime. 90 tablet. 3 08/16/2021 Active isosorbide mononitrate (IMDUR) 30 mg extended release tablet 24 HourIndications:Card iovascular symptoms,CAD in [place] artery Take 1 Tablet (30 mg) by mouth once daily. 90 Tablet 3 08/17/2021 Active Additional Information Patient not taking.Reported on 06/12/2023 aspirin (ECOTRIN) 81 mg enteric coated tabletIndications:S/ P TAVR (transcatheter aortic valve replacement) Take 1 Tablet (81 mg) by mouth once daily with a meal. 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 [...] Encounters Date Type Department Care Team Description 06/12/2023 10:41 AM CDT - 06/12/2023 11:59 PM CDT Hospital Encounter [facility] [address] [place] [address] Eileen Gross, FINISH SANDER Non-small cell cancer of right lung (HC) 06/12/2023 10:15 AM CDT Office Visit [facility] [address] [place] [address] Eileen Gross NP Follow Up (Non-small cell cancer of right lung (HC)//) 06/12/2023 Telephone [facility] [address] [place] [address] Eileen Gross, KRISTIAN Imaging 06/12/2023 Travel 06/10/2023 8:42 AM CDT - 06/10/2023 11:59 PM CDT Hospital Encounter [facility] [address] [place] [address] Non-small cell cancer of right lung (HC) 06/10/2023 8:41 AM CDT Hospital Encounter [facility] [address] [place] [address] Joanna Mccray MD Non-small cell cancer of right lung (HC) 06/10/2023 Travel 06/07/2023 Telephone [facility] [address] [place] [address] Chinmay Mendiola MD Appointment Request (SEVERE LOW BACK PAIN) 06/07/2023 Nurse Triage [facility] [address] [place] [address] Uvaldo Lin MD Back Pain 05/07/2023 8:00 AM NET LEAD DEVELOPER Telemedicine [facility] [address] [place] [address] Lucille Meehan NP Sleep Follow-up; Telehealth (Virtual visit, no vitals taken.) 04/17/2023 Travel 04/01/2023 Telephone [facility] [place] [facility] [address] [place] [phone] Bruce Sandra MD Results 03/25/2023 9:00 AM NET LEAD DEVELOPER Ancillary Procedure [place] [facility] [address] [place] [address] from Last 3 Months Immunizations Name Administration Dates Next Due AMB Influenza, IIV3 (Age >=3 years) Preserve Free (Flu Clinic Only) 12/30/2010 AMB Influenza, IIV3 (Age >=3 years)(Flu Clinic Only) 11/28/2011,12/23/2009 COVID-19 vaccine ([email or web address] NTAmicus Medicus 30mcg/0.3mL) PF, MDV 05/17/2020,04/26/2020 Influenza Virus, Unspecified [...] Sign Reading Time Taken Comments Blood Pressure 171/72 06/12/2023 9:49 AM CDT Pulse 73 06/12/2023 9:49 AM CDT Temperature 36.6 ??C (97.8 ??F) 06/12/2023 9:49 AM CD T Respiratory Rate 20 06/12/2023 9:49 AM CDT Oxygen Saturation 96% 06/12/2023 9:49 AM CDT Inhaled Oxygen Concentration - - Weight 83.7 kg (184 lb 8 oz) 06/12/2023 9:49 AM CDT Height 157.5 cm (5' 2) 10/24/2022 2:18 PM CDT Body Mass Index 33.75 10/24/2022 2:18 PM CDT Plan of Treatment Upcoming Encounters Date Type Department Care Team (Late st Contact Info) Description 08/19/2023 Cardiac Device Check [employer] [facility] [place] [phone] Health Maintenance Due Date Last Done Comments Tetanus booster 08/16/2016 08/16/2006 Medicare Wellness for age 65+ 05/14/2018, 03/01/2016, 02/28/2015, Additional history exists COVID-19 vaccine series ( season) 2022 10/18/2020, 05/17/2020, 04/26/2020 BMI (ht and wt on same day) for age 18+ 02/09/2023 02/09/2022, 12/29/2021, 10/19/2021, Additional history exists Depression screening for age 12+ 04/19/2023 04/19/2022, 08/31/2021, 08/29/2021, Additional history exists Influenza for age 65+ 11/03/2023 12/21/2020 , 12/18/2019, 05/12/2019, Additional history exists Low Dose CT (for lung CA) ag e 50-80 06/09/2024 06/10/2023, 12/10/2022, 06/12/2022, Additional history exists Tdap Completed 08/16/2006 Hepatitis C screening for ag e 18-79 Completed 01/04/2014 Pneumococcal series for age 65+ Completed 03/01/2016, 02/28/2015, 02/28/2015, Additional history exists Zoster (shingles) series for age 50+ Completed 06/12/2019, 01/16/2019, 10/10/2009 DEXA/DXA scan for age 65+ Completed 09/30/2019, 03/2012 Medical Devices Implanted Type Area Draw Frame Operator Device Identifier Shelf Expiration Date Model / Serial / Lot [id number] ne 1-4mm 60cc Medtronic Fine Canclls Freeze Dried Implanted:Qty: 1 on 09/17/2018 by German Valdez MD at [facility] Explanted:at [facility] (Quantity not on file) Spine Medtronic Spine/Ortho 10/10/2022 [id number] / [id number] / [id number] Matrix 6cc Stacy Dbf Putty Dbm - [id number] Implanted:Qty: 1 on 09/17/2018 by German Valdez MD at [facility] Explanted:at [facility] (Quantity not on file) Spine Medtronic Spine/Ortho 07/29/2020 [id number] / [id number] / Spacer Lmbr [id number] [place] Convex Stra Plif - [id number] Implanted:Qty: 1 on 09/17/2018 by German Valdez MD at [facility] Spine Francesco Bi[employer] 06/08/2026 [id number] / / [id number] Screw Lmbr Post 6.5x40mm Vitality Va - [id number] Implanted:Qty: 2 on 09/17/2018 by German Valdez MD at [facility] Spine [employer] Spine .0 74# / / Screw Lmbr Post 6.5x45mm Vitality Va - [id number] Implanted:Qty: 4 on 09/17/2018 by German Valdez MD at [facility] Spine [employer] Spine 00.0 75# / / Set Screw Lmbr 5.5-6mm Vitality Torque - [id number] Implanted:Qty: 6 on 09/17/2018 by German Valdez MD at [facility] Spine [employer] Spine 10.0 01# / / Bernabe Lmbr 65x5.5mm Vitality Cvd Titnm - [id number] Implanted:Qty: 2 on 09/17/2018 by German Valdez MD at [facility] Spine [employer] Spine 15.0 10# / / Procedures Procedure Name Priority Date/Time Associated Diagnosis Comments XR SPINE LUMBAR 2 VIEWS STANDING ANA 06/12/2023 10:58 AM CDT Non-small cell cancer of right lung (HC) CT CHEST W Routine 06/10/2023 9:35 AM CDT Non-small cell cancer of right lung (HC) CBC WITH AUTO DIFFERENTIAL Timed 06/10/2023 8:46 AM CDT Non-small cell cancer of right lung (HC) COMP METABOLIC PANEL Today 06/10/2023 8:46 AM CDT Non-small cell cancer of right lung (HC) CBC WITH AUTO DIFFERENTIAL Today 06/10/2023 8:46 AM CDT Non-small cell cancer of right lung (HC) ECHO TTE COMPLETE WO CONTRAST Routine 03/25/2023 9:22 AM NET LEAD DEVELOPER H/O prosthetic heart valve SCAN-BONE DENSITOMETRY DEXA 09/30/2019 12:00 AM CDT ANTI HCV Routine 01/04/2014 8:08 AM NET LEAD DEVELOPER Routine general medical examination at a health care facility from Last 3 Months or Most Recently Relevant to Health Maintenance Results * XR SPINE LUMBAR 2 VIEWS STANDING (06/12/2023 10:58 AM CDT) Anatomical Region Laterality Modality Spine, LUMBAR SPINE Digital Radi ography 06/12/2023 11:2 0 AM CDT Impressions 06/12/2023 11:20 AM CDT No acute or significant incidental findings. Given the history of lung cancer, if there is ongoing concern for radiographically occult metastatic disease consider further evaluation (e.g. PET-CT, MRI) as clinically appropriate. Postsurgical findings described above. Chronic disc degeneration of the upper lumbar spine. Incidental findings described in the body of the report. Dictated by Eusebio Pringle MD @ 06/12/2023 11:20:09 AM (Electronically Signed) Narrative 06/12/2023 11:20 AM CDT For Patients: ??As a result of the Cures Act, medical imaging exams and procedure reports are released immediately into your electronic medical record. ??You may view this report before your referring provider. ??If you have questions, please contact your health care provider. INDICATION: C34.91 Non-small cell cancer of right lung (HC) ICD-10-CM Non-small cell cancer of right lung (HC) (Sic) COMPARISON: 09/17/2018 TECHNIQUE: views. ?? FINDINGS: L4-S1 posterior fusion with vertical rods and pedicle screws. An intervertebral disc spacing device is noted at L5-S1. Normal alignment. Well maintained vertebral body heights. L1-L2 and L2-L3 disc degeneration. Normal paraspinal soft tissues. Bilateral symmetrical sacroiliac osteoarthrosis. Right upper quadrant cholecystectomy clips. Procedure Note Eusebio Pringle MD - 06/12/2023 For Patients: As a result of the Cures Act, medical imagingexams and procedure reports are released immediately into your electronicmedical record. You may view this report before your referring provider.If you have questions, please contact your health care provider. INDICATION: C34.91 Non-small cell cancer of right lung (HC) ICD-10-CM Non-small cell cancer of right lung (HC) (Sic) COMPARISON: 09/17/2018 TECHNIQUE: views. FINDINGS: L4-S1 posterior fusion with vertical rods and pedicle screws. Anintervertebral disc spacing device is noted at L5-S1. Normal alignment. Well maintained vertebral body heights. L1-L2 and L2-L3 disc degeneration. Normal paraspinal soft tissues. Bilateral symmetrical sacroiliac osteoarthrosis. Right upper quadrantcholecystectomy clips. IMPRESSION: No acute or significant incidental findings. Given the history of lungcancer, if there is ongoing concern for radiographically occult metastaticdisease consider further evaluation (e.g. PET-CT, MRI) as clinicallyappropriate. Postsurgical findings described above. Chronic disc degeneration of theupper lumbar spine. Incidental findings described in the body of thereport. Dictated by Eusebio Pringle MD @ 06/12/2023 11:20:09 AM (Electronically Signed) Eileen Gross NP GENERAL IMAGING * CT CHEST W (06/10/2023 9:35 AM CDT) Anatomical Region Laterality Modality CHEST, THORAX, HEART Computed To mography 06/10/2023 10:0 2 AM CDT Impressions 06/10/2023 10:02 AM CDT 1. Chronic stable changes in the lung goins. 2. No metastatic disease or change from the CT of 12/10/2022. Please note that all CT scans at this facility use dose modulation, iterative reconstruction, and/or weight-based dosing when appropriate to reduce radiation dose to as low as reasonably achievable. Dictated by Noemi Jones MD @ 06/10/2023 10:02:39 AM (Electronically Signed) Narrative 06/10/2023 10:02 AM CDT For Patients: ??As a result of the Century Cures Act, medical imaging exams and procedure reports are released immediately into your electronic medical record. ??You may view this report before your referring provider. ??If you have questions, please contact your health care provider. INDICATION: Non-small cell cancer of the right lung TECHNIQUE: CT chest with contrast. COMPARISON: 12/10/2022 FINDINGS: Cardiovascular structures: Heart size is normal. AVR pacemaker with multiple leads. Thoracic aorta and main pulmonary artery are normal in caliber. ?? Mediastinum and milana: Calcified granuloma. No sign of mass or significant adenopathy. Lungs: Right supra hilar mass and triangular configuration right upper lobe unchanged. Small scattered bilateral ground-glass densities, minimal pulmonary nodules and focal scarring in the left lower lobe are unchanged. Pleura and pericardium: No effusions. Chest wall and axilla: No mass or adenopathy. Bones: Healing fracture anterior right 2nd rib no lytic or osteoblastic lesions. Upper abdomen: Hiatus hernia, otherwise unremarkable. Procedure Note Anil Jones MD - 06/10/2023 For Patients: As a result of the Cures Act, medical imagingexams and procedure reports are released immediately into your electronicmedical record. You may view this report before your referring provider.If you have questions, please contact your health care provider. INDICATION: Non-small cell cancer of the right lung TECHNIQUE: CT chest with contrast. COMPARISON: 12/10/2022 FINDINGS: Cardiovascular structures: Heart size is normal. AVR pacemaker withmultiple leads. Thoracic aorta and main pulmonary artery are normal incaliber. Mediastinum and milana: Calcified granuloma. No sign of mass or significantadenopathy. Lungs: Right supra hilar mass and triangular configuration right upperlobe unchanged. Small scattered bilateral ground-glass densities, minimalpulmonary nodules and focal scarring in the left lower lobe are unchanged. Pleura and pericardium: No effusions. Chest wall and axilla: No mass or adenopathy. Bones: Healing fracture anterior right 2nd rib no lytic or osteoblasticlesions. Upper abdomen: Hiatus hernia, otherwise unremarkable. IMPRESSION: 1. Chronic stable changes in the lung goins. 2. No metastatic disease or change from the CT of 12/10/2022. Please note that all CT scans at this facility use dose modulation,iterative reconstruction, and/or weight-based dosing when appropriate toreduce radiation dose to as low as reasonably achievable. Dictated by Noemi Jones MD @ 06/10/2023 10:02:39 AM (Electronically Signed) Joanna Mccray MD CT * (ABNORMAL) CBC WITH AUTO DIFFERENTIAL (06/10/2023 8:46 AM CDT) WHITE BLOOD COUNT 6.2 4.5 - 11.0 thou/cu mm 06/10/2023 8:50 AM CDT [facility] RED BLOOD COUNT 5.23(H) 4.00 - 5.20 mil/cu mm 06/10/2023 8:50 AM CDT [facility] HEMOGLOBIN 15.1 12.0 - 16.0 g/dL 06/10/2023 8:50 AM [facility] HEMATOCRIT 45.0 33.0 - 51.0 % 06/10/2023 8:50 AM [facility] MCV 86 80 - 100 fL 06/10/2023 8:50 AM [facility] MCH 28.9 26.0 - 34.0 pg 06/10/2023 8:50 AM [facility] MCHC 33.6 32.0 - 36.0 g/dL 06/10/2023 8:50 AM [facility] RDW 13.4 11.5 - 15.5 % 06/10/2023 8:50 AM [facility] PLATELET COUNT 193 140 - 440 thou/cu mm 06/10/2023 8:50 AM [facility] MPV 9.8 6.5 - 11.0 fL 06/10/2023 8:50 AM [facility] % NEUT 66.0 % 06/10/2023 8:50 AM [facility] % LYMPH 22.7 % 06/10/2023 8:50 AM [facility] % MONO 9.0 % 06/10/2023 8:50 AM [facility] % EOS 1.8 % 06/10/2023 8:50 AM [facility] % BASO 0.5 % 06/10/2023 8:50 AM [facility] ABSOLUTE NEUTROPHILS 4.1 1.7 - 7.0 thou/cu mm 06/10/2023 8:50 AM [facility] ABSOLUTE LYMPHOCYTES 1.4 0.9 - 2.9 thou/cu mm 06/10/2023 8:50 AM [facility] ABSOLUTE MONOCYTES 0.6 <0.9 thou/cu mm 06/10/2023 8:50 AM [facility] ABSOLUTE EOSINOPHILS 0.1 <0.5 thou/cu mm 06/10/2023 8:50 AM [facility] ABSOLUTE BASOPHILS 0.0 <0.3 thou/cu mm 06/10/2023 8:50 AM [facility] Blood BLOOD SPECIMEN / Unknown Venipuncture / Unknown 06/10/2023 8:46 AM CDT 06/10/2023 8:46 AM [facility] - 06/10/2023 8:50 AM CDT This procedure was originally ordered at [facility]. This procedure was originally ordered at [facility]. Joanna Mccray MD HEMATOLOGY [facility] [address] [place] [address] * (ABNORMAL) COMP METABOLIC PANEL (06/10/2023 8:46 AM CDT) SODIUM 145 136 - 145 mmol/L 06/10/2023 9:06 AM [facility] POTASSIUM 4.1 3.5 - 5.1 mmol/L 06/10/2023 9:06 AM [facility] CHLORIDE 106 98 - 107 mmol/L 06/10/2023 9:06 AM [facility] CO2,TOTAL 28 22 - 29 mmol/L 06/10/2023 9:06 AM [facility] ANION GAP 11 5 - 18 06/10/2023 9:06 AM [facility] GLUCOSE 158(H) 70 - 99 mg/dL 06/10/2023 9:06 AM [facility] CALCIUM 9.8 8.8 - 10.2 mg/dL 06/10/2023 9:06 AM [facility] BUN 15 8 - 23 mg/dL 06/10/2023 9:06 AM [facility] CREATININE 0.93(H) 0.50 - 0.90 mg/dL 06/10/2023 9:06 AM [facility] BUN/CREAT RATIO 16 10 - 20 9:06 AM [facility] eGFR 64(L) >90 mL/min/1.7 3m2 06/10/2023 9:06 AM [facility] Comment:As of 2021, eG FR is calculated by the CKD-EPI creatinine equation without race adjustment. ??eGFR can be influenced by muscle mass, exercise, and diet. ??The reported eGFR is an estimation only and is only applicable if the renal function is stable. ALBUMIN 4.6 4.0 - 4.9 g/dL 06/10/2023 9:06 AM [facility] PROTEIN,TOTAL 7.1 6.0 - 8.0 g/dL 06/10/2023 9:06 AM [facility] BILIRUBIN,TOTAL 1.1 0.0 - 1.2 mg/dL 06/10/2023 9:06 AM [facility] ALK PHOSPHATASE 87 35 - 104 IU/L 06/10/2023 9:06 AM [facility] ALT (SGPT) 22 10 - 35 IU/L 06/10/2023 9:06 AM [facility] AST (SGOT) 35 10 - 35 IU/L 06/10/2023 9:06 AM [facility] Blood BLOOD SPECIMEN / Unknown Venipuncture / Unknown 06/10/2023 8:46 AM CDT 06/10/2023 8:46 AM CDT Joanna Mccray MD CHEMISTRY Performing Organization Address City/[facility] Co de Phone Number [facility] [address] [place] [id number] * ECHO TTE COMPLETE WO CONTRAST (03/25/2023 9:22 AM NET LEAD DEVELOPER) AORTIC VALVE MEAN PG 4 mmHg EJECTION FRACTION 71 % PEAK TR VELOCITY 2.2 m/s LVEDD 3.8 cm Anatomical Region Laterality Modality Ultrasound 03/25/2023 8:55 AM NET LEAD DEVELOPER Narrative 03/25/2023 10:22 AM NET LEAD DEVELOPER ECHOCARDIOGRAM EDENILSON Tavarez BONIFACIO ? Accession#: ?? [id number] : ?1945 77 years Study Date: ?? 03/25/2023 8:55:58 AM Gender: F ?BP: ? 98/74 mmHg Height: 157.00 cm ?BSA: ?1.84 m? ? ? Weight: 83.00 kg ? Tech: ? MHR ? Referring MD: MELYSSA LEON Site: ? [facility] Reading Location: MOBILE OP Patient Location: Outpatient. Procedure: 2D, Color Doppler and Spectral Doppler. Indication for study: AVR Cardiac Rhythm: Regular.Study quality: Fair. Final Impressions: 1. Normal left ventricular size, normal wall thickness, normal global systolic function, calculated EF of 71 %. 2. The aortic valve is a normal functioning 26 mm 26 mm CoreValve Evolut FX TAVR, no stenosis and no regurgitation. There is trivial paravalvular regurgitation. 3. The mitral valve is sclerotic, mild mitral regurgitation. 4. Mitral stenosis with mildly increased mean gradient of 4.0 mmHg at a heart rate of 74. 5. No pericardial effusion. Chamber Sizes and Function Normal left ventricular size, normal wall thickness, normal global systolic function, calculated EF of 71 %. No definite resting regional wall motion abnormality seen. Left atrial size is normal. Right ventricular cavity size is normal, global systolic RV function is normal. The right atrium is normal. Right atrial volume index is 19 ml/m? ? ?. Right atrial area is 15 cm? ? ?. The pulmonary artery is of normal size and origin. The sinus of Valsalva is normal sized. The ascending aorta is normal sized. Valves, RV Pressures and Diastolic Function The aortic valve is a normal functioning 26 mm 26 mm CoreValve Evolut FX TAVR, no stenosis and no regurgitation. There is trivial paravalvular regurgitation. The mitral valve is sclerotic, mild mitral regurgitation. Moderate mitral annular calcification is present. A mildly increased gradient of 4.0 mmHg at a heart rate of 74 is calculated across the mitral valve using continuous Doppler examination. Indeterminate pattern of LV diastolic filling. The tricuspid valve is normal in structure. Tricuspid regurgitation is mild regurgitation. The tricuspid regurgitant velocity is 2.2 m/s, the estimated right ventricular systolic pressure is 20 mmHg plus right atrial pressure. There is normal estimated pulmonary pressure by tricuspid regurgitation velocity and right atrial pressure. The pulmonic valve is normal. No pulmonary regurgitation. Masses, Effusion, Shunts There is no pericardial effusion. The inferior vena cava is normal sized, respiratory size variation greater than 50%. Interatrial septum is not well visualized. MEASUREMENTS AND CALCULATIONS 2-D Measurements and LV Function: LVID (d) ?3.8 cm Planimetered EF 71 % LVID (s) ?2.3 cm LV FS% (2D) ? 41 % IVS (d) ? 1.0 cm LVOT diameter ?? 2.0 cm LVPW (d) ?1.1 cm HR ?75 bpm Ao Sinus ?3.1 cm LA Vol index ?27 ml/m2 Ao ST junct 2.7 cm RA Vol index ?19 ml/m2 Asc Ao ?3.8 cm RA area ? 15 cm? ? ? LA ?3.8 cm RV Max 4C (d) ?? 3.0 cm Diastology: Mitral ?Tissue Doppler E Peak 1.1 m/s ??e', Septum ? 0.05 m/s A Peak 1.4 m/s ??e', Lateral ?0.05 m/s E/A ?0.8 ?E/e' Average ?? 22.68 DT ? 425 msec Aortic Valve: Vmax ? 1.4 m/s ??RODRIGO (V) ?? 2.38 cm? ? ? VTI ?0.30 m ?? RODRIGO (I) ?? 2.53 cm? ? ? LVOT V max 1.1 m/s ??Max PG ?8 mmHg LVOT VTI ?? 0.26 m ?? Mean PG ?? 4 mmHg SV ? 76 ml ?Dim Index 0.85 SV index ?? 41 ml/m? ? ? CO ?5.7 l/min ?CI ?3.1 l/min/m? ? ? Mitral Valve: MVA ? 1.8 cm? ? ? MV P 1/2 ??123 msec MV Mean G 4 mmHg Tricuspid Valve and estimated PA pressures: TR Vmax 2.2 m/s TAPSE 2.1 cm TR maxG 20 mmHg . This study was interpreted by an [facility] accredited facility. CC: [facility]. ??Final ?? Procedure Note Radha Toure MD - 03/25/2023 ECHOCARDIOGRAM EDENILSON VALDOVINOS : 1945 77 years Study Date: 03/25/2023 8:55:58 AM Gender: F BP: 98/74 mmHg Height: 157.00 cm BSA: 1.84 m? ? ? Weight: 83.00 kg Tech: [facility] Referring MD: MELYSSA LEON Site: [facility] Reading Location: MOBILE OP Patient Location: Outpatient. Procedure: 2D, Color Doppler and Spectral Doppler. Indication for study: AVR Cardiac Rhythm: Regular.Study quality: Fair. Final Impressions: 1. Normal left ventricular size, normal wall thickness, normal globalsystolic function, calculated EF of 71 %. 2. The aortic valve is a normal functioning 26 mm 26 mm CoreValve EvolutFX TAVR, no stenosis and no regurgitation. There is trivial paravalvularregurgitation. 3. The mitral valve is sclerotic, mild mitral regurgitation. 4. Mitral stenosis with mildly increased mean gradient of 4.0 mmHg at aheart rate of 74. 5. No pericardial effusion. Chamber Sizes and Function Normal left ventricular size, normal wall thickness, normal globalsystolic function, calculated EF of 71 %. No definite resting regionalwall motion abnormality seen. Left atrial size is normal. Rightventricular cavity size is normal, global systolic RV function is normal.The right atrium is normal. Right atrial volume index is 19 ml/m? ? ?. Rightatrial area is 15 cm? ? ?. The pulmonary artery is of normal size and origin.The sinus of Valsalva is normal sized. The ascending aorta is normalsized. Valves, RV Pressures and Diastolic Function The aortic valve is a normal functioning 26 mm 26 mm CoreValve Evolut FXTAVR, no stenosis and no regurgitation. There is trivial paravalvularregurgitation. The mitral valve is sclerotic, mild mitral regurgitation.Moderate mitral annular calcification is present. A mildly increasedgradient of 4.0 mmHg at a heart rate of 74 is calculated across the mitralvalve using continuous Doppler examination. Indeterminate pattern of LV diastolic filling. The tricuspid valve isnormal in structure. Tricuspid regurgitation is mild regurgitation. Thetricuspid regurgitant velocity is 2.2 m/s, the estimated right ventricularsystolic pressure is 20 mmHg plus right atrial pressure. There is normalestimated pulmonary pressure by tricuspid regurgitation velocity and rightatrial pressure. The pulmonic valve is normal. No pulmonaryregurgitation. Masses, Effusion, Shunts There is no pericardial effusion. The inferior vena cava is normal sized,respiratory size variation greater than 50%. Interatrial septum is notwell visualized. MEASUREMENTS AND CALCULATIONS 2-D Measurements and LV Function: LVID (d) 3.8 cm Planimetered EF 71 % LVID (s) 2.3 cm LV FS% (2D) 41 % IVS (d) 1.0 cm LVOT diameter 2.0 cm LVPW (d) 1.1 cm HR 75 bpm Ao Sinus 3.1 cm LA Vol index 27 ml/m2 Ao ST junct 2.7 cm RA Vol index 19 ml/m2 Asc Ao 3.8 cm RA area 15 cm? ? ? LA 3.8 cm RV Max 4C (d) 3.0 cm Diastology: Mitral Tissue Doppler E Peak 1.1 m/s e', Septum 0.05 m/s A Peak 1.4 m/s e', Lateral 0.05 m/s E/A 0.8 E/e' Average 22.68 DT 425 msec Aortic Valve: Vmax 1.4 m/s RODRIGO (V) 2.38 cm? ? ? VTI 0.30 m RODRIGO (I) 2.53 cm? ? ? LVOT V max 1.1 m/s Max PG 8 mmHg LVOT VTI 0.26 m Mean PG 4 mmHg SV 76 ml Dim Index 0.85 SV index 41 ml/m? ? ? CO 5.7 l/min CI 3.1 l/min/m? ? ? Mitral Valve: MVA 1.8 cm? ? ? MV P 1/2 123 msec MV Mean G 4 mmHg Tricuspid Valve and estimated PA pressures: TR Vmax 2.2 m/s TAPSE 2.1 cm TR maxG 20 mmHg . This study was interpreted by an IAC accredited facility. CC: [facility] ([facility]) [place]. Final Melyssa Leon MD ECHO ORD * SCAN-BONE DENSITOMETRY DEXA (09/30/2019 12:00 AM CDT) Anatomical Region Laterality Modality Other Scanner OTHER * ANTI HCV (01/04/2014 8:08 AM NET LEAD DEVELOPER) HEPATITIS C ANTIBODY Non-Reacti ve Non-Reacti ve 01/04/2014 4:54 PM NET LEAD DEVELOPER [facility] [employer] [facility] Blood specimen (specimen) BLOOD SPECIMEN / Unknown Venipuncture / Unknown 01/04/2014 8:08 AM NET LEAD DEVELOPER 01/04/2014 8:08 AM NET LEAD DEVELOPER Narrative [facility] [facility] - 01/04/2014 4:54 PM NET LEAD DEVELOPER Antibodies to HCV not detected; does not exclude the possibility of exposure to HCV. Jarrod Cerna MD SEND OUTS [facility] [employer] [facility] [address] [place] [address], [place] from Last 3 Months or Most Recently Relevant to Health Maintenance Advance Directives Documents on File Type Date Recorded Patient Sweeper Brush Maker Machine Expl anation Healthcare Directive 01/03/2016 11:31 AM 1 * Full Code (Latest Code Status on File) Date Activated Date Inactivated Comments 01/03/2022 4:20 PM 01/05/2022 3:09 PM Question Answer Comments Code Status Discussion: Reviewed Preferences * Full Code Date Activated Date Inactivated Comments 08/16/2021 10:37 AM 08/17/2021 9:11 PM Question Answer Comments Code Status Discussion: Reviewed Preferences * Full Code Date Activated Date Inactivated Comments 09/17/2018 3:11 PM 09/20/2018 7:59 PM * Full Code Date Activated Date Inactivated Comments 08/11/2018 8:16 AM 08/11/2018 3:33 PM * Full Code Date Activated Date Inactivated Comments 06/06/2017 12:29 PM 06/06/2017 5:38 PM Care Teams Director Of Physician Practices Relationship Specialty Start Date End Date Uvaldo Lin MD [address] [place] [address] PCP - General Family Practice 07/04/18 Bre Boss, RN, BSN [address] [place] [address] Cancer Nurse Coordinator Registered Nurse 03/15/20 Jagdish Hicks MD [address] [place] [id number] [place] [address] Consulting Physician Surgery - Cardiothoracic 03/15/20 Joanna Mccray MD [address] [place] [address] Oncology Oncology 07/26/20 Eileen Gross, FINISH SANDER [address] [place] [address] Oncology Oncology 07/26/20 Dillan Irizarry LSW [address] [place] [address] Oncology Registrar Oncology 01/03/23
--- OUTSIDE RECORDS SUMMARY | 2023-06-13 14:58 | XMS_ITS | Encounter Summary ---
Author Name Unknown Organization [facility] Address [address] [place] [address] Care Team Providers Care Education Instructor Name Role Phone Unavailable Primary Care Provider Unavailabl e Encounter Details Date Type Department Care Team (Latest Contact Info) Description 06/10/2023 10:30 AM CDT Clinical Communication Virtual Review in [place], [place] [address] [place], [place] [id number] Social History Tobacco Use Types Packs/Day Years [...] this encounter Plan of Treatment Not on file documented as of this encounter Visit Diagnoses Not on filedocumented in this encounter
--- OUTSIDE RECORDS SUMMARY | 2023-06-13 14:58 | XMS_ITS ---
Author Name Unknown Organization [facility] Address [address] [place] [address] Care Team Providers Care Transportation Economics Teacher Name Role Phone Unavailable Primary Care Provider [...] On Elapsed Days Session Dose Total Dose [id number] 04/13/2020 7 1,200 cGy 4,800 cGy
--- OUTSIDE RECORDS SUMMARY | 2023-06-13 14:58 | XMS_ITS | Referral Summary ---
Author Name Unknown Organization [facility] Address [address] [place] [address] Care Team Providers Care Chancery Clerk Name Role Phone Unavailable Primary Care Provider Unavailabl e Source Comments Patient records contain information from all sites at [facility]. For routine questions regarding patient records, call [phone] during business hours, M-F 8:00 AM - 5:00 PM Central Time. Record requests for emergency care only can be directed to [phone] at any time.[facility] Encounters Date Type Department Care Team Description 06/13/2023 12:19 PM CDT Hospital Encounter Department of Radiation Oncology in [place], [place] [address] [place] [phone] Allison Campos M.D. 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 0 12/09/2014 Active furosemide (LASIX) 40 mg tablet Take 20 mg by mouth. Take one-half tablet daily 0 09/23/2019 Active meclizine (ANTIVERT) 25 mg tablet Take 12.5 mg by mouth as needed. 0 Active metoprolol succinate (TOPROL-XL) 50 mg 24 hr tablet TAKE 1 TABLET EVERY DAY 0 09/23/2019 Active miscellaneous medical supply mis NEW replacement CPAP machine for home use [...] Frequency of use: Daily 0 09/09/2018 Active fluticasone propion-salmeter oL 250-50 mcg/dose diskus inhaler 0 09/21/2020 Active budesonide (PULMICORT) 0.25 mg/2 mL nebulizer solution INHALE 2MLS BY NEBULIZATION ROUTE TWO TIMES EVERY DAY. 0 Active ipratropium-albu teroL (DUONEB) 0.5-2.5 mg/3 mL nebulizer solution INHALE 3ML BY NEBULIZATION ROUTE FOUR TIMES PER DAY 0 05/27/2023 Active atorvastatin (LIPITOR) 40 mg tablet Take 1 tablet by mouth. 0 08/16/2021 Active atorvastatin (LIPITOR) 20 mg tablet Take 20 mg by mouth. 0 4 Discontinue d(Dose adjustment) cholecalciferol (VITAMIN D3) 25 mcg (1,000 Unit) capsule Take 1 capsule by mouth. 0 4 Discontinue d(Therapy completed) B complex-vitamins (BALANCE B-50) tablet Take 1 tablet by mouth daily. 0 4 Discontinue d(Therapy completed) LORazepam (ATIVAN) 1 mg tablet Take 1 tablet (1 mg total) by mouth daily as needed for anxiety (take 45 minutes prior to procedure) for up to 6 days. 6 tablet 0 03/28/2020 4 Discontinue d(Therapy completed) TURMERIC ORAL Take by mouth 2 (two) times a day. 0 4 Discontinue d(Therapy completed) azithromycin (Zithromax Z-Juancho) 250 mg tablet Take 2 tablets (500 mg) on Day 1, followed by 1 tablet (250 mg) once daily on Days 2 through 5. 6 tablet 0 08/10/2020 4 Discontinue d(Therapy completed) predniSONE (DELTASONE) 20 mg tablet Take 3 tablets (60 mg total) by mouth daily. Start with 60mg Qday for two weeks, then 40mg Qd for 2 weeks, then 20mg Qd for 2 weeks 70 tablet 0 08/10/2020 4 Discontinue d(Therapy completed) neomycin-polymyx in-dexamethasone (MAXITROL) 3.5mg/mL-10,000 unit/mL-0.1 % ophthalmic suspension APPLY TO INJECTED EYE THREE TIMES A DAY FOR 3 DAYS AFTER INJECTION 0 08/09/2020 4 Discontinue d(Therapy completed) predniSONE (DELTASONE) 5 mg tablet Take 2 tablets (10 mg total) by mouth daily. On October 03 start 10mg for 2 weeks, then take 5mg once per day for two weeks, then stop 42 tablet 0 10/03/2020 4 Discontinue d(Therapy completed) warfarin (COUMADIN) 3 mg tablet Take 3 mg by mouth daily. 0 02/28/2022 4 Discontinue d(Therapy completed) Active Problems Problem Noted Date Diagnosed Date [...] Sign Reading Time Taken Comments Blood Pressure 144/76 06/13/2023 12:53 PM CDT Pulse 79 06/13/2023 12:53 PM CDT Temperature 36.7 ??C (98 ??F) 06/13/2023 12: 53 PM CDT Respiratory Rate - - Oxygen Saturation - - Inhaled Oxygen Concentration - - Weight 83.3 kg (183 lb 10.3 oz) 024 12:53 PM CDT Height 157 cm (5' 1.81) 03/28/2020 9:23 AM PRODUCT DEVELOPMENT ACTUARY Body Mass Index 33.79 03/28/2020 9:23 AM PRODUCT DEVELOPMENT ACTUARY Plan of Treatment Not on file Medical Devices Implanted Type Area Ordnance Keeper Device Identifier Shelf Expiration Date Model / Serial / Lot Hardware E.G. Pins/Screws/R ods Hardware e.g. pins/screws/r ods Spine Lumbar Pacemaker Pacemaker Heart Procedures Procedure Name Priority Date/Time Associated Diagnosis Comments OUTSIDE CT BODY Routine 06/10/2023 9:30 AM CDT from Last 3 Months Results * CT CHEST W-Outside CT Body (06/10/2023 9:30 AM CDT) Narrative IIMS - 06/11/2023 8:55 AM CDT This order has been created and auto-finalized to support the import of outside images. If available, original interpretation can be found on the Media Tab in Chart Review, in Document Viewer, or as an image in QREADS. If a re-interpretation or overread is required please follow defined workflow. ?? Provider Not In System IMG CT PROCEDURES IIMS NA from Last 3 Months
--- OUTSIDE RECORDS SUMMARY | 2023-06-13 14:58 | XMS_ITS | Clinical Summary ---
Author Name Unknown Organization [facility] Address [address] [place] [address] Care Team Providers Care Wind Energy Technician Name Role Phone Unavailable Primary Care Provider Unavailabl e Source Comments Patient records contain information from all sites at [facility]. For routine questions regarding patient records, call [phone] during business hours, M-F 8:00 AM - 5:00 PM Central Time. Record requests for emergency care only can be directed to [phone] at any time.[facility] Allergies Active Allergy Reactions Criticality Noted Date [...] DAY 0 09/23/2019 Active miscellaneous medical supply misc NEW replacement CPAP machine for home use [...] from 02/29/2020:Stage IA3(cT1c, cN0, cM0) - Unsigned Encounters Date Type Department Care Team Description 06/13/2023 12:19 PM CDT Hospital Encounter Department of Radiation Oncology in [address] [phone] Allison Campos M.D. 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) 06/10/2023 10:30 AM CDT Clinical Communication Virtual Review in [address] [phone] from Last 3 Months Social History Tobacco [...] 157 cm (5' 1.81) 03/28/2020 9:23 AM PIPE COVERER HELPER Body Mass Index 33.79 03/28/2020 9:23 AM PIPE COVERER HELPER Plan of Treatment Health Maintenance Due Date Last Done Comments Hepatitis C Screening 1945 COVID-19 Vaccine ( season) 2022 10/18/2020, 05/17/2020, 04/26/2020 Depression Screening (Annual PHQ-2) 03/04/2023 Fall Risk Screen (Annual) 03/04/2023 DTaP,Tdap,and Td Vaccines (3 - Td or Tdap) 09/19/2032 09/19/2022, 08/16/2006 Pneumococcal vaccine (65+ years) Completed 03/01/2016, 02/28/2015, 12/28/1994 Zoster Vaccines Completed 06/12/2019, 01/02, 10/10/2009 Influenza Vaccine Completed 01/03/2023, , 12/21/2020, Additional history exists HPV Vaccines Aged Out No longer eligi ble based on patient's age to complete this topic Medical Devices Implanted Type Area Pattern Hanger Device Identifier Shelf Expiration Date Model / [...]
--- OUTSIDE RECORDS SUMMARY | 2023-06-13 14:58 | XMS_ITS ---
Author Name Unknown Organization [facility] Address [address] [place] [address] Care Team Providers Care Molten Iron Pourer Name Role Phone Unavailable Unavailable Unavailable Surgery Details Not on file Complications Check Surgery Details section. Procedure Estimated Blood Loss Check Surgery Details section. Procedure Findings Check Surgery Details section. Procedure Specimens Taken Check Surgery Details section.
--- OUTSIDE RECORDS SUMMARY | 2023-06-13 14:58 | XMS_ITS | Encounter Summary ---
Author Name Unknown Organization [facility] Address [address] [place] [address] Care Team Providers Care Sales Advisory Manager Name Role Phone Unavailable Primary Care Provider Unavailabl e Reason for Referral * Outpatient (Routine) - Authorized Specialty Diagnoses / Procedures Referred By Contac t Referred To Contact Radiation Oncology Faina Reyes P.A.-C., M.SAmandeep [address] [place] [phone] Allison Campos M.D. 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 [address] [place] [phone] [facility] Referral ID Status Reason Start Date Expiration Date V isits Requested Visits Authorized [id number] Authorized 06/13/2023 06/12/2024 1 1 * Outpatient (Routine) - Closed Specialty Diagnoses / Procedures Referred By Dion t Referred To Contact Radiation Oncology Faina Reyes P.A.-C., M.SAmandeep [address] [place] [phone] Allison Campos M.D. [address] [place] [phone] Referral ID Status Reason Start Date Expiration Date Visits Re quested Visits Authorized [id number] Closed 12/11/2022 12/10/2025 1 1 Scheduling Instructions Please schedule after patient's next CT chest scan as ordered by Dr. Mccray, anticipate this will be in either 6 or 12 months Reason for Visit * Outpatient (Routine) - Closed Specialty Diagnoses / Procedures Referred By Dion villanueva Referred To Contact Radiation Oncology Faina Reyes P.A.-C., M.SAmandeep [address] [place] [phone] Allison Campos M.D. [address] [place] [phone] Referral ID Status Reason Start Date Expiration Date Visits Re quested Visits Authorized [id number] Closed 12/11/2022 12/10/2025 1 1 Encounter Details Date Type Department Care Team (Latest Contact Info) Description 06/13/2023 12:19 PM CDT Hospital Encounter Department of Radiation Oncology in [place], [place] [address] [place] [phone] Allison Campos M.D. 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
== END 2023-06-13 15:11 | disposition home or self-care (01) ==
LOC: ED 14:55
PROVIDERS: Emergency Provider Internal Medicine; PCP Family Medicine
DX: M54.50 Low back pain, unspecified (principal)
CPT/HCPCS: 99283

== ENCOUNTER 2023-07-01 10:46 | Outpatient (CLI) | payer MEDICARE, BC, SELFPAY | END 2023-07-01 10:47 | disposition home or self-care (01) | PROVIDERS: PCP Family Medicine; Visit Provider Family Medicine | DX: E78.2 Mixed hyperlipidemia (principal); I10 Essential (primary) hypertension | CPT/HCPCS: 80048; 80061; 85025 ==

== ENCOUNTER 2023-07-04 08:22 | Outpatient (CLI) | payer MEDICARE, BC, SELFPAY ==
--- OUTSIDE RECORDS SUMMARY | 2023-07-04 08:26 | XMS_ITS | Clinical Summary ---
Author Name Unknown Organization [facility] Address [address] [place] [address] Care Team Providers Care Milling Machinist Name Role Phone Unavailable Primary Care Provider Unavailabl e Source Comments Patient records contain information from all sites at [facility]. For routine questions regarding patient records, call [phone] during business hours, M-F 8:00 AM - 5:00 PM Central Time. Record requests for emergency care only can be directed to [phone] at any time.[facility] Allergies Active Allergy Reactions Criticality Noted Date [...] mg/3 mL nebulizer solution Inhale 6 mL. 02/19/[address] tablet Take 81 mg by mouth. 12/09/2014 Active furosemide (LASIX) 40 mg tablet Take 20 mg by mouth. Take one-half tablet daily 09/23/2019 Active meclizine (ANTIVERT) 25 mg tablet Take 12.5 mg by mouth as needed. Active metoprolol succinate (TOPROL-XL) 50 mg 24 hr tablet TAKE 1 TABLET EVERY DAY 09/23/2019 Active miscellaneous medical supply misc NEW [...] Need: 99 months, Frequency of use: Daily 09/09/2018 Active fluticasone propion-salmeter oL 250-50 mcg/dose diskus inhaler 09/21/2020 Active budesonide (PULMICORT) 0.25 mg/2 mL nebulizer solution INHALE 2MLS BY NEBULIZATION ROUTE TWO TIMES EVERY DAY. Active ipratropium-albu teroL (DUONEB) 0.5-2.5 mg/3 mL nebulizer solution INHALE 3ML BY NEBULIZATION ROUTE FOUR TIMES PER DAY 05/27/2023 Active atorvastatin (LIPITOR) 40 mg tablet Take 1 tablet by mouth. 08/16/2021 Active atorvastatin (LIPITOR) 20 mg tablet Take 20 mg by mouth. 4 Discontinue d(Dose adjustment) cholecalciferol (VITAMIN D3) 25 mcg (1,000 Unit) capsule Take 1 capsule by mouth. 4 Discontinue d(Therapy completed) B complex-vitamins (BALANCE B-50) tablet Take 1 tablet by mouth daily. 4 Discontinue d(Therapy completed) LORazepam (ATIVAN) 1 mg tablet Take 1 tablet (1 mg total) by mouth daily as needed for anxiety (take 45 minutes prior to procedure) for up to 6 days. 6 tablet 03/28/2020 4 Discontinue d(Therapy completed) TURMERIC ORAL Take by mouth 2 (two) times a day. 4 Discontinue d(Therapy completed) azithromycin (Zithromax Z-Juancho) 250 mg tablet Take 2 tablets (500 mg) on Day 1, followed by 1 tablet (250 mg) once daily on Days 2 through 5. 6 tablet 08/10/2020 4 Discontinue d(Therapy completed) predniSONE (DELTASONE) 20 mg tablet Take 3 tablets (60 mg total) by mouth daily. Start with 60mg Qday for two weeks, then 40mg Qd for 2 weeks, then 20mg Qd for 2 weeks 70 tablet 08/10/2020 4 Discontinue d(Therapy completed) neomycin-polymyx in-dexamethasone (MAXITROL) 3.5mg/mL-10,000 unit/mL-0.1 % ophthalmic suspension APPLY TO INJECTED EYE THREE TIMES A DAY FOR 3 DAYS AFTER INJECTION 08/09/2020 4 Discontinue d(Therapy completed) predniSONE (DELTASONE) 5 mg tablet Take 2 tablets (10 mg total) by mouth daily. On October 03 start 10mg for 2 weeks, then take 5mg once per day for two weeks, then stop 42 tablet 10/03/2020 4 Discontinue d(Therapy completed) warfarin (COUMADIN) 3 mg tablet Take 3 mg by mouth daily. 02/28/2022 4 Discontinue d(Therapy completed) Active Problems Problem Noted Date Diagnosed Date Chronic Obstructive Pulmonary Disease 12/12/2022 Malignant Neoplasm Of Lung Upper Lobe Or Bronchu s Right 03/25/2020 Cancer Staging:Clinical stage from 02/29/2020:Stage IA3(cT1c, cN0, cM0) - Unsigned Encounters Date Type Department Care Team Description 06/13/2023 12:19 PM CDT - 06/13/2023 4:10 PM CDT Hospital Encounter Department of Radiation Oncology in [address] [phone] Allison Campos M.D. 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 Pins/Screws/R ods Hardware e.g. pins/screws/r ods Spine Lumbar Pacemaker Pacemaker Heart Procedures Procedure Name Priority Date/Time Associated Diagnosis Comments OUTSIDE CT BODY Routine 06/10/2023 9:30 AM CDT from Last 3 Months Results * CT CHEST W-Outside CT Body (06/10/2023 9:30 AM CDT) Narrative II - 06/11/2023 8:55 AM CDT This order [...]
--- OUTSIDE RECORDS SUMMARY | 2023-07-04 08:26 | XMS_ITS | Clinical Summary ---
Author Name Unknown Organization [facility] Address [place], [place] [address] Care Team Providers Care Gas Turbine Assembler Name Role Phone Uvaldo Lin MD Primary Care Provider + Bre Boss RN, BSN Unavailable [phone] Jagdish Hicks MD Unavailable [phone] Joanna Mccray MD Unavailable Eileen Gross TELEMARKETING SALES REPRESENTATIVE Unavailable Dillan Irizarry Unavailable [phone] Allergies Active Allergy Reactions Criticality Noted [...] release tablet 24 HourIndications:Card iovascular symptoms,CAD in [place] artery Take 1 Tablet (30 mg) by [...] TONY (dyspnea on exertion) 10/19/2021 CAD in [place] artery 10/19/2021 Non-small cell cancer of right lung 07/26/2020 GAGE 08/20/2016 AHI-10; REM severe with hypoxemia 08/28/2016 Arthritis, lumbar spine 03/07/2015 Aortic stenosis 07/09/2013 Family hx of colon cancer 02/04/2012 Overview: mother Vitamin D deficiency 04/26/2009 Hypertension 09/14/2008 Vascular disease 02/06/2008 Glaucoma 09/24/2006 Coronary atherosclerosis of unspecified type of vessel, [place] or graft 08/16/2006 Overview: Angioplasty, no stent. [...] - 06/12/2023 11:59 PM CDT Hospital Encounter [facility] [address] [place] [address] Eileen Gross, TELEMARKETING SALES REPRESENTATIVE Non-small cell cancer of right lung (HC) 06/12/2023 10:15 AM CDT Office Visit [facility] [address] [place] [address] Eileen Gross, KRISTIAN Follow Up (Non-small cell cancer of right lung (HC)//) 06/12/2023 Telephone [facility] [address] [place] [address] Eileen Gross, KRISTIAN Imaging 06/12/2023 Travel 06/10/2023 8:42 AM CDT - 06/10/2023 11:59 PM CDT Hospital Encounter [facility] [address] [place] [address] Non-small cell cancer of right lung (HC) 06/10/2023 8:41 AM CDT Hospital Encounter [facility] [address] [place] [address] Joanna Mccray MD Non-small cell cancer of right lung (HC) 06/10/2023 Travel 06/07/2023 Telephone [facility] [address] [place] [address] Chinmay Mendiola MD Appointment Request (SEVERE LOW BACK PAIN) 06/07/2023 Nurse Triage [facility] [address] [place] [address] Uvaldo Lin MD Back Pain 05/07/2023 8:00 AM WELDING TESTER Telemedicine [facility] [address] [place] [address] Lucille Meehan NP Sleep Follow-up; Telehealth (Virtual visit, no vitals taken.) 04/17/2023 Travel from Last 3 Months Immunizations Name Administration Dates Next Due AMB Influenza, IIV3 (Age >=3 years) Preserve Free (Flu Clinic Only) 12/30/2010 AMB Influenza, IIV3 (Age >=3 years)(Flu Clinic Only) 11/28/2011,12/23/2009 COVID-19 vaccine (SlidePay 30mcg/0.3mL) PF, MDV 05/17/2020,04/26/2020 Influenza Virus, Unspecified [...] Contact Info) Description 08/19/2023 Cardiac Device Check [facility] [phone] 12/16/2023 10:30 AM CDT Appointment [facility] [address] [place] [address] 12/19/2023 10:30 AM CDT Office Visit [facility] [address] [place] [address] Joanna Mccray MD [address] [place], [place] [id number] Health Maintenance Due Date Last Done Comments [...] 09/30/2019, 03/2012 Medical Devices Implanted Type Area Yarn Spinner Device Identifier Shelf Expiration Date Model / Serial / Lot [id number] 1-4mm 60cc Medtronic Fine Canclls Freeze Dried Implanted:Qty: 1 on 09/17/2018 by German Valdez MD at [facility] Explanted:at [facility] (Quantity not on file) Spine Medtronic Spine/Ortho 10/10/2022 [id number] / [id number] / [id number] Matrix 6cc [place] Dbf Putty Db - [id number] Implanted:Qty: 1 on 09/17/2018 by German Valdez MD at [facility] Explanted:at [facility] (Quantity not on file) Spine Medtronic Spine/Ortho 07/29/2020 [id number] / [id number] / Spacer Lmbr [id number] [place] Convex Stra Plif - [id number] Implanted:Qty: 1 on 09/17/2018 by German Valdez MD at [facility] Spine Francesco [employer] 06/08/2026 [id number] / / [id number] Screw Lmbr Post 6.5x40mm Vitality Va - [id number] Implanted:Qty: 2 on 09/17/2018 by German Valdez MD at [facility] Spine [employer] Spine [id number] 74# / / Screw Lmbr Post 6.5x45mm Vitality Va - [id number] Implanted:Qty: 4 on 09/17/2018 by German Valdez MD at [facility] Spine [employer] Spine [id number] 75# / / Set Screw Lmbr 5.5-6mm Vitality Torque - [id number] Implanted:Qty: 6 on 09/17/2018 by German Valdez MD at [facility] Spine [employer] Spine [id number] 01# / / Bernabe Lmbr 65x5.5mm Vitality Cvd Titnm - [id number] Implanted:Qty: 2 on 09/17/2018 by German Valdez MD at [facility] Spine [employer] Spine [id number] 10# / / Procedures Procedure Name Priority [...] Non-small cell cancer of right lung (HC) SCAN-BONE DENSITOMETRY DEXA 09/30/2019 12:00 AM CDT ANTI HCV Routine 01/04/2014 8:08 AM WELDING TESTER Routine general medical examination at a health [...] 1. Chronic stable changes in the lung goisn. 2. No metastatic disease or change from [...] 11.0 thou/cu mm 06/10/2023 8:50 AM CDT [facility] RED BLOOD COUNT 5.23(H) 4.00 - 5.20 mil/cu mm 06/10/2023 8:50 AM CDT [facility] HEMOGLOBIN 15.1 12.0 - 16.0 g/dL 06/10/2023 8:50 AM [facility] HEMATOCRIT 45.0 33.0 - 51.0 % 06/10/2023 8:50 AM [facility] MCV 86 80 - 100 fL 06/10/2023 8:50 AM [facility] MCH 28.9 26.0 - 34.0 pg 06/10/2023 8:50 AM [facility] MCHC 33.6 32.0 - 36.0 g/dL 06/10/2023 8:50 AM [facility] RDW 13.4 11.5 - 15.5 % 06/10/2023 8:50 AM [facility] PLATELET COUNT 193 140 - 440 thou/cu mm 06/10/2023 8:50 AM [facility] MPV 9.8 6.5 - 11.0 fL 06/10/2023 8:50 AM [facility] % NEUT 66.0 % 06/10/2023 8:50 AM [facility] % LYMPH 22.7 % 06/10/2023 8:50 AM [facility] % MONO 9.0 % 06/10/2023 8:50 AM [facility] % EOS 1.8 % 06/10/2023 8:50 AM [facility] % BASO 0.5 % 06/10/2023 8:50 AM [facility] ABSOLUTE NEUTROPHILS 4.1 1.7 - 7.0 thou/cu mm 06/10/2023 8:50 AM [facility] ABSOLUTE LYMPHOCYTES 1.4 0.9 - 2.9 thou/cu mm 06/10/2023 8:50 AM [facility] ABSOLUTE MONOCYTES 0.6 <0.9 thou/cu mm 06/10/2023 8:50 AM [facility] ABSOLUTE EOSINOPHILS 0.1 <0.5 thou/cu mm 06/10/2023 8:50 AM [facility] ABSOLUTE BASOPHILS 0.0 <0.3 thou/cu mm 06/10/2023 8:50 AM [facility] Blood BLOOD SPECIMEN / Unknown Venipuncture / Unknown 06/10/2023 8:46 AM CDT 06/10/2023 8:46 AM [facility] - 06/10/2023 8:50 AM CDT This procedure was originally ordered at [facility]. This procedure was originally ordered at [facility]. Joanna Mccray MD HEMATOLOGY [facility] [address] [place] [address] * (ABNORMAL) COMP METABOLIC PANEL (06/10/2023 8:46 AM CDT) SODIUM 145 136 - 145 mmol/L 06/10/2023 9:06 AM [facility] POTASSIUM 4.1 3.5 - 5.1 mmol/L 06/10/2023 9:06 AM [facility] CHLORIDE 106 98 - 107 mmol/L 06/10/2023 9:06 AM [facility] CO2,TOTAL 28 22 - 29 mmol/L 06/10/2023 9:06 AM [facility] ANION GAP 11 5 - 18 06/10/2023 9:06 AM [facility] GLUCOSE 158(H) 70 - 99 mg/dL 06/10/2023 9:06 AM [facility] CALCIUM 9.8 8.8 - 10.2 mg/dL 06/10/2023 9:06 AM [facility] BUN 15 8 - 23 mg/dL 06/10/2023 9:06 AM [facility] CREATININE 0.93(H) 0.50 - 0.90 mg/dL 06/10/2023 9:06 AM [facility] BUN/CREAT RATIO 16 10 - 20 9:06 AM [facility] eGFR 64(L) >90 mL/min/1.7 3m2 06/10/2023 9:06 AM [facility] Comment:As of 2021, eG FR is calculated by the CKD-EPI creatinine equation without race adjustment. ??eGFR can be influenced by muscle mass, exercise, and diet. ??The reported eGFR is an estimation only and is only applicable if the renal function is stable. ALBUMIN 4.6 4.0 - 4.9 g/dL 06/10/2023 9:06 AM [facility] PROTEIN,TOTAL 7.1 6.0 - 8.0 g/dL 06/10/2023 9:06 AM [facility] BILIRUBIN,TOTAL 1.1 0.0 - 1.2 mg/dL 06/10/2023 9:06 AM [facility] ALK PHOSPHATASE 87 35 - 104 IU/L 06/10/2023 9:06 AM [facility] ALT (SGPT) 22 10 - 35 IU/L 06/10/2023 9:06 AM [facility] AST (SGOT) 35 10 - 35 IU/L 06/10/2023 9:06 AM [facility] Blood BLOOD SPECIMEN / Unknown Venipuncture / Unknown 06/10/2023 8:46 AM CDT 06/10/2023 8:46 AM CDT Joanna Mccray MD CHEMISTRY [facility] [address] [place] [address] * SCAN-BONE DENSITOMETRY DEXA (09/30/2019 12:00 AM CDT) Anatomical Region Laterality Modality Other Scanner OTHER * ANTI HCV (01/04/2014 8:08 AM WELDING TESTER) HEPATITIS C ANTIBODY Non-Reacti ve Non-Reacti ve 01/04/2014 4:54 PM WELDING TESTER [facility] Blood specimen (specimen) BLOOD SPECIMEN / Unknown Venipuncture / Unknown 01/04/2014 8:08 AM WELDING TESTER 01/04/2014 8:08 AM WELDING TESTER Narrative [facility] - 01/04/2014 4:54 PM WELDING TESTER Antibodies to HCV not detected; does not exclude the possibility of exposure to HCV. Jarrod Cerna MD SEND OUTS [facility] [address] [place] [address], from Last 3 Months or Most Recently Relevant to Health Maintenance Advance Directives Documents on File Type Date Recorded Patient Campus Chaplain Expl anation Healthcare Directive 01/03/2016 11:31 AM [...] 12:29 PM 06/06/2017 5:38 PM Care Teams Gas Turbine Assembler Relationship Specialty Start Date End Date Uvaldo Lin MD [address] [place] [address] PCP - General Family Practice 07/04/18 Bre Boss, RN, BSN [address] [place] [address] Cancer Nurse Coordinator Registered Nurse 03/15/20 Jagdish Hicks MD [address] [place] [address] Consulting Physician Surgery - Cardiothoracic 03/15/20 Joanna Mccray MD [address] [place] [address] Oncology Oncology 07/26/20 Eileen Gross, TELEMARKETING SALES REPRESENTATIVE [address] [place] [address] Oncology Oncology 07/26/20 Dillan Irizarry LSW [address] [place] [address] [facility] Tr[facility] Oncology 01/03/23
--- OUTSIDE RECORDS SUMMARY | 2023-07-04 08:27 | XMS_ITS | Referral Summary ---
Author Name Unknown Organization [facility] Address [address] [place] [address] Care Team Providers Care Team Physician Name Role Phone Unavailable Primary Care Provider Unavailabl e Source Comments Patient records contain information from all sites at [facility]. For routine questions regarding patient records, call [phone] during business hours, M-F 8:00 AM - 5:00 PM Central Time. Record requests for emergency care only can be directed to [phone] at any time.[facility] Encounters Date Type Department Care Team Description 06/13/2023 12:19 PM CDT - 06/13/2023 4:10 PM CDT Hospital Encounter Department of Radiation Oncology in [address] [phone] Allison Campos M.D. 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) 06/10/2023 10:30 AM CDT Clinical Communication Virtual Review in [place], [place] [address] [place] [address] from Last 3 Months Allergies Active Allergy [...] EVERY DAY 09/23/2019 Active miscellaneous medical supply [facility] [...] Answer Date Recorded Dental: Regular Dentist Unknown 02/19/20 21 Sex and Gender Information Value Date [...] 157 cm (5' 1.81) 03/28/2020 9:23 AM BAR PORTER Body Mass Index 33.79 03/28/2020 9:23 AM BAR PORTER Plan of Treatment Not on file Medical Devices Implanted Type Area Catalog Library Assistant Device Identifier Shelf Expiration Date Model / [...]
--- OUTSIDE RECORDS SUMMARY | 2023-07-04 08:27 | XMS_ITS | Encounter Summary ---
Author Name Unknown Organization [facility] Address [address] [place] [address] Care Team Providers Care Promotor Group Ticket Sales Name Role Phone Unavailable Primary Care Provider Unavailabl e Reason for Referral * Outpatient (Routine) - Authorized Specialty Diagnoses / Procedures Referred By Contac t Referred To Contact Radiation Oncology Faina Reyes P.A.-C., M.SAmandeep [address] [place] [phone] Allison Campos M.D. [address] [place] [phone] Referral ID Status Reason Start Date Expiration Date V isits Requested Visits Authorized [id number] Authorized 06/13/2023 12/12/2024 [address] chest prior at [facility]; please get images and report prior to visit * MRI/CAT/PET Scan (Routine) - Authorized Specialty Diagnoses / Procedures Referred By Contac t Referred To Contact Radiology Diagnoses 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) Procedures CT Chest without IV Contrast Faina Reyes P.A.-C., M.S. [address] [place] [phone] [facility] Referral ID Status Reason Start Date Expiration Date V isits Requested Visits Authorized [id number] Authorized 06/13/2023 06/12/2024 1 1 * Outpatient (Routine) - Closed Specialty Diagnoses / Procedures Referred By Dion t Referred To Contact Radiation Oncology Faina Reyes P.A.-C., M.SAmandeep [address] [place] [phone] Allison Campos M.D. [address] [place] [phone] Referral ID Status Reason Start Date Expiration Date Visits Re quested Visits Authorized [id number] Closed 12/11/2022 12/10/2025 1 1 Scheduling Instructions Please schedule after patient's next CT chest scan as ordered by Dr. Mccray, anticipate this will be in either 6 or 12 months Reason for Visit * Outpatient (Routine) - Closed Specialty Diagnoses / Procedures Referred By Dion villanueva Referred To Contact Radiation Oncology Faina Reyes P.A.-C., M.SAmandeep [address] [place] [phone] Allison Campos M.D. [address] [place] [phone] Referral ID Status Reason Start Date Expiration Date Visits Re quested Visits Authorized [id number] Closed 12/11/2022 12/10/2025 1 1 Encounter Details Date Type Department Care Team (Latest Contact Info) Description 06/13/2023 12:19 PM CDT - 06/13/2023 4:10 PM CDT Hospital Encounter Department of Radiation Oncology in [place], [place] [address] [place] [phone] Allison Campos M.D. [address] [place] [phone] Malignant Neoplasm Of Lung Upper Lobe Or [...] Body Mass Index 33.79 03/28/2020 9:23 AM [facility] documented in this encounter Medications at Time of Discharge Medication Sig Dispensed Refills Start Date End Date albuterol 1.25 mg/3 mL nebulizer solution Inhale 6 mL. 02/19/[address] tablet Take 81 mg by mouth. 5 atorvastatin (LIPITOR) 40 mg tablet Take 1 tablet by mouth. 08/16/2021 budesonide (PULMICORT) 0.25 mg/2 mL nebulizer solution INHALE 2MLS BY NEBULIZATION ROUTE TWO TIMES EVERY DAY. fluticasone propion-salmeteroL 250-50 mcg/dose diskus inhaler 09/21/2020 furosemide (LASIX) 40 mg tablet Take 20 mg by mouth. Take one-half tablet daily 09/23/2019 ipratropium-albuteroL (DUONEB) 0.5-2.5 mg/3 mL nebulizer solution INHALE 3ML BY NEBULIZATION ROUTE FOUR TIMES PER DAY 05/27/2023 meclizine (ANTIVERT) 25 mg tablet Take 12.5 mg by mouth as needed. metoprolol succinate (TOPROL-XL) 50 mg 24 hr tablet TAKE 1 TABLET EVERY DAY 09/23/2019 miscellaneous medical supply [facility] NEW replacement CPAP machine for home [...] 99 months, Frequency of use: Daily 09/09/2018 documented as of this encounter Progress Notes * Faina Reyes P.A.-C., M.S. - 06/13/2023 1:00 PM CDT SUBJECTIVE DIAGNOSIS 1. 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) SUPERVISED BY: Allison Campos M.D. HISTORY OF PRESENT ILLNESS Mrs. Nelia Castro is a 78-year-old female with stage IA3 (cT1c, cN0, cM0) [...] left lower lobe pulmonary nodules unchanged. Right second rib fracture. No additional interval skeletal lesions. 26. June 10, 2023: CT chest demonstrated chronic stable changes in the lung goins. No metastatic disease or change. Healing fracture anterior right second rib. . June 12, 2023: Lumbar spine x-ray demonstrated no acute or significant findings. INTERVAL HISTORY: The patient was seen and examined today with Dr. Campos. The patient reports fatigue rated 8/10 in severity. She reports significant low back pain that has been present for approximately one week. She reports increased pain with any movement. She is not aware of any trauma or injury leading to recent development of the pain. She did have previous back surgery 5 years ago. She has taken Tylenol with some benefit. Her reports that they are going to the ER following her office visit here due to the back pain. The patient also reports that approximately 30-[address] scan earlier this week, she reports that her tongue felt swollen and she couldn't enunciate her words. She was with a friend who reported that she was slurring and her eyes looked funny. She also felt dizzy at the time, but states that dizziness is not unusual for her. This lasted approximately 10 minutes and then resolved completely. She denies other areas of swelling or specific symptoms at that time. She denies any vision changes or numbness, tingling, or weakness at that time or currently. She reports stable breathing. She has a cough after use of her nebulizer. She denies hemoptysis. She denies chest pain or tightness. She reports resolution of the numbness in the right axillary region. Dr. Campos also asked about incontinence and the patient did have an episode of stool incontinence 3-4 days ago, but it was after taking MiraLAX and she just wasn't able to make it ot the restroom in time. REVIEW OF SYSTEMS Review of systems was negative except as documented above. PATIENT REPORTED SYMPTOM SCREEN: FATIGUE (Scale: 0 = no fatigue; 10 = worst fatigue you can imagine): 8 PAIN (Scale: 0 = no pain; 10 = worst pain you can imagine): 9 OVERALL QUALITY OF LIFE (Scale: 0 = as bad as can be; 10 = as good as can be): 8 OBJECTIVE BP 144/76 (BP Location: Right arm, Patient Position: Sitting, Cuff Size: Regular) Pulse 79 Temp36.7 ??C (Temporal) Wt 83.3 kg BMI 33.79 kg/m?? PHYSICAL EXAMINATION General: Patient is alert and oriented. She is wearing a brace for her lumbar region and appears uncomfortable. The patient is here today with her . Heart: Regular rate and rhythm. Lungs: Clear to auscultation bilaterally. 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 She is planning to go to the ER immediately following this visit for further evaluation of her pain. She is alsoscheduled for a visit with her surgeon on June 19. The patient had a CT scan of the chest and appointment with Eileen Gross CNP in Medical Oncology earlier this week. We reviewed the CT scan report that demonstrated stable changes in the lungs and no evidence of metastatic disease. Following the CT scan, the patient did experience symptoms including a feeling of tongue swelling, inability to enunciate words, slurring, reported change in appearance of her eyes, and dizziness. These symptoms resolv ed after approximately 10 minutes and she denies any persistent or new symptoms at this time. Dr. Campos encouraged the patient to discuss this episode with the ER provider today as well as with her primary provider who she is scheduled to see on Saturday. For follow-up of her lung cancer, Dr. Guzmands a CT scan of the chest without contrast to be done in one year. We will order for a return visit to be scheduled here following the imaging to review the result. The patient will contact us with questions or concerns. She verbally expressed her understanding of the plan. EDUCATION: Ready to learn, no apparent learning barriers were identified; learning preferences include listening. Explained diagnosis and treatment plan; patient expressed understanding of the content. I personally spent 27 minutes in care of the patient today. Time includes both non face to face andface to face patient care. Signed by: Faina Reyes P.A.-C., M.S. 06/13/2023 1:28 PM CDT [facility] [address] [place] [address] Associated attestation - Allison Campos M.D. - 06/13/2023 4:10 PM CDT I saw and evaluated the patient and participated in the preciado portions of the service. I reviewed thedocumentation of MsAmandeep Reyes PA-C, MS and agree with the findings and plan. Allison Campos M.D., 06/13/2023 documented in this encounter Plan of Treatment [...]
--- OUTSIDE RECORDS SUMMARY | 2023-07-04 08:27 | XMS_ITS ---
Author Name Unknown Organization [facility] Address [address] [place] [address] Care Team Providers Care Consulting Hr Professional Name Role Phone Unavailable Unavailable Unavailable Surgery Details Not on file Complications Check Surgery Details section. Procedure Estimated Blood Loss Check Surgery Details section. Procedure Findings Check Surgery Details section. Procedure Specimens Taken Check Surgery Details section.
--- OUTSIDE RECORDS SUMMARY | 2023-07-04 08:27 | XMS_ITS ---
Author Name Unknown Organization [facility] Address [address] [place] [address] Care Team Providers Care Visual Education Director Name Role Phone Unavailable Primary Care Provider [...] On Elapsed Days Session Dose Total Dose [id number] 04/13/2020 7 1,200 cGy 4,800 cGy
--- OUTSIDE RECORDS SUMMARY | 2023-07-04 08:27 | XMS_ITS | Encounter Summary ---
Author Name Unknown Organization [facility] Address [address] [place] [address] Care Team Providers Care Crystalizer Tender Name Role Phone Unavailable Primary Care Provider Unavailabl e Encounter Details Date Type Department Care Team (Latest Contact Info) Description 06/10/2023 10:30 AM CDT Clinical Communication Virtual Review in [place], [place] [address] [place] [address] Social History Tobacco Use Types Packs/Day Years [...]
--- NOTE | 2023-07-04 09:00 | CT_ITS ---
Patient: EDENILSON VALDOVINOS Facility:?[facility] Patient ID:?[id number] Site Patient ID:?[id number]. Site :?[id number] Study:?CT-Spine Lumbar WITHOUT-07/04/2023 11:54:26 AM Ordering Physician:?DR. MCCOY Final Report: Indication: Right-sided low back pain, hardware check Technique: Noncontrast axial CT of the lumbar spine with coronal and sagittal reformats. Comparison: MRI lumbar spine 01/14/2018 Findings: The normal lumbar lordosis is preserved. No significant spondylolisthesis. Posterior transpedicular screw and linda fusion changes at L4-S1, with decompressive laminectomy changes and L5-S1 interbody spacer. Lucency along the course of the bilateral L4 greater than S1 screws, concerning for loosening. Spinal hardware otherwise appears well seated and grossly intact. No acute fractures identified. Degenerative changes at the included SI joints. Incidental bone island at the left S2 sacral ala. Cholecystectomy changes. Aortoiliac atherosclerotic plaquing. T12-L1: No significant neural foraminal or spinal canal stenosis. L1-L2: Mild diffuse disc bulge. No significant neural foraminal or spinal canal stenosis. L2-L3: Mild diffuse disc bulge. No significant neural foraminal or spinal canal stenosis. L3-L4: Mild diffuse disc bulge, mild facet arthropathy, right asymmetric ligamentum flavum calcification. Mild-moderate bilateral neural foraminal narrowing. Mild spinal canal narrowing. L4-L5: Postop changes, facet arthropathy. Mild-moderate bilateral neural foraminal narrowing. Laminectomy decompression of the spinal canal. L5-S1: Postop changes, facet arthropathy. No left, mild-moderate right neural foraminal narrowing. Laminectomy decompression of the spinal canal. Impression: 1. Posterior transpedicular screw and linda fusion changes at L4-S1, with decompressive laminectomies and L5-S1 interbody spacer. 2. Lucency along the course of the bilateral L4 screws, as well as the S1 screws to a lesser degree, concerning for loosening. 3. At L3-L4, mild-moderate bilateral neural foraminal narrowing. 4. At L4-L5, mild-moderate bilateral neural foraminal narrowing. 5. At L5-S1, mild-moderate right neural foraminal narrowing. Please note that all CT scans at this facility use dose modulation, iterative reconstruction, and/or weight-based dosing when appropriate to reduce radiation dose to as low as reasonably achievable. Dictated by Kathe Eddy MD @ 07/05/2023 9:20:14 AM Signed by:?Kathe Eddy MD @07/05/2023 9:20:14 AM (Electronic Signature)
== END 2023-07-04 08:23 | disposition home or self-care (01) ==
LOC: CT 08:23
PROVIDERS: PCP Family Medicine; Visit Provider Physician Assistant Surgical
DX: M54.50 Low back pain, unspecified (principal); M51.26 Other intervertebral disc displacement, lumbar region; T84.038A Mechanical loosening of other internal prosthetic joint, initial encounter; M96.0 Pseudarthrosis after fusion or arthrodesis
CPT/HCPCS: 72131

== ENCOUNTER 2023-07-18 07:40 | Outpatient (CLI) | payer MEDICARE, BC, SELFPAY ==
--- OUTSIDE RECORDS SUMMARY | 2023-07-18 07:44 | XMS_ITS | Encounter Summary ---
Author Name Unknown Organization [facility] Address [address] [place] [address] Care Team Providers Care Bindery Library Technical Assistant Name Role Phone Unavailable Primary Care Provider Unavailabl e Reason for Referral * Outpatient (Routine) - Authorized Specialty Diagnoses / Procedures Referred By Contac t Referred To Contact Radiation Oncology Faina Reyes P.A.-C., M.SAmandeep [address] [place] [phone] Allison Campos M.D. 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 [address] [place] [phone] [facility] Referral ID Status Reason Start Date Expiration Date V isits Requested Visits Authorized [id number] Authorized 06/13/2023 06/12/2024 1 1 * Outpatient (Routine) - Closed Specialty Diagnoses / Procedures Referred By Dion t Referred To Contact Radiation Oncology Faina Reyes P.A.-C., M.SAmandeep [address] [place] [phone] Allison Campos M.D. [address] [place] [phone] Referral ID Status Reason Start Date Expiration Date Visits Re quested Visits Authorized [id number] Closed 12/11/2022 12/10/2025 1 1 Scheduling Instructions Please schedule after patient's next CT chest scan as ordered by Dr. Mccray, anticipate this will be in either 6 or 12 months Reason for Visit * Outpatient (Routine) - Closed Specialty Diagnoses / Procedures Referred By Dion villanueva Referred To Contact Radiation Oncology Faina Reyes P.A.-C., M.SAmandeep [address] [place] [phone] Allison Campos M.D. [address] [place] [phone] Referral ID Status Reason Start Date Expiration Date Visits Re quested Visits Authorized [id number] Closed 12/11/2022 12/10/2025 1 1 Encounter Details Date Type Department Care Team (Latest Contact Info) Description 06/13/2023 12:19 PM CDT - 06/13/2023 4:10 PM CDT Hospital Encounter Department of Radiation Oncology in [place], [place] [address] [place] [phone] Allison Campos M.D. [address] [place] [phone] Malignant Neoplasm Of Lung Upper Lobe Or [...] Body Mass Index 33.79 03/28/2020 9:23 AM INVESTMENT OFFICER documented in this encounter Medications at Time [...] TABLET EVERY DAY 09/23/2019 miscellaneous medical supply [facility] NEW replacement CPAP machine [...] Reyes P.A.-C., M.S. 06/13/2023 1:28 PM CDT [facility] [address] [place] [address] Associated attestation - Allison Campos M.D. - [...]
--- OUTSIDE RECORDS SUMMARY | 2023-07-18 07:44 | XMS_ITS | Referral Summary ---
Author Name Unknown Organization [facility] Address [address] [place] [address] Care Team Providers Care Saturation Equipment Operator Name Role Phone Unavailable Primary Care Provider Unavailabl e Source Comments Patient records contain information from all sites at [facility]. For routine questions regarding patient records, call [phone] during business hours, M-F 8:00 AM - 5:00 PM Central Time. Record requests for emergency care only can be directed to [phone] at any time.[facility] Encounters Date Type Department Care Team Description 06/13/2023 12:19 PM CDT - 06/13/2023 4:10 PM CDT Hospital Encounter Department of Radiation Oncology in [address] [phone] Allison Campos M.D. 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 12/09/2014 Acti ve furosemide (LASIX) 40 mg tablet Take 20 mg by mouth. Take one-half tablet daily 09/23/2019 Active meclizine (ANTIVERT) 25 mg tablet Take 12.5 mg by mouth as needed. Active metoprolol succinate (TOPROL-XL) 50 mg 24 hr tablet TAKE 1 TABLET EVERY DAY 09/23/2019 Active miscellaneous medical supply mis NEW [...] Frequency of use: Daily 09/09/2018 Active fluticasone propion-salmeteroL 250-50 mcg/dose diskus inhaler 09/21/2020 Active budesonide (PULMICORT) 0.25 mg/2 mL nebulizer solution INHALE 2MLS BY NEBULIZATION ROUTE TWO TIMES EVERY DAY. Active ipratropium-albuter oL (DUONEB) 0.5-2.5 mg/3 mL nebulizer solution INHALE 3ML BY NEBULIZATION ROUTE FOUR TIMES PER DAY 05/27/2023 Active atorvastatin (LIPITOR) 40 mg tablet Take 1 tablet by mouth. 08/16/2021 Active Active Problems Problem Noted Date Diagnosed [...] 157 cm (5' 1.81) 03/28/2020 9:23 AM PANEL EDGE PAINTER Body Mass Index 33.79 03/28/2020 9:23 AM PANEL EDGE PAINTER Plan of Treatment Not on file Medical Devices Implanted Type Area Professor Of Medicine Device Identifier Shelf Expiration Date Model / [...]
--- OUTSIDE RECORDS SUMMARY | 2023-07-18 07:44 | XMS_ITS ---
Author Name Unknown Organization [facility] Address [address] [place] [address] Care Team Providers Care Stem Threshing Machine Operator Name Role Phone Unavailable Primary Care [...] On Elapsed Days Session Dose Total Dose [id number] 04/13/2020 7 1,200 cGy 4,800 cGy
--- OUTSIDE RECORDS SUMMARY | 2023-07-18 07:44 | XMS_ITS | Encounter Summary ---
Author Name Unknown Organization [facility] Address [address] [place] [address] Care Team Providers Care Digester Capper Name Role Phone Unavailable Primary Care Provider Unavailabl e Encounter Details Date Type Department Care Team (Latest Contact Info) Description 06/10/2023 10:30 AM CDT Clinical Communication Virtual Review in [place], [place] 200 [place] [address] Social History Tobacco Use Types Packs/Day Years [...]
--- OUTSIDE RECORDS SUMMARY | 2023-07-18 07:44 | XMS_ITS | Clinical Summary ---
Author Name Unknown Organization [facility] Address [address] [place] [address] Care Team Providers Care Master Deputy Sheriff Court Security Name Role Phone Unavailable Primary Care Provider Unavailabl e Source Comments Patient records contain information from all sites at [facility]. For routine questions regarding patient records, call [phone] during business hours, M-F 8:00 AM - 5:00 PM Central Time. Record requests for emergency care only can be directed to [phone] at any time.[facility] Allergies Active Allergy Reactions Criticality Noted [...] Hospital Encounter Department of Radiation Oncology in [address] [phone] Allison Campos M.D. 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) 06/10/2023 10:30 AM CDT Clinical Communication Virtual Review in [place], [place] [address] [place] [address] from Last 3 Months Social History Tobacco [...] 157 cm (5' 1.81) 03/28/2020 9:23 AM DIRECTOR DATA ANALYTICS Body Mass Index 33.79 03/28/2020 9:23 AM DIRECTOR DATA ANALYTICS Plan of Treatment Health Maintenance Due Date [...] this topic Medical Devices Implanted Type Area Cbx Operator Device Identifier Shelf Expiration Date Model [...] PROCEDURES IIMS NA from Last 3 Months [facility] [place] [facility] [address]
--- OUTSIDE RECORDS SUMMARY | 2023-07-18 07:44 | XMS_ITS | Continuity of Care Document ---
Author Name Unknown Organization [facility] Address [address] [place] [address] Phone Care Team Providers Care Certified Registered Locksmith Name Role Phone Maura Jarrod SOTO Unavailable Unavailable Allergies, Adverse Reactions, Alerts Substance Reaction Status Criticality Sulfa (Sulfonamide Antibiotics) unknown Active No Information morphine unknown Active No Information levofloxacin myalgia Active No Information gabapentin nausea, dizziness Active No Informa tion PROPOXYPHENE HCL Active No Informat ion soap rash Active No Information povidone-iodine rash Active No Informati on Medications Medication Instructions Dosage Effective Dates (start - stop) Status Comments tramadol 50 mg tablet take 1 tablet by oral route every 8 hours as needed 50 MG - Active cyclobenzaprine 10 mg tablet take 1 by Oral route every 8 hours prn-muscle spasms 1 - Active FUROSEMIDE (unknown strength) Not Available - Active ASPIR 81 (unknown strength) Not Available - Active ATORVASTATIN CALCIUM (unknown strength) Not Available - Active METOPROLOL SUCCINATE (unknown strength) Not Available - Active Procedures Procedure Date Office/Outpatient Visit,New, Mod 2023 X-Ray Exam Lower Spine 2-3 Views 2023 Office/Outpatient Visit,Est, Mod 2019 X-Ray Exam Lower [...] Seg Insert interbody cage w/fusion 19 Office/Outpatient Visit,Rudolph[facility]ide 2018 X-Ray Exam Lwr Spine, Min 4 Views Advance Directives Directive Yes / No Effective Date File Name No Information Encounters Encounter Description Practice Location Reason(s) For Visit Diagnoses Date Provider Providers Copied on Encounter [facility], [address], [facility] [place], [id number] , [place] tel: [phone] [facility] No Information 4 Maura Garay. [address], [facility] [place], [id number] , [place]. tel:[phone] Office/Outpa tient Visit,Aide Galdamez [facility], [address], [place], [id number] , [place] tel:[phone] [facility] Other spondylosis, lumbar regionPseudarthro sis after fusion or arthrodesis 4 Maura Garay. [address], [place], [id number] , [place]. tel:[phone] Referring Provider: Chinmay Tavarez, [facility], [place], [address]. tel:[phone] Office/Outpa tient Visit,Est, Mod [facility], [address], [place], [id number] , [place] tel:[phone] [facility] Spinal stenosis, lumbar region with neurogenic claudication 0 Courtney Conroy [facility], [address], [place], [place], [id number] , [place]. tel: [phone] Referring Provider: Chinmay Tavarez, [facility], [place], [address]. tel:[phone] [facility], [address], [facility] [place] [id number] , [place] tel: [phone] [facility] Encounter for other specified surgical aftercare 9 Eckrady Garay. [address] [place] [address] [address], [place], [place], [id number] , [place]. tel: [phone] Referring Provider: Chinmay Tavarez, [facility] Kathy [address] , [place], [address]. tel:[phone] [facility], [address], [facility] [place], [id number] , [place] tel: [phone] [facility] Encounter for other specified surgical aftercare 9 Mehbod Amir. [facility] [place], [address] [place] [address] [address], [place], [place], [id number] , [place]. tel: [phone] Referring Provider: Chinmay Tavarez, Edil[facility], [place], [address]. tel:[phone] [facility], [address], [facility] [place], [id number] , [place] tel: [phone] [facility] No Information 9 Maura Garay. [address] [place] [address] [address], [place], [place], [id number] , [place]. tel: [phone] Referring Provider: Chinmay Tavarez [facility] Kathy [facility], [place], [address]. tel:[phone] [facility], [address], [place], [place], [id number] , [place] tel: [phone] [facility] No Information 9 Mehbod Amir. [facility] [place], [address] [place] [address] [address], [place], [place], [id number] , [place]. tel:[phone] Referring Provider: Chinmay Tavarez, nap- Naturally Attached Parents [address] [facility], [place], [address]. tel:[phone] Office/Outpa tient Visit,New, Mod [facility], [address], [place], [place], [id number] , [place] [phone] [facility] Spinal stenosis, lumbar region 9 Courtney Conroy [facility], [address], [place], [place], [id number] , [place]. [phone] Referring Provider: Chinmay Tavarez nap- Naturally Attached Parents [address] [facility], [place], [address]. tel:[phone] Family History Family Member Type Diagnosis Age At Onset No Information Payers Payer name Insurance type Covered constitution party ID Authordavida memo(s) [facility] [id number] Medicare [facility] [id number] 1 Social History Type Description Quantity Date [...]
--- OUTSIDE RECORDS SUMMARY | 2023-07-18 07:44 | XMS_ITS | Clinical Summary ---
Author Name Unknown Organization [employer] Address [place], [place] [address] Care Team Providers Care Shearer Operator Name Role Phone Uvaldo Lin MD Primary Care Provider + Bre Boss RN, BSN Unavailable [phone] Jagdish Hicks MD Unavailable [phone] Joanna Mccray MD Unavailable Eileen Gross DISTRICT LOSS PREVENTION MANAGER Unavailable Dillan Irizarry Unavailable [phone] Allergies Active Allergy Reactions Criticality Noted [...] release tablet 24 HourIndications:Card iovascular symptoms,CAD in [place] artery Take 1 Tablet (30 mg) by [...] TONY (dyspnea on exertion) 10/19/2021 CAD in [place] artery 10/19/2021 Non-small cell cancer of right lung 07/26/2020 GAGE 08/20/2016 AHI-10; REM severe with hypoxemia 08/28/2016 Arthritis, lumbar spine 03/07/2015 Aortic stenosis 07/09/2013 Family hx of colon cancer 02/04/2012 Overview: mother Vitamin D deficiency 04/26/2009 Hypertension 09/14/2008 Vascular disease 02/06/2008 Glaucoma 09/24/2006 Coronary atherosclerosis of unspecified type of vessel, [place] or graft 08/16/2006 Overview: Angioplasty, no stent. [...] - 06/12/2023 11:59 PM CDT Hospital Encounter [facility] [address] [place] [address] Eileen Gross, DISTRICT LOSS PREVENTION MANAGER Non-small cell cancer of right lung (HC) 06/12/2023 10:15 AM CDT Office Visit [facility] [address] [place] [address] Eileen Gross, KRISTIAN Follow Up (Non-small cell cancer of right lung (HC)//) 06/12/[address] [facility] [address] [place] [address] Eileen Gross, KRISTIAN Imaging 06/12/2023 Travel 06/10/2023 8:42 AM CDT - 06/10/2023 11:59 PM CDT Hospital Encounter [facility] [address] [place] [address] Non-small cell cancer of right lung (HC) 06/10/2023 8:41 AM CDT Hospital Encounter [facility] [address] [place] [address] Joanna Mccray MD Non-small cell cancer of right lung (HC) 06/10/2023 Travel 06/07/2023 Telephone [facility] [address] [place] [address] Chinmay Mendiola MD Appointment Request (SEVERE LOW BACK PAIN) 06/07/[address] [facility] [address] [place] [address] Uvaldo Lni MD Back Pain 05/07/2023 8:00 AM FIELD LOGISTICS COORDINATOR Telemedicine [facility] [address] [place] [address] Lucille Meehan NP Sleep Follow-up; Telehealth (Virtual visit, no vitals taken.) from Last 3 Months Immunizations Name Administration Dates Next Due AMB Influenza, IIV3 (Age >=3 years) Preserve Free (Flu Clinic Only) 12/30/2010 AMB Influenza, IIV3 (Age >=3 years)(Flu Clinic Only) 11/28/2011,12/23/2009 COVID-19 vaccine ([employer] NTvIPtela 30mcg/0.3mL) ALFREDO PETIT 05/17/2020,04/26/2020 Influenza Virus, Unspecified 12/13/1998,12/31/18 98 Influenza, [...] Contact Info) Description 08/19/2023 [address]iac [address] [facility] [phone] 12/16/2023 10:30 AM CDT Appointment [facility] [address] [place] [address] 12/19/2023 10:30 AM CDT Office Visit [facility] [address] [place] [address] Joanna Mccray MD [address] [place] [address] Health Maintenance Due Date Last Done Comments [...] 09/30/2019, 03/2012 Medical Devices Implanted Type Area Clerical Office Device Identifier Shelf Expiration Date Model / Serial / Lot [id number] 1-4mm 60cc Medtronic Fine Canclls Freeze Dried Implanted:Qty: 1 on 09/17/2018 by German Valdez MD at [facility] Explanted:at [facility] (Quantity not on file) Spine Medtronic Spine/Ortho 10/10/2022 [id number]# / [id number] / [id number] ne Matrix 6cc Alvaro Dbf Putty Dbm - [id number] Implanted:Qty: 1 on 09/17/2018 by German Valdez MD at [facility] Explanted:at [facility] (Quantity not on file) Spine Medtronic Spine/Ortho 07/29/2020 [id number]# / [id number] / Spacer Lmbr [id number] [place] Convex Stra Plif - [id number] Implanted:Qty: 1 on 09/17/2018 by German Valdez MD at [facility] Spine [employer] 06/08/2026 [id number] / / [id number] Screw Lmbr Post 6.5x40mm Vitality Va - [id number] Implanted:Qty: 2 on 09/17/2018 by German Valdez MD at [facility] Spine [employer] Spine [id number]# / / Screw Lmbr Post 6.5x45mm Vitality Va - [id number] Implanted:Qty: 4 on 09/17/2018 by German Valdez MD at [facility] Spine [employer] Spine [id number] 75# / / Set Screw Lmbr 5.5-6mm Vitality Torque - [id number] Implanted:Qty: 6 on 09/17/2018 by German Valdez MD at [facility] Spine [employer] Spine [id number] 01# / / Bernabe Lmbr 65x5.5mm Vitality Cvd Titnm - [id number] Implanted:Qty: 2 on 09/17/2018 by German Valdez MD at [facility] Spine [employer] Spine [id number] 10# / / Procedures Procedure Name Priority [...] CDT ANTI HCV Routine 01/04/2014 8:08 AM FIELD LOGISTICS COORDINATOR Routine general medical examination at a health [...] 11.0 thou/cu mm 06/10/2023 8:50 AM CDT [facility] RED BLOOD COUNT 5.23(H) 4.00 - 5.20 mil/cu mm 06/10/2023 8:50 AM CDT [facility] HEMOGLOBIN 15.1 12.0 - 16.0 g/dL 06/10/2023 8:[address] [facility] HEMATOCRIT 45.0 33.0 - 51.0 % 06/10/2023 8:[address] [facility] MCV 86 80 - 100 fL 06/10/2023 8:[address] [facility] MCH 28.9 26.0 - 34.0 pg 06/10/2023 8:[address] [facility] MCHC 33.6 32.0 - 36.0 g/dL 06/10/2023 8:[address] [facility] RDW 13.4 11.5 - 15.5 % 06/10/2023 8:[address] [facility] PLATELET COUNT 193 140 - 440 thou/cu mm 06/10/2023 8:[address] [facility] MPV 9.8 6.5 - 11.0 fL 06/10/2023 8:[address] [facility] % NEUT 66.0 % 06/10/2023 8:[address] [facility] % LYMPH 22.7 % 06/10/2023 8:[address] [facility] % MONO 9.0 % 06/10/2023 8:[address] [facility] % EOS 1.8 % 06/10/2023 8:[address] [facility] % BASO 0.5 % 06/10/2023 8:[address] [facility] ABSOLUTE NEUTROPHILS 4.1 1.7 - 7.0 thou/cu mm 06/10/2023 8:[address] [facility] ABSOLUTE LYMPHOCYTES 1.4 0.9 - 2.9 thou/cu mm 06/10/2023 8:[address] [facility] ABSOLUTE MONOCYTES 0.6 <0.9 thou/cu mm 06/10/2023 8:[address] [facility] ABSOLUTE EOSINOPHILS 0.1 <0.5 thou/cu mm 06/10/2023 8:[address] [facility] ABSOLUTE BASOPHILS 0.0 <0.3 thou/cu mm 06/10/2023 8:[address] [facility] Blood BLOOD SPECIMEN / Unknown Venipuncture / Unknown 06/10/2023 8:46 AM CDT 06/10/2023 8:[address] [facility] - 06/10/2023 8:50 AM CDT This procedure was originally ordered at [facility]. This procedure was originally ordered at [facility]. Joanna Mccray MD HEMATOLOGY [facility] [address] [place] [address] * (ABNORMAL) COMP METABOLIC PANEL (06/10/2023 8:46 AM CDT) SODIUM 145 136 - 145 mmol/L 06/10/2023 9:[address] [facility] POTASSIUM 4.1 3.5 - 5.1 mmol/L 06/10/2023 9:[address] [facility] CHLORIDE 106 98 - 107 mmol/L 06/10/2023 9:[address] [facility] CO2,TOTAL 28 22 - 29 mmol/L 06/10/2023 9:[address] [facility] ANION GAP 11 5 - 18 06/10/2023 9:[address] [facility] GLUCOSE 158(H) 70 - 99 mg/dL 06/10/2023 9:[address] [facility] CALCIUM 9.8 8.8 - 10.2 mg/dL 06/10/2023 9:[address] [facility] BUN 15 8 - 23 mg/dL 06/10/2023 9:[address] [facility] CREATININE 0.93(H) 0.50 - 0.90 mg/dL 06/10/2023 9:[address] [facility] BUN/CREAT RATIO 16 10 - 20 9:[address] [facility] eGFR 64(L) >90 mL/min/1.7 3m2 06/10/2023 9:06 AM T [facility] Comment:As of 2021, eG FR is calculated by the CKD-EPI creatinine equation without race adjustment. ??eGFR can be influenced by muscle mass, exercise, and diet. ??The reported eGFR is an estimation only and is only applicable if the renal function is stable. ALBUMIN 4.6 4.0 - 4.9 g/dL 06/10/2023 9:06 AM T [facility] PROTEIN,TOTAL 7.1 6.0 - 8.0 g/dL 06/10/2023 9:[address] [facility] BILIRUBIN,TOTAL 1.1 0.0 - 1.2 mg/dL 06/10/2023 9:[address] [facility] ALK PHOSPHATASE 87 35 - 104 IU/L 06/10/2023 9:[address] [facility] ALT (SGPT) 22 10 - 35 IU/L 06/10/2023 9:[address] [facility] AST (SGOT) 35 10 - 35 IU/L 06/10/2023 9:[address] [facility] Blood BLOOD SPECIMEN / Unknown Venipuncture / Unknown 06/10/2023 8:46 AM CDT 06/10/2023 8:46 AM CDT Joanna Mccray MD CHEMISTRY [facility] [address] [place] [address] * SCAN-BONE DENSITOMETRY DEXA (09/30/2019 12:00 AM CDT) Anatomical Region Laterality Modality Other Scanner OTHER * ANTI HCV (01/04/2014 8:08 AM FIELD LOGISTICS COORDINATOR) HEPATITIS C ANTIBODY Non-Reacti ve Non-Reacti ve 01/04/2014 4:54 PM FIELD LOGISTICS COORDINATOR [facility] Blood specimen (specimen) BLOOD SPECIMEN / Unknown Venipuncture / Unknown 01/04/2014 8:08 AM FIELD LOGISTICS COORDINATOR 01/04/2014 8:08 AM FIELD LOGISTICS COORDINATOR Narrative [facility] - 01/04/2014 4:54 PM FIELD LOGISTICS COORDINATOR Antibodies to HCV not detected; does not exclude the possibility of exposure to HCV. Jarrod Cerna MD SEND OUTS [facility] [address] [place] [address], from Last 3 Months or Most Recently Relevant to Health Maintenance Advance Directives Documents on File Type Date Recorded Patient Stress Test Technician Expl anation Healthcare Directive 01/03/2016 11:31 AM [...] 12:29 PM 06/06/2017 5:38 PM Care Teams Shearer Operator Relationship Specialty Start Date End Date Uvaldo Lin MD [address] [place] [id number] PCP - General Family Practice 07/04/18 Bre Boss, RN, BSN [address] [place] [address] Cancer Nurse Coordinator Registered Nurse 03/15/20 Jagdish Hicks MD [address] [place] [address] Consulting Physician Surgery - Cardiothoracic 03/15/20 Joanna Mccray MD [address] [place] [address] Oncology Oncology 07/26/20 Eileen Gross, DISTRICT LOSS PREVENTION MANAGER [address] [place] [address] Oncology Oncology 07/26/20 Dillan Irizarry LSW [address] [place], [place] [phone] Director Of Teenage Activities Oncology 01/03/23
--- OUTSIDE RECORDS SUMMARY | 2023-07-18 07:44 | XMS_ITS ---
Author Name Unknown Organization [facility] Address [address] [place] [address] Care Team Providers Care Binder Folder Operator Name Role Phone Unavailable Unavailable Unavailable Surgery Details Not on file Complications Check Surgery Details section. Procedure Estimated Blood Loss Check Surgery Details section. Procedure Findings Check Surgery Details section. Procedure Specimens Taken Check Surgery Details section.
--- NOTE | 2023-07-18 09:23 | P.ANES_ITS ---
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
--- NOTE | 2023-07-18 10:07 | W.ANESCHARGE ---
Anesthesia Charges Start Date/Time Anesthesia Start Date: 07/18/23 Anesthesia Start Time: 08:43 Stop Date/Time Anesthesia Stop Date: 07/18/23 Anesthesia Stop Time: 09:21 Summary Extremes of Age - Over 70 or under 1: MDA
== END 2023-07-18 07:41 | disposition home or self-care (01) ==
LOC: OP CLINIC 07:41
PROVIDERS: PCP Family Medicine; Visit Provider Surgery
DX: Z12.11 Encounter for screening for malignant neoplasm of colon (principal); K63.5 Polyp of colon; K62.1 Rectal polyp; K64.4 Residual hemorrhoidal skin tags; K57.30 Diverticulosis of large intestine without perforation or abscess without bleeding
CPT/HCPCS: 00811; 45385; 88305; 99100; J2704

== ENCOUNTER 2024-07-08 09:17 | Outpatient (CLI) | payer MEDICARE, BC, SELFPAY | END 2024-07-08 09:18 | disposition home or self-care (01) | PROVIDERS: PCP Family Medicine; Visit Provider Family Medicine | DX: E78.2 Mixed hyperlipidemia (principal); I10 Essential (primary) hypertension; R53.83 Other fatigue | CPT/HCPCS: 80048; 80061; 84443; 84460; 85025 ==

== ENCOUNTER 2025-02-21 12:10 | Emergency (ER) | payer MEDICARE, BC, SELFPAY ==
--- OUTSIDE RECORDS SUMMARY | 2025-02-21 12:12 | XMS_ITS ---
Author Organization [facility] Address [address] [place] [address] Care Team Providers Care Automotive Alignment Specialist Name Role Phone Unavailable Primary Care Provider Unavailabl e Active Problems ProblemNoted DateDiagnosed DateChronic Obstructive Pulmonary Fapzrha3212/12/2022 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 Cancer Staging: Clinical stage from 02/29/2020:Stage IA3(cT1c, cN0, cM0) - Unsigned Current Treatment and Therapy Plans No current plan information found. Past Treatment and Therapy Plans No past plan information found. Past Radiation Episodes * SBRT: Right LungOverview* First Treatment DateLast Treatment DateTreatment SiteTechniqueGoalEpisode [id number]* Right Lung SBRTCurative * Linked Problems Malignant Neoplasm Of Lung U pper Lobe Or Bronchus Right Treatment Courses* Treatment PeriodFraction DoseFractionsTotal DosePlansPlanned F1 Rlung SBRT04/06/2020 - ,200 cGy4 / 44,800 cGyReference Points Dqqtrydoddpf5566k60/03/2021 - 04/13/2020?4,800 cGy
--- OUTSIDE RECORDS SUMMARY | 2025-02-21 12:12 | XMS_ITS | CCD ---
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 - 02/28 CT BIOPSY ROBLEDO Medications Date Name Route Dose Frequency Instructions Start Date End Date Status Fill Status Indication 03/15/2020 Furosemide Oral orally 1.0 tablet daily wyztal9203/15/2020Miscellaneous DrugpodailyApple Cider Gdfkqsuurjtno60/12/2021 Aspirin Oralorally1.0 tablet,delayed release (DR/EC)eveviblcaif05/12/2021 Atorvastatin Oralorally1.0 umfeqejdtvsbslwbv55/12/2021Metoprolol Oral 24 hr Tab (Succinate)orally1.0 tablet extended release 24 wsnosqkucqlbk66/12/2021 Miscellaneous Drug 1podailyTumeric/Litlabuuqnhgoj51/12/2021Vitamin B Complex Oral Tabletorallydailyactive Problems Diagnosis Status Date of Diagnosis Resolution Date Lung nodule, multiple Active Non-small cell lung cancer (disorder)Active Social History Date Name Value 03/09/2020 Sex Female
--- OUTSIDE RECORDS SUMMARY | 2025-02-21 12:12 | XMS_ITS | Clinical Summary ---
Author Organization [facility] Address [address] [place] [address] Care Team Providers Care Water Pollution Control Technician Name Role Phone Uvaldo Lin MD Primary Care Provider + Bre Boss RN, BSN Unavailable Unavailab Jagdish Lovett MD Unavailable [phone] Joanna Mccray MD Unavailable Eileen Gross WRAPPER STEMMER HAND Unavailable Dillan Irizarry LGSW Unavailable Unavailable Helen Cox RN Unavailable Allergies Active AllergyReactionsCriticalityNoted DateCommentsPovidone-IodineRash 08/03/20063360BkjcntuigpkoPzzmdlfgzAdjlbq23/19/2007GabapentinNausea Only,Dizziness 04/25/20156331EcohghquidolFnwbhat18/08/2018MorphineNausea And VomitingMedium 04/22/20062199UqzwytPcgqThthpm79/19/2007Oxycodone*Emqhyum4802/18/2025SoapRash 07/22/2018Sulfa (Sulfonamide Antibiotics)FrpoPtvmxb89/19/2007 Medications MedicationSigDispense QuantityRefillsLast FilledStart DateEnd DateStatus CPAP Indications:GAGE (obstructive sleep apnea)CPAP machine for home use at pressure:7.6 cm/H2O , Heated humidifier x 1, Humidifier chamber x 1, 1 unit Active CPAP Indications:GAGE (obstructive sleep apnea)NEW replacement CPAP machine for home use at pressure: 7.6 cm H2o , Water chamber x 1 q 6 mo, chin strap x 1 q 6 mo, nasal interface mask x 1 q 3 mo, with nasal pillow x 2 q mo, heated pap tubing x 1q 3 mo, headgear x 1 q 6 mo, non disposable filter 1 q 6 mo, disposable filter x 2 q mo Length of Need: 99 months, Frequency of use: Daily 1 Device Active metoprolol succinate (TOPROL XL) 50 mg sustained-release tablet Indications:Essential hypertensionTAKE 1 TABLET EVERY DAY 90 tablet 09/23/2019Active albuterol HFA (PRO-AIR; VENTOLIN; PROVENTIL) 90 mcg/actuation inhaler Inhale 2 Puffs by mouth every 4 hours.01/22/2020Active aspirin (ECOTRIN) 81 mg enteric coated tablet Indications:S/P TAVR (transcatheter aortic valve replacement)Take 1 Tablet (81 mg) by mouth once daily with a meal.3Active triamterene-hydrochlorothiazide (37.5-25 mg) 37.5-25 mg capsule Take 1 Capsule by mouth once daily in the morning.Active albuterol-ipratropium (2.5-0.5 mg) in 3 mL NEBULIZATION solution INHALE 3ML BY NEBULIZATION ROUTE FOUR TIMES PER DAY4Active medication order composer Pro-bioticActive LORazepam (Ativan) 0.5 mg tab Indications:Malignant neoplasm of upper lobe of right lung (HC)0.5 mg by mouth about 1 hour prior to each stereotactic radiation treatment, if needed for anxiety 5 Tablet 5Active atorvastatin (LIPITOR) 80 mg tablet Take 80 mg by mouth once daily.Active ezetimibe (Zetia) 10 mg tablet Indications:Coronary artery disease, unspecified vessel or lesion type, unspecified whether angina present, unspecified whether quechan or transplanted heartTake 1 Tablet (10 mg) by mouth once daily. 30 Tablet 5Active furosemide (LASIX) 40 mg tablet Indications:Edema, unspecified typeTAKE 1 TABLET EVERY MORNING 90 tablet Discontinued(*Patient states no longer taking) budesonide (PULMICORT RESPULES) 0.25 mg/2 mL neb suspension INHALE 2MLS BY NEBULIZATION ROUTE TWICE DAILYDiscontinued (*Patient states no longer taking) atorvastatin (LIPITOR) 40 mg tablet Indications:Hyperlipidemia, unspecified hyperlipidemia typeTake 1 Tablet (40 mg) by mouth at bedtime. 90 tablet. Discontinued(Duplicate therapy (E-cancel not sent)) VITAMIN B COMPLEX ORAL Take by mouth.02/11/2025Discontinued(*Patient states no longer taking) docusate sodium (STOOL SOFTENER ORAL) Take by mouth.02/11/2025Discontinued(*Patient states no longer taking) ezetimibe (Zetia) 10 mg tablet Indications:Coronary artery disease, unspecified vessel or lesion type, unspecified whether angina present, unspecified whether quechan or transplanted heartTake 1 Tablet (10 mg) by mouth once daily.Discontinued (Reorder (E-cancel not sent)) ezetimibe (Zetia) 10 mg tablet Indications:Coronary artery disease, unspecified vessel or lesion type, unspecified whether angina present, unspecified whether quechan or transplanted heartTake 1 Tablet (10 mg) by mouth once daily. 30 Tablet 111Discontinued(Reorder (E-cancel not sent)) Active Problems ProblemNoted DateDiagnosed DateHypoattentuated leaflet thickening (HALT) 02/15/2023Status post transcatheter aortic valve replacement (TAVR) using dgixjhvzblnbj16/15/2023DOE (dyspnea on exertion)2CAD in quechan artery 10/19/2021Non-small cell cancer of right lung07/26/2020OSA 08/20/2016 AHI-10; REM severe with /27/2017Arthritis, lumbar spine03/07/2015Aortic stenosis 07/09/2013Family hx of colon sljmcz8502/04/2012 Overview (02/04/2012): mother Vitamin D qtpmltqpum03/23/3809Vecnkebikuon71/14/2009Vascular zwictpq5602/06/2008 Gpvmnweu86/24/2007Coronary atherosclerosis of unspecified type of vessel, quechan or graft08/16/2006 Overview (05/19/2017): Angioplasty, no stent. Nuclear stress test normal 05/2011 Benign neoplasm of colon08/16/20069405Ehuogluanbnywu70/30/2007Meniere's disease, dlfxazystyp47/19/2007 Resolved Problems ProblemNoted DateDiagnosed DateResolved DateHeart tyxmcj56 Personal history of colonic dpqonr29Family history of malignant neoplasm of gastrointestinal tract Overview (02/04/2012): Mother Obesity, llslnorlbzc65BereavementVitamin D mwssuebcns46/23/Pre-yrrzwpbn01Elevated fasting paexaeg52EdemaCalculus of lfizfl1209/24/2006 05/19/2017 Overview (09/24/2006): Kidney stones Pain in limbDISCOMFORT (CHEST)Encounter for long-term (current) use of other tgbvqahzyli70 Encounters DateTypeDepartmentCare UilmWtwqirwetfs46/12/2025Telephone [address] [address] Radha Toure MD Medication Drjvzuyeok59/11/2025 8:30 AM CSTOffice Visit [facility] & [address] [address] Radha Toure MD Ssbrpxl0402/10/20252793Ugrkel80/13/2025 10:30 AM CDTOffice Visit [facility] [address] [place] [address] Joanna Mccray MD Follow Up (Non-small cell cancer of right lung)12/14/20249436Dxstld41/08/2025Travel 12/04/2024Orders Only [facility] Rad[facility] - [place] [address] [place] [address] Unknown, Doctor <No scans attached>12/03/2024 9:46 AM CDT - 12/03/2024 11:[address] [facility] Rad[facility] - [place] [address] [place] [address] Uvaldo Veras MD 11/30/2024 10:14 AM CDT - 11/30/2024 11:[address] [facility] - [place] [address] [place] [address] Uvaldo Veras MD 11/29/20248082Lqxqaf39/27/7610Vytmzm76/26/2025 10:15 AM CDT - 11/27/2024 11:[address] [facility] Rad[facility] Oncology - [place] [address] [place] [address] Uvaldo Veras MD 11/24/2024 10:00 AM CDT - 11/24/2024 11:[address] [facility] Rad[facility] Oncology - [place] [address] [place] [address] Uvaldo Veras MD 11/24/20246886Aemelx67/22/2025 6:15 AM CDT - 11/23/2024 11:[address] [facility] Rad[facility] Oncology - [place] [address] [place] [address] Uvaldo Veras MD 11/22/2024Travelfrom Last 3 Months Immunizations ImmunizationAdministration DatesNext DueAMB Influenza, IIV3 (Age >=3 years) Preserve Free (Flu Clinic Only)12/30/2010MB Influenza, IIV3 (Age >=3 years)(Flu Clinic Only)11/28/2011,12/23/2009COVID-19 vaccine ([employer] 30mcg/0.3mL) PF, MDV05/17/2020,04/26/2020Influenza Virus, Dzsxqvpfjot01/12/1999,12/31/1997 Influenza, High-dose Fcvtogowepy20/10/2020,12/09/2018,12/05/2015,12/20/2014, 01/27/2014Influenza, High-dose Quadrivalent Bfgucmcggxy41/16/2020Influenza, IIV3 (Age >=3 years)12/17/2012,12/03/2008,12/25/2006,12/02/2005Influenza, Inactivated AIIV4 (Age 65+ Years) Preserv Free01/03/2023,12/18/2021,12/21/2020Influenza, Inactivated IIV3 (Age 65+ Years) Preserv Free12/11/2023,11/15/2017,11/12/2016 Pneumococcal Poly,23-Valent (Pneumovax)03/01/2016,12/28/1994Pneumococcal conj 13-Valent (Prevnar 13)02/28/2015RSV, Bivalent Vaccine Reconstituted (Abrysvo 120MCG/0.5mL)01/17/2023Tdap09/19/2022,08/16/2006Zoster (Shingrix-RZV, recombinant)06/12/2019,01/16/2019Zoster (Zostavax-ZVL, live)10/10/2009 Family History Medical HistoryRelationNameCommentsHeart DiseaseFatherLung diseaseFatherStroke FatherCOPDMotherCancer-colonMotherprimary /liver now and kidney,lung and adrenal Cancer-breastNo Family HistoryRelationNameStatusCommentsFatherMother Social History Tobacco UseTypesPacks/DayYears UsedDateSmoking Tobacco: FormerCigarettes1.545 11/03/1959 - 11/02/2004Smokeless Tobacco: Never Tobacco Cessation:Counseling Given: Not Answered Comments:Per patient report on 03/15/2020 Alcohol UseStandard Drinks/WeekCommentsNot Currently0 (1 standard drink = 0.6 oz pure alcohol)very rarelyPHQ-2AnswerDate RecordedPHQ-2 TOTAL ZJBGQ507 Financial Resource StrainAnswerDate RecordedDifficulty of Paying Living Expenses Not on file1Difficulty of Paying Living ExpensesNot on file02/22/2021 CommentsNoSex and Gender InformationValueDate RecordedSex Assigned at BirthNot on fileLegal JprOvouqk61/14/2013 6:24 AM CSTGender IdentityNot on file Sexual OrientationNot on fileOccupationIndustryJob Start DateJob End DateRetired Not on fileNot on fileNot on file Last Filed Vital Signs Vital SignReadingTime TakenCommentsBlood Gytthhdg020/6602/18/2025 2:03 PM LINE ASSEMBLER Jeabp375302/18/2025 2:03 PM AGWHadlkljxxuj21.9 ??C (98.5 ??F)12/14/2024 10:20 AM CDTRespiratory Eepo1895 10:20 AM CDTOxygen Abmjengcvu96%02/18/2025 2:03 PM CSTInhaled Oxygen Concentration--Iyuoup32 kg (172 lb)02/18/2025 2:03 PM LINE ASSEMBLER Kmyfym915.5 cm (5' 2)02/18/2025 2:03 PM CSTBody Mass Index31.4602/18/2025 2:03 PM LINE ASSEMBLER Plan of Treatment DateTypeDepartmentCare Team (Latest Contact Info)Gzaxgmioist41/19/2026 8:15 AM CSTAppointment [facility] [address] [place] [address] 03/22/2025 8:30 AM CSTAppointment [facility] 200 [place] [address] 03/25/2025 11:00 AM CSTOffice Visit [facility] [place] [address] [place] [address] Joanna Mccray MD [address] [place] [address] 04/13/2025ardiac Device Check [facility] [place] [facility] [place] [phone] 05/31/2025 11:45 AM CDTAppointment [facility] [address] [place] [address] 06/04/2025 11:00 AM CDTHospital Encounter [facility] [place] [facility] - [place] [address] [place] [address] Uvaldo Veras MD [address] [place] [address] Health MaintenanceDue DateLast DoneCommentsMedicare Wellness for age 65+ , 03/01/2016, 02/28/2015, Additional history exists Depression screening for age 12+/, 08/31/2021, 08/29/2021, Additional history existsCOVID-19 vaccine series (2024- season)2024 10/18/2020, 05/17/2020, 04/26/2020Influenza Vaccine (#1)/11/2023, 01/03/2023, 12/18/2021, Additional history existsLow Dose CT (for lung CA) age 50-800/607/, 06/17/2024, 06/10/2023, Additional history existsBMI (ht and wt on same day) for age 18+612/01/2025, 02/09/2022, 12/29/2021, Additional history existsTetanus djoyvzw36/, 08/16/2006 Hepatitis C screening for age 18-52Ryrfzplnt99/03/2014Pneumococcal series for age 50+Wgiauvthu62/29/2016, 02/28/2015, 02/28/2015, Additional history exists Zoster (shingles) series for age 50+Gpkzqtzhb32/10/2020, 01/16/2019, 10/10/2009 DEXA/DXA scan for age 65+Ykzmpucqe16/29/2020, 06/02/2012RSV vaccine for adults or rwikgqfykOioyczkzz96/16/2023Hepatitis B series for 19+Aged OutNo longer eligible based on patient's age to complete this topic Medical Devices ImplantedTypeAreaManufacturerDevice IdentifierShelf Expiration DateModel / Serial / [id number] 1-4mm 60cc Medtronic Fine Canclls Freeze Dried Implanted:Qty: 1 on 09/17/2018 by German Valdez MD at [facility] Explanted:at [facility] (Quantity not on file)SpineMedtronic Spine/[id number]# / [id number] / [id number] Matrix 6cc [place] Dbf Putty Dbm - [id number] Implanted:Qty: 1 on 09/17/2018 by German Valdez MD at [facility] Explanted:at [facility] (Quantity not on file)SpineMedtronic Spine/Ortho07/29/[id number]# / [id number] / Spacer Lmbr 7w14s34gu [place] Convex Stra Plif - [id number] Implanted:Qty: 1 on 09/17/2018 by German Valdez MD at [facility] [id number]# / / [id number] Lmbr Post 6.5x40mm Vitality Va - [id number] Implanted:Qty: 2 on 09/17/2018 by German Valdez MD at [facility] Biomet [id number]# / / Screw Lmbr Post 6.5x45mm Vitality Va - [id number] Implanted:Qty: 4 on 09/17/2018 by German Valdez MD at [facility] Biomet [id number]# / / Set Screw Lmbr 5.5-6mm Vitality Torque - [id number] Implanted:Qty: 6 on 09/17/2018 [id number]# / / Bernabe Lmbr 65x5.5mm Vitality Cvd Titms - [id number] Implanted:Qty: 2 on 09/17/2018 by German Valdez MD at [facility] Biomet [id number]# / / Procedures Procedure NamePriorityDate/TimeAssociated DiagnosisCommentsRAD ONC ARIA COURSE KAJAABJEbnlbux58/03/2025 4:13 PM CDT SCAN-OPERATIVE/PROCEDURE AOURQS5312/03/2024 3:47 PM CDT RAD ONC ARIA SESSION UFJDNOCHfawixi97/02/2025 10:15 AM CDT SCAN-OPERATIVE/PROCEDURE ALVKKH5611/30/2024 3:50 PM CDT RAD ONC ARIA SESSION CKUVOXSCrwehpr69/29/2025 10:33 AM CDT RAD ONC ARIA SESSION ADSOCHGQqwozpx14/26/2025 10:39 AM CDT SCAN-OPERATIVE/PROCEDURE BBPNGJ9411/27/2024 10:30 AM CDT SCAN-OPERATIVE/PROCEDURE WCKKUB4011/24/2024 6:10 PM CDT RAD ONC ARIA SESSION JXVPPYQNyiugvq86/23/2025 10:[address] CHEST SOXnjigur99/21/2025 9:34 AM CDT Non-small cell cancer of right lung (HC) [C34.91] SCAN-BONE DENSITOMETRY DEXA09/30/2019 12:00 AM CDT ANTI LPJHjisxyk42/03/2014 8:08 AM LINE ASSEMBLER Routine general medical examination at a health care facility from Last 3 Months or Most Recently Relevant to Health Maintenance Results * Rad Onc Aria Course Summary (12/04/2024 4:13 PM CDT)ComponentValueRef Range Test MethodAnalysis TimePerformed AtPathologist SignatureCourse VCPmyxin9LWRD RADIATION ONCOLOGYCourse IntentDefinitiveARIA RADIATION ONCOLOGYCourse Start Date11/13/2024RIA RADIATION ONCOLOGYCourse End Fefp89294755734370YAWE RADIATION ONCOLOGYCourse First Treatment Date11/20/2024RIA RADIATION ONCOLOGY Course Last Treatment Date12/03/2024RIA RADIATION ONCOLOGYCourse Elapsed Days 13ARIA RADIATION ONCOLOGYTreatment Xswvn4FTTV RADIATION ONCOLOGYReference Point ID2ac RUL SBRTARIA RADIATION ONCOLOGYReference Point Dosage Given to Ydke94ZhKGRY RADIATION ONCOLOGYPlan YG4ieCLPCMJN4ypBRVN RADIATION ONCOLOGYPlan Trka1urDTZHHPW5kgIIWH RADIATION VMSXEZRJCqwsty3VELNV RADIATION ONCOLOGYPlan Fractions Treated to Spyg0SLSS RADIATION ONCOLOGYPlan Total Fractions Zjhqdcbovt4InIUTD RADIATION ONCOLOGYPlan Prescribed Dose Per Dbvazgvc61CcZJTC RADIATION ONCOLOGYPlan Total Prescribed Dose5,000cGyARIA RADIATION ONCOLOGY Plan Primary Reference Lxpwq4av RUL SBRTARIA RADIATION ONCOLOGYSpecimen (Source)Anatomical Location / LateralityCollection Method / VolumeCollection TimeReceived Time12/04/2024 4:13 PM CDT Narrative Authorizing ProviderResult TypeResult StatusDoctor UnknownRADIATION ONCOLOGY ORD Final ResultPerforming OrganizationAddressCity/State/ZIP CodePhone Number [facility] RADIATION ONCOLOGY * SCAN-OPERATIVE/PROCEDURE REPORT (12/03/2024 3:47 PM CDT) Narrative Authorizing ProviderResult TypeResult StatusScannerOTHERFinal Result * Rad Onc Aria Session Summary (12/03/2024 10:15 AM CDT) Only the most recent of4 resultswithin the time period is included. ComponentValueRef RangeTest MethodAnalysis TimePerformed AtPathologist Signature Course WICidlsc2QPMY RADIATION ONCOLOGYCourse IntentDefinitiveARIA RADIATION ONCOLOGYCourse Start Date11/13/2024RIA RADIATION ONCOLOGYCourse First Treatment Date11/20/2024RIA RADIATION ONCOLOGYCourse Last Treatment Date12/03/2024RIA RADIATION ONCOLOGYCourse Elapsed Rspx61PMBB RADIATION ONCOLOGYTreatment Dates6 ARIA RADIATION ONCOLOGYReference Point ID2ac RUL SBRTARIA RADIATION ONCOLOGY Reference Point Dosage Given to Iusg29KxIWDY RADIATION ONCOLOGYReference Point Session Dosage Xiwyb53VhENNR RADIATION ONCOLOGYPlan ME6bvLNIEWFS9ofMOZT RADIATION XUKNRFBRGzaifv7FZZFH RADIATION ONCOLOGYPlan Fractions Treated to Date5 ARIA RADIATION ONCOLOGYPlan Total Fractions Qlnrtcunhy1AfAITG RADIATION ONCOLOGY Plan Prescribed Dose Per Ppxizqhy50XdOUKF RADIATION ONCOLOGYPlan Total Prescribed Dose5,000cGyARIA RADIATION ONCOLOGYPlan Primary Reference Evjou6ku RUL SBRTARIA RADIATION ONCOLOGYSpecimen (Source)Anatomical Location / Laterality Collection Method / VolumeCollection TimeReceived Time12/03/2024 10:15 AM CDT Narrative Authorizing ProviderResult TypeResult StatusDoctor UnknownRADIATION ONCOLOGY ORD Final ResultPerforming OrganizationAddressCity/State/ZIP CodePhone Number ARIA RADIATION ONCOLOGY * SCAN-OPERATIVE/PROCEDURE REPORT (11/30/2024 3:50 PM CDT) Narrative Authorizing ProviderResult TypeResult StatusScannerOTHERFinal Result * SCAN-OPERATIVE/PROCEDURE REPORT (11/27/2024 10:30 AM CDT) Narrative Authorizing ProviderResult TypeResult StatusScannerOTHERFinal Result * SCAN-OPERATIVE/PROCEDURE REPORT (11/24/2024 6:10 PM CDT) Narrative Authorizing ProviderResult TypeResult StatusScannerOTHERFinal Result * CT CHEST WO (09/21/2024 9:34 AM CDT)Anatomical RegionLateralityModalityCHEST, THORAX, HEARTComputed TomographySpecimen (Source)Anatomical Location / LateralityCollection Method / VolumeCollection TimeReceived Time09/22/2024 3:36 PM CDT Impressions 09/22/2024 3:36 PM CDT Right upper lobe masslike consolidation slightly larger in the transverse dimension and now encompasses the previously new adjacent nodule. Consider PET-CT to evaluate for active tumor. Please note that all CT scans at this facility use dose modulation, iterative reconstruction, and/or weight-based dosing when appropriate to reduce radiation dose to as low as reasonably achievable. Dictated by Bret Llanos MD @ 09/22/2024 3:36:11 PM (Electronically Signed) Narrative 09/22/2024 3:36 PM CDT For Patients: As a result of the Cures Act, medical imaging exams and procedure reports are released immediately into your electronic medical record. You may view this report before your referring provider. If you have questions, please contact your health care provider. INDICATION: Non-small cell cancer of the right lung, surveillance TECHNIQUE: CT chest without contrast. COMPARISON: 06/07/2024, 06/10/2023, 12/10/[address]s FINDINGS: Lungs and pleura: Masslike area of consolidation in the right upper lobe is slightly larger in the transverse diameter now measuring 6.6 x 4.8 cm versus 6.5 x 4.1 cm. It now encompasses the previously seen new nodule. Multiple bilateral ground-glass nodules are stable. Several round solid nodules in the left upper lobe left lower lobe measuring up to 6 mm are also stable. ?? Heart and vasculature: Heart size is normal. Thoracic aorta and pulmonary artery are normal in caliber.TAVR. Pacemaker. Dense coronary artery calcifications. Lymph nodes/mediastinum: No mediastinal, hilar, or axillary adenopathy. Calcified lymph nodes. Small hiatal hernia. Chest wall: No masses. Upper abdomen: Cholecystectomy. Bones: Ununited anterior right 2nd rib fracture similar. Again, this is located near the area of right upper lobe consolidation. Suspect this was a radiation port. Procedure Note Bret Llanos MD - 09/22/2024 For Patients: As a result of the Cures Act, medical imagingexams and procedure reports are released immediately into your electronicmedical record. You may view this report before your referring provider.If you have questions, please contact your health care provider. INDICATION: Non-small cell cancer of the right lung, surveillance TECHNIQUE: CT chest without contrast. COMPARISON: 06/07/2024, 06/10/2023, 12/10/[address] FINDINGS: Lungs and pleura: Masslike area of consolidation in the right upper lobeis slightly larger in the transverse diameter now measuring 6.6 x 4.8 cmversus 6.5 x 4.1 cm. It now encompasses the previously seen new nodule.Multiple bilateral ground-glass nodules are stable. Several round solidnodules in the left upper lobe left lower lobe measuring up to 6 mm arealso stable. Heart and vasculature: Heart size is normal. Thoracic aorta and pulmonaryartery are normal in caliber.TAVR. Pacemaker. Dense coronary arterycalcifications. Lymph nodes/mediastinum: No mediastinal, hilar, or axillary adenopathy.Calcified lymph nodes. Small hiatal hernia. Chest wall: No masses. Upper abdomen: Cholecystectomy. Bones: Ununited anterior right 2nd rib fracture similar. Again, this islocated near the area of right upper lobe consolidation. Suspect this wasa radiation port. IMPRESSION: Right upper lobe masslike consolidation slightly larger in the transverse dimension and now encompasses the previously new adjacent nodule. ConsiderPET-CT to evaluate for active tumor. Please note that all CT scans at this facility use dose modulation,iterative reconstruction, and/or weight-based dosing when appropriate toreduce radiation dose to as low as reasonably achievable. Dictated by Bret Llanos MD @ 09/22/2024 3:36:11 PM (Electronically Signed) Authorizing ProviderResult TypeResult StatusShefangi Mccray MDCTFinal Result * SCAN-BONE DENSITOMETRY DEXA (09/30/2019 12:00 AM CDT)Anatomical Region LateralityModalityOther Narrative Authorizing ProviderResult TypeResult StatusScannerOTHERFinal Result * ANTI HCV (01/04/2014 8:08 AM LINE ASSEMBLER)ComponentValueRef RangeTest MethodAnalysis TimePerformed AtPathologist SignatureHEPATITIS C ANTIBODYNon-Reactive Non-Zrkfumup73/03/2014 4:54 PM CSTCR[facility]SR[facility] Specimen (Source)Anatomical Location / LateralityCollection Method / Volume Collection TimeReceived TimeBlood specimen (specimen)BLOOD SPECIMEN / Unknown Venipuncture / Ksumows0101/04/2014 8:08 AM CST01/04/2014 8:08 AM LINE ASSEMBLER Narrative [facility] - 01/04/2014 4:54 PM LINE ASSEMBLER Antibodies to HCV not detected; does not exclude the possibility of exposure to HCV. Authorizing ProviderResult TypeResult StatusJarrod Cerna MDSEND OUTSFinal ResultPerforming OrganizationAddressCity/State/ZIP CodePhone Number [facility] [address] [place] [address], [place] from Last 3 Months or Most Recently Relevant [place] [id number] * Guarantor: Nelia Castro TypeRelation to PatientDate of BirthPhone Billing AddressPersonal/PmtvixVcun90/ [address] [facility] [place] [address] Advance Directives TypeDate RecordedPatient RepresentativeExplanationHealthcare Ejcqhvpwj17/1/2016 11:31 AM12/27/15 * Full Code (Latest Code Status on File) Date ActivatedDate OnrnmvpivhbGdeqplmh74/2/2022 4:20 PM01/05/2022 3:09 PMQuestion AnswerCommentsCode Status Discussion:* Reviewed Preferences * Full Code Date ActivatedDate InactivatedComments08/16/2021 10:37 AM08/17/2021 9:11 PM QuestionAnswerCommentsCode Status Discussion:* Reviewed Preferences * Full Code Date ActivatedDate InactivatedComments09/17/2018 3:11 PM09/20/2018 7:59 PM * Full Code Date ActivatedDate InactivatedComments08/11/2018 8:16 AM08/11/2018 3:33 PM * Full Code Date ActivatedDate InactivatedComments06/06/2017 12:29 PM06/06/2017 5:38 PM Care Teams Team MemberRelationshipSpecialtyStart DateEnd Date Uvaldo Lin MD [address] [place] [address] PCP - GeneralFamily Ffxgzxqn01/10/25 Bre Boss, RN, BSN [address] [place] [address] Cancer Nurse CoordinatorRegistered Nurse03/15/20 Jagdish Hicks MD [address] [facility] [address] [place] [address] Consulting PhysicianSurgery - Cardiothoracic03/15/20 Joanna Mccray MD [address] [place] [address] OncologyOncology07/26/20 Eileen Gross, WRAPPER STEMMER HAND [address] [place] [address] OncologyOncology07/26/20 Dillan Irizarry LGSW [address] [place] [address] Social WugtmdXvieqlau71/2/23 Helen Cox RN [address], [place] [id number] Nurse Navigator - OncologyRegistered Nurse11/06/24
--- OUTSIDE RECORDS SUMMARY | 2025-02-21 12:12 | XMS_ITS | Clinical Summary ---
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 For routine questions regarding patient records, call [phone] during business hours, M-F 8:00 AM - 5:00 PM Central Time. Record requests for emergency care only can be directed to [phone] at any time.[facility] Allergies Active AllergyReactionsCriticalityNoted DateCommentsGabapentinNausea Only,Other (see comments),GI okdlggaxwnhSiilmb82/22/1616MrduapqrfwjfFfhlanyoDjs21/08/2018 MorphineNausea Only,Nausea And FkhesifrFslveq60/19/2007NickelRashMedium 04/22/2006Povidone-QlgvnjDzpzHpky06/02/2007PropoxypheneHallucinations,RashMedium 04/22/2006Sulfa (Sulfonamide Antibiotics)HqdzHixrwb91/19/2007 Medications MedicationSigDispense QuantityRefillsLast FilledStart DateEnd DateStatus albuterol 1.25 mg/3 mL nebulizer solution Inhale 6 mL.02/19/2020Active aspirin [address] tablet Take 81 mg by mouth.12/09/2014ctive furosemide (LASIX) 40 mg tablet Take 20 mg by mouth. Take one-half tablet daily09/23/2019Active meclizine (ANTIVERT) 25 mg tablet Take 12.5 mg by mouth as needed.Active metoprolol succinate (TOPROL-XL) 50 mg 24 hr tablet TAKE 1 TABLET EVERY DAY09/23/2019Active miscellaneous medical supply misc NEW replacement CPAP [...] of Need: 99 months, Frequency of use: Daily09/09/2018Active fluticasone propion-salmeteroL 250-50 mcg/dose diskus inhaler 09/21/2020ctive budesonide (PULMICORT) 0.25 mg/2 mL nebulizer solution INHALE 2MLS BY NEBULIZATION ROUTE TWO TIMES EVERY DAY.Active ipratropium-albuteroL (DUONEB) 0.5-2.5 mg/3 mL nebulizer solution INHALE 3ML BY NEBULIZATION ROUTE FOUR TIMES PER DAY05/27/2023ctive atorvastatin (LIPITOR) 40 mg tablet Take 1 tablet by mouth.08/16/2021ctive triamterene-hydroCHLOROthiazide (Dyazide) 37.5-25 mg per capsule Take 1 capsule by mouth every morning.02/03/2024ctive Active Problems ProblemNoted DateDiagnosed DateChronic Obstructive Pulmonary Kufzjin5612/12/2022 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 Cancer Staging: Clinical stage from 02/29/2020:Stage IA3(cT1c, cN0, cM0) - Unsigned Social History Tobacco UseTypesPacks/DayYears UsedDateSmoking Tobacco: FormerCigarettes1.545 03/04/1959 - 03/04/2004Smokeless Tobacco: Never Tobacco Cessation:Counseling Given: Not Answered Alcohol UseStandard Drinks/WeekCommentsNot Currently0 (1 standard drink = 0.6 oz pure alcohol)CommentsUnknownSex and Gender InformationValueDate Recorded Sex Assigned at BirthNot on fileLegal AzaMbchhz17/02/2017 6:38 AM CSTGender IdentityNot on fileSexual OrientationNot on file Last Filed Vital Signs Vital SignReadingTime TakenCommentsBlood Oddikfpx132/7604 12:53 PM CDT Pvkie9434 12:53 PM WEFVkrlkouevjz92.7 ??C (98 ??F)06/13/2023 12:53 PM CDTRespiratory Rate--Oxygen Saturation--Inhaled Oxygen Concentration--Dvfefh43.3 kg (183 lb 10.3 oz)06/13/2023 12:53 PM UPRUpsdnp795 cm (5' 1.81)03/28/2020 9:23 AM CSTBody Mass Index33.7903/28/2020 9:23 AM 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 Plan of Treatment Health MaintenanceDue DateLast DoneCommentsHepatitis C Ceuevqbbb90/27/1946 Depression Screening (Annual PHQ-2)03/04/2024Fall Risk Screen (Annual)03/04/2024 COVID-19 Vaccine ( season), 05/17/2020, 04/26/2020Influenza Vaccine (#1)/11/2023, 01/03/2023, 12/18/2021, Additional history existsDTaP,Tdap,and Td Vaccines (3 - Td or Tdap)09/19/2032 09/19/2022, 08/16/2006Bone Density Scan (Osteoporosis Screen)Discontinued 06/02/2012Pneumococcal vaccine (50+ years)Akivzmdhe05/29/2016, 02/28/2015, 12/28/19941187OccakdlxbVnmtacqqufcn11/12/2018, 03/13/2016Zoster VaccinesCompleted 06/12/2019, 01/16/2019, 10/10/2009RSV vaccine - (32-36 weeks) or 50+ rheylLhaqwjuki53/16/2023HPV VaccinesAged OutNo longer eligible based on patient's age to complete this topicIPV VaccinesAged OutNo longer eligible based on patient's age to complete this topic Medical Devices ImplantedTypeAreaManufacturerDevice IdentifierShelf Expiration DateModel / Serial / LotHardware E.G. Pins/Screws/RodsHardware e.g. pins/screws/rodsSpine LumbarPacemakerPacemakerHeart Insurance * Guarantor: Nelia Castro TypeRelation to PatientDate of PhoneBilling AddressPersonal/JsqxrwMgkj90/ [address] [place] [address]
[2025-02-21 12:29] VITALS: BP 163/87; PULSE 73; RESP 20; TEMP 36.6; O2SAT 95; BMI 32.1
--- NOTE | 2025-02-21 12:36 | CRLHL7_ITS ---
For Patients: As a result of the Century Cures Act, medical imaging exams and procedure reports are released immediately into your electronic medical record. You may view this report before your referring provider. If you have questions, please contact your health care provider. Indication: Fall, hit head Technique: Noncontrast axial CT of the cervical spine with coronal and sagittal reformats. Comparison: None. Findings: Craniocervical articulation appears within normal limits. Normal cervical lordosis is preserved. 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 Grade 1 anterolisthesis at C3-4 and C4-5. No acute fracture identified. Spondylosis with multilevel neural foraminal stenosis, but no evidence for high-grade spinal canal stenosis. No suspicious findings in the paravertebral soft tissues. Partially visualized right canal wall up mastoidectomy changes. No pneumothorax within the visualized left lung apex. Impression: 1. No evidence of acute fracture or traumatic malalignment in the cervical spine. Please note that all CT scans at this facility use dose modulation, iterative reconstruction, and/or weight-based dosing when appropriate to reduce radiation dose to as low as reasonably achievable. Dictated by Kathe Eddy MD @ 02/21/2025 1:05:01 PM (Electronically Signed)
--- NOTE | 2025-02-21 12:36 | CRLHL7_ITS ---
For Patients: As a result of the Century Cures Act, medical imaging exams and procedure reports are released immediately into your electronic medical record. You may view this report before your referring provider. If you have questions, please contact your health care provider. INDICATION: Fall, hit head TECHNIQUE: Noncontrast axial CT of the head. Coronal and sagittal reformats. Bone and soft tissue algorithms. COMPARISON: None. FINDINGS: Left frontal/supraorbital scalp hematoma. No skull fracture identified. No acute intracranial hemorrhage or intracranial mass effect. Ventricles and cortical sulci are prominent, compatible with generalized cerebral volume loss. Nonspecific mineralization changes are incidentally noted at the bilateral globus pallidus. There is patchy hypoattenuation throughout the cerebral white matter, typical of chronic microangiopathy. Moreno-white matter differentiation is preserved. Unremarkable midline structures. Calcific intracranial atherosclerotic plaquing. Clear visualized paranasal sinuses and mastoid air cells. Bilateral lens implants. IMPRESSION: 1. Left frontal/supraorbital scalp hematoma. 2. No skull fracture or acute intracranial hemorrhage identified. Please note that all CT scans at this facility use dose modulation, iterative reconstruction, and/or weight-based dosing when appropriate to reduce radiation dose to as low as reasonably achievable. Dictated by Kathe Eddy MD @ 02/21/2025 1:01:22 PM (Electronically Signed)
--- NOTE | 2025-02-21 13:28 | ED.FALL ---
HPI - Fall General Chief Complaint: Fall/Minor Trauma Stated Complaint: Fell, hit head Time Seen by Provider: 02/21/25 12:36 History of Present Illness HPI Narrative: Patient is a 79-year-old woman who was out shoveling her driveway which is very icy. She slipped and fell striking the left periocular area and frontal region. She did not lose consciousness. She is able to get herself up and called family brought her to the emergency room. There is a concern as the patient takes aspirin 81 mg daily. Patient is been feeling fine with the exception of headache. She has had no fevers no chills no night sweats no confusion no loss of consciousness no palpitations. She is otherwise returning to his state of health although she has large contusion lateral and superior to the left eye.. Related Data Home Medications ?Medication ?Instructions ?Recorded ?Confirmed nitroglycerin 0.4 mg sublingual 0.4 mg buccal ONCE 09/08/21 02/21/25 tablet cpap inhalation 01/08/22 02/11/25 docusate sodium [Stool Softener] PO 10/19/24 02/11/25 lactobacillus combination no.9 PO 10/19/24 02/11/25 [Adult 50 Plus Probiotic] ezetimibe 10 mg tablet 10 mg PO QDAY 02/11/25 02/21/25 Previous Rx's ?Medication ?Instructions ?Recorded aspirin 81 mg chewable tablet 81 mg PO QDAY #1 tab 04/02/23 atorvastatin 80 mg tablet 80 mg PO DAILY #90 tabs 07/13/24 ipratropium 0.5 mg-albuterol 3 mg 3 ml inhalation QID #180 mL 07/30/24 (2.5 mg base)/3 mL nebulization soln albuterol sulfate 90 mcg/actuation 2 puff inhalation Q6H PRN 09/13/24 aerosol inhaler shortness of breath or wheezing #8.5 grams budesonide 160 mcg-glycopyr 9 2 inh inhalation BID #10.7 grams 09/13/24 mcg-formot 4.8 mcg/actuation HFA inhaler (Breztri Aerosphere) budesonide 0.25 mg/2 mL suspension 0.25 mg (2 mL) inhalation BID #60 09/15/24 for nebulization mL metoprolol succinate 50 mg 50 mg PO DAILY #90 tabs 11/23/24 tablet,extended release 24 hr triamterene 37.5 1 cap PO QAM #90 caps 11/23/24 mg-hydrochlorothiazide 25 mg capsule Allergies Allergy/AdvReac Type Severity Reaction Status Date / Time oxycodone Allergy Severe Dry heaves Verified 02/21/25 12:35 gabapentin Allergy Unknown Verified 02/21/25 12:35 morphine Allergy Unknown Verified 02/21/25 12:35 nickel Allergy Unknown Verified 02/21/25 12:35 propoxyphene Allergy Unknown Verified 02/21/25 12:35 Sulfa (Sulfonamide Allergy Unknown Unknown Verified 02/21/25 12:35 Antibiotics) povidone-iodine AdvReac Mild Hives, rash Verified 02/21/25 12:35 Review of Systems Status of ROS: Reports: 10 or more systems reviewed and unremarkable except as noted in History and below [facility] Medical History History of Meniere's disease (2006) ?Z86.69 - Personal history of other diseases of the nervous system and sense organs (ICD-10) Mixed hyperlipidemia ?E78.2 - Mixed hyperlipidemia (ICD-10) Primary hypertension ?I10 - Essential (primary) hypertension (ICD-10) ASCVD (arteriosclerotic cardiovascular disease) ?I25.10 - Atherosclerotic heart disease of hoh coronary artery without angina pectoris (ICD-10) COVID-19 ?U07.1 - COVID-19 (ICD-10) Osteoporosis ?M81.0 - Age-related osteoporosis without current pathological fracture (ICD-10) Obstructive sleep apnea syndrome (08/20/16) ?G47.33 - Obstructive sleep apnea (adult) (pediatric) (ICD-10) History of vitamin D deficiency ?Z86.39 - Personal history of other endocrine, nutritional and metabolic disease (ICD-10) History of colonic polyps (06/06/17) ?Z86.010 - Personal history of colonic polyps (ICD-10) Glaucoma ?H40.9 - Unspecified glaucoma (ICD-10) Chronic obstructive pulmonary disease ?J44.9 - Chronic obstructive pulmonary disease, unspecified (ICD-10) Chronic constipation ?K59.09 - Other constipation (ICD-10) Balance problems ?R26.89 - Other abnormalities of gait and mobility (ICD-10) Arthritis of lumbar spine ?M47.816 - Spondylosis without myelopathy or radiculopathy, lumbar region (ICD-10) Adenocarcinoma of lung (02/29/20) ?C34.90 - Malignant neoplasm of unspecified part of unspecified bronchus or lung (ICD-10) Surgical History S/P TAVR (transcatheter aortic valve replacement) ?Z95.2 - Presence of prosthetic heart valve (ICD-10) History of coronary artery stent placement ?Z95.5 - Presence of coronary angioplasty implant and graft (ICD-10) History of total abdominal hysterectomy ?Z90.710 - Acquired absence of both cervix and uterus (ICD-10) History of tonsillectomy and adenoidectomy ?Z90.89 - Acquired absence of other organs (ICD-10) History of percutaneous transluminal coronary angioplasty (2006) ?Z98.61 - Coronary angioplasty status (ICD-10) History of lumbar fusion (10/08/18) ?Z98.1 - Arthrodesis status (ICD-10) History of laparoscopic cholecystectomy ?Z90.49 - Acquired absence of other specified parts of digestive tract (ICD-10) History of extraction of renal calculus ?Z98.890 - Other specified postprocedural states (ICD-10) ?Z87.442 - Personal history of urinary calculi (ICD-10) History of colonoscopy with polypectomy (06/06/17) ?Z98.890 - Other specified postprocedural states (ICD-10) ?Z86.010 - Personal history of colonic polyps (ICD-10) Family History Mother Colon cancer Father Stroke Heart disease Brother Type 2 diabetes mellitus Social History Narrative: -Pedro, 2 kids, retired Non-smoker No EtOH What is your current living situation?: I presently have a place to live Problems where you live: no known problems In the past 12 months, utilities in danger of being shut off: no In past 12 months, lack of transportation kept you from medical appts, meetings, work, or getting things needed for daily living: no In the past 12 mos, have been you worried that your food would run out before you had money to buy more?: never true In the past 12 mos, the food you bought just didn't last and you didn't have money to buy more?: never true Smoking Status: Former smoker How often does anyone, including family, friends and others, physically hurt you: never How often does anyone, including family, friends and others, insult or talk down to you: never How often does anyone, including family, friends and others, threaten you with harm: never How often does anyone, including family, friends and others, scream or curse at you: never Exam Narrative: Exam Narrative: EXAM GENERAL: Patient appears comfortable and well. EYES: No scleral icterus. Normal extraocular movement. Pupils are equal round reactive. No scleral erythema or hematoma. She does have bruising lateral to her left eye but no other findings. ENT: Tympanic membranes and oropharynx normal. THYROID: no thyroid nodules or thyromegaly. LYMPH: No supraclavicular or cervical lymphadenopathy. SKIN: Visible skin seen during exam normal or with benign process only. EXT: No dependent lower extremity pedal edema. HEART: Regular rate and rhythm with no murmurs, rubs, or gallops. LUNGS: Clear to auscultation bilaterally with no crackles or wheezes. ABD: Soft, non tender, non distended. PSYCH: Good eye contact, speech is not pressured. Const: Vital Signs, click to edit/add: Vital Signs - 24 hr 02/21/25 12:29 Temperature 97.8 F Pulse Rate [Pulse Oximeter] 73 Respiratory Rate 20 Blood Pressure [Le ft Upper Arm] 163/87 H Pulse Oximetry 95 Oxygen Delivery Me thod Room Air Course Course ED Course: Patient seen examined. I did recommend a CT of her head and neck both which were normal with exception of the superficial hematoma on the left periocular region. I did recommend ice Tylenol Motrin rest. Diagnosis is facial contusion. I did explain that she will likely get a significant hematoma on her face and I asked her to follow-up with her primary physician. Vital Signs Vital signs: Initial Vital Signs Temperature 97.8 F 02/21/25 12:29 Temperature Source Temporal Artery Scan 02/21/25 12:29 Pulse Rate 73 02/21/25 12:29 Respiratory Rate 20 02/21/25 12:29 Blood Pressure 163/87 H 02/21/25 12:29 Blood Pressure Mean 112 H 02/21/25 12:29 Blood Pressure Position Sitting 02/21/25 12:29 Pulse Oximetry 95 02/21/25 12:29 Oxygen Delivery Method Room Air 02/21/25 12:29 Vital Signs Temperature 97.8 F 02/21/25 12:29 Pulse Rate 73 02/21/25 12:29 Respiratory Rate 20 02/21/25 12:29 Blood Pressure 163/87 H 02/21/25 12:29 Pulse Oximetry 95 02/21/25 12:29 Oxygen Delivery Method Room Air 02/21/25 12:29 Temperature 97.8 F 02/21/25 12:29 Pulse Rate 73 02/21/25 12:29 Respiratory Rate 20 02/21/25 12:29 Blood Pressure 163/87 H 02/21/25 12:29 Pulse Oximetry 95 02/21/25 12:29 Oxygen Delivery Method Room Air 02/21/25 12:29 Discharge Plan Discharge Clinical Impression: Contusion of face Patient Disposition: Home, Self-Care Condition: Stable Instructions: Facial Contusion (ED) Additional Instructions: Ice Tylenol Motrin Continue current medications Follow-up with your doctor as needed. Activity Level: No Restrictions Discharge Diet: Regular Prescriptions: No Action nitroglycerin 0.4 mg tablet, sublingual 0.4 mg buccal ONCE docusate sodium [Stool Softener] PO lactobacillus combination no.9 [Adult 50 Plus Probiotic] PO ezetimibe 10 mg tablet 10 mg PO QDAY cpap inhalation aspirin 81 mg tablet,chewable 81 mg PO QDAY Qty: 1 0RF atorvastatin 80 mg tablet 80 mg PO DAILY Qty: 90 3RF ipratropium-albuterol 0.5 mg-3 mg(2.5 mg base)/3 mL solution for nebulization 3 ml inhalation QID Qty: 180 11RF Breztri Aerosphere 160-9-4.8 mcg/actuation HFA aerosol inhaler 2 inh inhalation BID Qty: 10.7 5RF albuterol sulfate 90 mcg/actuation HFA aerosol inhaler 2 puff INHALATION Q6H PRN (Reason: shortness of breath or wheezing) Qty: 8.5 5RF budesonide 0.25 mg/2 mL suspension for nebulization 0.25 mg inhalation BID Qty: 60 10RF metoprolol succinate 50 mg tablet extended release 24 hr 50 mg PO DAILY Qty: 90 1RF triamterene-hydrochlorothiazid 37.5-25 mg capsule 1 cap PO QAM Qty: 90 1RF Follow Up/Referrals: Uvaldo Lin MD [Primary Care Provider, Family Practice] Stand Alone Forms: [employer] Info Instructions
--- OUTSIDE RECORDS SUMMARY | 2025-02-21 13:52 | XMS_ITS | CCD ---
Author Name Interface, [id number] lity Address [address] [facility] [address] [place] [address] Organization [facility] Address [address] [facility] [address] [place] [address] Allergies and Adverse Reactions Medication/Group Name Reaction Severity Date Sulfa (Sulfonamide Antibiotics) Rash 03/15/2020Metal (substance)Rash03/15/20201883ybemvvhvKnjzylrc99/12/2021 Reason for Visit MIX CHEMIST - 67 RUL CARCINOMA - 02/28 CT BIOPSY ROBLEDO Medications Date Name Route Dose Frequency Instructions Start Date End Date Status Fill Status Indication 03/15/2020 Furosemide Oral orally 1.0 tablet daily ivjygx4603/15/2020Miscellaneous DrugpodailyApple Cider Tfwlyznfkndtr04/12/2021 Aspirin Oralorally1.0 tablet,delayed release (DR/EC)dvrcqhxmasv62/12/2021 Atorvastatin Oralorally1.0 dcqkprxzwonkabnyq90/12/2021Metoprolol Oral 24 hr Tab (Succinate)orally1.0 tablet extended release 24 zfbkkrjfodqom08/12/2021 Miscellaneous Drug 1podailyTumeric/Efalbvjlbhdnru28/12/2021Vitamin B Complex Oral Tabletorallydailyactive Problems Diagnosis Status Date of Diagnosis Resolution Date Lung nodule, multiple Active Non-small cell lung cancer (disorder)Active Social History Date Name Value 03/09/2020 Sex Female
--- OUTSIDE RECORDS SUMMARY | 2025-02-21 13:52 | XMS_ITS | CCD ---
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 - 67 RUL CARCINOMA - 02/28 CT BIOPSY [place] Medications Date Name Route Dose Frequency Instructions Start Date End Date Status Fill Status Indication 03/15/2020 Furosemide Oral orally 1.0 tablet daily lgkatx4203/15/2020Miscellaneous DrugpodailyApple Cider Lpfjkkkfttfel64/12/2021 Aspirin Oralorally1.0 tablet,delayed release (DR/EC)lmsjbfnhocs19/12/2021 Atorvastatin Oralorally1.0 tuqugkubzthjhjcuf78/12/2021Metoprolol Oral 24 hr Tab (Succinate)orally1.0 tablet extended release 24 fajcjzwugxsvq59/12/2021 Miscellaneous Drug 1podailyTumeric/Vtqehjpibaujnf53/12/2021Vitamin B Complex Oral Tabletorallydailyactive Problems Diagnosis Status Date of Diagnosis Resolution Date Lung nodule, multiple Active Non-small cell lung cancer (disorder)Active Social History Date Name Value 03/09/2020 Sex Female
== END 2025-02-21 14:02 | disposition home or self-care (01) ==
LOC: ED 13:50
PROVIDERS: Emergency Provider Internal Medicine; PCP Family Medicine
DX: S00.12XA Contusion of left eyelid and periocular area, initial encounter (principal); Z79.82 Long term (current) use of aspirin; W00.0XXA Fall on same level due to ice and snow, initial encounter; Y93.H1 Activity, digging, shoveling and raking; Y92.008 Other place in unspecified non-institutional (private) residence as the place of occurrence of the external cause
CPT/HCPCS: 70450; 72125; 99283; 99284; 99285